=== PATIENT | female | born 1955 | race Hispanic/Latino ===

== ENCOUNTER 2020-03-05 23:35 | Emergency (ER) | payer BC, OTHER ==
[~2020-03-05] VITALS: Ht 162.6 cm; Wt 121.1 kg
[~2020-03-05 23:35] MED LIST: CITALOPRAM HBR40 MG PO; LEVOTHYROXINE50 MCG PO; LISINOPRIL-HCT1 EAC2 PO; LOSARTAN POTASS25 MG PO; METFORMIN HCL500 MG PO
[2020-03-05] MEDS ORDERED: ONDANSETRON HCL INJ 2MG/ML 2ML 2 MG/ML VIAL IV STA (23:41)
[2020-03-05] MEDS ORDERED: SODIUM CHLORIDE 0.9% 1000ML 1,000 ML IV STA (23:41)
[2020-03-05] MEDS ORDERED: MORPHINE SULFATE INJ 4 MG/ML INJ 1ML IV STA (23:41)
[2020-03-05 23:57] LABS: BASOPHILS # (AUTO) 0.1 (0.0-0.1); BASOPHILS % 0.6 % (0.0-1.0); EOSINOPHILS # (AUTO) 0.2 (0.0-0.4); EOSINOPHILS % 2.2 % (0.0-6.0); HEMATOCRIT 31.9 % (34.2-44.1); HEMOGLOBIN 10.5 g/dL (12.0-16.0); LYMPHOCYTES # (AUTO) 1.8 (1.0-3.2); MEAN CORPUSCULAR HEMOGLOBIN 23.6 pg (28-32); MEAN CORPUSCULAR HGB CONC 32.9 g/dL (31-35); MEAN CORPUSCULAR VOLUME 71.7 fL (81-99); MONOCYTES # (AUTO) 0.7 (0.2-0.8); MONOCYTES % 7.9 % (4.4-11.3); NEUTROPHILS # (AUTO) 5.6 (2.1-6.9); NEUTROPHILS % 67.1 % (38.7-80.0); PLATELET COUNT 115 x10e3/uL (140-360); RED BLOOD COUNT 4.45 x10e6/uL (3.6-5.1); RED CELL DISTRIBUTION WIDTH 22.7 % (11.7-14.4)
[2020-03-06] MEDS ORDERED: FAMOTIDINE 20 MG/2 ML VIAL IV STA (00:02)
[2020-03-06] MEDS ORDERED: ONDANSETRON HCL INJ 2MG/ML 2ML 2 MG/ML VIAL ONE (00:16)
[2020-03-06] MEDS ORDERED: SODIUM CHLORIDE 0.9% 1000ML 1,000 ML ONE (00:16)
[2020-03-06 00:20] LABS: ALBUMIN 3.3 g/dL (3.5-5.0); ALBUMIN/GLOBULIN RATIO 0.7 (0.8-2.0); ANION GAP 15.8 mmol/L (8-16); CALCIUM 9.8 mg/dL (8.4-10.2); CREATININE, SERUM 1.2 mg/dL (0.57-1.11); POTASSIUM 4.8 mmol/L (3.5-5.1)
[2020-03-06] MEDS ORDERED: MORPHINE SULFATE INJ 4 MG/ML INJ 1ML ONE ×2 (00:26→00:27)
[2020-03-06 00:28] LABS: BILIRUBIN,URINE NEGATIVE (NEGATIVE); CLARITY,URINE SL CLOUDY (CLEAR); COLOR,URINE YELLOW (YELLOW); KETONES,URINE NEGATIVE (NEGATIVE); LEUKOCYTE ESTERASE ,URINE NEGATIVE (NEGATIVE); NITRITE,URINE NEGATIVE (NEGATIVE); PROTEIN,URINE DIPSTICK NEGATIVE (NEGATIVE); URINE UROBILINOGEN 0.2 mg/dL (0.2 - 1)
[2020-03-06 00:34] LABS: BACTERIA,URINE FEW /HPF; EPITHELIAL CELLS,URINE MANY /LPF; RBC,URINE 0-5 /HPF (0-5); WBC,URINE (MAN) 0-5 /HPF (0-5)
[2020-03-06] MEDS ORDERED: SODIUM CHLORIDE 0.9% 50ML 50 ML ONE (00:50)
[2020-03-06] MEDS ORDERED: IOPAMIDOL 370 MG/ML 200 ML INFUS..BTL INJ ONE (00:50)
[2020-03-06 01:59] VITALS: BP 113/72
== END 2020-03-06 02:26 | disposition home or self-care (01) ==
LOC: ER 23:42
DX: R10.31 Right lower quadrant pain (principal); N28.9 Disorder of kidney and ureter, unspecified; E11.65 Type 2 diabetes mellitus with hyperglycemia; I10 Essential (primary) hypertension
CPT/HCPCS: 36415; 74177; 80053; 81001; 83690; 85025; 93005; 99284; J2270; J2405; J7030; Q9967

== ENCOUNTER 2020-04-17 16:35 | Emergency (ER) | payer BC ==
[~2020-04-17] VITALS: Ht 154.9 cm; Wt 115.7 kg
--- NOTE | 2020-04-17 16:54 | NUR ---
laundry housekeeper called to request 1:1 sitter
--- NOTE | 2020-04-17 17:24 | NUR ---
requested phlebotomy to draw patient
[2020-04-17 17:44] LABS: ALBUMIN 3.4 g/dL (3.5-5.0); ALBUMIN/GLOBULIN RATIO 0.7 (0.8-2.0); ANION GAP 14.7 mmol/L (8-16); CALCIUM 9.3 mg/dL (8.4-10.2); CREATININE, SERUM 1.13 mg/dL (0.57-1.11); POTASSIUM 4.7 mmol/L (3.5-5.1)
[2020-04-17 17:46] LABS: BASOPHILS % 0.5 % (0.0-1.0); EOSINOPHILS # (AUTO) 0.2 (0.0-0.4); EOSINOPHILS % 3.4 % (0.0-6.0); HEMATOCRIT 32.8 % (34.2-44.1); HEMOGLOBIN 10.3 g/dL (12.0-16.0); LYMPHOCYTES # (AUTO) 1.1 (1.0-3.2); LYMPHOCYTES % 16.4 % (18.0-39.1); MEAN CORPUSCULAR HEMOGLOBIN 21.7 pg (28-32); MEAN CORPUSCULAR HGB CONC 31.4 g/dL (31-35); MEAN CORPUSCULAR VOLUME 69.2 fL (81-99); MONOCYTES # (AUTO) 0.5 (0.2-0.8); MONOCYTES % 7.5 % (4.4-11.3); NEUTROPHILS # (AUTO) 4.6 (2.1-6.9); NEUTROPHILS % 71.9 % (38.7-80.0); PLATELET COUNT 159 x10e3/uL (140-360); RED BLOOD COUNT 4.74 x10e6/uL (3.6-5.1); RED CELL DISTRIBUTION WIDTH 21.2 % (11.7-14.4)
--- NOTE | 2020-04-17 17:49 | Emergency Department Note ---
History of Present Illnes History of Present Illness Chief Complaint: Suicide Attempt History of Present Illness This is a 65 year old female [place] [id number], pt states that she has been feeling anxious and has been sleepless for about 3 weeks, pt states that she feels anxious about all her medical problems including a newly diagnosed liver cancer, pt verbalizes suicidal ideations and an active plan to hurt herself, pt states that she wants to overdose on her medications and she does not want to live anymore. Historian: Patient Arrival Mode: Car EMS Treatment TRAINING OFFICER: IV Worm Packer Required: No Location: Chest Quality: Dull Radiation: Reports non-radiation Severity: mild Onset quality: sudden Duration (how long): day(s) Timing of current episode: sporadic Progression: worsening Chronicity: new Context: Denies recent illness, Denies recent surgery Relieving factors: none Exacerbating factors: none Associated symptoms: Reports denies other symptoms Treatments prior to arrival: none (MARGIE RAPHAEL MD) Past Medical/Family History Physician Review I have reviewed the patient's past medical and family history. Any updates have been documented here. (MARGIE RAPHAEL MD) Past Medical History Recent Fever: No Clinical Suspicion of Infectio: No New/Unexplained Change in Ment: No Past Medical History: Hypertension, Diabetes, Hypothyroidism Other Medical History: tumor on liver anemia Past Surgical History: Cholecysctectomy, Tubal Ligation (MARGIE RAPHAEL MD) Review of Systems Review of Systems Constitutional: Reports no symptoms EENTM: Reports no symptoms Cardiovascular: Reports chest pain Respiratory: Reports no symptoms Gastrointestinal: Reports no symptoms Genitourinary: Reports no symptoms Musculoskeletal: Reports no symptoms Integumentary: Reports no symptoms Neurological: Reports no symptoms Psychological: Reports as per HPI, Reports anxiety, Reports depressed, Reports emotional problems Endocrine: Reports no symptoms Hematological/Lymphatic: Reports no symptoms (MARGIE RAPHAEL MD) Physical Exam Related Data Allergies: Coded Allergies: No Known Allergies (Unverified , 03/06/20) Triage Vital Signs Vital Signs Date Time Temp Pulse Resp B/P (MAP) Pulse Ox O2 Delivery O2 Flow Rate FiO2 04/17/20 16:55 98.1 93 22 133/58 99 Room Air Vital signs reviewed: Yes (MARGIE RAPHAEL MD) Physical Exam CONSTITUTIONAL Constitutional: Present well-developed, Present well-nourished, Present distressed HENT HENT: Present normocephalic, Present atraumatic, Present oropharynx clear/moist, Present nose normal HENT L/R: Present left ext ear normal, Present right ext ear normal EYES Eyes: Reports PERRL, Reports conjunctivae normal NECK Neck: Present ROM normal PULMONARY Pulmonary: Present effort normal, Present breath sounds normal CARDIOVASCULAR Cardiovascular: Present regular rhythm, Present heart sounds normal, Present capillary refill normal, Present normal rate GASTROINTESTINAL Abdominal: Present soft, Present nontender, Present bowel sounds normal GENITOURINARY Genitourinary: Present exam deferred SKIN Skin: Present warm, Present dry MUSCULOSKELETAL Musculoskeletal: Present ROM normal NEUROLOGICAL Neurological: Present alert, Present oriented x 3, Present no gross motor or sensory deficits PSYCHOLOGICAL Psychological: Absent mood/affect normal, Absent behavior normal, Absent judgement normal (MARGIE RAPHAEL MD) Results Laboratory Laboratory Laboratory Tests Test 04/17/20 17:37 04/17/20 17:08 Lab results reviewed: Yes (MARGIE RAPHAEL MD) Laboratory Laboratory Tests Test 04/17/20 22:15 04/17/20 19:01 04/17/20 17:54 04/17/20 17:37 Creatine Kinase 26 IU/L (29-168) 29 IU/L (29-168) Creatine Kinase MB 0.60 ng/mL (0-5.0) 0.70 ng/mL (0-5.0) Troponin I < 0.001 ng/mL (0-0.300) < 0.001 ng/mL (0-0.300) Coronavirus (PCR) Not detected (NOTDETECTED) Urine Color Yellow (YELLOW) Urine Clarity Clear (CLEAR) Urine pH 6 (5 - 7) Urine Specific [place] >=1.030 (1.010-1.025) Urine Protein Negative (NEGATIVE) Urine Glucose (UA) Negative (NEGATIVE) Urine Ketones Negative (NEGATIVE) Urine Blood Negative (NEGATIVE) Urine Nitrite Negative (NEGATIVE) Urine Bilirubin Small (NEGATIVE) Urine Urobilinogen 0.2 mg/dL (0.2 - 1) Urine Leukocyte Esterase Negative (NEGATIVE) Urine RBC 0-5 /HPF (0-5) Urine WBC 0-5 /HPF (0-5) Urine Epithelial Cells Few /LPF (NONE) Urine Bacteria Rare /HPF (NONE) Urine Opiates Screen Positive (NEGATIVE) Urine Methadone Screen Negative (NEGATIVE) Urine Barbiturates Screen Negative (NEGATIVE) Urine Phencyclidine Screen Negative (NEGATIVE) Urine Amphetamines Screen Negative (NEGATIVE) Urine Methamphetamines Screen Negative (NEGATIVE) Urine Benzodiazepines Screen Negative (NEGATIVE) Urine Cocaine Screen Negative (NEGATIVE) Urine Cannabinoids Screen Negative (NEGATIVE) White Blood Count 6.41 x10e3/uL (4.8-10.8) Red Blood Count 4.74 x10e6/uL (3.6-5.1) Hemoglobin 10.3 g/dL (12.0-16.0) Hematocrit 32.8 % (34.2-44.1) Mean Corpuscular Volume 69.2 fL (81-99) Mean Corpuscular Hemoglobin 21.7 pg (28-32) Mean Corpuscular Hemoglobin Concent 31.4 g/dL (31-35) Red Cell Distribution Width 21.2 % (11.7-14.4) Platelet Count 159 x10e3/uL (140-360) Neutrophils (%) (Auto) 71.9 % (38.7-80.0) Lymphocytes (%) (Auto) 16.4 % (18.0-39.1) Monocytes (%) (Auto) 7.5 % (4.4-11.3) Eosinophils (%) (Auto) 3.4 % (0.0-6.0) Basophils (%) (Auto) 0.5 % (0.0-1.0) Neutrophils # (Auto) 4.6 (2.1-6.9) Lymphocytes # (Auto) 1.1 (1.0-3.2) Monocytes # (Auto) 0.5 (0.2-0.8) Eosinophils # (Auto) 0.2 (0.0-0.4) Basophils # (Auto) 0.0 (0.0-0.1) Absolute Immature Granulocyte (auto 0.02 x10e3/uL (0-0.1) Thyroid Stimulating Hormone (TSH) 2.567 uIU/mL (0.350-4.940) Salicylates Level < 5.0 mg/dL (0-30) Acetaminophen Level < 3.0 ug/mL (10-30) Ethyl Alcohol Level < 10.0 mg/dL (0.0-10.0) Test 04/17/20 17:08 Sodium Level 137 mmol/L (136-145) Potassium Level 4.7 mmol/L (3.5-5.1) Chloride Level 107 mmol/L (98-107) Carbon Dioxide Level 20 mmol/L (22-29) Anion Gap 14.7 mmol/L (8-16) Blood Urea Nitrogen 14 mg/dL (7-26) Creatinine 1.13 mg/dL (0.57-1.11) Estimat Glomerular Filtration Rate 48 ML/MIN (60-) BUN/Creatinine Ratio 12 (6-25) Glucose Level 175 mg/dL (74-118) Calcium Level 9.3 mg/dL (8.4-10.2) Total Bilirubin 1.0 mg/dL (0.2-1.2) Aspartate Amino Transf (AST/SGOT) 56 IU/L (5-34) Alanine Aminotransferase (ALT/SGPT) 22 IU/L (0-55) Alkaline Phosphatase 116 IU/L (40-150) Troponin I 0.002 ng/mL (0-0.300) Total Protein 8.4 g/dL (6.5-8.1) Albumin 3.4 g/dL (3.5-5.0) Globulin 5.0 g/dL (2.3-3.5) Albumin/Globulin Ratio 0.7 (0.8-2.0) Lipase 39 U/L (8-78) Lab results reviewed: Yes (ERAN ROBERSON MD) Imaging Imaging results reviewed: Yes (MARGIE RAPHAEL MD) Diagnostics Tests Diagnostic test(s) reviewed: Yes (MARGIE RAPHAEL MD) Procedures 12 Lead ECG Interpretation ECG Interpretation : Worm Packer: Interpreted by ED physician Date: Apr 17, 2020 Rhythm: sinus rhythm Rate: normal QRS axis: left Conduction: complete RBBB ST segments normal: Yes T wave inversion: V1 (MARGIE RAPHAEL MD) Assessment & Plan Medical Decision Making MDM 65 -year-old female past medical history depression and liver cancer presents emergency arm for anxiety, depression, chest pain, surgical herself. Her plan would be to take all of her medications. She is visibly distressed and anxious in the exam room. She has workup initiated as well as psychiatric workup and evaluation. We will consult the MAT team to evaluate once she is medically cleared. (MARGIE RAPHAEL MD) MDM PT WITH NEGATIVE CARDIAC ENZYMES TIMES 2, MAT TEAM CALLED FOR PSYCH EVAL AND PLACEMENT [id number] mat team has evaluated pt and pt agrees to be admitted voluntarily to psych facility [id number] blevins at [facility] for psychiatric care and he accepts pt for transfer (ERAN ROBERSON MD) Assessment & Plan Final Impression: (1) Suicidal ideation (2) Chest pain (MARGIE RAPHAEL MD) Depart Disposition: XFER TO PSYCH HOSP/UNIT Last Vital Signs Date Time Temp Pulse Resp B/P (MAP) Pulse Ox O2 Delivery O2 Flow Rate FiO2 04/17/20 16:55 98.1 93 22 133/58 99 Room Air (MARGIE RAPHAEL MD) Home Meds Reported Medications Lisinopril/Hydrochlorothiazide (LISINOPRIL-HCTZ 10-12.5 MG TAB) 1 Each Tablet, PO DAILY 07/22/16 Levothyroxine Sodium (LEVOTHYROXINE SODIUM) 50 Mcg Tablet, 50 MCG PO DAILY, #30 TAB 07/22/16 Metformin Hcl (METFORMIN HCL) 500 Mg Tablet, 500 MG PO BID, #60 TAB 07/22/16 Citalopram Hydrobromide (CITALOPRAM HBR) 40 Mg Tablet, 40 MG PO DAILY 07/22/16 Losartan Potassium (LOSARTAN POTASSIUM) 25 Mg Tablet, 25 MG PO DAILY 07/22/16 MARGIE RAPHAEL MD Apr 17, 2020 17:49 ERAN ROBERSON MD Apr 18, 2020 00:44
--- OUTSIDE RECORDS SUMMARY | 2020-04-17 17:54 | XMS REPORT | Continuity of Care Document ---
Author Author [facility] Organization Infectious Address Unknown Phone Unavailable Care Team Providers Care Independent Marketing Consultant Name Role Phone PandoDaily Information [employer] Unavailable Un available Problems Problem Status Onset Date Classification Date Reported Comments Source BEDDED OP/IMAGE GUIDED DIAGNOSTIC HEPATI Active 04/09/2020 [facility] LABH Active 03/19/2020 [facility] Unspecified abdominal pain 03/15/2020 03/24/2020 [facility] Vomiting, unspecified 03/15/2020 03/24/2020 [facility] ABD PAIN Active 03/14/2020 [facility] VOMITING Active 03/14/2020 [facility] CLINIC F/U VISIT Active 02/01/2020 [facility] PRE-LIVER CONSULT Active 01/19/2020 [facility] Low back pain 04/15/2018 10/27/2018 [facility] M54.5 - LOW BACK PAIN Active 04/07/2018 [facility] M46.92 - UNSPECIFIED INFLAMMATORY SPOND Active 06/12/2016 [facility] Other specific arthropathies, not elsewh ere classified, vertebrae 10/27/2018 [facility] Bilateral lower limb edema Act ellen Problem [facility], E DDC Cirrhosis of liver (disorder) Active Problem [facility] E DDC Hepatic encephalopathy (disorder) Active Problem [facility] E DDC Hypertensive disorder, systemic arterial (disorder) Active Problem 04/13/2020 [facility] EDDC Hypothyroidism (disorder) Acti ve Problem [facility] E DDC Irritable colon (disorder) Act ellen Problem [facility] E DDC Liver cell carcinoma (disorder) Active Problem [facility] E DDC Major depressive disorder (disorder) Resolved Problem [facility] E DDC Obese class I (finding) Active Problem 04/13/2020 [facility] DDC Obstructive sleep apnea syndrome (disorder) Active Problem 04/13/2020 [facility] EDDC Osteoarthritis (disorder) Acti ve Problem [facility] E DD Diabetes mellitus type 2 (disorder) Active Problem [facility], E DD Abnormal vaginal bleeding (finding) Active Problem [facility] VOMITING, UNSPECIFIED Active [facility] Active [facility] Medications Medication Details Route Status Patient Instructions Ordering Provider Order Date Source Dilaudid 0.2 mg, Route: IVP, Q 4H, Dosing Weight 106.818, kg, PRN Pain Score 7-10, Start date: 04/11/20 15:42:00 [facility] [employer] [employer], Duration: 30 day, Stop date: 05/11/20 15:41:00 [facility] [employer] No Longer Active 04/11/2020 [facility] Acetaminophen 325 MG / Hydrocodone Yefri trate 5 MG Oral Tablet [[place] 5/325] 2 tab, Route: PO, Drug Form: TAB, Dosing Weight 106.818, kg, Q4H, PRN Pain Score 4-6, Start date: 04/11/20 15:07:00 [employer], Duration: 30 day, Stop date: 05/11/20 15:06:00 [facility] [employer] [employer] No Longer Active 04/11/2020 [facility] Dilaudid 0.5 mg, Route: IV, ON CE, Dosing Weight 106.818, kg, Start date: 04/11/20 12:49:00 [employer], Stop date: 04/11/20 12:49:00 [facility] [employer] Inactive 04/11/2020 [facility] Dilaudid 0.5 mg, Route: IV, ON CE, Dosing Weight 106.818, kg, Start date: 04/11/20 12:42:00 [employer], Stop date: 04/11/20 12:42:00 [facility] [employer] [employer] Inactive 04/11/2020 [facility] Dilaudid 0.5 mg, Route: IV, ON CE, Dosing Weight 106.818, kg, Start date: 04/11/20 12:18:00 [employer], Stop date: 04/11/20 12:18:00 [facility] [employer] [employer] Inactive 04/11/2020 [facility] Dilaudid 0.5 mg, Route: IV, ON CE, Dosing Weight 106.818, kg, Start date: 04/11/20 11:15:00 [employer], Stop date: 04/11/20 11:15:00 [facility] [employer] Inactive 04/11/2020 [facility] Lidocaine Hydrochloride 10 MG/ML Injectable Solution 5 mL, Route: INTRADERM, Dosing Weight 106.818, kg, ONCE, Start date: 04/11/20 11:05:00 [employer], Stop date: 04/11/20 11:05:00 [employer] Inactive 04/11/2020 [facility] Fentanyl Route: IV, ONCE, Dosi ng Weight 106.818, kg, Start date: 04/11/20 10:43:00 [employer], Stop date: 04/11/20 10:43:00 [employer] Inactive 04/11/2020 [facility] Zofran 4 mg, Route: IVP, Drug form: INJ, ONCE, Dosing Weight 106.818, kg, Start date: 04/11/20 9:25:00 [employer], Stop date: 04/11/20 9:25:00 [employer] Inactive 04/11/2020 [facility] Tylenol 1,000 mg, 2 tab, Route : PO, Drug form: TAB, ONCE, Dosing Weight 106.818, kg, Start date: 04/11/20 9:25:00 [employer], Stop date: 04/11/20 9:25:00 [employer], 0 Inactive 04/11/2020 [facility] Tramadol 50 mg, PO, Q4-6H, PRN Pain, # 20 tab, 0 Refill(s) Active 04/10/2020 [facility] Promethazine 12.5 mg, Route: I VPB, ONCE, Dosing Weight 119.545, kg, PRN Nausea & Vomiting, Start date: 04/03/20 15:25:00 [employer] Inactive 04/03/2020 [facility] Ondansetron 4 mg, Route: IV, O NCE, Dosing Weight 119.545, kg, Start date: 04/03/20 14:23:00 [employer], Stop date: 04/03/20 14:23:00 [employer] Inactive 04/03/2020 [facility] heparin 3,000 unit, Route: IV, ONCE, Dosing Weight 119.545, kg, Start date: 04/03/20 14:10:00 [employer], Stop date: 04/03/20 14:10:00 [employer] Inactive 04/03/2020 [facility] Nitroglycerin 50 microgram, [place]: IV, ONCE, Dosing Weight 119.545, kg, Start date: 04/03/20 14:10:00 [employer], Stop date: 04/03/20 14:10:00 [employer] Inactive 04/03/2020 [facility] Verapamil 2.5 mg, Route: INTRA ARTERIAL, ONCE, Dosing Weight 119.545, kg, Start date: 04/03/20 14:10:00 [employer], Stop date: 04/03/20 14:10:00 [employer] Inactive 04/03/2020 [facility] Hydromorphone 0.5 mg, Route: I V, ONCE, Dosing Weight 119.545, kg, Start date: 04/03/20 13:05:00 [employer], Stop date: 04/03/20 13:05:00 [employer] Inactive 04/03/2020 [facility] Hydromorphone 0.5 mg, Route: I V, ONCE, Dosing Weight 119.545, kg, Start date: 04/03/20 12:35:00 [employer], Stop date: 04/03/20 12:35:00 [employer] Inactive 04/03/2020 [facility] Fentanyl 25 microgram, Route: IV, ONCE, Dosing Weight 119.545, kg, Start date: 04/03/20 12:00:00 [employer], Stop date: 04/03/20 12:00:00 [employer] Inactive 04/03/2020 [facility] Zofran 4 mg, Route: IV, ONCE, Dosing Weight 119.545, kg, Start date: 04/03/20 11:23:00 [employer], Stop date: 04/03/20 11:23:00 [employer] Inactive 04/03/2020 [facility] Fentanyl 50 microgram, Route: IV, ONCE, Dosing Weight 119.545, kg, Start date: 04/03/20 11:10:00 [employer], Stop date: 04/03/20 11:10:00 [employer] Inactive 04/03/2020 [facility] Lidocaine Hydrochloride 10 MG/ML Injectable Solution 15 mL, Route: SUB-Q, Dosing Weight 119.545, ONCE, Start date: 04/03/20 10:44:00 [employer], Stop date: 04/03/20 10:44:00 [employer] Inactive 04/03/2020 [facility] Fentanyl 75 microgram, Route: IV, ONCE, Dosing Weight 119.545, kg, Start date: 04/03/20 10:43:00 [employer], Stop date: 04/03/20 10:43:00 [employer] Inactive 04/03/2020 [facility] Ondansetron 0 Refill(s) Active 04/03/2020 [facility] Baclofen PO, TID, 0 Refill(s) Active 04/03/2020 [facility] Escitalopram PO, Daily, 0 Refi ll(s) Active 04/03/2020 [facility] acetaminophen-codeine #3 PO, Q 6H, 0 Refill(s) Active 04/03/2020 [facility] Lactulose 667 MG/ML Oral Solution 20 gm = 30 mL, PO, TID, X 30 day, # 2700 mL, 0 Refill(s), Pharmacy: [id number], 160.02, cm, 03/15/20 6:00:00 CDT, Height, 118.182, kg, 03/15/20 6:00:00 CDT, Weight Active 03/22/2020 [facility] tramadol hydrochloride 50 MG Oral Tablet 50 mg = 1 tab, PO, Daily, PRN Pain Score 7-10, X 5 day, # 5 tab, 0 Refill(s), Pharmacy: [id number], 160.02, cm, 03/15/20 6:00:00 CDT, Height, 118.182, kg, 03/15/20 6:00:00 CDT, Weight Active 03/22/2020 [facility] pantoprazole Notes: Tablet jorge uld not be chewed or crushed. (Same as: Protonix) N o Longer Active 03/21/2020 [facility] Melatonin 3 MG Extended Release Tablet Notes: (Same as: Melatonin) No Longer Active 03/20/2020 [facility] Lactulose 667 MG/ML Oral Solution Notes: (Same as:Chronulac) No Longer Active 03/20/2020 [facility] Cytotec Notes: (Same as:Cytote c) Hazardous Drug Group 3:Reproductive risk Hazardous Drug -- Refer to safe handling procedure PPE Matrix Take with food Inactive 03/20/2020 [facility] nt pantoprazole 40 mg, Route: PO, Drug form: ECTAB, Before Dinner, Dosing Weight 118.182, kg, Start date: 03/19/20 16:30:00 CDT, Duration: 30 day, Stop date: 04/17/20 16:30:00 [employer] Inactive 03/19/2020 [facility] tramadol hydrochloride 50 MG Oral Tablet Notes: Not to exceed 400mg/day. (Same As: Ultram) No Longer Active 03/19/2020 [facility] Oxycodone Hydrochloride 5 MG Oral Tablet 5 mg, Route: PO, Drug form: TAB, Q6H, Dosing Weight 118.182, kg, PRN Pain Score 7-10, Start date: 03/19/20 16:09:00 CDT, Duration: 30 day, Stop date: 04/18/20 16:08:00 [facility] Inactive 03/19/2020 [facility] Docusate Sodium 50 MG Oral Capsule [Colace] Notes: (Same as: Colace) (Do Not Crush) No Longer Active 03/19/2020 [facility] sennosides, PRISON 8.6 MG Oral Tablet Notes: (Same as: Senokot) No Longer Active 03/18/2020 [facility] Miralax Notes: Dissolve in 8 o z of water or juice. (Same as: Miralax) No Longer Active 03/18/2020 [facility] magnesium citrate 58.2 MG/ML Oral Solution Notes: (Same as: Citrate of Magnesia) Concentration: 1.745 gm / 30 mL Inactive 03/18/2020 [facility] Fleet Mineral Oil Enema Notes: (Same as:Fleet Mineral Oil Enema) Inactive 03/17/2020 [facility] Ativan Notes: (Same as: Ativan) Inactive 03/17/2020 [facility] Protonix 40 mg, Route: IVP, Dr ug form: INJ, Before Breakfast, Dosing Weight 118.182, kg, Start date: 03/16/20 7:30:00 CDT, Duration: 30 day, Stop date: 04/14/20 7:30:00 [employer] [employer], 0 No Longer Active 03/16/2020 [facility] Levothroid 25 microgram, 1 tab , Route: PO, Drug form: TAB, Q6AM, Dosing Weight 118.182, kg, Start date: 03/16/20 6:00:00 CDT, Duration: 30 day, Stop date: 04/14/20 6:00:00 [employer] [employer], 0 No Longer Active 03/16/2020 [facility] Lactulose Notes: (Same as:Flake Miller Helper nulac) No Longer Active 03/15/2020 [facility] albumin human 25% intravenous solution Notes: Lot #: Mfg: (Same as: Plasbumin-25) "blood product derivative" WASTE: F/P - Red; E -Red MEDICATION WASTE Product Size: 25 gm Product Wasted: _0__ gm Active 03/15/2020 [facility] heparin Notes: porcine heparin No Longer Active 03/15/2020 [facility] XIFAXAN Notes: Same as: Xifaxan No Longer Active 03/15/2020 [facility] Acetaminophen 325 MG / Hydrocodone Yefri trate 5 MG Oral Tablet [[place] 5/325] Notes: (Same as: [place] 325/5) Do not ex ceed 4gm/day of acetaminophen. No Longer Activ e 03/15/2020 [facility] Dextrose 5% with 0.45% NaCl IV 1,000 mL 1,000 mL, Rate: 75 ml/hr, Infuse over: 13.3 hr, Route: IV, Dosing Weight 118.182 kg, Total Volume: 1,000, Start date: 03/15/20 8:23:00 CDT, Duration: 30 day, Stop date: 04/14/20 8:22:00 [place] [place] [employer], 2.34, m2, 0 No Longer Active 03/15/2020 [facility] Dextrose 50% Syringe (D50W) 12 .5 gm, 25 mL, Route: IVP, Drug Form: INJ, Dosing Weight 118.182, kg, PRN, PRN Blood Glucose Results, Start date: 03/15/20 8:17:00 CDT, Duration: 30 day, Stop date: 04/14/20 7:16:00 [place] [employer], 0 No Longer Active 03/15/2020 [facility] Glucagon 1 mg, Route: IM, Drug form: PDR/INJ, PRN, Dosing Weight 118.182, kg, PRN Blood Glucose Results, Start date: 03/15/20 8:17:00 CDT, Duration: 30 day, Stop date: 04/14/20 7:16:00 [place] [employer], 0 No Longer Active 03/15/2020 [facility] Insulin Lispro Notes: (Same as : Humalog) Roll in palms of hands gently; Do not shake vigorously. WASTE: F/P - Black; E - Municipal Trash Bin Stable for 28 days at room temperature. Expires in days from Date No Longer Active 03/15/2020 [facility] Dextrose 50% Syringe (D50W) 12 .5 gm, 25 mL, Route: IVP, Drug Form: INJ, Dosing Weight 118.182, kg, PRN, PRN Blood Glucose Results, Start date: 03/15/20 8:15:00 CDT, Duration: 30 day, Stop date: 04/14/20 7:14:00 [place] [employer], 0 No Longer Active 03/15/2020 [facility] Glucagon 1 mg, Route: IM, Drug form: PDR/INJ, PRN, Dosing Weight 118.182, kg, PRN Blood Glucose Results, Start date: 03/15/20 8:15:00 CDT, Duration: 30 day, Stop date: 04/14/20 7:14:00 [employer] [employer], 0 No Longer Active 03/15/2020 [facility] Ondansetron Notes: (Same as: Cordelia boston) MEDICATION WASTE Product Size: 4 mg Product Wasted: _0__ mg No Longer Active 03/15/2020 [facility] Acetaminophen Notes: Do not ex ceed 4 gm/day. (Same as: Tylenol) No Longer Active 03/15/2020 [facility] Al hydroxide/Mg hydroxide/simethicone Notes: (aluminum hydroxide-magnesium hyd-simethicone [phone]/5ml 30 ml ud MAHENDRA) Inactive 03/15/2020 [facility] Xylocaine Viscous 2% mucous membrane solution Notes: (Same as: Xylocaine) Inactive 03/15/2020 [facility] GI cocktail (aluminum hydroxide/magnesiu m hydroxide/lidocaine/simethicone) 45 ml, Route: PO, Drug Form: SUSP, Dosin g Weight 124.091, kg, ONCE, Routine, Start date: 03/15/20 4:25:00 CDT, Stop date: 03/15/20 4:25:00 CDT Inactive 03/15/2020 [facility] Reglan 10 mg, Route: IVP, Drug form: INJ, ONCE, Dosing Weight 124.091, kg, Priority: STAT, Start date: 03/15/20 4:25:00 CDT, Stop date: 03/15/20 4:25:00 CDT Inactive 03/15/2020 [facility] Morphine 4 mg, Route: IVP, ONC E, Dosing Weight 124.091, kg, Priority: STAT, Start date: 03/15/20 2:48:00 CDT, Stop date: 03/15/20 2:48:00 CDT Inactive 03/15/2020 [facility] Zofran 4 mg, Route: IVP, Drug form: INJ, ONCE, Dosing Weight 124.091, kg, Priority: STAT, Start date: 03/15/20 2:48:00 CDT, Stop date: 03/15/20 2:48:00 CDT Inactive 03/15/2020 [facility] Morphine 4 mg, Route: IVP, ONC E, Dosing Weight 124.091, kg, Priority: STAT, Start date: 03/15/20 0:31:00 CDT, Stop date: 03/15/20 0:31:00 CDT Inactive 03/15/2020 [facility] Zofran 4 mg, Route: IVP, Drug form: INJ, ONCE, Dosing Weight 124.091, kg, Priority: STAT, Start date: 03/15/20 0:31:00 CDT, Stop date: 03/15/20 0:31:00 CDT Inactive 03/15/2020 [facility] Calcium Chloride 0.0014 MEQ/ML / Potassi um Chloride 0.004 MEQ/ML / Sodium Chloride 0.103 MEQ/ML / Sodium Lactate 0.028 MEQ/ML Injectable Solution 1,000 mL, 1,000 ml/hr, Infuse Over: 1 hr , Route: IV, 1,000, Drug form: INJ, ONCE, Priority: STAT, Dosing Weight 124.091 kg, Start date: 03/14/20 21:52:00 CDT, Stop date: 03/14/20 21:52:00 CDT, 0 Inactive 03/15/2020 [facility] Morphine Notes: (Same as:MORPh ine Sulfate) Inactive 03/15/2020 [facility] Zofran Notes: (Same as: Zofran ) MEDICATION WASTE Product Size: 4 mg Product Wasted: ___ mg Inactive 03/15/2020 [facility] Furosemide 40 MG Oral Tablet 6 0 mg = 1.5 tab, PO, Daily, # 45 tab, 3 Refill(s), Pharmacy: [id number], please d/c previous RX for furosemide, 157.48, cm, 02/27/20 11:56:00 CDT, Height, 124.091, kg, 02/27/20 11:56:00 CDT, Weight Active 02/28/2020 [facility] spironolactone 100 mg oral tablet 150 mg = 1.5 tab, PO, Daily, # 45 tab, 3 Refill(s), Pharmacy: [facility], please d/c previous RX for spironolactone, 157.48, cm, 02/27/20 11:56:00 CDT, Height, 124.091, kg, 02/27/20 11:56:00 CDT, Weight Active 02/28/2020 [facility] rifaximin 550 MG Oral Tablet [XIFAXAN] 550 mg = 1 tab, PO, BID, # 60 tab, 11 Refill(s), Pharmacy: [facility], 157.48, cm, 02/27/20 11:56:00 CDT, Height, 124.091, kg, 02/27/20 11:56:00 CDT, Weight Active 02/28/2020 [facility] Furosemide 40 MG Oral Tablet 4 0 mg = 1 tab, PO, Daily, # 30 tab, 3 Refill(s), Pharmacy: [facility], 157.48, cm, 01/22/20 14:08:00 CDT, Height, 130.136, kg, 01/22/20 14:08:00 CDT, Weight Active 01/22/2020 [facility] rifaximin 550 MG Oral Tablet [XIFAXAN] 550 mg = 1 tab, PO, BID, # 60 tab, 3 Refill(s), Pharmacy: [id number], 157.48, cm, 01/22/20 14:08:00 CDT, Height, 130.136, kg, 01/22/20 14:08:00 CDT, Weight Active 01/22/2020 [facility] Metformin hydrochloride 500 MG Oral Tablet 500 mg = 1 tab, PO, BID-Meals Active 01/22/2020 [facility] Hydrochlorothiazide 12.5 MG / Lisinopril 10 MG Oral Tablet 1 tab, PO, Daily Inactive 01/22/2020 [facility] tramadol hydrochloride 50 MG Oral Tablet 50 mg = 1 tab, PO, Daily, PRN Pain Active 01/22/2020 [facility] pantoprazole 40 mg oral enteric coated tablet 40 mg = 1 tab, PO, Daily Active 01/22/2020 [facility] temazepam 15 mg oral capsule 1 5 mg = 1 cap, PO, Bedtime, PRN Sleep Active 01/22/2020 [facility] spironolactone 25 mg oral tablet 25 mg = 1 tab, PO, BID Active 01/22/2020 [facility] Levothroid 25 mcg (0.025 mg) oral tablet 25 microgram = 1 tab, PO, Daily Active 01/22/2020 [facility] Allergies, Adverse Reactions, Alerts Substance Category Reaction Severity Reaction type Status Date Reported Comments Source No Known Medication Allergies Assertion Drug aller gy [facility] Immunizations No Data Provided for This Section Results Order Name Results Value Reference Range Date Interpretation Comments Source BLOOD BANK RESULTS ABO/Rh O POS 04/11/2020 [facility] BLOOD BANK RESULTS Antibody Scrn Negative (04/11/20 9:12 AM) 04/11/2020 [facility] CHEM PANEL Glucose Lvl 115 70 - 99 04/11/2020 [facility] CHEM PANEL BUN 18 7 - 22 04/11/2020 [facility] CHEM PANEL Creatinine Lvl 1.19 0.50 - 1.40 04/11/2020 [facility] CHEM PANEL Sodium Lvl 136 135 - 145 04/11/2020 [facility] CHEM PANEL Potassium Lvl 3.9 3.5 - 5.1 04/11/2020 [facility] CHEM PANEL Chloride Lvl 106 95 - 109 04/11/2020 [facility] CHEM PANEL CO2 22 24 - 32 04/11/2020 [facility] CHEM PANEL Calcium Lvl 9.4 8.5 - 10.5 04/11/2020 [facility] CHEM PANEL Total Protein 7.7 6.4 - 8.4 04/11/2020 [facility] CHEM PANEL Albumin Lvl 3.2 3.5 - 5.0 04/11/2020 [facility] CHEM PANEL ALT 23 0 - 65 04/11/2020 [facility] CHEM PANEL AST 43 0 - 37 04/11/2020 [facility] CHEM PANEL Alk Phos 114 39 - 136 04/11/2020 [facility] CHEM PANEL Bili Total 0.9 0.2 - 1.3 04/11/2020 [facility] CHEM PANEL AGAP 11.9 10.0 - 20.0 04/11/2020 [facility] CHEM PANEL B/C Ratio 15 6 - 25 04/11/2020 [facility] CHEM PANEL Globulin 4.5 2.7 - 4.2 04/11/2020 [facility] CHEM PANEL A/G Ratio 0.7 0.7 - 1.6 04/11/2020 [facility] CHEM PANEL eGFR 48 04/11/2020 Result Comment: The eGFR is calculated using the CKD-EPI formula. In most young, healthy individuals the eGFR will be >90 mL/min/1.73m2. The eGFR declines with age. An eGFR of 60-89 may be normal in some populations, particularly the elderly, for whom the CKD-EPI formula has not been extensively validated. Use of the eGFR is not recommended in the following populations:

Individuals with unstable creatinine concentrations, including patients and those with serious co-morbid conditions.

Patients with extremes in muscle mass or diet.

The data above are obtained from the National Kidney Disease Education Program (NKDEP) which additionally recommends that when the eGFR is used in patients with extremes of body mass index for purposes of drug dosing, the eGFR should be multiplied by the estimated BMI. [facility] HEMATOLOGY WBC 6.4 3.7 - 10.4 04/11/2020 [facility] HEMATOLOGY RBC 4.60 4.20 - 5.40 04/11/2020 [facility] HEMATOLOGY Hgb 10.2 12.0 - 16.0 04/11/2020 [facility] HEMATOLOGY Hct 31.7 36.0 - 48.0 04/11/2020 [facility] HEMATOLOGY MCV 68.9 80.0 - 98.0 04/11/[address] [facility] [facility] HEMATOLOGY MCH 22.2 27.0 - 31.0 04/11/2020 [facility] HEMATOLOGY MCHC 32.3 32.0 - 36.0 04/11/2020 [facility] HEMATOLOGY RDW 22.1 11.5 - 14.5 04/11/2020 [facility] HEMATOLOGY Platelet 123 133 - 450 04/11/2020 [facility] HEMATOLOGY MPV 9.3 7.4 - 10.4 04/11/2020 [facility] HEMATOLOGY PT 15.3 12.0 - 14.7 04/11/2020 [facility] HEMATOLOGY INR 1.20 0.85 - 1.17 04/11/2020 [facility] HEMATOLOGY RBC Morph Ivanna l (04/11/20 7:00 AM) Normal 04/11/2020 [facility] HEMATOLOGY Plt Morph Ivanna l (04/11/20 7:00 AM) Normal 04/11/2020 [facility] HEMATOLOGY Segs 65.4 45.0 - 75.0 04/11/2020 [facility] HEMATOLOGY Lymphocytes 23.0 20.0 - 40.0 04/11/2020 [facility] HEMATOLOGY Monocytes 8.4 2.0 - 12.0 04/11/2020 [facility] HEMATOLOGY Eosinophils 2.6 0.0 - 4.0 04/11/2020 [facility] HEMATOLOGY Basophils 0.6 0.0 - 1.0 04/11/2020 [facility] HEMATOLOGY Neutrophils # 4.2 1.5 - 8.1 04/11/2020 [facility] HEMATOLOGY Lymphocytes # 1.5 1.0 - 5.5 04/11/2020 [facility] HEMATOLOGY Monocytes # 0.5 0.0 - 0.8 04/11/2020 [facility] HEMATOLOGY Eosinophils # 0.2 0.0 - 0.5 04/11/2020 [facility] HEMATOLOGY Anisocyte 1+ *ABN* (04/11/20 7:00 AM) None Seen 04/11/2020 [facility] HEMATOLOGY Microcyte 2+ *ABN* (04/11/20 7:00 AM) None Seen 04/11/2020 [facility] CHEM PANEL Glucose Lvl 82 70 - 99 03/22/2020 [facility] CHEM PANEL BUN 11 7 - 22 03/22/2020 [facility] CHEM PANEL Creatinine Lvl 0.81 0.50 - 1.40 03/22/2020 [facility] CHEM PANEL Sodium Lvl 138 135 - 145 03/22/2020 [facility] CHEM PANEL Potassium Lvl 4.3 3.5 - 5.1 03/22/2020 [facility] CHEM PANEL Chloride Lvl 104 95 - 109 03/22/2020 [facility] CHEM PANEL CO2 26 24 - 32 03/22/2020 [facility] CHEM PANEL Calcium Lvl 9.9 8.5 - 10.5 03/22/2020 [facility] CHEM PANEL Total Protein 7.5 6.4 - 8.4 03/22/2020 [facility] CHEM PANEL Albumin Lvl 3.2 3.5 - 5.0 03/22/2020 [facility] CHEM PANEL ALT 25 0 - 65 03/22/2020 [facility] CHEM PANEL AST 51 0 - 37 03/22/2020 [facility] CHEM PANEL Alk Phos 107 39 - 136 03/22/2020 [facility] CHEM PANEL Bili Total 0.9 0.2 - 1.3 03/22/2020 [facility] CHEM PANEL AGAP 12.3 10.0 - 20.0 03/22/2020 [facility] CHEM PANEL B/C Ratio 14 6 - 25 03/22/2020 [facility] CHEM PANEL Globulin 4.3 2.7 - 4.2 03/22/2020 [facility] CHEM PANEL A/G Ratio 0.7 0.7 - 1.6 03/22/2020 [facility] CHEM PANEL eGFR 77 03/22/2020 Result Comment: The eGFR is calculated using the CKD-EPI formula. In most young, healthy individuals the eGFR will be >90 mL/min/1.73m2. The eGFR declines with age. An eGFR of 60-89 may be normal in some populations, particularly the elderly, for whom the CKD-EPI formula has not been extensively validated. Use of the eGFR is not recommended in the following populations:

Individuals with unstable creatinine concentrations, including patients and those with serious co-morbid conditions.

Patients with extremes in muscle mass or diet.

The data above are obtained from the National Kidney Disease Education Program (NKDEP) which additionally recommends that when the eGFR is used in patients with extremes of body mass index for purposes of drug dosing, the eGFR should be multiplied by the estimated BMI. [facility] HEMATOLOGY WBC 4.9 3.7 - 10.4 03/22/2020 [facility] HEMATOLOGY RBC 4.50 4.20 - 5.40 03/22/2020 [facility] HEMATOLOGY Hgb 10.3 12.0 - 16.0 03/22/2020 [facility] HEMATOLOGY Hct 32.0 36.0 - 48.0 03/22/2020 [facility] HEMATOLOGY MCV 71.2 80.0 - 98.0 03/22/2020 [facility] HEMATOLOGY MCH 22.9 27.0 - 31.0 03/22/2020 [facility] HEMATOLOGY MCHC 32.1 32.0 - 36.0 03/22/2020 [facility] HEMATOLOGY RDW 24.5 11.5 - 14.5 03/22/2020 [facility] HEMATOLOGY Platelet 92 133 - 450 03/22/2020 [facility] HEMATOLOGY MPV 9.9 7.4 - 10.4 03/22/2020 [facility] HEMATOLOGY Plt Morph Ivanna l (03/22/20 4:58 AM) Normal 03/22/2020 [facility] HEMATOLOGY Segs 49.7 45.0 - 75.0 03/22/2020 [facility] HEMATOLOGY Lymphocytes 39.1 20.0 - 40.0 03/22/2020 [facility] HEMATOLOGY Monocytes 6.5 2.0 - 12.0 03/22/2020 [facility] HEMATOLOGY Eosinophils 4.2 0.0 - 4.0 03/22/2020 [facility] HEMATOLOGY Basophils 0.5 0.0 - 1.0 03/22/2020 [facility] HEMATOLOGY Neutrophils # 2.4 1.5 - 8.1 03/22/2020 [facility] HEMATOLOGY Lymphocytes # 1.9 1.0 - 5.5 03/22/2020 [facility] HEMATOLOGY Monocytes # 0.3 0.0 - 0.8 03/22/2020 [facility] HEMATOLOGY Eosinophils # 0.2 0.0 - 0.5 03/22/2020 [facility] HEMATOLOGY Anisocyte 1+ *ABN* (03/22/20 4:58 AM) None Seen 03/22/2020 [facility] HEMATOLOGY Microcyte 2+ *ABN* (03/22/20 4:58 AM) None Seen 03/22/2020 [facility] HEMATOLOGY Target Cell Slight 03/22/2020 [facility] HEMATOLOGY PT 14.8 12.0 - 14.7 03/22/2020 [facility] HEMATOLOGY INR 1.15 0.85 - 1.17 03/22/2020 [facility] HEMATOLOGY PTT 40.5 22.9 - 35.8 03/22/2020 [facility] CHEM PANEL Glucose Lvl 73 70 - 99 03/21/2020 [facility] CHEM PANEL BUN 12 7 - 22 03/21/2020 [facility] CHEM PANEL Creatinine Lvl 0.79 0.50 - 1.40 03/21/2020 [facility] CHEM PANEL Sodium Lvl 137 135 - 145 03/21/2020 [facility] CHEM PANEL Potassium Lvl 4.6 3.5 - 5.1 03/21/2020 [facility] CHEM PANEL Chloride Lvl 105 95 - 109 03/21/2020 [facility] CHEM PANEL CO2 25 24 - 32 03/21/2020 [facility] CHEM PANEL Calcium Lvl 9.5 8.5 - 10.5 03/21/2020 [facility] CHEM PANEL AGAP 11.6 10.0 - 20.0 03/21/2020 [facility] CHEM PANEL eGFR 79 03/21/2020 Result Comment: The eGFR is calculated using the CKD-EPI formula. In most young, healthy individuals the eGFR will be >90 mL/min/1.73m2. The eGFR declines with age. An eGFR of 60-89 may be normal in some populations, particularly the elderly, for whom the CKD-EPI formula has not been extensively validated. Use of the eGFR is not recommended in the following populations:

Individuals with unstable creatinine concentrations, including patients and those with serious co-morbid conditions.

Patients with extremes in muscle mass or diet.

The data above are obtained from the National Kidney Disease Education Program (NKDEP) which additionally recommends that when the eGFR is used in patients with extremes of body mass index for purposes of drug dosing, the eGFR should be multiplied by the estimated BMI. [facility] HEMATOLOGY PT 14.7 12.0 - 14.7 03/21/2020 [facility] HEMATOLOGY INR 1.14 0.85 - 1.17 03/21/2020 [facility] HEMATOLOGY PTT 33.2 22.9 - 35.8 03/21/2020 [facility] HEMATOLOGY Plt Morph Ivanna l (03/21/20 5:07 AM) Normal 03/21/2020 [facility] HEMATOLOGY Segs 47.8 45.0 - 75.0 03/21/2020 [facility] HEMATOLOGY Lymphocytes 40.4 20.0 - 40.0 03/21/2020 [facility] HEMATOLOGY Monocytes 7.2 2.0 - 12.0 03/21/2020 [facility] HEMATOLOGY Eosinophils 3.6 0.0 - 4.0 03/21/2020 [facility] HEMATOLOGY Basophils 1.0 0.0 - 1.0 03/21/2020 [facility] HEMATOLOGY Neutrophils # 2.2 1.5 - 8.1 03/21/2020 [facility] HEMATOLOGY Lymphocytes # 1.8 1.0 - 5.5 03/21/2020 [facility] HEMATOLOGY Monocytes # 0.3 0.0 - 0.8 03/21/2020 [facility] HEMATOLOGY Eosinophils # 0.2 0.0 - 0.5 03/21/2020 [facility] HEMATOLOGY Anisocyte 1+ *ABN* (03/21/20 5:07 AM) None Seen 03/21/2020 [facility] HEMATOLOGY Microcyte 2+ *ABN* (03/21/20 5:07 AM) None Seen 03/21/2020 [facility] HEMATOLOGY Hypochrom 1+ (03/21/20 5:07 AM) None Seen 03/21/2020 [facility] HEMATOLOGY WBC 4.6 3.7 - 10.4 03/21/2020 [facility] HEMATOLOGY RBC 4.30 4.20 - 5.40 03/21/2020 [facility] HEMATOLOGY Hgb 9.6 12.0 - 16.0 03/21/2020 [facility] HEMATOLOGY Hct 30.4 36.0 - 48.0 03/21/2020 [facility] HEMATOLOGY MCV 70.6 80.0 - 98.0 03/21/2020 [facility] HEMATOLOGY MCH 22.4 27.0 - 31.0 03/21/2020 [facility] HEMATOLOGY MCHC 31.8 32.0 - 36.0 03/21/2020 [facility] HEMATOLOGY RDW 24.4 11.5 - 14.5 03/21/2020 [facility] HEMATOLOGY Platelet 97 133 - 450 03/21/2020 [facility] HEMATOLOGY MPV 9.7 7.4 - 10.4 03/21/2020 [facility] CHEM PANEL Glucose Lvl 82 70 - 99 03/20/2020 [facility] CHEM PANEL BUN 13 7 - 22 03/20/2020 [facility] CHEM PANEL Creatinine Lvl 0.91 0.50 - 1.40 03/20/2020 [facility] CHEM PANEL Sodium Lvl 138 135 - 145 03/20/2020 [facility] CHEM PANEL Potassium Lvl 4.1 3.5 - 5.1 03/20/2020 [facility] CHEM PANEL Chloride Lvl 105 95 - 109 03/20/2020 [facility] CHEM PANEL CO2 25 24 - 32 03/20/2020 [facility] CHEM PANEL Calcium Lvl 9.7 8.5 - 10.5 03/20/2020 [facility] CHEM PANEL AGAP 12.1 10.0 - 20.0 03/20/2020 [facility] CHEM PANEL eGFR 67 03/20/2020 Result Comment: The eGFR is calculated using the CKD-EPI formula. In most young, healthy individuals the eGFR will be >90 mL/min/1.73m2. The eGFR declines with age. An eGFR of 60-89 may be normal in some populations, particularly the elderly, for whom the CKD-EPI formula has not been extensively validated. Use of the eGFR is not recommended in the following populations:

Individuals with unstable creatinine concentrations, including patients and those with serious co-morbid conditions.

Patients with extremes in muscle mass or diet.

The data above are obtained from the National Kidney Disease Education Program (NKDEP) which additionally recommends that when the eGFR is used in patients with extremes of body mass index for purposes of drug dosing, the eGFR should be multiplied by the estimated BMI. [facility] HEMATOLOGY WBC 4.8 3.7 - 10.4 03/20/2020 [facility] HEMATOLOGY RBC 4.66 4.20 - 5.40 03/20/2020 [facility] HEMATOLOGY Hgb 10.6 12.0 - 16.0 03/20/2020 [facility] HEMATOLOGY Hct 33.0 36.0 - 48.0 03/20/2020 [facility] HEMATOLOGY MCV 70.8 80.0 - 98.0 03/20/2020 [facility] HEMATOLOGY MCH 22.7 27.0 - 31.0 03/20/2020 [facility] HEMATOLOGY MCHC 32.1 32.0 - 36.0 03/20/2020 [facility] HEMATOLOGY RDW 23.4 11.5 - 14.5 03/20/2020 [facility] HEMATOLOGY Platelet 99 133 - 450 03/20/2020 [facility] HEMATOLOGY MPV 9.1 7.4 - 10.4 03/20/2020 [facility] HEMATOLOGY PT 15.1 12.0 - 14.7 03/20/2020 [facility] HEMATOLOGY INR 1.18 0.85 - 1.17 03/20/2020 [facility] HEMATOLOGY Segs 54.5 45.0 - 75.0 03/20/2020 [facility] HEMATOLOGY Lymphocytes 35.1 20.0 - 40.0 03/20/2020 [facility] HEMATOLOGY Monocytes 7.7 2.0 - 12.0 03/20/2020 [facility] HEMATOLOGY Eosinophils 2.1 0.0 - 4.0 03/20/2020 [facility] HEMATOLOGY Basophils 0.6 0.0 - 1.0 03/20/2020 [facility] HEMATOLOGY Neutrophils # 2.6 1.5 - 8.1 03/20/2020 [facility] HEMATOLOGY Lymphocytes # 1.7 1.0 - 5.5 03/20/2020 [facility] HEMATOLOGY Monocytes # 0.4 0.0 - 0.8 03/20/2020 [facility] HEMATOLOGY Eosinophils # 0.1 0.0 - 0.5 03/20/2020 [facility] HEMATOLOGY Anisocyte 1+ *ABN* (03/20/20 2:16 AM) None Seen 03/20/2020 [facility] HEMATOLOGY Microcyte 2+ *ABN* (03/20/20 2:16 AM) None Seen 03/20/2020 [facility] CHEM PANEL Phosphorus 2.8 2.5 - 4.5 03/19/2020 [facility] CHEM PANEL Magnesium Lvl 2.2 1.8 - 2.4 03/19/2020 [facility] CHEM PANEL Total Protein 7.4 6.4 - 8.4 03/19/2020 [facility] CHEM PANEL Albumin Lvl 3.2 3.5 - 5.0 03/19/2020 [facility] CHEM PANEL ALT 26 0 - 65 03/19/2020 [facility] CHEM PANEL AST 52 0 - 37 03/19/2020 [facility] CHEM PANEL Alk Phos 100 39 - 136 03/19/2020 [facility] CHEM PANEL Bili Total 1.2 0.2 - 1.3 03/19/2020 [facility] CHEM PANEL B/C Ratio 16 6 - 25 03/19/2020 [facility] CHEM PANEL Globulin 4.2 2.7 - 4.2 03/19/2020 [facility] CHEM PANEL A/G Ratio 0.8 0.7 - 1.6 03/19/2020 [facility] HEMATOLOGY Plt Morph Ivanna l (03/19/20 12:21 AM) Normal 03/19/2020 [facility] HEMATOLOGY Hypochrom 1+ (03/19/20 12:21 AM) None Seen 03/19/2020 [facility] HEMATOLOGY Target Cell Moder ate *ABN* (03/19/20 12:21 AM) None Seen 03/19/2020 [facility] HEMATOLOGY Schistocyte 1-3 p er HPF (03/19/20 12:21 AM) None Seen 03/19/2020 [facility] CHEM PANEL Magnesium Lvl 2.1 1.8 - 2.4 03/18/2020 [facility] CHEM PANEL Phosphorus 3.2 2.5 - 4.5 03/18/2020 [facility] CHEM PANEL Total Protein 7.6 6.4 - 8.4 03/18/2020 [facility] CHEM PANEL Albumin Lvl 3.3 3.5 - 5.0 03/18/2020 [facility] CHEM PANEL ALT 22 0 - 65 03/18/2020 [facility] CHEM PANEL AST 50 0 - 37 03/18/2020 [facility] CHEM PANEL Alk Phos 100 39 - 136 03/18/2020 [facility] CHEM PANEL Bili Total 2.0 0.2 - 1.3 03/18/2020 [facility] CHEM PANEL B/C Ratio 16 6 - 25 03/18/2020 [facility] CHEM PANEL Globulin 4.3 2.7 - 4.2 03/18/2020 [facility] CHEM PANEL A/G Ratio 0.8 0.7 - 1.6 03/18/2020 [facility] HEMATOLOGY WBC 5.0 3.7 - 10.4 03/17/2020 [facility] HEMATOLOGY RBC 4.45 4.20 - 5.40 03/17/2020 [facility] HEMATOLOGY Hgb 10.0 12.0 - 16.0 03/17/2020 [facility] HEMATOLOGY Hct 31.3 36.0 - 48.0 03/17/2020 [facility] HEMATOLOGY MCV 70.4 80.0 - 98.0 03/17/2020 [facility] HEMATOLOGY MCH 22.4 27.0 - 31.0 03/17/2020 [facility] HEMATOLOGY MCHC 31.8 32.0 - 36.0 03/17/2020 [facility] HEMATOLOGY RDW 22.4 11.5 - 14.5 03/17/2020 [facility] HEMATOLOGY Platelet 100 133 - 450 03/17/2020 [facility] HEMATOLOGY MPV 10.1 7.4 - 10.4 03/17/2020 [facility] HEMATOLOGY Segs 51.3 45.0 - 75.0 03/17/2020 [facility] HEMATOLOGY Lymphocytes 33.4 20.0 - 40.0 03/17/2020 [facility] HEMATOLOGY Monocytes 13.2 2.0 - 12.0 03/17/2020 [facility] HEMATOLOGY Eosinophils 1.4 0.0 - 4.0 03/17/2020 [facility] HEMATOLOGY Basophils 0.7 0.0 - 1.0 03/17/2020 [facility] HEMATOLOGY Neutrophils # 2.6 1.5 - 8.1 03/17/2020 [facility] HEMATOLOGY Lymphocytes # 1.7 1.0 - 5.5 03/17/2020 [facility] HEMATOLOGY Monocytes # 0.7 0.0 - 0.8 03/17/2020 [facility] HEMATOLOGY Eosinophils # 0.1 0.0 - 0.5 03/17/2020 [facility] HEMATOLOGY Anisocyte 1+ *ABN* (03/17/20 9:19 AM) None Seen 03/17/2020 [facility] HEMATOLOGY Microcyte 2+ *ABN* (03/17/20 9:19 AM) None Seen 03/17/2020 [facility] HEMATOLOGY Polychrom Moder ate *ABN* (03/17/20 9:19 AM) None Seen 03/17/2020 [facility] CHEM PANEL Glucose Lvl 73 70 - 99 03/17/2020 [facility] CHEM PANEL BUN 19 7 - 22 03/17/2020 [facility] CHEM PANEL Creatinine Lvl 1.00 0.50 - 1.40 03/17/2020 [facility] CHEM PANEL Sodium Lvl 136 135 - 145 03/17/2020 [facility] CHEM PANEL Potassium Lvl 4.4 3.5 - 5.1 03/17/2020 [facility] CHEM PANEL Chloride Lvl 101 95 - 109 03/17/2020 [facility] CHEM PANEL CO2 26 24 - 32 03/17/2020 [facility] CHEM PANEL Calcium Lvl 9.9 8.5 - 10.5 03/17/2020 [facility] CHEM PANEL Total Protein 7.7 6.4 - 8.4 03/17/2020 [facility] CHEM PANEL Albumin Lvl 3.5 3.5 - 5.0 03/17/2020 [facility] CHEM PANEL ALT 22 0 - 65 03/17/2020 [facility] CHEM PANEL AST 48 0 - 37 03/17/2020 [facility] CHEM PANEL Alk Phos 99 39 - 136 03/17/2020 [facility] CHEM PANEL Bili Total 2.7 0.2 - 1.3 03/17/2020 [facility] CHEM PANEL AGAP 13.4 10.0 - 20.0 03/17/2020 [facility] CHEM PANEL B/C Ratio 19 6 - 25 03/17/2020 [facility] CHEM PANEL Globulin 4.2 2.7 - 4.2 03/17/2020 [facility] CHEM PANEL A/G Ratio 0.8 0.7 - 1.6 03/17/2020 [facility] CHEM PANEL eGFR 60 03/17/2020 Result Comment: The eGFR is calculated using the CKD-EPI formula. In most young, healthy individuals the eGFR will be >90 mL/min/1.73m2. The eGFR declines with age. An eGFR of 60-89 may be normal in some populations, particularly the elderly, for whom the CKD-EPI formula has not been extensively validated. Use of the eGFR is not recommended in the following populations:

Individuals with unstable creatinine concentrations, including patients and those with serious co-morbid conditions.

Patients with extremes in muscle mass or diet.

The data above are obtained from the National Kidney Disease Education Program (NKDEP) which additionally recommends that when the eGFR is used in patients with extremes of body mass index for purposes of drug dosing, the eGFR should be multiplied by the estimated BMI. [facility] CHEM PANEL Magnesium Lvl 2.3 1.8 - 2.4 03/17/2020 [facility] CHEM PANEL Phosphorus 2.2 2.5 - 4.5 03/17/2020 [facility] HEMATOLOGY Segs 52.2 45.0 - 75.0 03/17/2020 [facility] HEMATOLOGY Lymphocytes 33.9 20.0 - 40.0 03/17/2020 [facility] HEMATOLOGY Monocytes 11.8 2.0 - 12.0 03/17/2020 [facility] HEMATOLOGY Eosinophils 1.4 0.0 - 4.0 03/17/2020 [facility] HEMATOLOGY Basophils 0.7 0.0 - 1.0 03/17/2020 [facility] HEMATOLOGY Neutrophils # 2.9 1.5 - 8.1 03/17/2020 [facility] HEMATOLOGY Lymphocytes # 1.9 1.0 - 5.5 03/17/2020 [facility] HEMATOLOGY Monocytes # 0.7 0.0 - 0.8 03/17/2020 [facility] HEMATOLOGY Eosinophils # 0.1 0.0 - 0.5 03/17/2020 [facility] HEMATOLOGY Anisocyte 1+ *ABN* (03/17/20 4:17 AM) None Seen 03/17/2020 [facility] HEMATOLOGY Microcyte 2+ *ABN* (03/17/20 4:17 AM) None Seen 03/17/2020 [facility] HEMATOLOGY Target Cell Slight 03/17/2020 [facility] [facility] HEMATOLOGY WBC 5.6 3.7 - 10.4 03/17/2020 [facility] HEMATOLOGY RBC 4.50 4.20 - 5.40 03/17/2020 [facility] HEMATOLOGY Hgb 10.1 12.0 - 16.0 03/17/2020 [facility] HEMATOLOGY Hct 31.4 36.0 - 48.0 03/17/2020 [facility] HEMATOLOGY MCV 69.9 80.0 - 98.0 03/17/2020 [facility] HEMATOLOGY MCH 22.5 27.0 - 31.0 03/17/2020 [facility] HEMATOLOGY MCHC 32.3 32.0 - 36.0 03/17/2020 [facility] HEMATOLOGY RDW 22.4 11.5 - 14.5 03/17/2020 [facility] HEMATOLOGY Platelet 88 133 - 450 03/17/2020 [facility] HEMATOLOGY MPV 9.4 7.4 - 10.4 03/17/2020 [facility] ANEMIA STUDY Vitamin B12 Lvl 101 7 200 - 1100 03/15/2020 Result Comment: Lab test performed by:<b r/>[facility] [place]
[address] [place] [address]
[place] [address]
[address] [facility] CARDIAC ENZYMES Total CK 72 12 - 191 03/15/2020 [facility] CHEM PANEL Total Protein 8.6 6.4 - 8.4 03/15/2020 [facility] CHEM PANEL Albumin Lvl 3.5 3.5 - 5.0 03/15/2020 [facility] CHEM PANEL ALT 29 0 - 65 03/15/2020 [facility] CHEM PANEL AST 43 0 - 37 03/15/2020 [facility] CHEM PANEL Alk Phos 132 39 - 136 03/15/2020 [facility] CHEM PANEL Bili Total 1.9 0.2 - 1.3 03/15/2020 [facility] CHEM PANEL Bili Direct 0.6 0.0 - 0.3 03/15/2020 [facility] CHEM PANEL Bili Indirect 1.3 0.0 - 1.0 03/15/2020 [facility] CHEM PANEL Globulin 5.1 2.7 - 4.2 03/15/2020 [facility] CHEM PANEL A/G Ratio 0.7 0.7 - 1.6 03/15/2020 [facility] CHEM PANEL Ammonia 86.0 <=45.0 uMol/L 03/15/2020 [facility] CHEM PANEL Procalcitonin Lvl 0.13 0.00 - 0.10 03/15/2020 [facility] CHEM PANEL Lipase Lvl 642 73 - 393 03/15/2020 [facility] IMMUNOLOGY Coronavirus (COVID-19) NA A Not Detected (03/15/20 2:13 AM) Not Detected 03/15/2020 [facility] BLOOD BANK RESULTS ABO/Rh O POS 03/15/2020 [facility] BLOOD BANK RESULTS Antibody Scrn Negative (03/15/20 2:02 AM) 03/15/2020 [facility] HEMATOLOGY ACT (TEG) Rapid 121 86 - 118 03/15/2020 [facility] HEMATOLOGY [place] Rapid 0.7 03/15/2020 [facility] HEMATOLOGY R-time Rapid 0.8 0.4 - 0.7 03/15/2020 [facility] HEMATOLOGY K-time Rapid 0.8 0.6 - 2.3 03/15/2020 [facility] HEMATOLOGY Angle Rapid 80 64 - 80 03/15/2020 [facility] HEMATOLOGY Max Amplitude Rapid 69 52 - 71 03/15/2020 [facility] HEMATOLOGY G-value Rapid 11.2 5.0 - 11.6 03/15/2020 [facility] HEMATOLOGY Estimated % Lysis Rapid 0 .1 0.0 - 7.5 03/15/2020 [facility] URINE AND STOOL UA Blood Large *ABN* (03/15/20 1:50 AM) Negative 03/15/2020 [facility] URINE AND STOOL UA Color Yellow *NA* (03/15/20 1:50 AM) Yellow 03/15/2020 [facility] URINE AND STOOL UA Turbidity Slight *ABN* (03/15/20 1:50 AM) Clear 03/15/2020 [facility] URINE AND STOOL UA Spec Grav 1.015 <=1.030 03/15/2020 [facility] URINE AND STOOL UA pH 7.0 5.0 - 8.0 03/15/2020 [facility] URINE AND STOOL UA Protein Negative mg/dL Negative mg/dL 03/15/2020 [facility] URINE AND STOOL UA Glucose Negative mg/dL Negative mg/dL 03/15/2020 [facility] URINE AND STOOL UA Ketones Negative mg/dL Negative mg/dL 03/15/2020 [facility] URINE AND STOOL UA Bili Negative *NA* (03/15/20 1:50 AM) Negative 03/15/2020 [facility] URINE AND STOOL UA Urobilinogen 4.0 0.1 - 1.0 03/15/2020 [facility] URINE AND STOOL UA Nitrite Negative (03/15/20 1:50 AM) Negative 03/15/2020 [facility] URINE AND STOOL UA Leuk Est Negative (03/15/20 1:50 AM) Negative 03/15/2020 [facility] URINE AND STOOL UA Sq Epi Few /LPF Few /LPF 03/15/2020 [facility] URINE AND STOOL UA WBC <1 0 - 5 03/15/2020 [facility] URINE AND STOOL UA RBC 42 0 - 2 03/15/2020 [facility] URINE AND STOOL UA Mucus Few /LPF None Seen /LPF 03/15/2020 [facility] URINE AND STOOL UA Hyal Cast 28 0 - 2 03/15/2020 [facility] CHEM PANEL Glucose Lvl 113 70 - 99 03/15/2020 [facility] CHEM PANEL BUN 26 7 - 22 03/15/2020 [facility] CHEM PANEL Creatinine Lvl 1.40 0.50 - 1.40 03/15/2020 [facility] CHEM PANEL Sodium Lvl 135 135 - 145 03/15/2020 [facility] CHEM PANEL Potassium Lvl 4.6 3.5 - 5.1 03/15/2020 [facility] CHEM PANEL Chloride Lvl 102 95 - 109 03/15/2020 [facility] CHEM PANEL CO2 25 24 - 32 03/15/2020 [facility] CHEM PANEL Calcium Lvl 9.5 8.5 - 10.5 03/15/2020 [facility] CHEM PANEL AGAP 12.6 10.0 - 20.0 03/15/2020 [facility] CHEM PANEL eGFR 39 03/15/2020 Result Comment: The eGFR is calculated using the CKD-EPI formula. In most young, healthy individuals the eGFR will be >90 mL/min/1.73m2. The eGFR declines with age. An eGFR of 60-89 may be normal in some populations, particularly the elderly, for whom the CKD-EPI formula has not been extensively validated. Use of the eGFR is not recommended in the following populations:

Individuals with unstable creatinine concentrations, including patients and those with serious co-morbid conditions.

Patients with extremes in muscle mass or diet.

The data above are obtained from the National Kidney Disease Education Program (NKDEP) which additionally recommends that when the eGFR is used in patients with extremes of body mass index for purposes of drug dosing, the eGFR should be multiplied by the estimated BMI. [facility] HEMATOLOGY PT 15.2 12.0 - 14.7 03/15/2020 [facility] HEMATOLOGY INR 1.19 0.85 - 1.17 03/15/2020 [facility] HEMATOLOGY PTT 33.7 22.9 - 35.8 03/15/2020 [facility] CHEM PANEL Total Protein 9.1 6.4 - 8.4 03/15/2020 [facility] CHEM PANEL Albumin Lvl 3.6 3.5 - 5.0 03/15/2020 [facility] CHEM PANEL ALANINE AMINOTRANSFERASE 28 0 - 65 03/15/2020 [facility] CHEM PANEL ASPARTATE TRANSAMINASE 45 0 - 37 03/15/2020 [facility] CHEM PANEL Alk Phos 137 39 - 136 03/15/2020 [facility] CHEM PANEL Bili Total 1.9 0.2 - 1.3 03/15/2020 [facility] CHEM PANEL Bili Direct 0.6 0.0 - 0.3 03/15/2020 [facility] CHEM PANEL Bili Indirect 1.3 0.0 - 1.0 03/15/2020 [facility] CHEM PANEL Globulin 5.5 2.7 - 4.2 03/15/2020 [facility] CHEM PANEL A/G Ratio 0.7 0.7 - 1.6 03/15/2020 [facility] CARDIAC ENZYMES Troponin-I <0.02 0.00 - 0.40 03/14/2020 [facility] CHEM PANEL Glucose Lvl 130 70 - 99 03/14/2020 [facility] CHEM PANEL BUN 27 7 - 22 03/14/2020 [facility] CHEM PANEL Creatinine Lvl 1.84 0.50 - 1.40 03/14/2020 [facility] CHEM PANEL Sodium Lvl 133 135 - 145 03/14/2020 [facility] CHEM PANEL Potassium Lvl 5.3 3.5 - 5.1 03/14/2020 [facility] CHEM PANEL Chloride Lvl 99 95 - 109 03/14/2020 [facility] CHEM PANEL CO2 26 24 - 32 03/14/2020 [facility] CHEM PANEL Calcium Lvl 10.4 8.5 - 10.5 03/14/2020 [facility] CHEM PANEL AGAP 13.3 10.0 - 20.0 03/14/2020 [facility] CHEM PANEL B/C Ratio 15 6 - 25 03/14/2020 [facility] CHEM PANEL eGFR 28 03/14/2020 Result Comment: The eGFR is calculated using the CKD-EPI formula. In most young, healthy individuals the eGFR will be >90 mL/min/1.73m2. The eGFR declines with age. An eGFR of 60-89 may be normal in some populations, particularly the elderly, for whom the CKD-EPI formula has not been extensively validated. Use of the eGFR is not recommended in the following populations:

Individuals with unstable creatinine concentrations, including patients and those with serious co-morbid conditions.

Patients with extremes in muscle mass or diet.

The data above are obtained from the National Kidney Disease Education Program (NKDEP) which additionally recommends that when the eGFR is used in patients with extremes of body mass index for purposes of drug dosing, the eGFR should be multiplied by the estimated BMI. [facility] CHEM PANEL Lipase Lvl 200 73 - 393 03/14/2020 [facility] HEMATOLOGY WBC X 10x3 8.0 3.7 - 10.4 03/14/2020 [facility] HEMATOLOGY RBC X 10x6 5.44 4.20 - 5.40 03/14/2020 [facility] HEMATOLOGY Hgb 12.4 12.0 - 16.0 03/14/2020 [facility] HEMATOLOGY Hct 37.7 36.0 - 48.0 03/14/2020 [facility] HEMATOLOGY MCV 69.3 80.0 - 98.0 03/14/2020 [facility] HEMATOLOGY MCH 22.8 27.0 - 31.0 03/14/2020 [facility] HEMATOLOGY MCHC 32.9 32.0 - 36.0 03/14/2020 [facility] HEMATOLOGY RDW 22.1 11.5 - 14.5 03/14/2020 [facility] HEMATOLOGY Platelet 113 133 - 450 03/14/2020 [facility] HEMATOLOGY MPV 8.4 7.4 - 10.4 03/14/2020 [facility] HEMATOLOGY Plt Morph Ivanna l (03/14/20 6:44 PM) Normal 03/14/2020 [facility] HEMATOLOGY Segs 79.3 45.0 - 75.0 03/14/2020 [facility] HEMATOLOGY Lymphocytes 11.3 20.0 - 40.0 03/14/2020 [facility] HEMATOLOGY Monocytes 9.1 2.0 - 12.0 03/14/2020 [facility] HEMATOLOGY Eosinophils 0.1 0.0 - 4.0 03/14/2020 [facility] HEMATOLOGY Basophils 0.2 0.0 - 1.0 03/14/2020 [facility] HEMATOLOGY Neutrophils # 6.3 1.5 - 8.1 03/14/2020 [facility] HEMATOLOGY Lymphocytes # 0.9 1.0 - 5.5 03/14/2020 [facility] HEMATOLOGY Monocytes # 0.7 0.0 - 0.8 03/14/2020 [facility] HEMATOLOGY Anisocyte 1+ *ABN* (03/14/20 6:44 PM) None Seen 03/14/2020 [facility] HEMATOLOGY Microcyte 2+ *ABN* (03/14/20 6:44 PM) None Seen 03/14/2020 [facility] HEMATOLOGY Target Cell Moder ate *ABN* (03/14/20 6:44 PM) None Seen 03/14/2020 [facility] HEMATOLOGY Schistocyte 1-3 p er HPF (03/14/20 6:44 PM) None Seen 03/14/2020 [facility] ANEMIA STUDY Ferritin Lvl 62 5 - 204 02/27/2020 [facility] ANEMIA STUDY Iron 38 45 - 160 02/27/2020 Result Comment: Lab test performed by:<b r/>[facility] [place]
[address] [place] [address]
[place] [address]
J[address]I [address] MD [facility] ANEMIA STUDY TIBC 324 250 - 450 02/27/2020 [facility] ANEMIA STUDY % Satur Fe 12 16 - 45 02/27/2020 [facility] CHEM PANEL Glucose Lvl 82 70 - 99 02/27/2020 [facility] CHEM PANEL BUN 12 7 - 22 02/27/2020 [facility] CHEM PANEL Creatinine Lvl 0.72 0.50 - 1.40 02/27/2020 [facility] CHEM PANEL Sodium Lvl 138 135 - 145 02/27/2020 [facility] CHEM PANEL Potassium Lvl 4.1 3.5 - 5.1 02/27/2020 [facility] CHEM PANEL Chloride Lvl 109 95 - 109 02/27/2020 [facility] CHEM PANEL CO2 26 24 - 32 02/27/2020 [facility] CHEM PANEL Calcium Lvl 9.5 8.5 - 10.5 02/27/2020 [facility] CHEM PANEL AGAP 7.1 10.0 - 20.0 02/27/2020 [facility] CHEM PANEL eGFR 88 02/27/2020 Result Comment: The eGFR is calculated using the CKD-EPI formula. In most young, healthy individuals the eGFR will be >90 mL/min/1.73m2. The eGFR declines with age. An eGFR of 60-89 may be normal in some populations, particularly the elderly, for whom the CKD-EPI formula has not been extensively validated. Use of the eGFR is not recommended in the following populations:

Individuals with unstable creatinine concentrations, including patients and those with serious co-morbid conditions.

Patients with extremes in muscle mass or diet.

The data above are obtained from the National Kidney Disease Education Program (NKDEP) which additionally recommends that when the eGFR is used in patients with extremes of body mass index for purposes of drug dosing, the eGFR should be multiplied by the estimated BMI. [facility] CHEM PANEL Total Protein 8.1 6.4 - 8.4 02/27/2020 [facility] CHEM PANEL Albumin Lvl 3.3 3.5 - 5.0 02/27/2020 [facility] CHEM PANEL ALT 29 0 - 65 02/27/2020 [facility] CHEM PANEL AST 49 0 - 37 02/27/2020 [facility] CHEM PANEL Alk Phos 132 39 - 136 02/27/2020 [facility] CHEM PANEL Bili Total 0.7 0.2 - 1.3 02/27/2020 [facility] CHEM PANEL Bili Direct 0.2 0.0 - 0.3 02/27/2020 [facility] CHEM PANEL Bili Indirect 0.5 0.0 - 1.0 02/27/2020 [facility] CHEM PANEL Globulin 4.8 2.7 - 4.2 02/27/2020 [facility] CHEM PANEL A/G Ratio 0.7 0.7 - 1.6 02/27/2020 [facility] CHEM PANEL Ammonia 62.0 <=45.0 uMol/L 02/27/2020 [facility] HEMATOLOGY WBC 5.9 3.7 - 10.4 02/27/2020 [facility] HEMATOLOGY RBC 4.61 4.20 - 5.40 02/27/2020 [facility] HEMATOLOGY Hgb 10.2 12.0 - 16.0 02/27/2020 [facility] HEMATOLOGY Hct 32.6 36.0 - 48.0 02/27/2020 [facility] HEMATOLOGY MCV 70.8 80.0 - 98.0 02/27/2020 [facility] HEMATOLOGY MCH 22.2 27.0 - 31.0 02/27/2020 [facility] HEMATOLOGY MCHC 31.4 32.0 - 36.0 02/27/2020 [facility] HEMATOLOGY RDW 20.5 11.5 - 14.5 02/27/2020 [facility] HEMATOLOGY Platelet 101 133 - 450 02/27/2020 [facility] HEMATOLOGY MPV 10.0 7.4 - 10.4 02/27/2020 [facility] HEMATOLOGY PT 15.4 12.0 - 14.7 02/27/2020 [facility] HEMATOLOGY INR 1.21 0.85 - 1.17 02/27/2020 [facility] HEMATOLOGY Plt Morph Ivanna l (02/27/20 2:38 PM) Normal 02/27/2020 [facility] HEMATOLOGY Segs 65.8 45.0 - 75.0 02/27/2020 [facility] HEMATOLOGY Lymphocytes 24.0 20.0 - 40.0 02/27/2020 [facility] HEMATOLOGY Monocytes 6.8 2.0 - 12.0 02/27/2020 [facility] HEMATOLOGY Eosinophils 2.7 0.0 - 4.0 02/27/2020 [facility] HEMATOLOGY Basophils 0.7 0.0 - 1.0 02/27/2020 [facility] HEMATOLOGY Neutrophils # 3.9 1.5 - 8.1 02/27/2020 [facility] HEMATOLOGY Lymphocytes # 1.4 1.0 - 5.5 02/27/2020 [facility] HEMATOLOGY Monocytes # 0.4 0.0 - 0.8 02/27/2020 [facility] HEMATOLOGY Eosinophils # 0.2 0.0 - 0.5 02/27/2020 [facility] HEMATOLOGY Anisocyte 1+ *ABN* (02/27/20 2:38 PM) None Seen 02/27/2020 [facility] HEMATOLOGY Microcyte 2+ *ABN* (02/27/20 2:38 PM) None Seen 02/27/2020 [facility] HEMATOLOGY Hypochrom 1+ (02/27/20 2:38 PM) None Seen 02/27/2020 [facility] HEMATOLOGY Target Cell Moder ate *ABN* (02/27/20 2:38 PM) None Seen 02/27/2020 [facility] HEMATOLOGY Schistocyte 1-3 p er HPF (02/27/20 2:38 PM) None Seen 02/27/2020 [facility] HEMATOLOGY Toxic Gran Slight 02/27/2020 [facility] IMMUNOLOGY Hep A Tot REACTIVE NON 02/27/2020 Result Comment:
For additional inf ormation, please refer to
http://education.[employer]/faq/HNV016
(This link is being provided for informational/
educational purposes only.)

Lab test performed by:
[facility] [place]
[address] [place] [address]
[place] [address]
[address] [facility] IMMUNOLOGY Hep B Core Ab NON-R EACTIVE NON 02/27/2020 Result Comment: Lab test performed by:<b r/>[facility] [place]
[address] [place] [address]
[place] [address]
[address]I [address] [facility] IMMUNOLOGY Hep Bs Ab <5 > OR = 10 mIU/mL 02/27/2020 Result Comment:
Patient does not h ave immunity to hepatitis B virus.

For additional information, please refer to
http://education.[employer]/faq/ZSE222
(This link is being provided for informational/
educational purposes only).

Lab test performed by:
[facility]
[address] [place] [address]
[address]I [address] [facility] IMMUNOLOGY Hep Bs Ag NON-R EACTIVE NON 02/27/2020 Result Comment: Lab test performed by:<b r/>[facility] [place]
[address] [place] [address]
[place] [address]
JONI ALCALA MD [facility] IMMUNOLOGY Hep C Ab NON-R EACTIVE NON 02/27/2020 Result Comment: Lab test performed by:<b r/>[facility] [place]
[address] [place] [address]
[place] [address]
[address]I [address] [facility] IMMUNOLOGY Hep Signal to Cut-Off 0.0 5 <1.00 02/27/2020 Result Comment:
HCV antibody was n on-reactive. There is no laboratory
evidence of HCV infection.

In most cases, no further action is required. However,
if recent HCV exposure is suspected, a test for HCV RNA
(test code 75521) is suggested.

For additional information please refer to
http://education.[employer] Fantasy [employer]/faq/DOG08p1
(This link is being provided for informational/
educational purposes only.) [facility] TUMOR MARKERS AFP 30.2 02/27/2020 Result Comment: Reference Range: <6.1
The use of AFP as a tumor marker in
females is not recommended.

This test was performed using the [employer] [place]
chemiluminescent method. Values obtained from
different assay methods cannot be used
interchangeably. AFP levels, regardless of
value, should not be interpreted as absolute
evidence of the presence or absence of disease.

Lab test performed by:
[facility]
[address]
[place] [id number]
[address] [facility] Pathology Reports No Data Provided for This Section Diagnostic Reports Report Value Date Source Lung scan perfusion Quant Diff FX NM EXAM: NM Pulmonary Perfusion Imaging Quantitative EXAM: NM Liver SPECT- CT DATE: 04/11/2020 13:28 [facility]EN[facility] HAND INDICATION: - HACP-MAA COMPARISON: MRI abdomen with and without contrast March 16, 2020. TECHNIQUE: After administration of 5 mCi of Tc 99m MAA through the hepatic arterial catheter, pulmonary quantitative imaging of the lungs and static images as well as SPECT of the liver are obtained. FINDINGS: Irregular tracer uptake is seen in the dome and lateral aspect of the right lobe of the liver suggestive of catheter placement in braches of the right hepatic artery. There is mild tracer concentration in the large mass arising from segment 6. However, a large portion of this mass does not concentrate the tracer. There is no evidence of extrahepatic organ perfusion in the abdomen or significant lung shunting. The calculated lung shunt is 7.2%. IMPRESSION: 1. There is good perfusion to the dome a nd lateral right lobe of the liver involving segments 5, 6, and 7 with no evidence of extrahepatic organ perfusion in the abdomen. 2. Tracer localizes partially in the lar ge mass arising from segment 6 inferoposterior to the liver. 3. The calculated lung shunting is 7.2%. 04/11/2020 [facility] Liver SPECT NM EXAM: NM Pulmon liz Perfusion Imaging Quantitative EXAM: NM Liver SPECT- CT DATE: 04/11/2020 13:28 [facility]UR[facility]EN[facility] HAND INDICATION: - HACP-MAA COMPARISON: MRI abdomen with and without contrast March 16, 2020. TECHNIQUE: After administration of 5 mCi of Tc 99m MAA through the hepatic arterial catheter, pulmonary quantitative imaging of the lungs and static images as well as SPECT of the liver are obtained. FINDINGS: Irregular tracer uptake is seen in the dome and lateral aspect of the right lobe of the liver suggestive of catheter placement in braches of the right hepatic artery. There is mild tracer concentration in the large mass arising from segment 6. However, a large portion of this mass does not concentrate the tracer. There is no evidence of extrahepatic organ perfusion in the abdomen or significant lung shunting. The calculated lung shunt is 7.2%. IMPRESSION: 1. There is good perfusion to the dome a nd lateral right lobe of the liver involving segments 5, 6, and 7 with no evidence of extrahepatic organ perfusion in the abdomen. 2. Tracer localizes partially in the lar ge mass arising from segment 6 inferoposterior to the liver. 3. The calculated lung shunting is 7.2%. 04/11/2020 [facility] Angiogram visceral artery initial VR PROCEDURE: Liver Angiogram and tumour mapping PROCEDURES PERFORMED: 1. Celiac axis angiography 2. T12 intercostal arterial angiography 3. L1 lumbar arterial angiography 4. Right renal artery angiography 5. Common hepatic arterial angiography 6. Right hepatic arterial angiography 7. Limited ultrasound of the right groi n 8. MAA injection 9. Closure device Procedural Personnel Attending physician(s): Fred Garcia MD Fellow physician(s): None Resident physician(s): Dr. Dawn Advanced practice provider(s): None Pre-procedure diagnosis: Hepatocellular carcinoma Post-procedure diagnosis: Same Indication: Hepatocellular carcinoma - Y-90 mapping Additional clinical history: None Complications: No immediate complications. IMPRESSION: Angiography demonstrated the tumor is largely HYPOVASCULAR with only a small cephalad portion enhancing from a tiny branch. MAA was injected within the right hepatic artery near a side branch which could not be catheterized and supplied a very small portion superior aspect of the segment 6 tumor. The TcMAA SPECT showed minimal tracer distribution in the tumor. Plan: 1. Given that the tumor is hypovascular with small partial supply from a tiny branch - transarterial therapies including Y-90 would not effectively treat this tumor. We recommend rediscussion at the [facility] tumor board for consideration of external beam radiation, surgery or immunotherapy. 2. These findings were discussed with t he patient and family member PROCEDURE SUMMARY: - Arterial puncture with ultrasound guid ance - Selective mesenteric angiography: As d escribed below. - Additional procedure(s): None PROCEDURE DETAILS: Pre-procedure Consent: Informed consent for the procedure including risks, benefits and alternatives was obtained and time-out was performed prior to the procedure. Preparation: The site was prepared and draped using maximal sterile barrier technique including cutaneous antisepsis. Anesthesia/sedation Local anesthesia and Dilaudid only. Access Local anesthesia was administered. The vessel was sonographically evaluated and judged to be patent. Real time ultrasound was used to visualize needle entry into the vessel and a permanent image was stored. A 5 [place] sheath was placed. Vessel accessed: Right common femoral artery Access technique: Micropuncture set with 21 gauge needle Procedure: After access was obtained, a C2 catheter was inserted over a Nunez wire. The C2 catheter was used to catheterize the celiac axis. A Glidewire was then inserted through the catheter and advanced into the right hepatic artery. The catheter was then advanced in the right hepatic artery. Angiography was performed and revealed opacification of the right hepatic artery and its segmental branches. No tumor blush appreciated. The catheter was slightly retracted just distal to the gastroduodenal artery. Angiography was again performed and revealed a tiny segmental branch originating somewhere near the trifurcation of the dominant right hepatic arterial branches which backfilled into a larger caliber arterial branch. There was subtle blush within the segment [address] was performed at this catheter position and reviewed on a separate 3-D workstation. The CT revealed only the most superior aspect of the tumor being opacified with contrast, likely from the tiny segmental branch originating from the trifurcation. The catheter was then retracted proximal to the gastroduodenal artery and angiography was performed. There was no evidence of a dominant supply to the segment [address] was then performed and reviewed on a separate 3-D workstation. No dominant arterial supply was appreciated at this catheter position. The catheter was then retracted and used to select the right renal artery. Angiography was performed and revealed opacification of the right renal artery and its branches along with the right adrenal artery. No arterial supply to the tumor was appreciated in segment 6. The Glidewire and C2 catheter were then used to catheterize the celiac axis again and the catheter and wire were advanced into the distal right hepatic artery. Angiography was performed just proximal to the trifurcation into the segmental hepatic arterial branches and near the origin of the tiny segmental branch thought to supply the superior aspect of the tumor. A Progreat microcatheter and fathom wire were then inserted through the catheter and attempts to select the tiny segmental branches were made without success. The catheter and wires were then retracted and the Cobra 2 catheter was used to select the right T12 intercostal arterial branch. Angiography was performed and did not reveal a supply the tumor. The right L1 lumbar artery branch was then selected and again did not reveal supply to the tumor. The celiac axis was then catheterized again and the catheter was advanced into the distal right hepatic artery. Additional attempts were made to select the tiny segmental branch near the trifurcation of the right hepatic artery. There was no success with selective catheterization. MAA was injected at this catheter position in the right hepatic artery. The catheter and wires were removed and an Angio-Seal closure device was used. Closure Access site angiography performed: Yes Findings: Patent vessel with appropriate access level Arterial closure technique: Angioseal Hemostasis achieved from closure technique: Yes Contrast Contrast agent: Omnipaque Radiation Dose Fluoroscopy time (minutes): 19.9 Reference air kerma (mGy): 4273 Additional Details Additional description of procedure: None Equipment details: None Specimens removed: None Estimated blood loss (mL): Less than 10 Standardized report: [id number] Attestation Signer name: Fred Garcia MD I attest that I was present for the entire procedure. I reviewed the stored images and agree with the report as written. 04/11/2020 [facility] Angiogram visceral artery initial VR PROCEDURE: Hepatic radioembolization preparatory angiogram and [id number] administration Procedural Personnel Attending physician(s): Fred Garcia MD Fellow physician(s): Kwabena Stahl MD Resident physician(s): None Advanced practice provider(s): None Authorized user: Same as attending physician above Pre-procedure diagnosis: Hepatocellular Carcinoma Post-procedure diagnosis: Hepatocellular Carcinoma Indication: Mapping angiogram in preparation for radioembolization Additional clinical history: None Complications: No immediate complications. IMPRESSION: Radioembolization preparatory angiography. Initially thought replaced right hepatic artery that arises from the SMA and appears to supply the large right lobe tumor, but upon review of the images after the procedure, there is trifurcation of the common hepatic artery into right hepatic artery, left hepatic artery and arc of Staci with GDA arising from the left hepatic artery. Multiple attempts to access the vessels with multiple catheters were unsuccessful from the groin. Access changed to radial access and multiple attempts to engage what was thought to be replaced right hepatic artery were unsuccessful - possibly severe spasm of the origin added to the challenges of cannulating the vessel. Plan: We will plan to reattempt the mapping next week. PROCEDURE SUMMARY: - Arterial access with ultrasound guidan ce - Aortography: Not performed - Visceral angiography: Celiac and super ior mesenteric angiography - Selective hepatic angiography: Common hepatic angiography - Superselective angiography: None - Embolization and post-embolization ang iography: Not performed - Additional procedure(s): None PROCEDURE DETAILS: Pre-procedure Consent: Informed consent for the procedure including risks, benefits and alternatives was obtained and time-out was performed prior to the procedure. Preparation: The site was prepared and draped using maximal sterile barrier technique including cutaneous antisepsis. Anesthesia/sedation Level of anesthesia/sedation: No sedation Anesthesia/sedation administered by: Not applicable Total intra-service sedation time (minutes): 0 Access Right common femoral artery: Local anesthesia was administered. The vessel was sonographically evaluated and judged to be patent. Real time ultrasound was used to visualize needle entry into the vessel and a permanent image was not stored. A 6 Fr [place] sheath was placed. Vessel accessed: Right common femoral artery Access technique: Micropuncture set with 21 gauge needle Left radial artery: Local anesthesia was administered. The vessel was sonographically evaluated and judged to be patent. Real time ultrasound was used to visualize needle entry into the vessel and a permanent image was not stored. A 5 Fr slender sheath was placed. Vessel accessed: Left radial artery Access technique: Micropuncture set with 21 gauge needle Aortography Vessel catheterized: Not performed Findings: Not applicable Selective angiography Angiography was performed using 5 Fr SOSII guide catheter for common femoral artery approach and 5 Fr Sophia guide catheter for radial artery approach.. Variant anatomy: During the procedure, it was thought that there was replaced right hepatic artery from the SMA. Upon review of the images after the procedure, there is trifurcation of the common hepatic artery into right hepatic artery, left hepatic artery and arc of Gypsy with GDA arising from the left hepatic artery. Vessel catheterized: Celiac artery Findings: During the procedure, it was thought that there was replaced right hepatic artery from the SMA. Upon review of the images after the procedure, there is trifurcation of the common hepatic artery into right hepatic artery, left hepatic artery and arc of Gypsy with GDA arising from the left hepatic artery. Delayed portal venogram demonstrates patent portal vein with hepatopetal flow. Vessel catheterized: Superior mesenteric artery Findings: During the procedure, it was thought that there was replaced right hepatic artery near the origin of SMA, and multiple attempts were made to catheterize this branch using common femoral artery approach and left radial approach. Upon review of the images after the procedure, there is arc of Staci joining with the common hepatic artery. Vessel catheterized: Left hepatic artery Findings: There is GDA arising from the left hepatic artery. Closure Right common femoral artery: Access site angiography performed: No Arterial closure technique: Angioseal Hemostasis achieved from closure technique: Yes Duration of manual compression (minutes): 0 Left radial artery: Access site angiography performed: No Arterial closure technique: TR Band radial compression device Hemostasis achieved from closure technique: Yes Duration of manual compression (minutes): 0 Contrast Contrast agent: Omnipaque 300 Contrast volume (mL): 615 Radiation Dose Fluoroscopy time (minutes): 59.70 Reference air kerma (mGy): 3721 Kerma area product (uGy-m2): 09073 Additional Details Additional description of procedure: None Additional findings: None Equipment details: None Specimens removed: None Estimated blood loss (mL): Less than 10 Standardized report: [id number] Attestation Signer name: Fred Garcia MD I attest that I was present for the entire procedure. I reviewed the stored images and agree with the report as written. 04/03/2020 [facility] Abdomen/Pelvis wo IV contrast CT EXAM: CT ABDOMEN AND PELVIS WITHOUT CONTRAST DATE: 03/18/2020 5:06 PM CDT INDICATION: - severe constipation; assess for SBO; known HCC COMPARISON: MRI March 16, 2020 TECHNIQUE: Volumetric CT acquisition of the abdomen and pelvis without the intravenous administration contrast. Axial, coronal and sagittal reconstructions. IV contrast: None. Oral contrast: None. DLP: 1743 mGy*cm FINDINGS: Lower thorax: Dependent atelectasis in the lung bases. Liver: The liver shows morphological changes of cirrhosis and again seen an exophytic mass arising inferiorly and medially along the right hepatic lobe measuring approximately 6.2 x 5.2 cm . Biliary tree: No intra- or extrahepatic biliary ductal dilation. Gallbladder: Surgically absent. Pancreas: Normal. Spleen: Moderate splenomegaly with the spleen measuring 18.1 cm in craniocaudal axis. Adrenals: Normal. Kidneys and ureters: Normal. Bladder: Normal. Reproductive organs: No CT abnormality. Gastrointestinal tract: The stomach is decompressed. Normal caliber small bowel loops. Scattered colonic diverticula. No acute diverticulitis. Minimal colonic stool. Appendix: Unremarkable. Peritoneum and retroperitoneum: No ascites. Subcentimeter dk hepatis lymph nodes, likely reactive. No enlarged retroperitoneal or mesenteric lymph nodes. Vasculature: Normal. Bones: Degenerative disc disease. Soft tissues: Normal. IMPRESSION: 1. Morphological changes of liver cirrh osis with moderate splenomegaly and exophytic liver lesion, better characterized in the recent MRI from March 16, 2020. 2. No dilated small bowel loops or gordon l obstruction. Minimal colonic stool. RECOMMENDATIONS: None. 03/18/2020 [facility] Torso-Outside Consult CT EXAM: CT ABDOMEN AND PELVIS WITH CONTRAST DATE: 03/18/2020 15:06 CDT INDICATION: - OUTSIDE STUDY/ HEPATIC LESION, HCC. Second interpretation requested. 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 Pain is diffuse in nature and radiates to her back and these episodes would last for about 10 minutes. This pain has been associated with nausea and vomiting. Also reports decreased PO tolerance over the last 3 weeks. Upon arrival to ED vital signs were stable, labs remarkable for hyperkalemia and DANIELLE (Cr 1.84). CTH showing circular hyperattenuation in the left side of the zoran. RUQ U/S showing isoechoic well-circumscribed mass with peripheral vascularity in the right lobe of the liver measures 5.2 x 5.6 x 4.5 cm and mild dilation of the common bile duct at 0.7cm. COMPARISON: MRI Abdomen with and without contrast dated 03/16/2020 TECHNIQUE: Volumetric CT of the abdomen and pelvis is acquired following intravenous administration of contrast. Axial, coronal and sagittal images are provided. DLP: Not provided mGy-cm CONTRAST: Omnipaque 350, 100 cc FINDINGS: Turbo Electric Operator: Noncontributory. Lines and tubes: None. Thoracic Aorta and Mediastinum: Mild tortuosity of the thoracic aorta. Normal CT appearance of the heart and pericardium. Lungs, Pleura, Diaphragm: Evaluation is limited due to motion artifact; however, within the limitations of the study, no large pulmonary nodules or masses identified. Bibasilar subsegmental atelectasis with no pleural effusion or pneumothorax within the [id number]. Liver and biliary tree: Normal. No injury. No biliary abnormality. Limited evaluation secondary to severe motion artifact. Cirrhotic, nodular morphology of the liver. There is a large exophytic mass in hepatic segment 6 with heterogeneous soft tissue appearance and areas of hyperenhancement. The mass measures approximately 6.3 x 5.1 cm, better characterized on the dynamic liver MR of 03/16/2020. Gallbladder: Surgically absent. Pancreas: Normal. Spleen: No focal splenic lesions are identified. Splenomegaly, measuring approximately 17 cm and largest (craniocaudal) dimension. Adrenals: Not well visualized on this exam. No large masses. Kidneys and ureters: Small hypodense lesion in the interpolar region of the right kidney, measuring approximately 1 cm. Small hypodense lesion in the interpolar region of the left kidney, measuring approximately 1 cm. Bladder: Normal. Reproductive organs: Normal appearance of the uterus. No adnexal masses. Gastrointestinal tract: Normal. Appendix not well visualized; however, no inflammation. Peritoneum and retroperitoneum: No fluid collections or free air. Lymph nodes: Normal. Vasculature: No vascular injury. Mild atherosclerotic disease of the abdominal aorta is present. Sequelae of portal hypertension including dilation of the main portal vein and splenic varices. Spine/ Bones: No acute abnormality of the spine. Moderate degenerative disc disease of the imaged thoracolumbar spine with anterior bridging osteophytes from the superior [id number] to T11, and posterior osteophyte disc complex formation at L1-L3. Bilateral facet arthropathy at L3-S1, more prominent on the right. Moderate degenerative disc disease with noted vacuum disc phenomenon. Soft tissues: Normal. IMPRESSION: 1. Study is severely limited due to mot ion artifact. Characterization of hepatic lesion is also limited by nondedicated technique. 2. Cirrhosis with exophytic segment 6 m ass better characterized on prior MR as an LR-5 lesion. 3. Sequelae of portal hypertension incl uding splenomegaly, dilation of the main portal vein, and splenic varices. 4. Bilateral small renal cysts. 5. Degenerative disc disease. 6. Diffuse fatty infiltration of the pe lvic musculature. 03/18/2020 [facility] Abdomen AP DX EXAM: XR ABDOMEN 1 VIEW DATE: 03/18/2020 2:24 AM CDT INDICATION: - Suspected stool retention COMPARISON: 03/16/2020 TECHNIQUE: Single AP view of the abdomen. 2 image(s) obtained. FINDINGS: Lines and tubes: None. Surgical clips overlie the right upper quadrant. Lower thorax: Unremarkable where visualized. Bowel: Nonobstructive bowel gas pattern. Solid organs: No abnormal mass seen. Splenomegaly. Calcifications: No abnormal calcifications found. Bones: No acute abnormality. Other: None IMPRESSION: 1. Nonobstructive bowel gas pattern. Mo derate diffuse colonic stool burden. 2. Splenomegaly. 03/18/2020 [facility] Abdomen w/wo contrast MRI EXAM : MR ABDOMEN WITH AND WITHOUT CONTRAST DATE: 03/16/2020 21:02 CDT INDICATION: - hx of cirrhosis COMPARISON: Right upper quadrant ultrasound 03/14/2020 TECHNIQUE: Multiplanar, multisequence acquisition of the abdomen both prior to and following intravenous contrast, in precontrast, arterial, portal venous and delayed phases of enhancement, per the dynamic liver protocol. IV contrast: 20 mL MultiHance Enteric contrast: None. FINDINGS: Examination is limited due to motion artifact. Lower thorax: Bibasilar subsegmental dependent atelectasis. Liver: Craniocaudal length: 12.4 cm. Parenchyma: Normal. Surface: Nodular Hepatic masses: A 6.2 x 5.1 cm exophytic mass arising from segment 6 demonstrates mild T2 hyperintensity arterial enhancement (series 25,001 image 37) and washout with pseudocapsule formation (series 45,001 image 39). There is suggestion of internal macroscopic fat (series 17,001 image 35). No additional arterial enhancing lesions are identified. Non-enhancing/cystic hepatic lesions: None. Hepatic vessels: Hepatic arterial anatomy: Conventional. Arterial stenoses: None. Portal vein: Patent. Caliber: 1.8 cm Portosystemic collaterals: A few perigastric and splenic collaterals are identified. Hepatic, splenic and superior mesenteric veins, and IVC: Patent. Regional lymph nodes: Normal. Biliary tree: Mild dilation as expected postcholecystectomy. No internal filling defect or obstructing mass lesion is identified in the common bile duct. Gallbladder: Surgically absent. Pancreas: Normal. Spleen: Markedly enlarged measuring 19.1 cm in greatest dimension. No focal splenic lesions are identified. Adrenals: Normal. Kidneys and ureters: No hydronephrosis or hydroureter. The kidneys enhance symmetrically. A subcentimeter T2 hyperintense cyst is noted at the interpolar region of the right kidney (series 4001 image 14). A punctate cyst is also noted at the interpolar region of the left kidney (series 7001 image 14). Gastrointestinal tract: No focally dilated bowel loops are identified to suggest obstruction. Peritoneum, mesentery and retroperitoneum: No free air, ascites or loculated fluid. Lymph nodes: No lymphadenopathy. Extrahepatic vasculature: Aorta and branches: Normal. IVC and veins: Normal. Bones: No acute abnormality. Degenerative findings. Soft tissues: Unremarkable. IMPRESSION: 1. A 6.2 x 5.1 cm exophytic arterial en hancing lesion arising from segment 6 demonstrates washout and pseudocapsule and suggestion of macroscopic fat (LR 5). 2. Cirrhotic liver morphology with sequ ramin of portal hypertension including dilated portal vein, portosystemic collaterals and marked splenomegaly. 3. Bilateral renal cysts. 03/16/2020 [facility] Pelvis Transvaginal US EXAM: [facility] PELVIS TRANSABDOMINAL EXAM: US PELVIS TRANSVAGINAL DATE: 03/15/2020 10:54 CDT INDICATION: - vaginal bleeding ADDITIONAL INFORMATION: 65-year-old postmenopausal female, COMPARISON: None. TECHNIQUE: Multiplanar grayscale and color Doppler ultrasound of the pelvis were obtained transabdominally through a distended urinary bladder and transvaginally postvoid. FINDINGS: Extremely limited evaluation due to body habitus. Uterus/Myometrium: Size: 6.0 x 2.6 x 3.9 cm Orientation: Anteverted. Echogenicity: Normal. Masses: Echogenic focus is seen in the lower uterine segment/upper cervical canal measuring 0.4 x 0.3 x 0.3 cm without associated vascularity or posterior acoustic shadowing Cervix: Normal. Endometrium: Not well identified Right ovary: Not identified Left ovary: Not identified Adnexa: No large adnexal masses are identified. Free fluid: None. Other: None. IMPRESSION: Extremely limited evaluation due to body habitus and positioning. 2. A small echogenic focus measuring 0. 4 cm at the lower uterine segment/upper cervical canal demonstrates no vascularity. This may represent a small focal calcification or polyp. Recommend correlation with hysteroscopy. 3. Bilateral ovaries are not visualized . 03/15/2020 [facility] Abdomen AP DX EXAM: XR ABDOMEN 1 VIEW DATE: 03/15/2020 9:52 CDT INDICATION: Abdominal pain, acute - periumb pain ADDITIONAL INFORMATION: None. COMPARISON: None. TECHNIQUE: AP abdomen. 4 images FINDINGS: Lines, tubes and hardware: Cholecystectomy clips project over the right upper quadrant. Lower thorax: Unremarkable where visible. Abdomen and bowel: Normal bowel gas pattern. No structural. Splenic outline project below the 12th rib inferior margin. Round opacity projecting over the pelvis likely represents distended bladder or uterine fibroid. Bones and soft tissues: No acute abnormality. IMPRESSION: 1. Normal bowel gas pattern. No obstruc tion. 2. Splenomegaly. 3. Round opacity projecting over the pe lvis likely represents distended bladder or uterine fibroid. 03/15/2020 [facility] Spine cervical wo contrast MRI EXAM: MRI CERVICAL SPINE WITHOUT CONTRAST DATE: 03/15/2020 at 1230 hours INDICATION: myelopathy COMPARISON: Radiographs of the cervical spine 06/12/2016 TECHNIQUE: Multiplanar, multisequence noncontrast MR imaging of the cervical spine. IV contrast: None. FINDINGS: There is straightening of the cervical lordosis. There is diffusely decreased fatty marrow signal throughout the cervical spine. Superimposed upon this are multiple patchy T2/STIR hyperintense foci within the marrow which are nonspecific. There is no focal destructive osseous mass. The signal intensity of the spinal cord is within normal limits. No evidence of a syrinx. The craniocervical junction is intact. At C2/C3, no spinal canal stenosis or neural foraminal narrowing. At C3/C4, no spinal canal stenosis or neural foraminal narrowing. At C4/C5, central disc extrusion is present which measures approximately 3 mm AP, extending 8 mm craniocaudal. There is bilateral uncovertebral and facet hypertrophy. Consequently, there is moderate to severe mild flattening of the ventral cervical spinal cord without abnormal intramedullary signal. There is mild neural foraminal narrowing bilaterally. At C5/C6, there is diffuse disc bulge, asymmetric to the left paracentral and subarticular zone with possible small superimposed protrusion, abutting but not impinging upon the cervical spinal cord. There is bilateral uncovertebral facet hypertrophy. There is mild spinal canal stenosis. Left lateral recess and mild to moderate left neural foraminal narrowing is present. At C6/C7, left asymmetric disc bulge in the region of the left foraminal and extra foraminal zones. Bilateral uncovertebral and facet hypertrophy is seen. There is mild left neural foraminal narrowing. No significant spinal canal stenosis. At C7/T1, no spinal canal stenosis or neural foraminal narrowing. Paraspinal soft tissues: Normal IMPRESSION: 1. Cervical spondylosis greatest at C4-C 5 where there is a small central disc extrusion which in combination with bilateral uncovertebral and facet hypertrophy results in moderate to severe spinal canal stenosis with mild flattening of the ventral cervical spinal cord without definite focal cord signal abnormality are not 2. Moderate left lateral recess and neur al foraminal narrowing at C5-C6 due to a diffuse disc bulge, asymmetric to the left with possible small superimposed protrusion. 3. Again identified is diffuse bone logan ow T1 hypointensity may represent anemia versus infiltrative bone marrow process. 03/15/2020 [facility] Brain w/wo contrast MRI EXAM: MRI BRAIN WITH AND WITHOUT CONTRAST EXAM: MRI BRAIN WITH CONTRAST STEALTH PROTOCOL DATE: 03/15/2020 1:54 CDT INDICATION: - L zoran lesion ADDITIONAL INFORMATION: 65 y.o w/ PMH of recently diagnosed hepatocellular carcinoma, decompensated cirrhosis due to HARDEN, possible IBS, hypertension, diabetes, hypothyroidism, MARIA ELENA, morbid obesity that is admitted due to N/V,DAVIS, dizziness and abdominal pain. On admission she was found to have a lesion on her zoran. COMPARISON: CT head 07/16/2019 TECHNIQUE: Multiplanar, multisequence MRI of the brain with and without intravenous contrast. Thin slice postcontrast sequences were obtained with multiplanar reformats, Stealth protocol. IV contrast: 20 mL MultiHance. FINDINGS: Normal appearance of the zoran without evidence of a mass lesion. There is slightly prominent left anterior-inferior cerebellar artery coursing along the contour of the left zoran which likely explains the mild asymmetry identified on CT. The ventricles are normal without evidence of acute hydrocephalus. Slight asymmetry in appearance of the lateral ventricles likely reflects normal variation. There is symmetric intrinsic T1 shortening involving the bilateral posterior limbs of the internal capsules with possible minimal T2/FLAIR hyperintense signal superimposed upon this process. There is no evidence of parenchymal metastatic disease in the brain. There is no abnormal leptomeningeal enhancement. Post-contrast images reveal no abnormal parenchymal or leptomeningeal enhancement. The vascular structures enhance uneventfully. There is a tiny focus of susceptibility artifact in the right thalamus and a few scattered within the right hemisphere, indicative of chronic microhemorrhages. Diffusion-weighted images fail to demonstrate any recent ischemic change. There are scattered patchy periventricular and centrum semiovale white matter T2/FLAIR hyperintense foci which are nonspecific but most consistent with chronic microvascular ischemic change in this age group. The ventricles and extra-axial spaces are normal. The intracranial arterial and venous structures demonstrate normal flow voids. The visible paranasal sinuses and skull base are unremarkable. IMPRESSION: 1. No acute intracranial abnormality. Sy mmetric intrinsic T1 shortening involving the bilateral globus pallidi. This raises the possibility of chronic hepatic encephalopathy. 2. Mild nonspecific white matter changes most commonly secondary to chronic small vessel ischemia. 3. Images are adequate for treatment pur poses. 4. Diffuse bone marrow T1 hypointensity may represent anemia (anemia of chronic disease) versus infiltrative bone marrow process. Correlation with lab values is recommended. 03/15/2020 [facility] Brain w contrast MRI STEALTH E XAM: MRI BRAIN WITH AND WITHOUT CONTRAST EXAM: MRI BRAIN WITH CONTRAST STEALTH PROTOCOL DATE: 03/15/2020 1:54 CDT INDICATION: - L zoran lesion ADDITIONAL INFORMATION: 65 y.o w/ PMH of recently diagnosed hepatocellular carcinoma, decompensated cirrhosis due to HARDEN, possible IBS, hypertension, diabetes, hypothyroidism, MARIA ELENA, morbid obesity that is admitted due to N/V,DAVIS, dizziness and abdominal pain. On admission she was found to have a lesion on her zoran. COMPARISON: CT head 07/16/2019 TECHNIQUE: Multiplanar, multisequence MRI of the brain with and without intravenous contrast. Thin slice postcontrast sequences were obtained with multiplanar reformats, Stealth protocol. IV contrast: 20 mL MultiHance. FINDINGS: Normal appearance of the zoran without evidence of a mass lesion. There is slightly prominent left anterior-inferior cerebellar artery coursing along the contour of the left zoran which likely explains the mild asymmetry identified on CT. The ventricles are normal without evidence of acute hydrocephalus. Slight asymmetry in appearance of the lateral ventricles likely reflects normal variation. There is symmetric intrinsic T1 shortening involving the bilateral posterior limbs of the internal capsules with possible minimal T2/FLAIR hyperintense signal superimposed upon this process. There is no evidence of parenchymal metastatic disease in the brain. There is no abnormal leptomeningeal enhancement. Post-contrast images reveal no abnormal parenchymal or leptomeningeal enhancement. The vascular structures enhance uneventfully. There is a tiny focus of susceptibility artifact in the right thalamus and a few scattered within the right hemisphere, indicative of chronic microhemorrhages. Diffusion-weighted images fail to demonstrate any recent ischemic change. There are scattered patchy periventricular and centrum semiovale white matter T2/FLAIR hyperintense foci which are nonspecific but most consistent with chronic microvascular ischemic change in this age group. The ventricles and extra-axial spaces are normal. The intracranial arterial and venous structures demonstrate normal flow voids. The visible paranasal sinuses and skull base are unremarkable. IMPRESSION: 1. No acute intracranial abnormality. Sy mmetric intrinsic T1 shortening involving the bilateral globus pallidi. This raises the possibility of chronic hepatic encephalopathy. 2. Mild nonspecific white matter changes most commonly secondary to chronic small vessel ischemia. 3. Images are adequate for treatment pur poses. 4. Diffuse bone marrow T1 hypointensity may represent anemia (anemia of chronic disease) versus infiltrative bone marrow process. Correlation with lab values is recommended. 03/15/2020 [facility] Brain wo contrast CT EXAM: CT BRAIN WITHOUT CONTRAST DATE: 03/15/2020 at 0005 hours INDICATION: ? Metastasis COMPARISON: None TECHNIQUE: Routine axial images of the brain were obtained. IV contrast: None Total DLP: 2052 mGy*cm DISCUSSION: There is a vague focus of somewhat circular hyperattenuation in the left side of the zoran (series 2 image 13). This has no associated edema or mass effect and may be artifactual. No distinct mass, hemorrhage, or extra-axial collection is identified. The ventricles and extra-axial spaces are normal. There is a slight asymmetric enlargement of the right lateral ventricle (compared to the left). There is a vague septation to the right of the septum pellucidum (coronal series 4 image 19). No aggressive or destructive bony changes are identified in the calvarium, skull base, or visible facial bones. There is no effusion in the mastoid air cells or visible paranasal sinuses. The orbital globes are unremarkable in appearance. IMPRESSION: 1. No acute intracranial abnormality 2. Vague focus of somewhat circular hyp erattenuation in the left side of the zoran is felt to be artifactual. There is no associated edema or mass effect. 3. Slight asymmetric enlargement of the right lateral ventricle (compared to the left) with a vague septation to the right of the septum pellucidum. This may be further characterized on MRI. RECOMMENDATION: MRI brain with and without contrast is recommended if there is clinical concern for metastatic disease. UT SECTION: Neuro 03/14/2020 [facility] Abdomen RUQ US EXAM: US ABDOME N COMPLETE DATE: 03/14/2020 9:48 PM CDT INDICATION: - ruq pain ADDITIONAL INFORMATION: None. COMPARISON: None. TECHNIQUE: Multiplanar grayscale and color Doppler ultrasound of the abdomen. FINDINGS: Liver: Craniocaudal length: 14.8 cm. Echogenicity: Increased and heterogenous Surface nodularity: Normal. Mass (size and location): Well-circumscribed hypoechoic character area adjacent to the right lower liver measuring 5.2 x 5.6 x 4.9 cm with peripheral vascularity. Portal vein: Normal. Bile ducts: Common bile duct diameter: 0.7 cm. Intrahepatic ducts: Normal. Gallbladder: Removed. Pancreas: Head and uncinate process: Normal. Body and tail: Not seen. Spleen: Craniocaudal length: 6.3 x 5.8 x 5.5 cm. Mass or focal lesion (size and location): None. Right kidney: Hydronephrosis: None. Size: 10.0 x 5.1 x 4.3 cm. Echogenicity: Normal. Mass/Stone/Cyst (size and location): None. Abdominal aorta and IVC: Visible portions are normal. Ascites: None. IMPRESSION: 1. Isoechoic well-circumscribed mass wi th peripheral vascularity in the right lobe of the liver measures 5.2 x 5.6 x 4.5 cm and underlying malignancy cannot be entirely excluded. Dynamic contrast CT or an MRI is recommended for further evaluation. 2. The gallbladder surgically absent. T here is subsequent mild dilation of the common bile duct which is most likely related to the reservoir effect. 3. Coarsened echotexture of the liver m ay indicate cirrhosis. 4. Splenomegaly possibly indicating por [place] hypertension. UT SECTION: Body 03/14/2020 [facility] Chest 1view DX EXAM: XR CHEST 1 VIEW DATE: 03/14/2020 18:44 CDT INDICATION: - epigastric pain UT SECTION: ER COMPARISON: Prior chest x-ray 06/12/2016. TECHNIQUE: AP chest. FINDINGS: Lines, tubes and hardware: None. Lungs and pleura: Atelectasis in the right lung base. The costophrenic sulci are sharp without effusion. No pneumothorax is identified. Heart and mediastinum: The heart size is normal. The mediastinal contours are normal. Bones and soft tissues: No acute abnormality. Cholecystectomy clips overlie the right upper abdominal quadrant. IMPRESSION: 1. No acute abnormality. 03/14/2020 [facility] Spine lumbar series DX EXAM: S pine lumbar series DX HISTORY: - M54.5 Low back pain; acute right-sided low back pain without sciatica COMPARISON: None AP, lateral and oblique views of the lumbar spine. FINDINGS: AP alignment is normal. There is moderate disc space narrowing at L4-5. Mild lower facet arthropathy. Vertebral body heights are maintained. IMPRESSION: Discogenic and facet arthropathy as described above. 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 FINDINGS: AP alignment is normal. There is disc space narrowing at C7-T1. Mild anterior osteophyte at C5-6. No radiographically significant bony neural foraminal narrowing. IMPRESSION: No acute abnormality. Mild degenerative change. 06/12/2016 [facility] [place] Ankle 3 views Bilateral DX Exa m: Bilateral ankle x-rays, 3 views each and bilateral foot x-rays, 3 views each Reason for Exam: M19.90 Unspecified osteoarthritis, unspecified site Comparison Exam: None Discussion: Right: No acute bony abnormalities. Mild scattered osteoarthritis most prominent within the 1st MTP joint. No suspicious osteoblastic or osteolytic lesions seen to suggest pathologic involvement. Small inferior calcaneal enthesophyte. Left: No acute bony abnormalities. Mild scattered osteoarthritis, most prominent within the calcaneonavicular joint. No suspicious osteoblastic or osteolytic lesions seen to suggest pathologic involvement. Small inferior calcaneal enthesophyte. Impression: 1. No acute bony abnormalities identifi ed. Mild scattered osteoarthritis as detailed above. 06/12/2016 [facility] Foot 3 views bilateral DX Exam : Bilateral ankle x-rays, 3 views each and bilateral foot x-rays, 3 views each Reason for Exam: M19.90 Unspecified osteoarthritis, unspecified site Comparison Exam: None Discussion: Right: No acute bony abnormalities. Mild scattered osteoarthritis most prominent within the 1st MTP joint. No suspicious osteoblastic or osteolytic lesions seen to suggest pathologic involvement. Small inferior calcaneal enthesophyte. Left: No acute bony abnormalities. Mild scattered osteoarthritis, most prominent within the calcaneonavicular joint. No suspicious osteoblastic or osteolytic lesions seen to suggest pathologic involvement. Small inferior calcaneal enthesophyte. Impression: 1. No acute bony abnormalities identifi ed. Mild scattered osteoarthritis as detailed above. 06/12/2016 [facility] Sa[facility] Chest 2 views DX Exam: Two-vie w chest x-ray Reason for Exam: I10 Essential (primary) hypertension Comparison Exam: None Discussion: Cardiomediastinal silhouette is within normal limits. Both hemidiaphragms well visualized. Mild pulmonary vascular congestion. No appreciable pleural effusion. No focal lung consolidations. Trachea is midline. No acute bony abnormalities. Moderate multilevel degenerative disc disease seen within the thoracic spine. Impression: 1. Mild pulmonary vascular congestion. 06/12/2016 [facility] Saunders Consultation Notes No Data Provided for This Section Discharge Summaries No Data Provided for This Section History and Physicals No Data Provided for This Section Vital Signs Vital Sign Value Date Comments Source Respitory Rate 22 04/11/2020 [facility] Systolic (mm Hg) 123 04/11/2020 [facility] Diastolic (mm Hg) 69 04/11/2020 [facility] Respitory Rate 25 04/11/2020 [facility] Systolic (mm Hg) 122 04/11/2020 [facility] Diastolic (mm Hg) 71 04/11/2020 [facility] Respitory Rate 27 04/11/2020 [facility] Systolic (mm Hg) 99 04/11/2020 [facility] Diastolic (mm Hg) 56 04/11/2020 [facility] Height 157.48 cm 04/11/2020 [facility] Weight 106.818 04/11/2020 [facility] BMI Calculated 43.07 04/11/2020 [facility] Respitory Rate 22 04/03/2020 [facility] Systolic (mm Hg) 132 04/03/2020 [facility] Diastolic (mm Hg) 80 04/03/2020 [facility] Respitory Rate 20 04/03/2020 [facility] Systolic (mm Hg) 120 04/03/2020 [facility] Diastolic (mm Hg) 70 04/03/2020 [facility] Respitory Rate 22 04/03/2020 [facility] Systolic (mm Hg) 127 04/03/2020 [facility] Diastolic (mm Hg) 82 04/03/2020 [facility] Height 154.94 cm 04/03/2020 [facility] Weight 119.545 04/03/2020 [facility] BMI Calculated 49.8 04/03/2020 [facility] Temperature Oral (F) 98.6 F 03/22/2020 [facility] Heart Rate 90 03/22/2020 [facility] Respitory Rate 16 03/22/2020 [facility] Systolic (mm Hg) 92 03/22/2020 [facility] Diastolic (mm Hg) 60 03/22/2020 [facility] Temperature Oral (F) 97.8 F 03/22/2020 [facility] Heart Rate 90 03/22/2020 [facility] Respitory Rate 16 03/22/2020 [facility] Systolic (mm Hg) 107 03/22/2020 [facility] Diastolic (mm Hg) 77 03/22/2020 [facility] Temperature Oral (F) 98.4 F 03/22/2020 [facility] Heart Rate 72 03/22/2020 [facility] Respitory Rate 16 03/22/2020 [facility] Systolic (mm Hg) 105 03/22/2020 [facility] Diastolic (mm Hg) 67 03/22/2020 [facility] Temperature Oral (F) 97.4 F 03/18/2020 [facility] Heart Rate 81 03/18/2020 [facility] Respitory Rate 18 03/18/2020 [facility] Systolic (mm Hg) 116 03/18/2020 [facility] Diastolic (mm Hg) 67 03/18/2020 [facility] Temperature Oral (F) 98.0 F 03/18/2020 [facility] Heart Rate 73 03/18/2020 [facility] Respitory Rate 18 03/18/2020 [facility] Systolic (mm Hg) 107 03/18/2020 [facility] Diastolic (mm Hg) 70 03/18/2020 [facility] Temperature Oral (F) 98.0 F 03/17/2020 [facility] Heart Rate 74 03/17/2020 [facility] Respitory Rate 20 03/17/2020 [facility] Systolic (mm Hg) 116 03/17/2020 [facility] Diastolic (mm Hg) 76 03/17/2020 [facility] Height 160.02 cm 03/15/2020 [facility] Weight 118.182 03/15/2020 [facility] BMI Calculated 46.15 03/15/2020 [facility] Systolic (mm Hg) 106 02/27/2020 [facility] Diastolic (mm Hg) 72 02/27/2020 [facility] Heart Rate 84 02/27/2020 [facility] Height 157.48 cm 02/27/2020 [facility] Weight 124.091 02/27/2020 [facility] BMI Calculated 50.04 02/27/2020 [facility] Systolic (mm Hg) 139 01/22/2020 [facility] Diastolic (mm Hg) 77 01/22/2020 [facility] Heart Rate 92 01/22/2020 [facility] Height 157.48 cm 01/22/2020 [facility] Weight 130.136 01/22/2020 [facility] BMI Calculated 52.47 01/22/2020 [facility] Encounters Location Location Details Encounter Type Encounter Number Reason For Visit Attending Provider ADM Date DC Date Status Source [facility] [place] [facility] [id number] Narendra Frank 06/12/2016 06/13/[address] [facility] [place] [facility] [id number] 01 Narendra Frank 04/08/2018 04/09/2018 [facility]plant [facility] - Pre [id number] Dereje Kowalski 01/22/2020 02/21/2020 [facility] Phone Message [id number] 01/31/2020 02/02/2020 [facility] Outpatient [id number] Chris Baker 02/27/2020 02/28/2020 [facility] Inpatient [id number] Delia Hensley 03/14/2020 03/22/2020 [facility] Outpatient [id number] Chris Baker 03/19/2020 03/20/2020 [facility] Bed[facility] Outpatient [id number] Fred Garcia 0 04/03/2020 [facility]patient [id number] Fred Garcia 0 04/12/2020 [facility] Procedures Procedure Code Date Perfomer Comments Source Vascular embolization or occlusion, incl usive of all radiological supervision and interpretation, intraprocedural roadmapping, and imaging guidance necessary to complete the intervention; arterial, other than hemorrhage or tumor (eg, congenital or acquire 07256 04/11/2020 [facility] Assessment and Plan Assessment and Plan Date Source Extracted from:Title: Interventional Rad iology Update Author: Crystal Dangelo PLANER FEEDER Date: 04/11/20 Sadi Bender is a 65 year old female with a past medical history of hepatocellular carcinoma who presents today for image guided diagnostic hepatic angiogram with possible embolization, injection of technetium macroaggregate albumin Y90 mapping under moderate sedation. The benefits, risks, and alternatives for the procedure were discussed with patient via business services tech, Jonh ID [id number]. Patient verbalizes understanding and consents to proceed. She has been NPO since midnight in preparation for her procedure. There is no change in the patient's history or physical exam from that documented on 03/15/[address] Ayers. 04/12/2020 [facility] Extracted from:Title: Interventional Rad iology H&P Update Author: Juani Gallegos PLANER FEEDER Date: 04/03/20 Patient presents to IR [facility]patient [facility] for an Elective Image Guided Y90 Mapping with Moderate Sedation for Hepatocellular Carcinoma. The History and Physical from IR Clinic on 03/29/2020 at 1307 has been reviewed and based on examination of the patient there is no change in patient's current condition. Informed Consent has been obtained. The patient has been NPO since before midnight. Patient does not take any [place] [phone] if there are any questions. Thank you. Plan of care was discussed with patient, RN, and IR Attending, Dr. Garcia. FREDERIC [facility] Interventional Radiology 04/03/2020 [facility] Extracted from:Title: Hospitalist Stefane ss Note Author: Kevon Guardado MD Date: 03/22/20 1.HCC (hepatocellular carcinoma)(C22.0) - to have y90 performed as outpatient 2.Vaginal bleeding(N93.9) - improved - TVU/endometrial biopsy show polyp, discussed w/GEOGR[employer]IC [employer] INTELLIGENCE OFFICER who recommended outpatient f/u and possible hysteroscopy - currently HDS 3.Constipation(K59.00) - c/w bowel regimen 4.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) - c/w lactulose, rifaximin, titrate to 3-4 bm/day - can restart lasix 40/spironolactone 50 - f/u with dr. baker in 10 days - daily meld labs 5.Brain mass(G93.89) - no intervention 6.Cervical stenosis of spine(M48.02) - nointervention per neurosurgery 7.DM (diabetes mellitus), type 2(E11.9) - euglycemic - SSI, accuchecks 8.HTN (hypertension)(I10) - normotensive 9.Adult hypothyroidism(E03.9) - c/w synthroid 10.Thrombocytopenia(D69.6) - 2/2 liver disease 11.Morbid obesity(E66.01) - lifestyle modification sqh dc to home Extracted from:Title: Hepatology Consult Note Author: Tricia Mars MD Date: 03/15/20 67 year old female with PMH of HCC, deco mpensated cirrhosis 2/2 to HARDEN, possible IBS, HTN, DM, Hypothyroidism, MARIA ELENA, and morbid obesity presents with complaints of intermittent, diffuse abdominal pain of 3 week duration. Patient mentions that he abdominal pain is diffuse in nature and radiates to her back andthese episodes wouldlast for about 10 minutes. This pain has been associated with nausea and vomiting. She informs me that she has been having decreased PO tolerance over the last 3 weeks and is unable to keep anything down once consumed. In addition she complains of a pulsating headache and recent vaginal bleeding for the same time period.Upon arrival to ED vital signs were stable, labs remarkable forhyperkalemia and DANIELLE (Cr 1.84). CTH showing circular hyperattenuation in the left side of the zorna. RUQ U/S showing isoechoic well- circumscribed mass with peripheral vascularity in the right lobe of the liver measures 5.2 x 5.6 x 4.5 cm and mild dilation of the common bile duct at 0.7cm. Neurosurgery was consulted and recommended brain/cervical MRI. Hepatology was consulted for abdominal pain, N/V and PO intolerance in setting of history of HARDEN cirrhosis. #Decompensated Cirrhosis Etiology: HARDEN. Varices: No prior history of variceal bleed. Planned to have EGD performed later in the year per Dr. Baker's note. Ascites: No current evidence of ascites. On Spironolactone 100 mg/Lasix 40 mg qDaily at home. SBP: No prior h/o SBP. Hyperbilirubinemia: Total Bilirubin: 1.9;RUQ U/S: Mild dilation of the common bile ductat 0.7cm.with liver cirrhosis, sequelae of portal HTN and mild dilation of CBD (0.8 cm). Given decompensated status, no planfor MRCP/ERCP at this time. HCC: RUQ US (03/15): Isoechoic well-circumscribed mass with peripheral vascularity in the right lobe of the liver measures 5.2 x 5.6 x 4.5 cm and underlying malignancy cannot be entirely excluded. Coagulopathy: INR 1.19; Plts: 113 SPE: On Rifaximin 550 mg BID at home. -Please obtain MRI Liver protocol -Continue Rifaximin 550 mg BID/Lactulose 200 gm [place] Q8H (Titrate 3-4 bowel movements/day) -Continue to hold Spironolactone 100 mg/ Lasix 40 mg -Continue Albumin 25 gm Q8H #Brain Mass -CT Head (03/15): Circular hyperattenuat ion in the left side of the zoran -Neurosurgery consulted: -Recommend MRI brain/cervical spine #DANIELLE -Cr 1.84 --> 1.40 -Continue Albumin 25 gm Q8H -Continue to hold home diuretics #Vaginal Bleed -Gynecology consulted, appreciate recs -Recommend outpatient endometrial biopsy in clinic -Recommend TVUS -Monitor #DM -SSI #Hypothyroidism -Continue Levothyroxine 25 mcg qDaily Discussed with Dr. Mars and Team. We will continue to follow. Gennaro Mendez Internal Medicine, PGY-2 Extracted from:Title: History and Physical Author: Antoni Conti MD Date: 03/15/20 1.Intractable vomiting with nausea(R11.2 ) Ordered: [place] 5/325 oral tablet, 1 tab, Route: PO, Drug Form: TAB, Dosing Weight 118.182, kg, Q4H, PRN Pain Score 4-6, Start date: 03/15/20 8:24:00 CDT, Duration: 30 day, Stop date: 04/14/20 8:23:00 BURR BENCH HAND, 0 albumin human 25% intravenous solution, 25 gm, 100 mL, Route: IVPB, Drug form: INJ, Q8H, Dosing Weight 118.182, kg, Start date: 03/15/20 16:00:00 CDT, Duration: 3 doses or times, Stop date: 03/16/20 8:00:00 CDT, Indication: Hepatorenal syndrome, 0 Dextrose 5% with 0.45% NaCl IV 1,000 mL, 1,000 mL, Rate: 75 ml/hr, Infuse over: 13.3 hr, Route: IV, Dosing Weight 118.182 kg, Total Volume: 1,000, Start date: 03/15/20 8:23:00 CDT, Duration: 30 day, Stop date: 04/14/20 8:22:00 BUR[employer] HAND, 2.34, m2, 0 Abdomen AP DX, 03/15/20 9:52:00 CDT, Stat ONCE, Abdominal pain, acute, periumb pain, Transport by Wheelchair, Not , Patient has IV Yes, None, Contact, Droplet Ammonia Level, 03/15/20 9:37:00 CDT, Stat, ONCE CK, 03/15/20 9:37:00 CDT, Stat, ONCE Hepatic Function Panel, 03/15/20 9:37:00 CDT, Stat, ONCE Lipase Level, 03/15/20 9:52:00 CDT, Stat, ONCE Procalcitonin Level, 03/15/20 9:37:00 CDT, Stat, ONCE TSH w/ Reflex Free T4, 03/15/20 10:27:00 CDT, Stat, ONCE B12 Level, 03/15/20 9:37:00 CDT, Routine, ONCE 2.Brain mass(G93.89) Ordered: [place] 5/325 oral tablet, 1 tab, Route: PO, Drug Form: TAB, Dosing Weight 118.182, kg, Q4H, PRN Pain Score 4-6, Start date: 03/15/20 8:24:00 CDT, Duration: 30 day, Stop date: 04/14/20 8:23:00 BURR [employer] HAND, 0 albumin human 25% intravenous solution, 25 gm, 100 mL, Route: IVPB, Drug form: INJ, Q8H, Dosing Weight 118.182, kg, Start date: 03/15/20 16:00:00 CDT, Duration: 3 doses or times, Stop date: 03/16/20 8:00:00 CDT, Indication: Hepatorenal syndrome, 0 Dextrose 5% with 0.45% NaCl IV 1,000 mL, 1,000 mL, Rate: 75 ml/hr, Infuse over: 13.3 hr, Route: IV, Dosing Weight 118.182 kg, Total Volume: 1,000, Start date: 03/15/20 8:23:00 CDT, Duration: 30 day, Stop date: 04/14/20 8:22:00 BUR[employer], 2.34, m2, 0 Abdomen AP DX, 03/15/20 9:52:00 CDT, Stat ONCE, Abdominal pain, acute, periumb pain, Transport by Wheelchair, Not , Patient has IV Yes, None, Contact, Droplet Ammonia Level, 03/15/20 9:37:00 CDT, Stat, ONCE CK, 03/15/20 9:37:00 CDT, Stat, ONCE Hepatic Function Panel, 03/15/20 9:37:00 CDT, Stat, ONCE Lipase Level, 03/15/20 9:52:00 CDT, Stat, ONCE Procalcitonin Level, 03/15/20 9:37:00 CDT, Stat, ONCE TSH w/ Reflex Free T4, 03/15/20 10:27:00 CDT, Stat, ONCE B12 Level, 03/15/20 9:37:00 CDT, Routine, ONCE 3.HCC (hepatocellular carcinoma)(C22.0) Ordered: [place] 5/325 oral tablet, 1 tab, Route: PO, Drug Form: TAB, Dosing Weight 118.182, kg, Q4H, PRN Pain Score 4-6, Start date: 03/15/20 8:24:00 CDT, Duration: 30 day, Stop date: 04/14/20 8:23:00 B[employer], 0 albumin human 25% intravenous solution, 25 gm, 100 mL, Route: IVPB, Drug form: INJ, Q8H, Dosing Weight 118.182, kg, Start date: 03/15/20 16:00:00 CDT, Duration: 3 doses or times, Stop date: 03/16/20 8:00:00 CDT, Indication: Hepatorenal syndrome, 0 Dextrose 5% with 0.45% NaCl IV 1,000 mL, 1,000 mL, Rate: 75 ml/hr, Infuse over: 13.3 hr, Route: IV, Dosing Weight 118.182 kg, Total Volume: 1,000, Start date: 03/15/20 8:23:00 CDT, Duration: 30 day, Stop date: 04/14/20 8:22:00 BUR[place] [employer], 2.34, m2, 0 Abdomen AP DX, 03/15/20 9:52:00 CDT, Stat ONCE, Abdominal pain, acute, periumb pain, Transport by Wheelchair, Not , Patient has IV Yes, None, Contact, Droplet Ammonia Level, 03/15/20 9:37:00 CDT, Stat, ONCE CK, 03/15/20 9:37:00 CDT, Stat, ONCE Hepatic Function Panel, 03/15/20 9:37:00 CDT, Stat, ONCE Lipase Level, 03/15/20 9:52:00 CDT, Stat, ONCE Procalcitonin Level, 03/15/20 9:37:00 CDT, Stat, ONCE TSH w/ Reflex Free T4, 03/15/20 10:27:00 CDT, Stat, ONCE B12 Level, 03/15/20 9:37:00 CDT, Routine, ONCE 4.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) Ordered: [place] 5/325 oral tablet, 1 tab, Route: PO, Drug Form: TAB, Dosing Weight 118.182, kg, Q4H, PRN Pain Score 4-6, Start date: 03/15/20 8:24:00 CDT, Duration: 30 day, Stop date: 04/14/20 8:23:00 B[employer], 0 albumin human 25% intravenous solution, 25 gm, 100 mL, Route: IVPB, Drug form: INJ, Q8H, Dosing Weight 118.182, kg, Start date: 03/15/20 16:00:00 CDT, Duration: 3 doses or times, Stop date: 03/16/20 8:00:00 CDT, Indication: Hepatorenal syndrome, 0 Dextrose 5% with 0.45% NaCl IV 1,000 mL, 1,000 mL, Rate: 75 ml/hr, Infuse over: 13.3 hr, Route: IV, Dosing Weight 118.182 kg, Total Volume: 1,000, Start date: 03/15/20 8:23:00 CDT, Duration: 30 day, Stop date: 04/14/20 8:22:00 B[employer] [employer], 2.34, m2, 0 Abdomen AP DX, 03/15/20 9:52:00 CDT, Stat ONCE, Abdominal pain, acute, periumb pain, Transport by Wheelchair, Not , Patient has IV Yes, None, Contact, Droplet Ammonia Level, 03/15/20 9:37:00 CDT, Stat, ONCE CK, 03/15/20 9:37:00 CDT, Stat, ONCE Hepatic Function Panel, 03/15/20 9:37:00 CDT, Stat, ONCE Lipase Level, 03/15/20 9:52:00 CDT, Stat, ONCE Procalcitonin Level, 03/15/20 9:37:00 CDT, Stat, ONCE TSH w/ Reflex Free T4, 03/15/20 10:27:00 CDT, Stat, ONCE B12 Level, 03/15/20 9:37:00 CDT, Routine, ONCE 5.Bilateral leg edema(R60.0) Ordered: [place] 5/325 oral tablet, 1 tab, Route: PO, Drug Form: TAB, Dosing Weight 118.182, kg, Q4H, PRN Pain Score 4-6, Start date: 03/15/20 8:24:00 CDT, Duration: 30 day, Stop date: 04/14/20 8:23:00 B[employer] [employer], 0 albumin human 25% intravenous solution, 25 gm, 100 mL, Route: IVPB, Drug form: INJ, Q8H, Dosing Weight 118.182, kg, Start date: 03/15/20 16:00:00 CDT, Duration: 3 doses or times, Stop date: 03/16/20 8:00:00 CDT, Indication: Hepatorenal syndrome, 0 Dextrose 5% with 0.45% NaCl IV 1,000 mL, 1,000 mL, Rate: 75 ml/hr, Infuse over: 13.3 hr, Route: IV, Dosing Weight 118.182 kg, Total Volume: 1,000, Start date: 03/15/20 8:23:00 CDT, Duration: 30 day, Stop date: 04/14/20 8:22:00 B[employer] [place] [employer], 2.34, m2, 0 Abdomen AP DX, 03/15/20 9:52:00 CDT, Stat ONCE, Abdominal pain, acute, periumb pain, Transport by Wheelchair, Not , Patient has IV Yes, None, Contact, Droplet Ammonia Level, 03/15/20 9:37:00 CDT, Stat, ONCE CK, 03/15/20 9:37:00 CDT, Stat, ONCE Hepatic Function Panel, 03/15/20 9:37:00 CDT, Stat, ONCE Lipase Level, 03/15/20 9:52:00 CDT, Stat, ONCE Procalcitonin Level, 03/15/20 9:37:00 CDT, Stat, ONCE TSH w/ Reflex Free T4, 03/15/20 10:27:00 CDT, Stat, ONCE B12 Level, 03/15/20 9:37:00 CDT, Routine, ONCE 6.DM (diabetes mellitus), type 2(E11.9) Ordered: [place] 5/325 oral tablet, 1 tab, Route: PO, Drug Form: TAB, Dosing Weight 118.182, kg, Q4H, PRN Pain Score 4-6, Start date: 03/15/20 8:24:00 CDT, Duration: 30 day, Stop date: 04/14/20 8:23:00 B[employer] [employer], 0 albumin human 25% intravenous solution, 25 gm, 100 mL, Route: IVPB, Drug form: INJ, Q8H, Dosing Weight 118.182, kg, Start date: 03/15/20 16:00:00 CDT, Duration: 3 doses or times, Stop date: 03/16/20 8:00:00 CDT, Indication: Hepatorenal syndrome, 0 Dextrose 5% with 0.45% NaCl IV 1,000 mL, 1,000 mL, Rate: 75 ml/hr, Infuse over: 13.3 hr, Route: IV, Dosing Weight 118.182 kg, Total Volume: 1,000, Start date: 03/15/20 8:23:00 CDT, Duration: 30 day, Stop date: 04/14/20 8:22:00 BUR[place] HAND, 2.34, m2, 0 Abdomen AP DX, 03/15/20 9:52:00 CDT, Stat ONCE, Abdominal pain, acute, periumb pain, Transport by Wheelchair, Not , Patient has IV Yes, None, Contact, Droplet Ammonia Level, 03/15/20 9:37:00 CDT, Stat, ONCE CK, 03/15/20 9:37:00 CDT, Stat, ONCE Hepatic Function Panel, 03/15/20 9:37:00 CDT, Stat, ONCE Lipase Level, 03/15/20 9:52:00 CDT, Stat, ONCE Procalcitonin Level, 03/15/20 9:37:00 CDT, Stat, ONCE TSH w/ Reflex Free T4, 03/15/20 10:27:00 CDT, Stat, ONCE B12 Level, 03/15/20 9:37:00 CDT, Routine, ONCE 7.HTN (hypertension)(I10) Ordered: [place] 5/325 oral tablet, 1 tab, Route: PO, Drug Form: TAB, Dosing Weight 118.182, kg, Q4H, PRN Pain Score 4-6, Start date: 03/15/20 8:24:00 CDT, Duration: 30 day, Stop date: 04/14/20 8:23:00 B[employer] [employer], 0 albumin human 25% intravenous solution, 25 gm, 100 mL, Route: IVPB, Drug form: INJ, Q8H, Dosing Weight 118.182, kg, Start date: 03/15/20 16:00:00 CDT, Duration: 3 doses or times, Stop date: 03/16/20 8:00:00 CDT, Indication: Hepatorenal syndrome, 0 Dextrose 5% with 0.45% NaCl IV 1,000 mL, 1,000 mL, Rate: 75 ml/hr, Infuse over: 13.3 hr, Route: IV, Dosing Weight 118.182 kg, Total Volume: 1,000, Start date: 03/15/20 8:23:00 CDT, Duration: 30 day, Stop date: 04/14/20 8:22:00 BUR[place], 2.34, m2, 0 Abdomen AP DX, 03/15/20 9:52:00 CDT, Stat ONCE, Abdominal pain, acute, periumb pain, Transport by Wheelchair, Not , Patient has IV Yes, None, Contact, Droplet Ammonia Level, 03/15/20 9:37:00 CDT, Stat, ONCE CK, 03/15/20 9:37:00 CDT, Stat, ONCE Hepatic Function Panel, 03/15/20 9:37:00 CDT, Stat, ONCE Lipase Level, 03/15/20 9:52:00 CDT, Stat, ONCE Procalcitonin Level, 03/15/20 9:37:00 CDT, Stat, ONCE TSH w/ Reflex Free T4, 03/15/20 10:27:00 CDT, Stat, ONCE B12 Level, 03/15/20 9:37:00 CDT, Routine, ONCE 8.Adult hypothyroidism(E03.9) Ordered: [place] 5/325 oral tablet, 1 tab, Route: PO, Drug Form: TAB, Dosing Weight 118.182, kg, Q4H, PRN Pain Score 4-6, Start date: 03/15/20 8:24:00 CDT, Duration: 30 day, Stop date: 04/14/20 8:23:00 B[place], 0 albumin human 25% intravenous solution, 25 gm, 100 mL, Route: IVPB, Drug form: INJ, Q8H, Dosing Weight 118.182, kg, Start date: 03/15/20 16:00:00 CDT, Duration: 3 doses or times, Stop date: 03/16/20 8:00:00 CDT, Indication: Hepatorenal syndrome, 0 Dextrose 5% with 0.45% NaCl IV 1,000 mL, 1,000 mL, Rate: 75 ml/hr, Infuse over: 13.3 hr, Route: IV, Dosing Weight 118.182 kg, Total Volume: 1,000, Start date: 03/15/20 8:23:00 CDT, Duration: 30 day, Stop date: 04/14/20 8:22:00 BUR[employer] [place] [employer], 2.34, m2, 0 9.Obstructive sleep apnea(G47.33) Ordered: [place] 5/325 oral tablet, 1 tab, Route: PO, Drug Form: TAB, Dosing Weight 118.182, kg, Q4H, PRN Pain Score 4-6, Start date: 03/15/20 8:24:00 CDT, Duration: 30 day, Stop date: 04/14/20 8:23:00 BURR [place] HAND, 0 albumin human 25% intravenous solution, 25 gm, 100 mL, Route: IVPB, Drug form: INJ, Q8H, Dosing Weight 118.182, kg, Start date: 03/15/20 16:00:00 CDT, Duration: 3 doses or times, Stop date: 03/16/20 8:00:00 CDT, Indication: Hepatorenal syndrome, 0 Dextrose 5% with 0.45% NaCl IV 1,000 mL, 1,000 mL, Rate: 75 ml/hr, Infuse over: 13.3 hr, Route: IV, Dosing Weight 118.182 kg, Total Volume: 1,000, Start date: 03/15/20 8:23:00 CDT, Duration: 30 day, Stop date: 04/14/20 8:22:00 BUR[place] HAND, 2.34, m2, 0 10.Thrombocytopenia(D69.6) Ordered: [place] 5/325 oral tablet, 1 tab, Route: PO, Drug Form: TAB, Dosing Weight 118.182, kg, Q4H, PRN Pain Score 4-6, Start date: 03/15/20 8:24:00 CDT, Duration: 30 day, Stop date: 04/14/20 8:23:00 BURR [place] HAND, 0 albumin human 25% intravenous solution, 25 gm, 100 mL, Route: IVPB, Drug form: INJ, Q8H, Dosing Weight 118.182, kg, Start date: 03/15/20 16:00:00 CDT, Duration: 3 doses or times, Stop date: 03/16/20 8:00:00 CDT, Indication: Hepatorenal syndrome, 0 Dextrose 5% with 0.45% NaCl IV 1,000 mL, 1,000 mL, Rate: 75 ml/hr, Infuse over: 13.3 hr, Route: IV, Dosing Weight 118.182 kg, Total Volume: 1,000, Start date: 03/15/20 8:23:00 CDT, Duration: 30 day, Stop date: 04/14/20 8:22:00 BUR[employer] HAND, 2.34, m2, 0 11.Morbid obesity(E66.01) Ordered: albumin human 25% intravenous solution, 25 gm, 100 mL, Route: IVPB, Drug form: INJ, Q8H, Dosing Weight 118.182, kg, Start date: 03/15/20 16:00:00 CDT, Duration: 3 doses or times, Stop date: 03/16/20 8:00:00 CDT, Indication: Hepatorenal syndrome, 0 12.DANIELLE (acute kidney injury)(N17.9) Ordered: albumin human 25% intravenous solution, 25 gm, 100 mL, Route: IVPB, Drug form: INJ, Q8H, Dosing Weight 118.182, kg, Start date: 03/15/20 16:00:00 CDT, Duration: 3 doses or times, Stop date: 03/16/20 8:00:00 CDT, Indication: Hepatorenal syndrome, 0 13.Vaginal bleeding(N93.9) 03/22/2020 [facility] Extracted from:Title: Progress Note Author: Delia Hensley DO Date: 03/17/20 Patient is a 65year-old female with PMH of HCC, decompensated cirrhosis 2/2 to HARDEN, possible IBS, HTN, DM, Hypothyroidism, MARIA ELENA, and morbid obesity presents with complaints of intermittent, diffuse abdominal pain of 3 week duration. Patient mentions that the abdominal pain is diffuse in nature and radiates to her back andthese episodes wouldlast for about 10 minutes. This pain has been associated with nausea and vomiting.In addition she complains of a pulsating headache and recent vaginal bleeding for the same time period.Upon arrival to ED vital signs were stable, labs remarkable forhyperkalemia and DANIELLE (Cr 1.84). CTH showing circular hyperattenuation in the left side of the zoran. RUQ U/S showing isoechoic well-circumscribed mass with peripheral vascularity in the right lobe of the liver measures 5.2 x 5.6 x 4.5 cm and mild dilation of the common bile duct at 0.7cm. Hepatology was consulted for abdominal pain, N/V and PO intolerance in setting of history of HARDEN cirrhosis. Upon arrival to the ED, the initial head CT also showed findings concerning for a brain mass. Neurosurgery was consulted and recommended brain/cervical MRI which did not reveal concerning findings and outpatient follow up was recommended. Of note, an incidental T1 hypodensity was identified on MRI that was commented to be related to anemia versus an infiltrative process. 1.HCC (hepatocellular carcinoma)(C22.0) -abdominal MRI findings were concerning for a 6.2 x 5.1 cm exophytic arterial enhancing lesion arising from segment 6 demonstrates washout and pseudocapsule and suggestion of macroscopic fat (LR 5) -awaiting further recommendations from hepatology -T1 hypodensity was identified on MRI that was commented to be related to anemia versus an infiltrative process; would appreciate heme/onc recommendations 2.Vaginal bleeding(N93.9) -Patient is still havingvaginal bleeding -Although there was a two-point drop in hemoglobin from admission, repeat CBC showed stable findings -Per my conversation with gynecology today,they feel that she is a poor candidate for surgery because of her liver issues but they feel that a better speculum exam would help drive their decisions as well -spoke to hepatology team about concerns and they will discuss how to optimize her for surgery 3.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) -appreciatehepatology recs -holding diuretics per hepatology 4.Brain mass(G93.89) -found to be artifact on MRI -NTD 5.Cervical stenosis of spine(M48.02) -patient has severe cervical stenosis -per neurosurgery she was advised to not perform strenuous activity 6.Constipation(K59.00) -continue lactulose -talkedto the nursing staff about administering a second enema and getting to her have a bowel movement and that she may need disimpaction; will inform [employer] OFFICER if she is able to have a second bowel movement 7.DM (diabetes mellitus), type 2(E11.9) -continue SSI 8.HTN (hypertension)(I10) -patient currently normotensive 9.Adult hypothyroidism(E03.9) -TSH elevated but free t4 within normal limits -continue levothyroxine 10.Obstructive sleep apnea(G47.33) 11.Thrombocytopenia(D69.6) -likely 2/2 to liver disease -no active signs of bleeding 12.Morbid obesity(E66.01) 13.DANIELLE (acute kidney injury)(N17.9) -creatinine improving -continue iVF heparin pending medical clearance Extracted from:Title: Hepatology Consult Note Author: Tricia Mars MD Date: 03/15/20 67 year old female with PMH of HCC, deco mpensated cirrhosis 2/2 to HARDEN, possible IBS, HTN, DM, Hypothyroidism, MARIA ELENA, and morbid obesity presents with complaints of intermittent, diffuse abdominal pain of 3 week duration. Patient mentions that he abdominal pain is diffuse in nature and radiates to her back andthese episodes wouldlast for about 10 minutes. This pain has been associated with nausea and vomiting. She informs me that she has been having decreased PO tolerance over the last 3 weeks and is unable to keep anything down once consumed. In addition she complains of a pulsating headache and recent vaginal bleeding for the same time period.Upon arrival to ED vital signs were stable, labs remarkable forhyperkalemia and DANIELLE (Cr 1.84). CTH showing circular hyperattenuation in the left side of the zoran. RUQ U/S showing isoechoic well- circumscribed mass with peripheral vascularity in the right lobe of the liver measures 5.2 x 5.6 x 4.5 cm and mild dilation of the common bile duct at 0.7cm. Neurosurgery was consulted and recommended brain/cervical MRI. Hepatology was consulted for abdominal pain, N/V and PO intolerance in setting of history of HARDEN cirrhosis. #Decompensated Cirrhosis Etiology: HARDEN. Varices: No prior history of variceal bleed. Planned to have EGD performed later in the year per Dr. Baker's note. Ascites: No current evidence of ascites. On Spironolactone 100 mg/Lasix 40 mg qDaily at home. SBP: No prior h/o SBP. Hyperbilirubinemia: Total Bilirubin: 1.9;RUQ U/S: Mild dilation of the common bile ductat 0.7cm.with liver cirrhosis, sequelae of portal HTN and mild dilation of CBD (0.8 cm). Given decompensated status, no planfor MRCP/ERCP at this time. HCC: RUQ US (03/15): Isoechoic well-circumscribed mass with peripheral vascularity in the right lobe of the liver measures 5.2 x 5.6 x 4.5 cm and underlying malignancy cannot be entirely excluded. Coagulopathy: INR 1.19; Plts: 113 SPE: On Rifaximin 550 mg BID at home. -Please obtain MRI Liver protocol -Continue Rifaximin 550 mg BID/Lactulose 200 gm [place] Q8H (Titrate 3-4 bowel movements/day) -Continue to hold Spironolactone 100 mg/ Lasix 40 mg -Continue Albumin 25 gm Q8H #Brain Mass -CT Head (03/15): Circular hyperattenuat ion in the left side of the zoran -Neurosurgery consulted: -Recommend MRI brain/cervical spine #DANIELLE -Cr 1.84 --> 1.40 -Continue Albumin 25 gm Q8H -Continue to hold home diuretics #Vaginal Bleed -Gynecology consulted, appreciate recs -Recommend outpatient endometrial biopsy in clinic -Recommend TVUS -Monitor #DM -SSI #Hypothyroidism -Continue Levothyroxine 25 mcg qDaily Discussed with Dr. Mars and Team. We will continue to follow. Gennaro Mendez Internal Medicine, PGY-2 Extracted from:Title: History and Physical Author: Antoni Conti MD Date: 03/15/20 1.Intractable vomiting with nausea(R11.2 ) Ordered: [place] 5/325 oral tablet, 1 tab, Route: PO, Drug Form: TAB, Dosing Weight 118.182, kg, Q4H, PRN Pain Score 4-6, Start date: 03/15/20 8:24:00 CDT, Duration: 30 day, Stop date: 04/14/20 8:23:00 B[employer]R [employer], 0 albumin human 25% intravenous solution, 25 gm, 100 mL, Route: IVPB, Drug form: INJ, Q8H, Dosing Weight 118.182, kg, Start date: 03/15/20 16:00:00 CDT, Duration: 3 doses or times, Stop date: 03/16/20 8:00:00 CDT, Indication: Hepatorenal syndrome, 0 Dextrose 5% with 0.45% NaCl IV 1,000 mL, 1,000 mL, Rate: 75 ml/hr, Infuse over: 13.3 hr, Route: IV, Dosing Weight 118.182 kg, Total Volume: 1,000, Start date: 03/15/20 8:23:00 CDT, Duration: 30 day, Stop date: 04/14/20 8:22:00 BUR[employer] HAND, 2.34, m2, 0 Abdomen AP DX, 03/15/20 9:52:00 CDT, Stat ONCE, Abdominal pain, acute, periumb pain, Transport by Wheelchair, Not , Patient has IV Yes, None, Contact, Droplet Ammonia Level, 03/15/20 9:37:00 CDT, Stat, ONCE CK, 03/15/20 9:37:00 CDT, Stat, ONCE Hepatic Function Panel, 03/15/20 9:37:00 CDT, Stat, ONCE Lipase Level, 03/15/20:52:00 CDT, Stat, ONCE Procalcitonin Level, 03/15/20:37:00 CDT, Stat, ONCE TSH w/ Reflex Free T4, 03/15/20 10:27:00 CDT, Stat, ONCE B12 Level, 03/15/20 9:37:00 CDT, Routine, ONCE 2.Brain mass(G93.89) Ordered: [place] 5/325 oral tablet, 1 tab, Route: PO, Drug Form: TAB, Dosing Weight 118.182, kg, Q4H, PRN Pain Score 4-6, Start date: 03/15/20 8:24:00 CDT, Duration: 30 day, Stop date: 04/14/20 8:23:00 BURR [employer]EN[employer] HAND, 0 albumin human 25% intravenous solution, 25 gm, 100 mL, Route: IVPB, Drug form: INJ, Q8H, Dosing Weight 118.182, kg, Start date: 03/15/20 16:00:00 CDT, Duration: 3 doses or times, Stop date: 03/16/20 8:00:00 CDT, Indication: Hepatorenal syndrome, 0 Dextrose 5% with 0.45% NaCl IV 1,000 mL, 1,000 mL, Rate: 75 ml/hr, Infuse over: 13.3 hr, Route: IV, Dosing Weight 118.182 kg, Total Volume: 1,000, Start date: 03/15/20 8:23:00 CDT, Duration: 30 day, Stop date: 04/14/20 8:22:00 BURR BENCH HAND, 2.34, m2, 0 Abdomen AP DX, 03/15/20 9:52:00 CDT, Stat ONCE, Abdominal pain, acute, periumb pain, Transport by Wheelchair, Not , Patient has IV Yes, None, Contact, Droplet Ammonia Level, 03/15/20 9:37:00 CDT, Stat, ONCE CK, 03/15/20 9:37:00 CDT, Stat, ONCE Hepatic Function Panel, 03/15/20 9:37:00 CDT, Stat, ONCE Lipase Level, 03/15/20 9:52:00 CDT, Stat, ONCE Procalcitonin Level, 03/15/20 9:37:00 CDT, Stat, ONCE TSH w/ Reflex Free T4, 03/15/20 10:27:00 CDT, Stat, ONCE B12 Level, 03/15/20:37:00 CDT, Routine, ONCE 3.HCC (hepatocellular carcinoma)(C22.0) Ordered: [place] 5/325 oral tablet, 1 tab, Route: PO, Drug Form: TAB, Dosing Weight 118.182, kg, Q4H, PRN Pain Score 4-6, Start date: 03/15/20 8:24:00 CDT, Duration: 30 day, Stop date: 04/14/20 8:23:00 BURR BEN[employer], 0 albumin human 25% intravenous solution, 25 gm, 100 mL, Route: IVPB, Drug form: INJ, Q8H, Dosing Weight 118.182, kg, Start date: 03/15/20 16:00:00 CDT, Duration: 3 doses or times, Stop date: 03/16/20 8:00:00 CDT, Indication: Hepatorenal syndrome, 0 Dextrose 5% with 0.45% NaCl IV 1,000 mL, 1,000 mL, Rate: 75 ml/hr, Infuse over: 13.3 hr, Route: IV, Dosing Weight 118.182 kg, Total Volume: 1,000, Start date: 03/15/20 8:23:00 CDT, Duration: 30 day, Stop date: 04/14/20 8:22:00 [employer], 2.34, m2, 0 Abdomen AP DX, 03/15/20 9:52:00 CDT, Stat ONCE, Abdominal pain, acute, periumb pain, Transport by Wheelchair, Not , Patient has IV Yes, None, Contact, Droplet Ammonia Level, 03/15/20 9:37:00 CDT, Stat, ONCE CK, 03/15/20 9:37:00 CDT, Stat, ONCE Hepatic Function Panel, 03/15/20 9:37:00 CDT, Stat, ONCE Lipase Level, 03/15/20 9:52:00 CDT, Stat, ONCE Procalcitonin Level, 03/15/20 9:37:00 CDT, Stat, ONCE TSH w/ Reflex Free T4, 03/15/20 10:27:00 CDT, Stat, ONCE B12 Level, 03/15/20 9:37:00 CDT, Routine, ONCE 4.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) Ordered: [place] 5/325 oral tablet, 1 tab, Route: PO, Drug Form: TAB, Dosing Weight 118.182, kg, Q4H, PRN Pain Score 4-6, Start date: 03/15/20 8:24:00 CDT, Duration: 30 day, Stop date: 04/14/20 8:23:00 [employer], 0 albumin human 25% intravenous solution, 25 gm, 100 mL, Route: IVPB, Drug form: INJ, Q8H, Dosing Weight 118.182, kg, Start date: 03/15/20 16:00:00 CDT, Duration: 3 doses or times, Stop date: 03/16/20 8:00:00 CDT, Indication: Hepatorenal syndrome, 0 Dextrose 5% with 0.45% NaCl IV 1,000 mL, 1,000 mL, Rate: 75 ml/hr, Infuse over: 13.3 hr, Route: IV, Dosing Weight 118.182 kg, Total Volume: 1,000, Start date: 03/15/20 8:23:00 CDT, Duration: 30 day, Stop date: 04/14/20 8:22:00 [employer], 2.34, m2, 0 Abdomen AP DX, 03/15/20 9:52:00 CDT, Stat ONCE, Abdominal pain, acute, periumb pain, Transport by Wheelchair, Not , Patient has IV Yes, None, Contact, Droplet Ammonia Level, 03/15/20 9:37:00 CDT, Stat, ONCE CK, 03/15/20 9:37:00 CDT, Stat, ONCE Hepatic Function Panel, 03/15/20 9:37:00 CDT, Stat, ONCE Lipase Level, 03/15/20 9:52:00 CDT, Stat, ONCE Procalcitonin Level, 03/15/20 9:37:00 CDT, Stat, ONCE TSH w/ Reflex Free T4, 03/15/20 10:27:00 CDT, Stat, ONCE B12 Level, 03/15/20 9:37:00 CDT, Routine, ONCE 5.Bilateral leg edema(R60.0) Ordered: [place] 5/325 oral tablet, 1 tab, Route: PO, Drug Form: TAB, Dosing Weight 118.182, kg, Q4H, PRN Pain Score 4-6, Start date: 03/15/20 8:24:00 CDT, Duration: 30 day, Stop date: 04/14/20 8:23:00 [employer], 0 albumin human 25% intravenous solution, 25 gm, 100 mL, Route: IVPB, Drug form: INJ, Q8H, Dosing Weight 118.182, kg, Start date: 03/15/20 16:00:00 CDT, Duration: 3 doses or times, Stop date: 03/16/20 8:00:00 CDT, Indication: Hepatorenal syndrome, 0 Dextrose 5% with 0.45% NaCl IV 1,000 mL, 1,000 mL, Rate: 75 ml/hr, Infuse over: 13.3 hr, Route: IV, Dosing Weight 118.182 kg, Total Volume: 1,000, Start date: 03/15/20 8:23:00 CDT, Duration: 30 day, Stop date: 04/14/20 8:22:00 [employer], 2.34, m2, 0 Abdomen AP DX, 03/15/20 9:52:00 CDT, Stat ONCE, Abdominal pain, acute, periumb pain, Transport by Wheelchair, Not , Patient has IV Yes, None, Contact, Droplet Ammonia Level, 03/15/20 9:37:00 CDT, Stat, ONCE CK, 03/15/20 9:37:00 CDT, Stat, ONCE Hepatic Function Panel, 03/15/20 9:37:00 CDT, Stat, ONCE Lipase Level, 03/15/20 9:52:00 CDT, Stat, ONCE Procalcitonin Level, 03/15/20 9:37:00 CDT, Stat, ONCE TSH w/ Reflex Free T4, 03/15/20 10:27:00 CDT, Stat, ONCE B12 Level, 03/15/20 9:37:00 CDT, Routine, ONCE 6.DM (diabetes mellitus), type 2(E11.9) Ordered: [place] 5/325 oral tablet, 1 tab, Route: PO, Drug Form: TAB, Dosing Weight 118.182, kg, Q4H, PRN Pain Score 4-6, Start date: 03/15/20 8:24:00 CDT, Duration: 30 day, Stop date: 04/14/20 8:23:00 [employer], 0 albumin human 25% intravenous solution, 25 gm, 100 mL, Route: IVPB, Drug form: INJ, Q8H, Dosing Weight 118.182, kg, Start date: 03/15/20 16:00:00 CDT, Duration: 3 doses or times, Stop date: 03/16/20 8:00:00 CDT, Indication: Hepatorenal syndrome, 0 Dextrose 5% with 0.45% NaCl IV 1,000 mL, 1,000 mL, Rate: 75 ml/hr, Infuse over: 13.3 hr, Route: IV, Dosing Weight 118.182 kg, Total Volume: 1,000, Start date: 03/15/20 8:23:00 CDT, Duration: 30 day, Stop date: 04/14/20 8:22:00 [employer], 2.34, m2, 0 Abdomen AP DX, 03/15/20 9:52:00 CDT, Stat ONCE, Abdominal pain, acute, periumb pain, Transport by Wheelchair, Not , Patient has IV Yes, None, Contact, Droplet Ammonia Level, 03/15/20 9:37:00 CDT, Stat, ONCE CK, 03/15/20 9:37:00 CDT, Stat, ONCE Hepatic Function Panel, 03/15/20 9:37:00 CDT, Stat, ONCE Lipase Level, 03/15/20 9:52:00 CDT, Stat, ONCE Procalcitonin Level, 03/15/20 9:37:00 CDT, Stat, ONCE TSH w/ Reflex Free T4, 03/15/20 10:27:00 CDT, Stat, ONCE B12 Level, 03/15/20 9:37:00 CDT, Routine, ONCE 7.HTN (hypertension)(I10) Ordered: [place] 5/325 oral tablet, 1 tab, Route: PO, Drug Form: TAB, Dosing Weight 118.182, kg, Q4H, PRN Pain Score 4-6, Start date: 03/15/20 8:24:00 CDT, Duration: 30 day, Stop date: 04/14/20 8:23:00 [employer], 0 albumin human 25% intravenous solution, 25 gm, 100 mL, Route: IVPB, Drug form: INJ, Q8H, Dosing Weight 118.182, kg, Start date: 03/15/20 16:00:00 CDT, Duration: 3 doses or times, Stop date: 03/16/20 8:00:00 CDT, Indication: Hepatorenal syndrome, 0 Dextrose 5% with 0.45% NaCl IV 1,000 mL, 1,000 mL, Rate: 75 ml/hr, Infuse over: 13.3 hr, Route: IV, Dosing Weight 118.182 kg, Total Volume: 1,000, Start date: 03/15/20 8:23:00 CDT, Duration: 30 day, Stop date: 04/14/20 8:22:00 [employer], 2.34, m2, 0 Abdomen AP DX, 03/15/20 9:52:00 CDT, Stat ONCE, Abdominal pain, acute, periumb pain, Transport by Wheelchair, Not , Patient has IV Yes, None, Contact, Droplet Ammonia Level, 03/15/20 9:37:00 CDT, Stat, ONCE CK, 03/15/20 9:37:00 CDT, Stat, ONCE Hepatic Function Panel, 03/15/20 9:37:00 CDT, Stat, ONCE Lipase Level, 03/15/20 9:52:00 CDT, Stat, ONCE Procalcitonin Level, 03/15/20 9:37:00 CDT, Stat, ONCE TSH w/ Reflex Free T4, 03/15/20 10:27:00 CDT, Stat, ONCE B12 Level, 03/15/20 9:37:00 CDT, Routine, ONCE 8.Adult hypothyroidism(E03.9) Ordered: [place] 5/325 oral tablet, 1 tab, Route: PO, Drug Form: TAB, Dosing Weight 118.182, kg, Q4H, PRN Pain Score 4-6, Start date: 03/15/20 8:24:00 CDT, Duration: 30 day, Stop date: 04/14/20 8:23:00 [employer], 0 albumin human 25% intravenous solution, 25 gm, 100 mL, Route: IVPB, Drug form: INJ, Q8H, Dosing Weight 118.182, kg, Start date: 03/15/20 16:00:00 CDT, Duration: 3 doses or times, Stop date: 03/16/20 8:00:00 CDT, Indication: Hepatorenal syndrome, 0 Dextrose 5% with 0.45% NaCl IV 1,000 mL, 1,000 mL, Rate: 75 ml/hr, Infuse over: 13.3 hr, Route: IV, Dosing Weight 118.182 kg, Total Volume: 1,000, Start date: 03/15/20 8:23:00 CDT, Duration: 30 day, Stop date: 04/14/20 8:22:00 [employer], 2.34, m2, 0 9.Obstructive sleep apnea(G47.33) Ordered: [place] 5/325 oral tablet, 1 tab, Route: PO, Drug Form: TAB, Dosing Weight 118.182, kg, Q4H, PRN Pain Score 4-6, Start date: 03/15/20 8:24:00 CDT, Duration: 30 day, Stop date: 04/14/20 8:23:00 [employer], 0 albumin human 25% intravenous solution, 25 gm, 100 mL, Route: IVPB, Drug form: INJ, Q8H, Dosing Weight 118.182, kg, Start date: 03/15/20 16:00:00 CDT, Duration: 3 doses or times, Stop date: 03/16/20 8:00:00 CDT, Indication: Hepatorenal syndrome, 0 Dextrose 5% with 0.45% NaCl IV 1,000 mL, 1,000 mL, Rate: 75 ml/hr, Infuse over: 13.3 hr, Route: IV, Dosing Weight 118.182 kg, Total Volume: 1,000, Start date: 03/15/20 8:23:00 CDT, Duration: 30 day, Stop date: 04/14/20 8:22:00 [employer], 2.34, m2, 0 10.Thrombocytopenia(D69.6) Ordered: [place] 5/325 oral tablet, 1 tab, Route: PO, Drug Form: TAB, Dosing Weight 118.182, kg, Q4H, PRN Pain Score 4-6, Start date: 03/15/20 8:24:00 CDT, Duration: 30 day, Stop date: 04/14/20 8:23:00 [employer], 0 albumin human 25% intravenous solution, 25 gm, 100 mL, Route: IVPB, Drug form: INJ, Q8H, Dosing Weight 118.182, kg, Start date: 03/15/20 16:00:00 CDT, Duration: 3 doses or times, Stop date: 03/16/20 8:00:00 CDT, Indication: Hepatorenal syndrome, 0 Dextrose 5% with 0.45% NaCl IV 1,000 mL, 1,000 mL, Rate: 75 ml/hr, Infuse over: 13.3 hr, Route: IV, Dosing Weight 118.182 kg, Total Volume: 1,000, Start date: 03/15/20 8:23:00 CDT, Duration: 30 day, Stop date: 04/14/20 8:22:00 [employer], 2.34, m2, 0 11.Morbid obesity(E66.01) Ordered: albumin human 25% intravenous solution, 25 gm, 100 mL, Route: IVPB, Drug form: INJ, Q8H, Dosing Weight 118.182, kg, Start date: 03/15/20 16:00:00 CDT, Duration: 3 doses or times, Stop date: 03/16/20 8:00:00 CDT, Indication: Hepatorenal syndrome, 0 12.DANIELLE (acute kidney injury)(N17.9) Ordered: albumin human 25% intravenous solution, 25 gm, 100 mL, Route: IVPB, Drug form: INJ, Q8H, Dosing Weight 118.182, kg, Start date: 03/15/20 16:00:00 CDT, Duration: 3 doses or times, Stop date: 03/16/20 8:00:00 CDT, Indication: Hepatorenal syndrome, 0 13.Vaginal bleeding(N93.9) 03/18/2020 [facility] Plan of Care No Data Provided for This Section Social History Social History Date Source Social History TypeResponse Alcohol Never Substance Abuse Use: None. Smoking Status Never smoker; Ready to change: No; Concerns about tobacco use in household: No; Exposure to Tobacco Smoke None; Cigarette Smoking Last 365 Days No; Reg Smoking Cessation Counseling No entered on: 01/22/20 01/22/2020 [facility] Social History TypeResponse Alcohol Never Substance Abuse Use: None. Smoking Status Never smoker; Ready to change: No; Concerns about tobacco use in household: No; Exposure to Tobacco Smoke None; Cigarette Smoking Last 365 Days No; Reg Smoking Cessation Counseling No entered on: 04/11/20 01/22/2020 [facility] No data available for this section 04/09/2018 KATHY Saunders Family History No Data Provided for This Section Advance Directives No Data Provided for This Section Functional Status No Data Provided for This Section
--- OUTSIDE RECORDS SUMMARY | 2020-04-17 17:56 | XMS REPORT | Continuity of Care Document ---
Author Author [facility] t Organization [facility] Address [address] [place] [address] Phone Unavailable Care Team Providers Care Optometry Assistant Name Role Phone NO, PCP PCP Unavailable Amira Garcia Attphys RADIOLOGY, MD PROVIDER Attphys Unavailable Usha Guardado Attphys Arianna Fored Attphys Delia Hensley Attphys KALYAN BROTHERS Attphys Unavailable CHRIS FORDE M.D. Attphys Unavailable Abdoulaye Chambers Attphys ORGANTRANSPLANT, OP Attphys Unavailable Gerald Frank Attphys Delia Hensley Admphys Payers Payer Name Policy Type Policy Number Effective Date Expiration Date [employer]ie [employer] [place] Ppo [id number] I [facility] Problems Condition Name Condition Details Condition Category Status Onset Date Resolution Date Last Treatment Date Treating Clinician Comments Source BEDDED OP/IMAGE GUIDED DIAGNOSTIC HEPATI BEDDED OP/IMAGE GUIDED DIAGNOSTIC HEPATI Active 04/09/2020 [facility] Diagnosis Active 2020-04-09 00:00:00 2020-04-12 12:52:00 [facility] LABH LABH Active 03/19/2020 [facility] Diagnosis Active 2020-03-19 00:00:00 2020-03-19 12:56:00 [facility] ABD PAIN ABD PAIN Active 03/14/2020 [facility] Diagnosis Active 2020-03-14 00:00:00 2020-03-14 22:12:00 [facility] VOMITING VOMI TING Active 03/14/2020 [facility] Diagnosis Active 2020-03-14 00:00:00 2020-03-20 09:54:00 [facility] CLINIC F/U VISIT CLIN IC F/U VISIT Active 02/01/2020 [facility] Diagnosis Active 2020-02-01 00:00:00 2020-02-27 1 3:17:00 [facility] PRE-LIVER CONSULT PRE- LIVER CONSULT Active 01/19/2020 [facility] Diagnosis Active 2020-01-19 00:00:00 2019-12 13:59:00 [facility] M54.5 - LOW BACK PAIN M54. 5 - LOW BACK PAIN Active 04/07/2018 [facility] [place] Diagnosis Active 2018-04-07 00:01:00 2018-09-09 16:28:00 [facility] M46.92 - UNSPECIFIED INFLAMMATORY SPOND M46.92 - UNSPECIFIED INFLAMMATORY SPOND Active 06/12/2016 [facility] [place] Diagnosis Active 2016-06-12 00:01:00 2016-06-12 09:51:00 [facility] History of Bilateral leg edema History of Bilateral leg edema Probl em Resolved [facility] History of irritable bowel syndrome History of irritable bowel s yndrome Problem Resolved [facility] History of hypothyroidism History of hypothyroidism Problem Resolved [facility] History of Hepatic encephalopathy History of Hepatic encephalopa thy Problem Resolved [facility] History of hypertension History of hypertension Problem Resolved [facility] History of sleep apnea History of sleep apnea Problem Resolved [facility] Hepatocellular carcinoma Hepatocellular carcinoma Problem Active [facility] Abnormal kidney function Problem Active [facility] Other specific arthropathies, not elsewhere classified , vertebrae Other specific arthropathies, not elsewhere classified, vertebrae 10/27/2018 [facility] [place] Problem 2018-10-27 11:36:12 Becky Mathews Major depressive disorder (disorder) Major depressive disorder (disorder) Resolved Problem 04/13/2020 [facility] Problem Resolved 2020-04-13 23:19:34 Becky Mathews Bilateral lower limb edema Victor M ateral lower limb edema Active Problem 04/13/2020 [facility] Problem Active 2020-04-13 23:19:34 Becky Mathews Cirrhosis of liver (disorder) Cirrhosis of liver (disorder) Active Problem 04/13/2020 [facility] Problem Active 2020-04-13 23:19:34 Faizan Mathews Hepatic encephalopathy (disorder) Hepatic encephalopathy (disorder) Active Problem 04/13/2020 [facility] Problem Active 2020-04-13 23:19:34 Faizan Mathews Hypertensive disorder, systemic arterial (disorder) Hypertensive disorder, systemic arterial (disorder) Active Problem 04/13/2020 [facility] Problem Active 2020-04-13 23 :19:34 Becky Mathews Hypothyroidism (disorder) Hypo thyroidism (disorder) Active Problem 04/13/2020 [facility] Problem Active 2020-04-13 23:19:34 Becky Mathews Irritable colon (disorder) Irr itable colon (disorder) Active Problem 04/13/2020 [facility] Problem Active 2020-04-13 23:19:34 Becky Mathews Liver cell carcinoma (disorder) Liver cell carcinoma (disorder) Active Problem 04/13/2020 [facility] Problem Active 2020-04-13 23:19:34 Faizan Mathews Obese class I (finding) Obes e class I (finding) Active Problem 04/13/2020 [facility] Problem Active 2020-04-13 23:19:34 Becky Mathews Obstructive sleep apnea syndrome (disorder) Obstructive sleep apnea syndrome (disorder) Active Problem 04/13/2020 [facility] Problem Active 2020-04-13 23:19:34 Manas Mathews Osteoarthritis (disorder) Oste oarthritis (disorder) Active Problem 04/13/2020 [facility] Problem Active 2020-04-13 23:19:34 Becky Mathews Diabetes mellitus type 2 (disorder) Diabetes mellitus type 2 (disorder) Active Problem 04/13/2020 [facility] Problem Active 2020-04-13 23:19:34 Becky Mathews Abnormal vaginal bleeding (finding) Abnormal vaginal bleeding (finding) Active Problem 04/13/2020 [facility] Problem Active 2020-04-13 23:19:34 Neelakwaku mary jane Mathews VOMITING, UNSPECIFIED VOMI TING, UNSPECIFIED Active [facility] Diagnosis Active 2020-03-20 09:54:00 Becky Mathews [facility] Active [facility] Diagnosis Active 2020-03-19 12:56:00 Becky Mathews Unspecified abdominal pain Uns pecified abdominal pain 03/15/2020 03/24/2020 [facility] Problem 2019 17:00:00 2020-03-24 21:56:12 2020-03-24 21:56:12 Becky Mathews Vomiting, unspecified Vomi ting, unspecified 03/15/2020 03/24/2020 [facility] Problem 2020-03-15 17 :00:00 2020-03-24 21:56:12 2020-03-24 21:56:12 Becky chou Low back pain Low back pain 04/15/2018 10/27/2018 [facility] [place] Problem 2018-04-15 06:09:39 2018-10-27 11:36:12 2018-10-27 11:36:12 Becky Mathews Allergies, Adverse Reactions, Alerts Allergy Name Allergy Type Status Severity Reaction(s) Onset Date Inacti ve Date Treating Clinician Comments Source No Known Allergies DA Active U 2020-02-15 00:00:00 [facility] No Known Allergies DA Active U 2018-04-26 00:00:00 [facility] No Known Allergies DA Active U 2018-04-05 00:00:00 [facility] No Known Allergies DA Active U 2017-11-23 00:00:00 [facility] No Known Allergies DA Active U 2017-10-22 00:00:00 [facility] No Known Medication Allergies No Known Medication Allergies Active [facility] Family History Family Member Diagnosis Comments Start Date Stop Date Source Child Family history of liver disease [facility] Mother Family history of liver cancer [facility] Social History Social Habit Start Date Stop Date Quantity Comments Source Social History 2018-04-09 05:59:00 2018-04-09 05:59:00 Becky Mathews Sex Assigned At 1955 00:00:00 1955 00:00:00 Female [facility] Medications Ordered Medication Name Filled Medication Name Start Date Stop Da te Current Medication? Ordering Clinician Indication Dosage Frequency Signature (SIG) Comments Components Source Dilaudid 2020-04-11 21:42:00 No 0.2 mg, Route: IVP, Q4H, Dosing Weight 106.818, kg, PRN Pain Score 7-10, Start date: 04/11/20 15:42:00 CYCLE REPAIRER, Duration: 30 day, Stop date: 05/11/20 15:41:00 [facility] Acetaminophen 325 MG / Hydrocodone Bitartrate 5 MG Oral Tabl et [[place] 5/325] 2020-04-11 21:07:00 No 2 tab, Route: PO, Drug Form: TAB, Dosing Weight 106.818, kg, Q4H, PRN Pain Score 4-6, Start date: 04/11/20 15:07:00 CYCLE REPAIRER, Duration: 30 day, Stop date: 05/11/20 15:06:00 [facility] Dilaudid 2020-04-11 18:49:00 No 0.5 mg, Route: IV, ONCE, Dosing Weight 106.818, kg, Start date: 04/11/20 12:49:00 CYCLE REPAIRER, Stop date: 04/11/20 12:49:00 [facility] Dilaudid 2020-04-11 18:42:00 No 0.5 mg, Route: IV, ONCE, Dosing Weight 106.818, kg, Start date: 04/11/20 12:42:00 CYCLE REPAIRER, Stop date: 04/11/20 12:42:00 CYCLE REPAIRER [facility] Dilaudid 2020-04-11 18:18:00 No 0.5 mg, Route: IV, ONCE, Dosing Weight 106.818, kg, Start date: 04/11/20 12:18:00 CYCLE REPAIRER, Stop date: 04/11/20 12:18:00 [facility] Dilaudid 2020-04-11 17:15:00 No 0.5 mg, Route: IV, ONCE, Dosing Weight 106.818, kg, Start date: 04/11/20 11:15:00 CYCLE REPAIRER, Stop date: 04/11/20 11:15:00 [facility] Lidocaine Hydrochloride 10 MG/ML Injectable Solution 04-11 17:05:00 No 5 mL, Route: INT RADERM, Dosing Weight 106.818, kg, ONCE, Start date: 04/11/20 11:05:00 CYCLE REPAIRER, Stop date: 04/11/20 11:05:00 CYCLE REPAIRER [facility] Fentanyl 2020-04-11 16:43:00 No Route: IV, ONCE, Dosing Weight 106.818, kg, Start date: 04/11/20 10:43:00 CYCLE REPAIRER, Stop date: 04/11/20 10:43:00 CYCLE REPAIRER [facility] Zofran 2020-04-11 15:25:00 No 4 mg, Route: IVP, Drug form: INJ, ONCE, Dosing Weight 106.818, kg, Start date: 04/11/20 9:25:00 CYCLE REPAIRER, Stop date: 04/11/20 9:25:00 CYCLE REPAIRER [facility] Tylenol 2020-04-11 15:25:00 No 1,000 mg, 2 tab, Route: PO, Drug form: TAB, ONCE, Dosing Weight 106.818, kg, Start date: 04/11/20 9:25:00 CYCLE REPAIRER, Stop date: 04/11/20 9:25:00 CYCLE REPAIRER, 0 [facility] [address] Tramadol 2020-04-10 17:37:00 Yes 50 mg, PO, Q4-6H, PRN Pain, # 20 tab, 0 Refill(s) [facility] Promethazine 2020-04-03 21:25:00 No 12.5 mg, Route: IVPB, ONCE, Dosing Weight 119.545, kg, PRN Nausea & Vomiting, Start date: 04/03/20 15:25:00 [facility] Ondansetron 2020-04-03 20:23:00 No 4 mg, Route: IV, ONCE, Dosing Weight 119.545, kg, Start date: 04/03/20 14:23:00 CYCLE REPAIRER, Stop date: 04/03/20 14:23:00 [facility] heparin 2020-04-03 20:10:00 No 3,000 unit, Route: IV, ONCE, Dosing Weight 119.545, kg, Start date: 04/03/20 14:10:00 CYCLE REPAIRER, Stop date: 04/03/20 14:10:00 [facility] Nitroglycerin 2020-04-03 20:10:00 No 50 microgram, Route: IV, ONCE, Dosing Weight 119.545, kg, Start date: 04/03/20 14:10:00 CYCLE REPAIRER, Stop date: 04/03/20 14:10:00 [facility] Verapamil 2020-04-03 20:10:00 No 2.5 mg, Route: INTRAARTERIAL, ONCE, Dosing Weight 119.545, kg, Start date: 04/03/20 14:10:00 CYCLE REPAIRER, Stop date: 04/03/20 14:10:00 [facility] Hydromorphone 2020-04-03 19:05:00 No 0.5 mg, Route: IV, ONCE, Dosing Weight 119.545, kg, Start date: 04/03/20 13:05:00 CYCLE REPAIRER, Stop date: 04/03/20 13:05:00 [facility] Hydromorphone 2020-04-03 18:35:00 No 0.5 mg, Route: IV, ONCE, Dosing Weight 119.545, kg, Start date: 04/03/20 12:35:00 CYCLE REPAIRER, Stop date: 04/03/20 12:35:00 [facility] Fentanyl 2020-04-03 18:00:00 No 25 microgram, Route: IV, ONCE, Dosing Weight 119.545, kg, Start date: 04/03/20 12:00:00 CYCLE REPAIRER, Stop date: 04/03/20 12:00:00 [facility] Zofran 2020-04-03 17:23:00 No 4 mg, Route: IV, ONCE, Dosing Weight 119.545, kg, Start date: 04/03/20 11:23:00 CYCLE REPAIRER, Stop date: 04/03/20 11:23:00 CYCLE REPAIRER [facility] Fentanyl 2020-04-03 17:10:00 No 50 microgram, Route: IV, ONCE, Dosing Weight 119.545, kg, Start date: 04/03/20 11:10:00 CYCLE REPAIRER, Stop date: 04/03/20 11:10:00 CYCLE REPAIRER [facility] Lidocaine Hydrochloride 10 MG/ML Injectable Solution 04-03 16:44:00 No 15 mL, Route: ISLAS B-Q, Dosing Weight 119.545, ONCE, Start date: 04/03/20 10:44:00 CYCLE REPAIRER, Stop date: 04/03/20 10:44:00 CYCLE REPAIRER [facility] Fentanyl 2020-04-03 16:43:00 No 75 microgram, Route: IV, ONCE, Dosing Weight 119.545, kg, Start date: 04/03/20 10:43:00 CYCLE REPAIRER, Stop date: 04/03/20 10:43:00 CYCLE REPAIRER [facility] Ondansetron 2020-04-03 14:52:00 Yes 0 Refill (s) [facility] Baclofen 2020-04-03 14:52:00 Yes PO, TID, 0 Refill(s) [facility] Escitalopram 2020-04-03 14:52:00 Yes PO, Yamilka ly, 0 Refill(s) [facility] acetaminophen-codeine #3 2020-04-03 14:52:00 Yes PO, Q6H, 0 Refill(s) [facility] Lactulose 667 MG/ML Oral Solution 2020-03-22 16:37:00 Yes 20 gm = 30 mL, PO, TID, X 30 day, # 2700 mL, 0 Refill(s), Pharmacy: [id number], 160.02, cm, 03/15/20 6:00:00 CDT, Height, 118.182, kg, 03/15/20 6:00:00 CDT, Weight [facility] tramadol hydrochloride 50 MG Oral Tablet 2020-03-22 16:37:00 Yes 50 mg = 1 tab, PO, Daily, PRN Pain Score 7-10, X 5 day, # 5 tab, 0 Refill(s), Pharmacy: [id number], 160.02, cm, 03/15/20 6:00:00 CDT, Height, 118.182, kg, 03/15/20 6:00:00 CDT, Weight Becky Mathews pantoprazole 2020-03-21 12:30:00 No Notes: Tablet should not be chewed or crushed. (Same as: Protonix) Usha Mathews Melatonin 3 MG Extended Release Tablet 2020-03-20 23:32:00 No Notes: (Same as: Melatonin) Becky Mathews Lactulose 667 MG/ML Oral Solution 2020-03-20 22:00:00 No Notes: (Same as:Chronulac) Becky Mathews Cytotec 2020-03-20 14:53:00 No Notes: (Same as:Cytotec) [facility] 3:Reproductive risk Hazardous Drug -- Refer to safe handling procedure PPE Matrix Take with food Me sudha Mathews pantoprazole 2020-03-19 21:30:00 No 40 mg, Route: PO, Drug form: ECTAB, Before Dinner, Dosing Weight 118.182, kg, Start date: 03/19/20 16:30:00 CDT, Duration: 30 day, Stop date: 04/17/20 16:30:00 CYCLE REPAIRER Becky Mathews tramadol hydrochloride 50 MG Oral Tablet 2020-03-19 21:09:00 No Notes: Not to exceed 400mg/day. (Same As: Ultram) Becky Mathews Oxycodone Hydrochloride 5 MG Oral Tablet 2020-03-19 21:09:00 No 5 mg, Route: PO, Drug form: TAB, Q6H, Dosing Weight 118.182, kg, PRN Pain Score 7- 10, Start date: 03/19/20 16:09:00 CDT, Duration: 30 day, Stop date: 04/18/20 16:08:00 CYCLE REPAIRER Becky Mathews Docusate Sodium 50 MG Oral Capsule [Colace] 2020-03-19 02:00:00 No Notes: (Same as: Colace) (Do Not Crush) Becky Mathews sennosides, GROUP HOME 8.6 MG Oral Tablet 2020-03-18 21:00:00 No Notes: (Same as: Senokot) Becky Mathews Miralax 2020-03-18 21:00:00 No Notes: Dissolve in 8 oz of water or juice. (Same as: Miralax) Becky Jolley nn magnesium citrate 58.2 MG/ML Oral Solution 2020-03-18 13:23:00 No Notes: (Same as: Citrate of Magnesia) Concentration: 1.745 gm / 30 mL [facility] Fleet Mineral Oil Enema 2020-03-17 16:31:00 No Notes: (Same as:Fleet Mineral Oil Enema) [facility] Ativan 2020-03-17 01:16:00 No Notes: (Same as: Ativan) [facility] Protonix 2020-03-16 12:30:00 No 40 mg, Route: IVP, Drug form: INJ, Before Breakfast, Dosing Weight 118.182, kg, Start date: 03/16/20 7:30:00 CDT, Duration: 30 day, Stop date: 04/14/20 7:30:00 CYCLE REPAIRER, 0 [facility] Levothroid 2020-03-16 11:00:00 No 25 microgram, 1 tab, Route: PO, Drug form: TAB, Q6AM, Dosing Weight 118.182, kg, Start date: 03/16/20 6:00:00 CDT, Duration: 30 day, Stop date: 04/14/20 6:00:00 CYCLE REPAIRER, 0 [facility] Lactulose 2020-03-15 21:00:00 No Notes: (Sa me as:Chronulac) [facility] albumin human 25% intravenous solution 2020-03-15 21:00:00 Yes Notes: Lot #: Mfg: (Same as: Plasbumin-25) "blood product derivative" WASTE: F/P - Red; E -Red MEDICATION WASTE Product Size: 25 gm Product Wasted: _0__ gm [facility] heparin 2020-03-15 21:00:00 No Notes: porci ne heparin [facility] XIFAXAN 2020-03-15 14:00:00 No Notes: Same as: Xifaxan [facility] Acetaminophen 325 MG / Hydrocodone Bitartrate 5 MG Oral Tabl et [[place] 5/325] 2020-03-15 13:24:00 No Notes: (Same as: [place] 325/5) Do not exceed 4gm/day of acetaminophen. [facility] Dextrose 5% with 0.45% NaCl IV 1,000 mL 2020-03-15 13:23:00 No 1,000 mL, Rate: 75 ml/hr, Infuse over: 13.3 hr, Route: IV, Dosing Weight 118.182 kg, Total Volume: 1,000, Start date: 03/15/20 8:23:00 CDT, Duration: 30 day, Stop date: 04/14/20 8:22:00 CYCLE REPAIRER, 2.34, m2, 0 [facility] Dextrose 50% Syringe (D50W) 2020-03-15 13:17:00 No 12.5 gm, 25 mL, Route: IVP, Drug Form: INJ, Dosing Weight 118.182, kg, PRN, PRN Blood Glucose Results, Start date: 03/15/20 8:17:00 CDT, Duration: 30 day, Stop date: 04/14/20 7:16:00 CYCLE REPAIRER, 0 [facility] Glucagon 2020-03-15 13:17:00 No 1 mg, Route: IM, Drug form: PDR/INJ, PRN, Dosing Weight 118.182, kg, PRN Blood Glucose Results, Start date: 03/15/20 8:17:00 CDT, Duration: 30 day, Stop date: 04/14/20 7:16:00 CYCLE REPAIRER, 0 [facility] Insulin Lispro 2020-03-15 13:17:00 No Notes: (Same as: Humalog) Roll in palms of hands gently; Do not shake vigorously. WASTE: F/P - Black; E - Municipal Trash Bin Stable for 28 days at room temperature. Expires in days from Date [facility] gaby Dextrose 50% Syringe (D50W) 2020-03-15 13:15:00 No 12.5 gm, 25 mL, Route: IVP, Drug Form: INJ, Dosing Weight 118.182, kg, PRN, PRN Blood Glucose Results, Start date: 03/15/20 8:15:00 CDT, Duration: 30 day, Stop date: 04/14/20 7:14:00 CYCLE REPAIRER, 0 [facility] Glucagon 2020-03-15 13:15:00 No 1 mg, Route: IM, Drug form: PDR/INJ, PRN, Dosing Weight 118.182, kg, PRN Blood Glucose Results, Start date: 03/15/20 8:15:00 CDT, Duration: 30 day, Stop date: 04/14/20 7:14:00 CYCLE REPAIRER, 0 [facility] Ondansetron 2020-03-15 13:15:00 No Notes: (Same as: Zofran) MEDICATION WASTE Product Size: 4 mg Product Wasted: _0__ mg [facility] Acetaminophen 2020-03-15 13:15:00 No Notes: Do not exceed 4 gm/day. (Same as: Tylenol) [facility] Al hydroxide/Mg hydroxide/simethicone 2020-03-15 11:30:00 Y es Notes: (aluminum hydroxide-magnesium hyd-simethicone [phone]/5ml 30 ml ud MAHENDRA) [facility] Xylocaine Viscous 2% mucous membrane solution 2020-03-15 11:30:0 0 Yes Notes: (Same as: Xylocaine) Manaslayla salgado [facility] GI cocktail (aluminum hydroxide/magnesium hydroxide/lidocain e/simethicone) 2020-03-15 09:25:00 No 45 ml, Route: PO, Drug Form: SUSP, Dosing Weight 124.091, kg, ONCE, Routine, Start date: 03/15/20 4:25:00 CDT, Stop date: 03/15/20 4:25:00 CDT [facility] Reglan 2020-03-15 09:25:00 No 10 mg, Route: IVP, Drug form: INJ, ONCE, Dosing Weight 124.091, kg, Priority: STAT, Start date: 03/15/20 4:25:00 CDT, Stop date: 03/15/20 4:25:00 CDT [facility] Morphine 2020-03-15 07:48:00 No 4 mg, Route: IVP, ONCE, Dosing Weight 124.091, kg, Priority: STAT, Start date: 03/15/20 2:48:00 CDT, Stop date: 03/15/20 2:48:00 CDT [facility] Zofran 2020-03-15 07:48:00 No 4 mg, Route: IVP, Drug form: INJ, ONCE, Dosing Weight 124.091, kg, Priority: STAT, Start date: 03/15/20 2:48:00 CDT, Stop date: 03/15/20 2:48:00 CDT Mem orimatt Mathews Morphine 2020-03-15 05:31:00 No 4 mg, Route: IVP, ONCE, Dosing Weight 124.091, kg, Priority: STAT, Start date: 03/15/20 0:31:00 CDT, Stop date: 03/15/20 0:31:00 CDT Becky Mathews Zofran 2020-03-15 05:31:00 No 4 mg, Route: IVP, Drug form: INJ, ONCE, Dosing Weight 124.091, kg, Priority: STAT, Start date: 03/15/20 0:31:00 CDT, Stop date: 03/15/20 0:31:00 CDT Neela Mathews Calcium Chloride 0.0014 MEQ/ML / Potassi um Chloride 0.004 MEQ/ML / Sodium Chloride 0.103 MEQ/ML / Sodium Lactate 0.028 MEQ/ML Injectable Solution 2020-03-15 02:52:00 No 1,000 mL, 1,000 ml/hr, Infuse Over: 1 hr, Route: IV, 1,000, Drug form: INJ, ONCE, Priority: STAT, Dosing Weight 124.091 kg, Start date: 03/14/20 21:52:00 CDT, Stop date: 03/14/20 21:52:00 CDT, 0 Becky Mathews Morphine 2020-03-15 02:49:00 No Not es: (Same as:MORPhine Sulfate) Becky Mathews Zofran 2020-03-15 02:49:00 No Notes: (Same as: Zofran) MEDICATION WASTE Product Size: 4 mg Product Wasted: ___ mg Becky Mathews Furosemide 40 MG Oral Tablet 2020-02-28 21:07:00 Yes 60 mg = 1.5 tab, PO, Daily, # 45 tab, 3 Refill(s), Pharmacy: [id number], please d/c previous RX for furosemide, 157.48, cm, 02/27/20 11:56:00 CDT, Height, 124.091, kg, 02/27/20 11:56:00 CDT, Weight Becky Melchorann spironolactone 100 mg oral tablet 2020-02-28 21:06:00 Yes 150 mg = 1.5 tab, PO, Daily, # 45 tab, 3 Refill(s), Pharmacy: [id number], please d/c previous RX for spironolactone, 157.48, cm, 02/27/20 11:56:00 CDT, Height, 124.091, kg, 02/27/20 11:56:00 CDT, Weight [facility] rifaximin 550 MG Oral Tablet [XIFAXAN] 2020-02-28 16:50:00 Yes 550 mg = 1 tab, PO, BID, # 60 tab, 11 Refill(s), Pharmacy: [facility], 157.48, cm, 02/27/20 11:56:00 CDT, Height, 124.091, kg, 02/27/20 11:56:00 CDT, Weight [facility] Furosemide 40 MG Oral Tablet 2020-01-22 20:27:00 Yes 40 mg = 1 tab, PO, Daily, # 30 tab, 3 Refill(s), Pharmacy: [id number], 157.48, cm, 01/22/20 14:08:00 CDT, Height, 130.136, kg, 01/22/20 14:08:00 CDT, Weight [facility] rifaximin 550 MG Oral Tablet [XIFAXAN] 2020-01-22 20:08:00 Yes 550 mg = 1 tab, PO, BID, # 60 tab, 3 Refill(s), Pharmacy: [facility], 157.48, cm, 01/22/20 14:08:00 CDT, Height, 130.136, kg, 01/22/20 14:08:00 CDT, [facility] Metformin hydrochloride 500 MG Oral Tablet 2020-01-22 19:14:00 Yes 500 mg = 1 tab, PO, [facility] Hydrochlorothiazide 12.5 MG / Lisinopril 10 MG Oral Tablet 2020-01-22 19:14:00 No 1 tab, PO, Daily [facility] tramadol hydrochloride 50 MG Oral Tablet 2020-01-22 19:14:00 Yes 50 mg = 1 tab, PO, Daily, PRN Pain [facility] pantoprazole 40 mg oral enteric coated tablet 2020-01-22 19:14:0 0 Yes 40 mg = 1 tab, PO, Daily [facility] temazepam 15 mg oral capsule 2020-01-22 19:14:00 Yes 15 mg = 1 cap, PO, Bedtime, PRN Sleep [facility] spironolactone 25 mg oral tablet 2020-01-22 19:14:00 Yes 25 mg = 1 tab, PO, BID [facility] Levothroid 25 mcg (0.025 mg) oral tablet 2020-01-22 19:14:00 Yes 25 microgram = 1 tab, PO, Daily [facility] Hydrochloroth[facility]ide SOLN Hydrochlorothiazide SOLN Yes [facility] L-Thyroxine Sodium TABS L-Thyroxine Sodium TABS Yes [facility] metFORMIN HCl - 500 MG Oral Tablet metFORMIN HCl - 500 MG Oral Tablet Yes [facility] Pantoprazole Sodium 40 MG Oral Tablet Delayed Release Pantoprazole Sodium 40 MG Oral Tablet Delayed Release Yes [facility] Spironolactone 25 MG Oral Tablet Spironolactone 25 MG Oral Tablet Yes [facility] Temazepam 15 MG Oral Capsule Temazepam 15 MG Oral Capsule Yes [facility] traMADol HCl - 50 MG Oral Tablet traMADol HCl - 50 MG Oral Tablet Yes [facility] Citalopram Hydrobromide (Citalopram Hbr) 40 Mg TABLET Citalopram Hydrobromide (Citalopram Hbr) 40 Mg TABLET Yes 40 Daily [facility] Levothyroxine Sodium Levothyroxine Sodium Yes 50 Daily [facility] Lisinopril/Hydrochlorothiazide (Lisinopril-Hctz 10-12. 5 Mg Tab) 1 Each TABLET Lisinopril/Hydrochlorothiazide (Lisinopril-Hctz 10-12.5 Mg Tab) 1 Each TABLET Yes Daily [facility] Losartan Potassium Losartan Potassium Yes 25 Da hesham [facility] Metformin Hcl Metformin Hcl Yes 500 Twice A Day [facility] Vital Signs Vital Name Observation Time Observation Value Comments Source Respitory Rate 2020-04-11 23:15:00 Reyes Joseph Systolic (mm Hg) 2020-04-11 23:15:00 Mansa [facility] Diastolic (mm Hg) 2020-04-11 23:15:00 [facility] Respitory Rate 2020-04-11 23:00:00 [facility] Systolic (mm Hg) 2020-04-11 23:00:00 Manas [facility] Diastolic (mm Hg) 2020-04-11 23:00:00 [facility] Respitory Rate 2020-04-11 22:45:00 [facility] Systolic (mm Hg) 2020-04-11 22:45:00 [facility]as [facility] Diastolic (mm Hg) 2020-04-11 22:45:00 [facility] Height 2020-04-11 13:46:00 157.48 cm [facility] Weight 2020-04-11 13:46:00 [facility] BMI Calculated 2020-04-11 13:46:00 [facility] Respitory Rate 2020-04-03 22:30:00 [facility] Systolic (mm Hg) 2020-04-03 22:30:00 Manas [facility] Diastolic (mm Hg) 2020-04-03 22:30:00 [facility] Respitory Rate 2020-04-03 22:00:00 [facility] Systolic (mm Hg) 2020-04-03 22:00:00 [facility]as [facility] Diastolic (mm Hg) 2020-04-03 22:00:00 [facility] Respitory Rate 2020-04-03 21:30:00 [facility] Systolic (mm Hg) 2020-04-03 21:30:00 [facility]as [facility] Diastolic (mm Hg) 2020-04-03 21:30:00 [facility] Height 2020-04-03 14:22:00 154.94 cm [facility] Weight 2020-04-03 14:22:00 [facility] BMI Calculated 2020-04-03 14:22:00 [facility] Systolic blood pressure 2020-03-28 08:56:00 115 mm[Hg] Loca tion: LUE; Position: Sitting [facility] Diastolic blood pressure 2020-03-28 08:56:00 75 mm[Hg] Loc ation: LUE; Position: Sitting [facility] Body height 2020-03-28 08:56:00 61 [in_us] [facility] Weight 2020-03-28 08:56:00 264.125 [lb_av] [facility] Body mass index (BMI) [Ratio] 2020-03-28 08:56:00 49.91 kg/m2 [facility] Heart Rate 2020-03-28 08:56:00 98 /min [facility] Temperature Oral (F) 2020-03-22 16:33:00 98.6 F [facility] Heart Rate 2020-03-22 16:33:00 [facility] Respitory Rate 2020-03-22 16:33:00 [facility] Systolic (mm Hg) 2020-03-22 16:33:00 [facility]as [facility] Diastolic (mm Hg) 2020-03-22 16:33:00 [facility] Temperature Oral (F) 2020-03-22 12:51:00 97.8 F [facility] Heart Rate 2020-03-22 12:51:00 [facility] Respitory Rate 2020-03-22 12:51:00 [facility] Systolic (mm Hg) 2020-03-22 12:51:00 Manas [facility] Diastolic (mm Hg) 2020-03-22 12:51:00 [facility] Temperature Oral (F) 2020-03-22 11:37:00 98.4 F [facility] Heart Rate 2020-03-22 11:37:00 [facility] Respitory Rate 2020-03-22 11:37:00 [facility] Systolic (mm Hg) 2020-03-22 11:37:00 [facility]as [facility] Diastolic (mm Hg) 2020-03-22 11:37:00 [facility] Temperature Oral (F) 2020-03-18 04:05:00 97.4 F [facility] Heart Rate 2020-03-18 04:05:00 [facility] Respitory Rate 2020-03-18 04:05:00 [facility] Systolic (mm Hg) 2020-03-18 04:05:00 [facility]as [facility] Diastolic (mm Hg) 2020-03-18 04:05:00 [facility] Temperature Oral (F) 2020-03-18 00:30:00 98.0 F [facility] Heart Rate 2020-03-18 00:30:00 [facility] Respitory Rate 2020-03-18 00:30:00 [facility] Systolic (mm Hg) 2020-03-18 00:30:00 [facility]as [facility] Diastolic (mm Hg) 2020-03-18 00:30:00 [facility] Temperature Oral (F) 2020-03-17 20:16:00 98.0 F [facility] Heart Rate 2020-03-17 20:16:00 [facility] Respitory Rate 2020-03-17 20:16:00 [facility] Systolic (mm Hg) 2020-03-17 20:16:00 Manas [facility] Diastolic (mm Hg) 2020-03-17 20:16:00 [facility] Height 2020-03-15 11:00:00 160.02 cm [facility] Weight 2020-03-15 11:00:00 [facility] BMI Calculated 2020-03-15 11:00:00 [facility] Weight 2020-03-05 23:43:00 267 [lb_av] [facility] BMI (Body Mass Index) 2020-03-05 23:43:00 45.8 kg/m2 [facility] Systolic (mm Hg) 2020-02-27 16:56:00 Manas [facility] Diastolic (mm Hg) 2020-02-27 16:56:00 [facility] Heart Rate 2020-02-27 16:56:00 [facility] Height 2020-02-27 16:56:00 157.48 cm [facility] Weight 2020-02-27 16:56:00 [facility] BMI Calculated 2020-02-27 16:56:00 [facility] Systolic (mm Hg) 2020-01-22 19:08:00 Manas [facility] Diastolic (mm Hg) 2020-01-22 19:08:00 [facility] Heart Rate 2020-01-22 19:08:00 [facility] Height 2020-01-22 19:08:00 157.48 cm [facility] Weight 2020-01-22 19:08:00 [facility] BMI Calculated 2020-01-22 19:08:00 [facility] Procedures Procedure Date / Time Performed Performing Clinician [facility] e Vascular embolization or occlusion, incl usive of all radiological supervision and interpretation, intraprocedural roadmapping, and imaging guidance necessary to complete the intervention; arterial, other than hemorrhage or tumor (eg, congenital or acquire 2020-04-11 18:51:00 Becky Mathews VR Vascular/Interventional Radiology Consult 2020-04-08 00:00:00 [facility] VR Vascular/Interventional Radiology Consult 2020-03-28 00:00:00 [facility] Computed tomography of abdomen and pelvis with contrast 00:00:00 [facility] History of Hysterectomy [facility] History of Cholecystectomy [facility] History of Liver biopsy [facility] Plan of Care Planned Activity Planned Date Details Comments Source Future Scheduled Test VR Vascular/Interv entional Radiology Consult [code = VR Vascular/Interventional Radiology Consult] After 28Mar2020 [facility] Future Scheduled Test VR Vascular/Interv entional Radiology Consult [code = VR Vascular/Interventional Radiology Consult] After 28Mar2020 [facility] Instructions Abdominal Pain - Adult [facility] Encounters Start Date/Time End Date/Time Encounter Type Admission Type [facility] Care Department Encounter ID Source 2020-03-15 03:04:00 Inpatient E [facility] [id number] [facility] 2020-04-11 07:27:00 2020-04-11 18:13:00 Outpatient Fred Aguillon [facility] [id number] 2020-04-11 07:27:00 2020-04-11 07:27:00 Outpatient [facility] [id number] 2020-04-03 08:00:00 2020-04-03 17:15:00 Outpatient Fred Aguillon [facility] [id number] 2020-04-03 08:00:00 2020-04-03 08:00:00 Outpatient [facility] [id number] 2020-03-28 08:00:00 2020-03-28 08:00:00 Appointment; RADIOLOGY, PROVIDER RADIOLOGYMD PROVIDER UTP Interventional Radiology - [facility] [id number] [facility] 2020-03-14 17:57:42 2020-03-22 15:24:00 Outpatient Marina Guardado [facility] [id number] 2020-03-19 12:49:00 2020-03-19 23:59:00 Outpatient Chris Glover [facility] [id number] 2020-03-19 12:49:00 2020-03-19 12:49:00 Outpatient [id number] 2020-03-14 17:57:42 2020-03-14 17:57:42 Outpatient Marisabel Hensley [facility] [id number] 2020-02-27 11:34:00 2020-02-27 23:59:00 Outpatient Chris Glover [facility] [id number] 2020-02-27 11:34:00 2020-02-27 11:34:00 Outpatient [facility] [id number] [facility] 2020-02-27 11:00:00 2020-02-27 11:00:00 Appointment; GA FORDE M.D. MACHICAO, VICTOR, M.D. [facility] UTP [id number] [facility] 2020-01-22 13:53:00 2020-02-20 23:59:00 Outpatient Enmanuel Womack lenaDereje lott [facility] [id number] 2020-01-31 15:40:33 2020-02-01 23:59:59 Outpatient [id number] 2020-01-22 14:00:00 2020-01-22 14:00:00 Appointment; ORGANTRANSPLAN T, OP ORGANTRANSPLANT, OP UTP UTP [id number] [facility] 2018-04-08 07:25:00 2018-04-08 23:59:00 Outpatient Narendra Frank [facility] [id number] 2016-06-12 09:41:00 2016-06-12 23:59:00 Outpatient Narendra Frank [facility] [id number] Results Test Description Test Time Test Comments Results Result Comments Source BLOOD BANK RESULTS 2020-04-11 15:12:00 Negative (04/11/20 9:12 AM) [facility] CHEM PANEL 2020-04-11 13:00:00 115 [facility] CHEM PANEL 2020-04-11 13:00:00 18 [facility] CHEM PANEL 2020-04-11 13:00:00 1.19 [facility] CHEM PANEL 2020-04-11 13:00:00 136 [facility] CHEM PANEL 2020-04-11 13:00:00 3.9 [facility] CHEM PANEL 2020-04-11 13:00:00 106 [facility] CHEM PANEL 2020-04-11 13:00:00 22 [facility] CHEM PANEL 2020-04-11 13:00:00 9.4 [facility] CHEM PANEL 2020-04-11 13:00:00 7.7 [facility] CHEM PANEL 2020-04-11 13:00:00 3.2 [facility] CHEM PANEL 2020-04-11 13:00:00 23 [facility] CHEM PANEL 2020-04-11 13:00:00 43 [facility] CHEM PANEL 2020-04-11 13:00:00 114 [facility] CHEM PANEL 2020-04-11 13:00:00 0.9 [facility] CHEM PANEL 2020-04-11 13:00:00 11.9 [facility] CHEM PANEL 2020-04-11 13:00:00 Test Item B/C Ratio (test code = B/C Ratio) 15 1 6-[id number] 13:00:004.5[facility] 2020-04-11 13:00:00* Test Item Value Reference Range Interpretation Comments A/G Ratio (test code = A/G Ratio) 0.7 1 0.7-1.6 [facility] ZWADF2646-76-19 13:00:0048[facility]ann[facility]MATOLOGY 2020-04-11 13:00:006.4[facility] SwjaanoSYZPSGBADY4901-48-38 13:00:004.60[facility] EttsgeaGMSJOBHWDR3567-29-43 13:00:0010.2[facility] HojpskcWQXFRRKYFN3460-78-50 13:00:0031.7[facility] NludlzjZYTUBTBZSA7245-04-47 13:00:0068.9[facility] PTDQLIUQYK1713-88-41 13:00:00* Test Item Value Reference Range Interpretation Comments MCH (test code = MCH) 22.2 pg 27.0-31.0 [facility] PnualwmALEDHUJZMG2962-32-53 13:00:0032.3[facility]ann[facility]MAT[facility]Y 2020-04-11 13:00:0022.1[facility] MaueisaBQBAPHSNRX3382-61-07 13:00:43928Zugnfsyo GyzkzgrMLPSJLPIUV8098-93-64 13:00:009.3[facility] XtwxzxwGVEKNXCYHI2990-09-96 13:00:00* Test Item Value Reference Range Interpretation Comments PT (test code = PT) 15.3 s 12.0-14.7 [facility] VofmmpgCSJMHLUNIZ6754-95-23 13:00:00* Test Item Value Reference Range Interpretation Comments INR (test code = INR) 1.20 1 0.85-1.17 [facility] YkdscauAKIZHLOHWR4403-67-57 13:00:00Normal (04/11/20 7:00 AM)[facility] IbazabvNCTKOAMADU4554-92-16 13:00:00Normal (04/11/20 7:00 AM)[facility] HJVHTCCCMD1082-49-61 13:00:0065.4[facility] IuluypeJMQSFLAULG6924-96-01 13:00:00 23.0[facility] CzhaxfcXTLUJWANOU7812-96-75 13:00:008.4[facility]ann[facility]MATOLOGY 2020-04-11 13:00:002.6[facility] HhlncmrBNODPYKJDF4473-29-31 13:00:000.6[facility] UkbnlqiMZHVXBKCVE6831-10-86 13:00:004.2[facility] BjwalpkHZFIONIGLH5590-82-58 13:00:001.5[facility] WnglaevUGRLWJSIRE4014-65-91 13:00:000.5[facility] OLRNJRPWJE5407-03-94 13:00:000.2[facility] XdmgzlmOSYNEYBTCX4885-43-84 13:00:001+ *ABN*(04/11/20 7:00 AM)[facility] BawakknABZVOQJJTB9892-56-53 13:00:002+ *ABN*(04/11/20 7:00 AM)[facility]ann[facility] QPRPW3617-86-85 09:58:0082[facility]annCHEM XYQMH8405-16-79 09:58:0011[facility]annCHE[facility] ANQZB0411-04-88 09:58:000.81[facility]annCHEM PMPEO8178-14-34 09:58:46074Tnwitpjg HermannCHEM EVTEU6254-02-10 09:58:004.3[facility]annCHEM KKPCN6984-56-90 09:58:91108 [facility]ann[facility] CYJDV8988-59-59 09:58:0026[facility]annCHEM PANEL 2020-03-22 09:58:009.9[facility]annCHE[facility] CTCDW0075-50-67 09:58:007.5[facility]annCHE[facility] TTDYI0309-99-97 09:58:003.2[facility]annCHE[facility] DJPHQ1652-86-17 09:58:0025[facility]annCHE[facility] GJQDL7204-72-44 09:58:0051[facility]annCHE[facility] ROTUA1731-96-03 09:58:85209Yqbgcvip HermannCHEM PHFQV4338-01-03 09:58:000.9 [facility]annCHE[facility] YGHFK2171-77-85 09:58:0012.3[facility]annCHEM PANEL 2020-03-22 09:58:00* Test Item Value Reference Range Interpretation Comments B/C Ratio (test code = B/C Ratio) 14 1 6-25 [facility]annCHE[facility] TABTR4571-97-42 09:58:004.3[facility]annCHEM PANEL 2020-03-22 09:58:00* Test Item Value Reference Range Interpretation Comments A/G Ratio (test code = A/G Ratio) 0.7 1 0.7-1.6 [facility]annCHE[facility] LRJEM4091-43-85 09:58:0077[facility]annHEMATOLOGY 2020-03-22 09:58:004.9[facility] GzxmaxdFQDEDKXQVS1075-32-08 09:58:004.50[facility] NzhutrvEAERDRUMKA7943-03-69 09:58:0010.3[facility] JphjrtqLROLQTFDOP3315-68-27 09:58:0032.0[facility] HxqlplvQGNYIQKULJ7731-60-43 09:58:0071.2[facility] TZSATABAJH0701-68-98 09:58:00* Test Item Value Reference Range Interpretation Comments MCH (test code = MCH) 22.9 pg 27.0-31.0 [facility] JajsymkOUCPXIUJCF6350-49-35 09:58:0032.1[facility]annHEMATOLOGY 2020-03-22 09:58:0024.5[facility] AkjfggkOQLPQHVJWQ4143-48-75 09:58:0092[facility] IxiooshCOVXCHOCNG7711-23-11 09:58:009.9[facility] UhhtjhgNIAQDHHLRF3312-07-66 09:58:00Normal (03/22/20 4:58 AM)[facility] TprqnkkHSWWKEUHNF2616-43-01 09:58:00 49.7[facility] EsrasivFRMADCGCMB9085-16-25 09:58:0039.1[facility]annHEMATOLOGY 2020-03-22 09:58:006.5[facility] PpylujzLGRTKRPDNV7703-41-87 09:58:004.2[facility] CjypqtaYCNZZNNGXR8552-30-10 09:58:000.5[facility] JyuygazIKHOCONUKT9992-64-11 09:58:002.4[facility] NdxmrmkKHSSQLMQWZ6076-24-84 09:58:001.9[facility] JEEZWDZGDB5992-37-59 09:58:000.3[facility] UjhequmPIZVMIWFIP6492-18-41 09:58:000.2 [facility] LvfjxywYOKBSBGLTA4120-94-74 09:58:001+ *ABN*(03/22/20 4:58 AM)[facility] UqpqoadMOJVFDCQCF9303-93-51 09:58:002+ *ABN*(03/22/20 4:58 AM)[facility] WAXTGCPKPJ3030-57-02 09:58:00* Test Item Value Reference Range Interpretation Comments PT (test code = PT) 14.8 s 12.0-14.7 [facility] AjawrmcYAWUAXTTEM8139-57-12 09:58:00* Test Item Value Reference Range Interpretation Comments INR (test code = INR) 1.15 1 0.85-1.17 [facility] PvbjqqzELKRPSOBRY0447-65-10 09:58:00* Test Item Value Reference Range Interpretation Comments PTT (test code = PTT) 40.5 s 22.9-35.8 [facility]annCHE[facility] ROFMI2630-56-91 10:07:0073[facility] HermannCHEM PANEL 2020-03-21 10:07:0012[facility] HermannCHEM CUQDE6566-32-35 10:07:000.79[facility]annCHEM XRPSU9831-00-41 10:07:51467Fcqgebui HermannCHEM EXRBI9172-05-96 10:07:004.6[facility]annCHEM HFTWF5829-15-36 10:07:70721Oyxgmknt HermannCHEM LMHWQ8868-65-58 10:07:0025[facility]annCHEM UZMRM9215-75-47 10:07:009.5 [facility]annCHE[facility] MHVAR7710-74-60 10:07:0011.6[facility] HermannCHEM PANEL 2020-03-21 10:07:0079[facility] HfoobwqYNWHNCHBME8616-88-98 10:07:00* Test Item Value Reference Range Interpretation Comments PT (test code = PT) 14.7 s 12.0-14.7 [facility] KhtlvcqXZORDCFKLT0769-67-47 10:07:00* Test Item Value Reference Range Interpretation Comments INR (test code = INR) 1.14 1 0.85-1.17 [facility] SkmeyfbEDZMENVDKU4007-36-49 10:07:00* Test Item Value Reference Range Interpretation Comments PTT (test code = PTT) 33.2 s 22.9-35.8 [facility] SgrztayOPEOUFSKLB6856-34-78 10:07:00Normal (03/21/20 5:07 AM)[facility] NledzwgRLEIIJTZPV0660-16-31 10:07:0047.8[facility] PcrbyaeEWMRKJGVNI3339-34-01 10:07:0040.4[facility] BctjobbURHJXTWBLV9178-80-59 10:07:007.2[facility] LMZZDBRNYB0103-36-66 10:07:003.6[facility] WbdgdnvLYZVLVVCLI2069-28-15 10:07:001.0 [facility] DzxrejhKECSSVJKEI1562-75-80 10:07:002.2[facility] HermannHEMATOLOGY 2020-03-21 10:07:001.8[facility] IswsuiaIZBFZDWGRQ9279-59-55 10:07:000.3[facility] TcxplzmDHYYEOOYIB9925-19-64 10:07:000.2[facility] MbkznikVBTASZROIL3243-77-47 10:07:001+ *ABN*(03/21/20 5:07 AM)[facility] LlfoxrtAABWMLKUQV8217-42-98 10:07:00 2+ *ABN*(03/21/20 5:07 AM)[facility] KpwmnwdVUVHBJWFZV5460-68-39 10:07:001+ (03/21/20 5:07 AM)[facility] FcnkhxaLZILKVWFOM8775-04-66 10:07:004.6[facility] QiuulvsDHYAVZYWLM5131-71-50 10:07:004.30[facility] PoyiqneXRKYEFRCOJ7385-93-96 10:07:009.6[facility] OonhmduGQRQXCZVND2982-09-29 10:07:0030.4[facility] UEVHBHLFUF2071-23-15 10:07:0070.6[facility] EeqnqlnXOIVCVJSLD4668-78-28 10:07:00* Test Item Value Reference Range Interpretation Comments MCH (test code = MCH) 22.4 pg 27.0-31.0 [facility] YtniyvlNVZXWNBLLE6286-25-62 10:07:0031.8[facility]annHEMATOLOGY 2020-03-21 10:07:0024.4[facility] ZiqojktYZTFRLDVVE8368-97-66 10:07:0097[facility] GfqglapDYRMNBYLLA9627-12-71 10:07:009.7[facility] HermannCHEM ZJSCC1229-67-26 07:16:0082[facility]annCHEM FOQZL9995-30-16 07:16:0013[facility]annCHEM YPTLB4489-41-45 07:16:000.91[facility]annCHEM TZJXO7809-31-13 07:16:05452 [facility]annCHE[facility] WUBXB2287-07-26 07:16:004.1[facility] HermannCHEM PANEL 2020-03-20 07:16:96364Qmkzrlfi HermannCHEM IIREK8570-67-57 07:16:0025[facility]annCHEM YIQPB8367-00-41 07:16:009.7[facility]annCHEM HNSZJ3081-12-83 07:16:0012.1[facility]annCHEM GYPBC2294-35-82 07:16:0067[facility] VBQRXXWFMD4559-76-06 07:16:004.8[facility] XlaxhwmUFAAQTUTPV5971-27-42 07:16:00 4.66[facility] BhpqttwLBVOPHLHPR0098-06-60 07:16:0010.6[facility]annHEMATOLOGY 2020-03-20 07:16:0033.0[facility] RwaqjdlNMSAIYRXTV5015-77-03 07:16:0070.8[facility] RupqhoySLMUIXVPMZ5633-42-63 07:16:00* Test Item Value Reference Range Interpretation Comments MCH (test code = MCH) 22.7 pg 27.0-31.0 [facility] WyvfpqxKVHFPQQXVG1055-00-18 07:16:0032.1[facility]annHEMATOLOGY 2020-03-20 07:16:0023.4[facility] LapkluxESATQAVWHV9417-06-66 07:16:0099[facility] IjmldffAYHUCITKGP3544-48-03 07:16:009.1[facility] RaypythDHIHSDLMFR8144-74-66 07:16:00* Test Item Value Reference Range Interpretation Comments PT (test code = PT) 15.1 s 12.0-14.7 [facility] UkjhuukJTSAVZVABC6602-66-28 07:16:00* Test Item Value Reference Range Interpretation Comments INR (test code = INR) 1.18 1 0.85-1.17 [facility] SblimniLCFNVJIEZP9629-16-02 07:16:0054.5[facility]annHEMATOLOGY 2020-03-20 07:16:0035.1[facility] TlazpdqPDMTTHAABR5259-20-36 07:16:007.7[facility] IlfaiimDJNOARINAK8342-24-34 07:16:002.1[facility] IhjdsgpDBGLBPJJJP0633-55-78 07:16:000.6[facility] LuquyjhGKRJGLLMVS1406-38-71 07:16:002.6[facility] HDOQUXSYGJ9410-96-80 07:16:001.7[facility] QdhbmiuHVAGOYTSNA9298-69-37 07:16:000.4 [facility] JtmkhimRHHHDAGYNA4532-11-48 07:16:000.1[facility]annHEMATOLOGY 2020-03-20 07:16:001+ *ABN*(03/20/20 2:16 AM)[facility] 2020-03-20 07:16:002+ *ABN*(03/20/20 2:16 AM)[facility]annCHEM PANEL 2020-03-19 05:21:002.8[facility]annCHEM YOXNV3941-96-98 05:21:002.2[facility]annCHE[facility] OTKOB5409-04-26 05:21:007.4[facility]annCHE[facility] QOTPK8966-62-95 05:21:003.2[facility]annCHE[facility] NECBP1684-20-67 05:21:0026[facility]annCHEM MHRKI7986-90-71 05:21:0052[facility]annCHEM GTTOT1648-68-39 05:21:52673 [facility]annCHE[facility] QZPRO7479-73-03 05:21:001.2[facility]annCHEM PANEL 2020-03-19 05:21:00* Test Item Value Reference Range Interpretation Comments B/C Ratio (test code = B/C Ratio) 16 1 6-25 [facility] TACIU5498-17-53 05:21:004.2[facility]annCHEM PANEL 2020-03-19 05:21:00* Test Item Value Reference Range Interpretation Comments A/G Ratio (test code = A/G Ratio) 0.8 1 0.7-1.6 [facility] VgpzvsyFHWDSUMBHJ4782-64-30 05:21:00Normal (03/19/20 12:21 AM)[facility] LwausdiQCYXLFQLSD1393-18-15 05:21:001+ (03/19/20 12:21 AM)[facility] DCBCEJOJFG9892-66-59 05:21:00Moderate *ABN*(03/19/20 12:21 AM)[facility] SAMQZQTGSN9414-13-23 05:21:001-3 per HPF (03/19/20 12:21 AM)[facility]annCHE[facility] NPKMR4832-36-44 10:50:002.1[facility]annCHEM VGJXM7166-59-05 10:50:003.2 [facility]annCHE[facility] WFXFQ5782-83-18 10:50:007.6[facility]annCHEM PANEL 2020-03-18 10:50:003.3[facility]annCHEM EUHAV4287-32-97 10:50:0022[facility]annCHEM BCFKB7411-65-65 10:50:0050[facility]annCHEM XGPBM0561-63-38 10:50:36482Kohymvdq HermannCHEM XHHUN8876-63-48 10:50:002.0[facility]annCHEM IZOOC6632-24-50 10:50:00* Test Item Value Reference Range Interpretation Comments B/C Ratio (test code = B/C Ratio) 16 1 6-25 [facility] GFRMV2073-79-42 10:50:004.3[facility]annCHEM PANEL 2020-03-18 10:50:00* Test Item Value Reference Range Interpretation Comments A/G Ratio (test code = A/G Ratio) 0.8 1 0.7-1.6 [facility] AsjvfinGJWXWYZGSU5652-85-77 14:19:005.0[facility]annHEMATOLOGY 2020-03-17 14:19:004.45[facility] QdqeugfSGETJPAANQ3213-08-27 14:19:0010.0[facility] MgpggzxGHVKSWLXNE9146-22-66 14:19:0031.3[facility] YsuajqcPCPNZDZCRG0978-50-76 14:19:0070.4[facility] MavauuuOHERYYQGGE0444-12-80 14:19:00* Test Item Value Reference Range Interpretation Comments MCH (test code = MCH) 22.4 pg 27.0-31.0 [facility] NaobbsvURZZWUCVVZ9719-74-87 14:19:0031.8[facility]annHEMATOLOGY 2020-03-17 14:19:0022.4[facility] OaifiqzNYKZICKXNA0238-05-18 14:19:83948Bwgikabf NtlaskjBMMYECNBUK8466-34-23 14:19:0010.1[facility] HhapsnpZTOQVIRVQG6282-20-93 14:19:0051.3[facility] GijnnmtHSTMZRZCAC3833-56-49 14:19:0033.4[facility] Prentiss UJBOBFWTKX3537-43-63 14:19:0013.2[facility] JkdihffZLZZCDMHVW6873-77-90 14:19:00 1.4[facility] TisipjgQUPFCZTFOG1878-83-56 14:19:000.7[facility]annHEMATOLOGY 2020-03-17 14:19:002.6[facility] CallpgaWTPEFQLZAU7619-57-73 14:19:001.7[facility] TaaxoitAUOIASMHDQ1004-59-66 14:19:000.7[facility] GmqnaznQPEONSUZLG7640-83-97 14:19:000.1[facility] NqvtxnkFCGANSFHNG4146-72-42 14:19:001+ *ABN*(03/17/20 9:19 AM)[facility] HkgqpklJQGCRDRWQI2885-64-50 14:19:002+ *ABN*(03/17/20 9:19 AM) [facility] RpipzruWEHCJONEBN0243-16-58 14:19:00Moderate *ABN*(03/17/20 9:19 AM) [facility]CHE[facility] IMUHU3717-80-43 09:17:0073[facility]annCHEM PANEL 2020-03-17 09:17:0019[facility]annCHEM BEBYD3463-91-74 09:17:001.00[facility]annCHEM CGOSU4380-29-94 09:17:30713Rqqbojsv HermannCHEM AOOLM3028-44-75 09:17:004.4[facility]annCHEM TGCCC2723-07-31 09:17:23753Xecskpau HermannCHEM FYAOQ6172-26-24 09:17:0026[facility]annCHEM LFYOT2571-24-68 09:17:009.9 [facility]CHE[facility] YWYMT9469-51-55 09:17:007.7[facility]annCHEM PANEL 2020-03-17 09:17:003.5[facility]annCHEM YJPUH9243-57-87 09:17:0022[facility]annCHEM OOXIA5101-67-67 09:17:0048[facility]annCHE[facility] LJHII2665-69-50 09:17:0099[facility]annCHEM NFXUZ2666-40-31 09:17:002.7[facility]annCHEM HSFHW0406-52-40 09:17:0013.4[facility]annCHEM YTAWI4353-50-46 09:17:00* Test Item Value Reference Range Interpretation Comments B/C Ratio (test code = B/C Ratio) 19 1 6-25 [facility]CHE[facility] SOPQN1129-57-18 09:17:004.2[facility]annCHEM PANEL 2020-03-17 09:17:00* Test Item Value Reference Range Interpretation Comments A/G Ratio (test code = A/G Ratio) 0.8 1 0.7-1.6 [facility]annCHE[facility] OZNWT0031-33-53 09:17:0060[facility]annCHEM PANEL 2020-03-17 09:17:002.3[facility]annCHEM KXWQB2953-39-32 09:17:002.2[facility] HkdgxlvLPROVUXFIM4756-58-55 09:17:0052.2[facility] DnevbsyGJRDFTNRLJ8747-55-88 09:17:0033.9[facility] RxavpmlRCGOKYUJYY5756-05-91 09:17:0011.8[facility] HWZOSMMTHK6582-23-89 09:17:001.4[facility] NliqzzhMZCSOKRNXI5709-86-99 09:17:000.7 [facility] HkmnnydGESQLDSPBD9316-65-89 09:17:002.9[facility]annHEMATOLOGY 2020-03-17 09:17:001.9[facility] CpmggseBPBEIWSVVS7828-90-33 09:17:000.7[facility] IdsqsqbGIWPBLNPFU8166-06-03 09:17:000.1[facility] BeqpegwMLFFIVVFDS1131-11-90 09:17:001+ *ABN*(03/17/20 4:17 AM)[facility] JvzxezhHPMYXVVCBV3790-29-53 09:17:00 2+ *ABN*(03/17/20 4:17 AM)[facility] OuvpthfTLRMYZEGFP3106-66-70 09:17:005.6 [facility] LikozokEAHZOIDNJN2191-13-13 09:17:004.50[facility] HermannHEMATOLOGY 2020-03-17 09:17:0010.1[facility] BqlkjllGQYTXHLXEO8717-98-69 09:17:0031.4[facility] SlmttlfVZFFGYOXRW6019-60-01 09:17:0069.9[facility] SavefapIOSRTSTISO0728-31-24 09:17:00* Test Item Value Reference Range Interpretation Comments MCH (test code = MCH) 22.5 pg 27.0-31.0 [facility] FmlookjTLNRATVGAK6621-60-45 09:17:0032.3[facility] HermannHEMATOLOGY 2020-03-17 09:17:0022.4[facility] TmquqfwUNIIIFWWMH7277-34-02 09:17:0088[facility] AynbsyrYCUWIEWNUN4290-52-12 09:17:009.4[facility] HermannANEMIA GMMVF0234-43-78 15:46:047320Uporbshk HermannCARDIAC RSJFIFJ4833-42-94 15:46:0072[facility] CHEM VCZPA7092-44-60 15:46:008.6[facility] HermannCHEM HENYR2435-03-98 15:46:003.5 [facility] HermannCHEM AQREU9649-53-50 15:46:0029[facility] HermannCHEM PANEL 2020-03-15 15:46:0043[facility] HermannCHEM PLYTS6371-52-59 15:46:06087Cqwhmkpq HermannCHEM RPDAW7103-20-83 15:46:001.9[facility] HermannCHEM BSUCB2011-39-78 15:46:000.6[facility] HermannCHEM PZMLC3184-40-02 15:46:001.3[facility] HermannCHEM SCUQB8200-58-63 15:46:005.1[facility] HermannCHEM QXAWI1759-64-27 15:46:00* Test Item Value Reference Range Interpretation Comments A/G Ratio (test code = A/G Ratio) 0.7 1 0.7-1.6 [facility]annCHEM WIHDK2376-14-93 15:46:0086.0[facility] HermannCHEM PANEL 2020-03-15 15:46:000.13[facility] HermannCHEM IQPZZ8921-07-53 15:46:34479Oxqfrsdo ZcjcneeLYQIYHWJBR9128-17-68 07:13:00Not Detected (03/15/20 2:13 AM)[facility]annBL[facility] BANK FEATOFY5503-80-07 07:02:00Negative (03/15/20 2:02 AM)[facility] GorzrhpNYGYJHCHSL4360-45-90 07:01:00* Test Item Value Reference Range Interpretation Comments ACT (TEG) Rapid (test code = ACT (TEG) Rapid) 121 s 86-118 [facility] CenterOtwtaxeZETSDKUFLD7444-29-88 07:01:00* Test Item Value Reference Range Interpretation Comments Split [place] Rapid (test code = Split [place] Rapid) 0.7 min [facility] SmlaaylLNEQMLXXCP7043-32-77 07:01:00* Test Item Value Reference Range Interpretation Comments R-time Rapid (test code = R-time Rapid) 0.8 min 0.4-0.7 [facility] CenterGwrsoteCTGQHQRDYO8423-29-57 07:01:00* Test Item Value Reference Range Interpretation Comments K-time Rapid (test code = K-time Rapid) 0.8 min 0.6-2.3 [facility] CenterOcndbwhJGXWRHNSNN1615-47-50 07:01:00* Test Item Value Reference Range Interpretation Comments Angle Rapid (test code = Angle Rapid) 80 degrees 64-80 [facility] WsxqxlpAPVJYOFHGC3848-51-20 07:01:00* Test Item Value Reference Range Interpretation Comments Max Amplitude Rapid (test code = Max Amplitude Rapid) 69 mm 52-71 [facility] UwzdodqUSYZQZCMUB6160-33-42 07:01:0011.2[facility] HermannHEMATOLOGY 2020-03-15 07:01:000.1[facility]annURINE AND MCGBT8789-79-10 06:50:00Large *ABN*(03/15/20 1:50 AM)[facility]annUR[facility] AND MWHME4499-22-20 06:50:00Yellow *NA*(03/15/20 1:50 AM)[facility]UR[facility] AND CPTGS3211-25-00 06:50:00Slight *ABN*(03/15/20 1:50 AM)[facility] AND TFGPV3120-45-14 06:50:00* Test Item Value Reference Range Interpretation Comments UA Spec Grav (test code = UA Spec Grav) 1.015 1 [facility]annURINE AND GXHAC7837-30-41 06:50:00* Test Item Value Reference Range Interpretation Comments UA pH (test code = UA pH) 7.0 1 5.0-8.0 [facility]annUR[facility] AND COZGV4632-34-13 06:50:00Negative *NA*(03/15/20 1:50 AM)[facility] AND GAEPU0170-46-37 06:50:004.0[facility]annUR[facility] AND KLXWP0810-97-76 06:50:00Negative (03/15/20 1:50 AM)[facility] AND QTVRN0517-62-21 06:50:00Negative (03/15/20 1:50 AM)[facility] AND XWECR4571-67-69 06:50:00<1[facility]annURINE AND QXKKL4976-57-21 06:50:0042 [facility] AND KHHZD3775-27-85 06:50:0028[facility] HermannCHEM PANEL 2020-03-15 05:42:52272Eikymzen HermannCHEM HSDOS1876-73-01 05:42:0026[facility] HermannCHEM BFKFV7376-81-97 05:42:001.40[facility] HermannCHEM KASBQ6875-84-96 05:42:49617Qexxnzif HermannCHEM PROAG3178-31-98 05:42:004.6[facility] HermannCHEM FOMMQ5136-27-93 05:42:91672Ybrfuklq HermannCHEM FIQWT4621-38-85 05:42:0025 [facility]annCHEM REHAD5258-58-85 05:42:009.5[facility] HermannCHEM PANEL 2020-03-15 05:42:0012.6[facility] HermannCHEM GRTIR1246-22-74 05:42:0039[facility] NlmciubJYEUURKOUD9871-86-32 05:42:00* Test Item Value Reference Range Interpretation Comments PT (test code = PT) 15.2 s 12.0-14.7 [facility] NafvxcgPBAFSGJLWD8874-49-76 05:42:00* Test Item Value Reference Range Interpretation Comments INR (test code = INR) 1.19 1 0.85-1.17 [facility] MextgtxXLPZHGHCIV0797-38-38 05:42:00* Test Item Value Reference Range Interpretation Comments PTT (test code = PTT) 33.7 s 22.9-35.8 [facility]annCHEM YARKZ8853-87-22 03:04:009.1[facility] HermannCHEM PANEL 2020-03-15 03:04:003.6[facility] HermannCHEM SVEPE9856-69-90 03:04:0028[facility] HermannCHEM IODOX2544-14-84 03:04:0045[facility] HermannCHEM OQGDJ7577-29-45 03:04:07441Alcukmko HermannCHEM DFQNF3313-56-21 03:04:001.9[facility] HermannCHEM MCZBJ3217-32-44 03:04:000.6[facility] HermannCHEM KOFSH7063-01-70 03:04:001.3 [facility]annCHEM TOHWI7830-08-71 03:04:005.5[facility] HermannCHEM PANEL 2020-03-15 03:04:00* Test Item Value Reference Range Interpretation Comments A/G Ratio (test code = A/G Ratio) 0.7 1 0.7-1.6 [facility] HermannCARDIAC ZJICHKY6501-52-04 23:44:00<0.02[facility] HermannCHEM XHDKE4973-74-48 23:44:12392Kjwpxlmy HermannCHEM RLAUI7075-10-23 23:44:0027 [facility]annCHEM TUFVU3508-23-86 23:44:001.84[facility] HermannCHEM PANEL 2020-03-14 23:44:74094Dacbcvef HermannCHEM UGOHE1131-99-80 23:44:005.3[facility] HermannCHEM LETGG6239-25-49 23:44:0099[facility] HermannCHEM YARGR4371-49-30 23:44:0026[facility] HermannCHEM JFZQY4827-79-52 23:44:0010.4[facility] HermannCHEM SXXRR4973-73-48 23:44:0013.3[facility] HermannCHEM PUKNC1343-66-79 23:44:00* Test Item Value Reference Range Interpretation Comments B/C Ratio (test code = B/C Ratio) 15 1 -25 [facility]annCHEM ACTSB3580-02-77 23:44:0028[facility] HermannCHEM PANEL 2020-03-14 23:44:98005Erremane NyvrxyuDQLGPKCVPO9720-59-13 23:44:008.0[facility] UjhajrgPANVGMUQMU0573-37-02 23:44:005.44[facility] GroxecqBLXUDGORCY2487-52-14 23:44:0012.4[facility] KqnrqypMGHPEWHBLX4540-47-42 23:44:0037.7[facility] AUSEYUSKGX5197-76-76 23:44:0069.3[facility] BmglyvzFPGZHYGNUT8611-34-90 23:44:00* Test Item Value Reference Range Interpretation Comments MCH (test code = MCH) 22.8 pg 27.0-31.0 [facility] YzebgjoTPADKXINCJ6683-59-89 23:44:0032.9[facility] HermannHEMATOLOGY 2020-03-14 23:44:0022.1[facility] QppagmyNJXQAWQSMJ5305-41-43 23:44:18525Obltsdmj IkpojqkVDBYICJNFA7448-18-40 23:44:008.4[facility] IwflhenJVIEFLVMMH4406-25-21 23:44:00Normal (03/14/20 6:44 PM)[facility] ZqtnbvoZFOFRIXPWH1516-07-38 23:44:00 79.3[facility] BikwmyeWIXXXMLCTY1939-40-17 23:44:0011.3[facility] HermannHEMATOLOGY 2020-03-14 23:44:009.1[facility] NgocdftVNJSRBYDFI0464-15-03 23:44:000.1[facility] QlwhlfuXWJTKKLKNZ3843-93-48 23:44:000.2[facility] KtytzojVJSEPJZDUE9954-61-83 23:44:006.3[facility] FxzmknfLRAYIWYXOQ5531-09-35 23:44:000.9[facility] Prentiss RSLEYNWDMV4338-27-18 23:44:000.7[facility] SxlmheuQTKKEISUOA0539-56-75 23:44:001+ *ABN*(03/14/20 6:44 PM)[facility] FjsluecOJTIVZMLYZ8324-96-95 23:44:002+ *ABN*(03/14/20 6:44 PM)[facility] DqhkhbcZWWCEHGYYN6390-60-56 23:44:00Moderate *ABN*(03/14/20 6:44 PM)[facility] AdjoczlBSPKPWJGJA2618-88-76 23:44:001-3 per HPF (03/14/20 6:44 PM)[facility] HermannCT ABDOMEN/PELVIS R2652-69-40 01:22:00 [place] [address] Patient Name: SADI BENDER MR #: [id number] : 1955 Age/Sex: 65/F Req #: [id number] Adm Physician: Ordered by: KALYAN BROTHERS DO Report #: [id number] Location: ER Room/Bed: Procedure: [id number] CT/CT ABDOMEN/PELVI S W Exam Date: 03/06/20 Exam Time: 0050 REPORT STATUS: Signed EXAM: CT Abdomen and P roxy WITH contrast INDICATION: h/o of liver tumor with diffuse abd pain COMPARISON: None. TECHNIQUE: Abdomen and pelvis were scanned utilizing a multi detector helical scanner from the lung base to the pubic symphysis after admin istration of IV contrast. Coronal and sagittal reformations were obtained. Rou bashir protocol was performed. Scan was performed when during portal venous phas e. IV CONTRAST: 100 mL of Isovue 370 ORAL CONTRAST: None COMPLICATIONS: None FINDINGS: LOWER THORAX: Mild lingular atelectasis or scarring. HEPATOBILIARY: 5.6 x 5.7 cm exophytic heterogenous mass at the medial aspect of hepatic segment 6. Suggestion of mild nodularity of the liver contours. No steatosis. GALLBLADDER: There are cholecystec leigh clips. SPLEEN: No splenomegaly. PANCREAS: No focal masses or du ctal dilatation. ADRENALS: No adrenal nodules KIDNEYS/URETERS: K idneys enhance symmetrically. No hydronephrosis. No cystic or solid mass lesi ons. No stones. GI TRACT: No abnormal distention, wall thickening, or evid ence of bowel obstruction. Appendix is normal. PELVIC ORGANS/BLADDE R: Unremarkable. LYMPH NODES: No lymphadenopathy. VESSELS: Unremarkabl e. PERITONEUM / RETROPERITONEUM: Mild stranding of the mesenteric fat in th e right lower quadrant interposed between the nondilated appendix and terminal ileum. BONES: There are degenerative changes in the spine. SOFT TISSU ES: Unremarkable. IMPRESSION: 1. Nonspecific mildly fat stra nding in the right lower quadrant interposed between a normal-appearing nondil ated appendix and normal-appearing terminal ileum. Findings are nonspecific an d may relate to ileitis. Consider repeat imaging in 24 to 48 hours if symptoms do not improve. 2. Hepatic cirrhosis with indeterminant 5.7 cm exophytic hete rogenous mass at hepatic segment 6, likely corresponds to history of reported liver tumor. If not already characterized, nonemergent outpatient liver mass p rotocol CT or MRI is recommended. If hepatic lesion is malignant, consider fol low-up CT abdomen and pelvis with contrast in 3 months to reassess nonspecific right lower quadrant changes. Signed by: Anita Yu MD on 03/06/2020 1:44 AM Dictated By: ANITA YU MD 3 Transcribed By: NILE on 03/06/20143 COPY TO: KALYAN BROTHERS DO Urine color xoevepwolhxru1560-10-29 00:00:00* Test Item Value Reference Range Interpretation Comments Urine Color (test code = 5778-6) YELLOW YELLOW [facility] gkxsaqq2075-89-59 00:00:00* Test Item Value Reference Range Interpretation Comments Urine Clarity (test code = 25258-0) SL CLOUDY CLEAR [facility] Urine by Test strip 2020-03-06 00:00:00* Test Item Value Reference Range Interpretation Comments Urine Specific Vaughn (test code = 5811-5) 1.020 1.010-1.02 5 [facility] CenterU[facility] pH measurement by automated test cueor2538-86-02 00:00:00* Test Item Value Reference Range Interpretation Comments Urine pH (test code = 55186-9) 5.5 5-7 [facility] CenterUrine leukocyte esterase detection by nkkmmqoa1160-16-25 00:00:00* Test Item Value Reference Range Interpretation Comments Urine Leukocyte Esterase (test code = 5799-2) NEGATIVE NEGATIVE [facility] CenterUrine nitrite mjxrabexl2810-63-75 00:00:00* Test Item Value Reference Range Interpretation Comments Urine Nitrite (test code = 35148-6) NEGATIVE NEGATIVE [facility] CenterUrine protein measurement by test strip (mass/volume)2020-03-06 00:00:00* Test Item Value Reference Range Interpretation Comments Urine Protein (test code = 5804-0) NEGATIVE NEGATIVE [facility] CenterUrine glucose nlzedrnyj0037-22-58 00:00:00* Test Item Value Reference Range Interpretation Comments Urine Glucose (UA) (test code = 2349-9) NEGATIVE NEGATIVE [facility] CenterUrine ketones detection by automated test dambh6785-73-76 00:00:00* Test Item Value Reference Range Interpretation Comments Urine Ketones (test code = 89094-6) NEGATIVE NEGATIVE [facility] CenterUrine urobilinogen measurement by test strip (mass/volume)2020-03-06 00:00:00* Test Item Value Reference Range Interpretation Comments Urine Urobilinogen (test code = 45724-6) 0.2 0.2-1 [facility] CenterUrine total bilirubin measurement (mass/volume)2020-03-06 00:00:00* Test Item Value Reference Range Interpretation Comments Urine Bilirubin (test code = 1978-6) NEGATIVE NEGATIVE [facility] CenterUrine erythrocytes qpmkhsolv6922-56-56 00:00:00* Test Item Value Reference Range Interpretation Comments Urine Blood (test code = 75363-5) TRACE NEGATIVE [facility] CenterAutomated urine sediment leukocyte count by microscopy (number/high power field)2020-03-06 00:00:00* Test Item Value Reference Range Interpretation Comments Urine WBC (test code = 5821-4) 0-5 0-5 [facility] CenterErythrocytes detection in urine sediment by light voctuajdgb8127-92-32 00:00:00* Test Item Value Reference Range Interpretation Comments Urine RBC (test code = 93182-4) 0-5 0-5 [facility] CenterBacteria detection in urine sediment by light yivwlzdtxs1627-20-67 00:00:00* Test Item Value Reference Range Interpretation Comments Urine Bacteria (test code = 55964-9) FEW NONE [facility] CenterEpithelial cells detection in urine sediment by light qvucorduqg8447-65-86 00:00:00* Test Item Value Reference Range Interpretation Comments Urine Epithelial Cells (test code = 29117-6) MANY NONE [facility] CenterBlood leukocytes automated count (number/volume)2020-03-05 23:52:00* Test Item Value Reference Range Interpretation Comments White Blood Count (test code = 6690-2) 8.36 4.8-10.8 [facility] CenterBlood erythrocytes automated count (number/volume)2020-03-05 23:52:00* Test Item Value Reference Range Interpretation Comments Red Blood Count (test code = 789-8) 4.45 3.6-5.1 [facility] CenterBlood hemoglobin measurement (moles/volume)2020-03-05 23:52:00* Test Item Value Reference Range Interpretation Comments Hemoglobin (test code = 00559-3) 10.5 12.0-16.0 [facility] CenterAutomated blood hematocrit (volume fraction)2020-03-05 23:52:00* Test Item Value Reference Range Interpretation Comments Hematocrit (test code = 4544-3) 31.9 34.2-44.1 [facility] CenterAutomated erythrocyte mean corpuscular zfzfhg7871-49-02 23:52:00* Test Item Value Reference Range Interpretation Comments Mean Corpuscular Volume (test code = 787-2) 71.7 81-99 [facility] CenterAutomated erythrocyte mean corpuscular hemoglobin (mass per erythrocyte)2020-03-05 23:52:00* Test Item Value Reference Range Interpretation Comments Mean Corpuscular Hemoglobin (test code = 785-6) 23.6 28-32 [facility] CenterAutomated erythrocyte mean corpuscular hemoglobin concentration measurement (mass/volume)2020-03-05 23:52:00* Test Item Value Reference Range Interpretation Comments Mean Corpuscular Hemoglobin Concent (test code = 786-4) 32.9 31-35 [facility] CenterRDW IleOf-Tyx2150-34-06 23:52:00* Test Item Value Reference Range Interpretation Comments Red Cell Distribution Width (test code = 33105-3) 22.7 11.7 -14.4 [facility] CenterAutomated blood platelet count (count/volume)2020-03-05 23:52:00* Test Item Value Reference Range Interpretation Comments Platelet Count (test code = 777-3) 115 140-360 [facility] CenterAutomated blood segmented neutrophil count as percentage of total kdymdfkzgr8273-49-23 23:52:00* Test Item Value Reference Range Interpretation Comments Neutrophils (%) (Auto) (test code = 83582-2) 67.1 38.7-80.0 [facility] CenterAutomated blood lymphocyte count as percentage ot total apbowosyak2764-81-74 23:52:00* Test Item Value Reference Range Interpretation Comments Lymphocytes (%) (Auto) (test code = 736-9) 22.0 18.0-39.1 [facility] CenterAutomated blood monocyte count as percentage of total xvpublzmkc7618-95-23 23:52:00* Test Item Value Reference Range Interpretation Comments Monocytes (%) (Auto) (test code = 5905-5) 7.9 4.4-11.3 [facility] CenterAutomated blood eosinophil count as percentage of total kbeokwhbln1182-83-43 23:52:00* Test Item Value Reference Range Interpretation Comments Eosinophils (%) (Auto) (test code = 713-8) 2.2 0.0-6.0 [facility] CenterAutomated blood basophil count as percentage of total rthixvvqmw9027-28-62 23:52:00* Test Item Value Reference Range Interpretation Comments Basophils (%) (Auto) (test code = 706-2) 0.6 0.0-1.0 [facility] CenterFluoroscopic procedure less than one hour ocsjhtqw2352-85-24 23:52:00* Test Item Value Reference Range Interpretation Comments IM GRANULOCYTES % (test code = IM GRANULOCYTES %) 0.2 0.0- 1.0 [facility] CenterAutomated blood neutrophil count 2020-03-05 23:52:00* Test Item Value Reference Range Interpretation Comments Neutrophils # (Auto) (test code = 751-8) 5.6 2.1-6.9 [facility] CenterBlood lymphocytes count (number/volume) 2020-03-05 23:52:00* Test Item Value Reference Range Interpretation Comments Lymphocytes # (Auto) (test code = 53263-2) 1.8 1.0-3.2 [facility] CenterBltracy medical center monocytes automated count (number/volume)2020-03-05 23:52:00* Test Item Value Reference Range Interpretation Comments Monocytes # (Auto) (test code = 742-7) 0.7 0.2-0.8 [facility] CenterAutomated blood eosinophil count 2020-03-05 23:52:00* Test Item Value Reference Range Interpretation Comments Eosinophils # (Auto) (test code = 711-2) 0.2 0.0-0.4 [facility] CenterAutomated blood basophil count (count/volume)2020-03-05 23:52:00* Test Item Value Reference Range Interpretation Comments Basophils # (Auto) (test code = 704-7) 0.1 0.0-0.1 [facility] CenterFluoroscopic procedure less than one hour wjpmiibp9770-35-40 23:52:00* Test Item Value Reference Range Interpretation Comments Absolute Immature Granulocyte (auto (marcos t code = Absolute Immature Granulocyte (auto) 0.02 0-0.1 [facility]um or plasma sodium measurement (moles/volume)2020-03-05 23:52:00* Test Item Value Reference Range Interpretation Comments Sodium Level (test code = 2951-2) 134 136-145 [facility] Allenerum or plasma potassium measurement (moles/volume)2020-03-05 23:52:00* Test Item Value Reference Range Interpretation Comments Potassium Level (test code = 2823-3) 4.8 3.5-5.1 [facility] Allenerum or plasma chloride measurement (moles/volume)2020-03-05 23:52:00* Test Item Value Reference Range Interpretation Comments Chloride Level (test code = 2075-0) 103 98-107 [facility] Allenerum or plasma carbon dioxide, total measurement (moles/volume)2020-03-05 23:52:00* Test Item Value Reference Range Interpretation Comments Carbon Dioxide Level (test code = 2028-9) 20 22-29 [facility] Allenerum or plasma anion hwa8161-90-90 23:52:00* Test Item Value Reference Range Interpretation Comments Anion Gap (test code = 70237-6) 15.8 8-16 [facility]enerum or plasma urea nitrogen measurement (mass/volume)2020-03-05 23:52:00* Test Item Value Reference Range Interpretation Comments Blood Urea Nitrogen (test code = 3094-0) 16 7-26 [facility]enerum or plasma creatinine measurement (mass/volume)2020-03-05 23:52:00* Test Item Value Reference Range Interpretation Comments Creatinine (test code = 2160-0) 1.20 0.57-1.11 [facility] Allenerum or plasma urea nitrogen/creatinine mass umrha1584-71-02 23:52:00* Test Item Value Reference Range Interpretation Comments BUN/Creatinine Ratio (test code = 3097-3) 13 6-25 [facility] CenterEstimated glomerular filtration rate (GFR) upzhitcmjssgf7361-86-74 23:52:00* Test Item Value Reference Range Interpretation Comments Estimat Glomerular Filtration Rate (test code = 045936901) 45 >60 Ranges were taken from the National Kidney Disease Education Program and the [facility] Foundation literature.Reference ranges:60 or greater: Qjaose21-55 ( for 3 consecutive months): Chronic kidney disease 15 or less: Kidney failureMemorial Hermann Memorial City Medical CenterGlucose uzmebbykjxz9293-88-85 23:52:00* Test Item Value Reference Range Interpretation Comments Glucose Level (test code = NRN9975) 181 74-118 [facility]enerum or plasma calcium measurement (mass/volume)2020-03-05 23:52:00* Test Item Value Reference Range Interpretation Comments Calcium Level (test code = 35589-8) 9.8 8.4-10.2 [facility]enerum or plasma total bilirubin measurement (mass/volume)2020-03-05 23:52:00* Test Item Value Reference Range Interpretation Comments Total Bilirubin (test code = 1975-2) 0.9 0.2-1.2 [facility] CenterFluoroscopic procedure less than one hour xxnhskgl3230-14-00 23:52:00* Test Item Value Reference Range Interpretation Comments Aspartate Amino Transf (AST/SGOT) (test code = Aspartate Amino Transf (AST/SGOT)) 44 5-34 [facility]enerum or plasma alanine aminotransferase measurement (enzymatic activity/volume)2020-03-05 23:52:00* Test Item Value Reference Range Interpretation Comments Alanine Aminotransferase (ALT/SGPT) (test code = 1742-6) 18 0-55 [facility]enerum or plasma protein measurement (mass/volume)2020-03-05 23:52:00* Test Item Value Reference Range Interpretation Comments Total Protein (test code = 2885-2) 8.2 6.5-8.1 [facility]enerum or plasma albumin measurement (mass/volume)2020-03-05 23:52:00* Test Item Value Reference Range Interpretation Comments Albumin (test code = 1751-7) 3.3 3.5-5.0 [facility] CenterPlasma globulin measurement (mass/volume) 2020-03-05 23:52:00* Test Item Value Reference Range Interpretation Comments Globulin (test code = 21744-7) 4.9 2.3-3.5 [facility]enerum or plasma albumin/globulin mass wyqft4192-03-48 23:52:00* Test Item Value Reference Range Interpretation Comments Albumin/Globulin Ratio (test code = 1759-0) 0.7 0.8-2.0 [facility]enerum or plasma alkaline phosphatase measurement (enzymatic activity/volume)2020-03-05 23:52:00* Test Item Value Reference Range Interpretation Comments Alkaline Phosphatase (test code = 6768-6) 118 40-150 [facility]enerum or plasma lipase measurement (enzymatic activity/volume)2020-03-05 23:52:00* Test Item Value Reference Range Interpretation Comments Lipase (test code = 3040-3) 39 8-78 [facility] CenterANEMIA VQFGG5931-74-60 19:38:0062Memorial HermannANEMIA MJWLF2461-15-62 19:38:0038Memorial HermannANEMIA RIUUO3870-35-09 19:38:04787Ahibmcxh HermannANEMIA GYHIC5939-48-34 19:38:0012[facility] HermannCHEM AUACO7550-12-67 19:38:0082[facility] HermannCHEM FBGES6620-76-27 19:38:0012 [facility] HermannCHEM BAYFN7777-47-08 19:38:000.72[facility] HermannCHEM PANEL 2020-02-27 19:38:02818Idfgslnx HermannCHEM QMSSG4484-39-69 19:38:004.1[facility] HermannCHEM OKWVA7744-47-53 19:38:20830Wcsbkdxb HermannCHEM BFZHO6605-54-17 19:38:0026[facility] HermannCHEM BLBHL2505-37-22 19:38:009.5[facility] HermannCHEM DOACH8001-60-67 19:38:007.1[facility] HermannCHEM PAITZ5520-23-81 19:38:0088 [facility]annCHEM JUQUX3692-74-60 19:38:008.1[facility] HermannCHEM PANEL 2020-02-27 19:38:003.3[facility] HermannCHEM LJZXP5352-72-40 19:38:0029[facility] HermannCHEM OXWZX2410-20-36 19:38:0049[facility] HermannCHEM BWDSC7460-03-91 19:38:92645Wzfshcuq HermannCHEM OTMML7382-92-67 19:38:000.7[facility] HermannCHEM VUGJQ0655-94-51 19:38:000.2[facility] HermannCHEM GMEHD1272-32-14 19:38:000.5 [facility] HermannCHEM CRCOK0298-36-71 19:38:004.8[facility] HermannCHEM PANEL 2020-02-27 19:38:00* Test Item Value Reference Range Interpretation Comments A/G Ratio (test code = A/G Ratio) 0.7 1 0.7-1.6 [facility] HermannCHEM FNXGD3165-48-76 19:38:0062.0[facility] HermannHEMATOLOGY 2020-02-27 19:38:005.9[facility] YqtgzdjBGDCGIPMNT5771-20-22 19:38:004.61[facility] NsfqyfjQLCRWGXXZL9665-84-76 19:38:0010.2[facility] RavxtnlTPCPUIEHEX3814-35-94 19:38:0032.6[facility] TcukgivJZGCQOMGSN2135-31-58 19:38:0070.8[facility] [id number] 19:38:00* Test Item Value Reference Range Interpretation Comments MCH (test code = MCH) 22.2 pg 27.0-31.0 [facility] XeneiyrUVDEMZQJRE2028-37-52 19:38:0031.4[facility] 2020-02-27 19:38:0020.5[facility] JvzsxvvXQNMIEXFLV0139-95-46 19:38:32981Qtzusayv SlhtpkyCBAXMWLZOZ7725-68-14 19:38:0010.0[facility] WnndzroAHJAFJKUZV6587-98-69 19:38:00* Test Item Value Reference Range Interpretation Comments PT (test code = PT) 15.4 s 12.0-14.7 [facility] KfurhnzDQWZBYBWOH2421-58-86 19:38:00* Test Item Value Reference Range Interpretation Comments INR (test code = INR) 1.21 1 0.85-1.17 [facility] QbnmijmSAAKXKZHJA8100-98-97 19:38:00Normal (02/27/20 2:38 PM)[facility] LussayoKQIPUPASGO7116-59-65 19:38:0065.8[facility] OlipnddJZEGJIJZZY4543-44-38 19:38:0024.0[facility] QfxsgdiPASTMVRHOQ7594-55-13 19:38:006.8[facility] MFKAMSKFZN6275-68-04 19:38:002.7[facility] OqxxibqMQCRADOJCO0900-34-64 19:38:000.7 [facility] IasxfhnLODYHPHWQU0223-97-21 19:38:003.9[facility]annHEMATOLOGY 2020-02-27 19:38:001.4[facility] UgpdcrhCQVIBLLBSA3111-66-59 19:38:000.4[facility] AdwuzvkUAYBXKHCFQ1422-13-86 19:38:000.2[facility] MkyjjufJPAFKHVUJN6326-98-50 19:38:001+ *ABN*(02/27/20 2:38 PM)[facility] UiwafygYFTEDDAMYR2656-13-99 19:38:002+ *ABN*(02/27/20 2:38 PM)[facility] WnanhccRYIOISPFKF7309-35-59 19:38:001+ (02/27/20 2:38 PM)[facility] MkcpajlPYAERERNOP1348-14-66 19:38:00Moderate *ABN*(02/27/20 2:38 PM)[facility] PfkewjjAYMEPHLLHX6689-64-13 19:38:001-3 per HPF (02/27/20 2:38 PM) [facility] XdynfhfFLKMKNHDXJ5866-47-99 19:38:00<5[facility]annIMMUNOLOGY 2020-02-27 19:38:00* Test Item Value Reference Range Interpretation Comments Hep Signal to Cut-Off (test code = Hep Signal to Cut-Off) 0.05 1 [facility] SNRGVYJ5756-66-02 19:38:0030.2[facility]annGLUBED 2020-02-20 16:26:00* Test Item Value Reference Range Interpretation Comments GLUBED (test code = GLUBED) 147 mg/dL 74-106 H Performed by certified floating derrick operator at [facility] AB [id number] 15:12:00* Test Item Value Reference Range Interpretation Comments AB MITOCHONDRIAL (test code = MITOCHAB) EIA <1.0 AB ANTI-SMOOTH [id number] 15:12:00* Test Item Value Reference Range Interpretation Comments AB ANTI-SMOOTH MUSCLE (test code = SMOOTHAB) 21 Units 0-19 A Negative 0 - 19 Weak positive 20 - 30 Moderate to strong positive >30 Actin Antibodies are found in 52-85% of patients with autoimmune hepatitis or chronic active hepatitis and in 22% of patients with primary biliary cirrhosis. AB IATVYVFNCBGIR9845-40-62 15:12:00* Test Item Value Reference Range Interpretation Comments AB MITOCHONDRIAL (test code = MITOCHAB) <20.0 Units 0.0-20.0 Negative 0.0 - 20.0 Equivocal 20.1 - 24.9 Positive >24.9Mitochondrial (M2) Antibodies are found in 90-96% ofpatients with primary biliary cirrhosis.Performed At: [address] [id number] Sanjai MD Ph:[phone] AB ANTI-SMOOTH [id number] 15:12:00* Test Item Value Reference Range Interpretation Comments AB ANTI-SMOOTH MUSCLE (test code = SMOOTHAB) 21 Units 0-19 A Negative 0 - 19 Weak positive 20 - 30 Moderate to strong positive >30 Actin Antibodies are found in 52-85% of patients with autoimmune hepatitis or chronic active hepatitis and in 22% of patients with primary biliary cirrhosis. [id number] 11:14:00* Test Item Value Reference Range Interpretation Comments GLUBED (test code = GLUBED) 90 mg/dL 74-106 N Performed by certified floating derrick operator at [facility] [id number] 07:26:00* Test Item Value Reference Range Interpretation Comments GLUBED (test code = GLUBED) 102 mg/dL 74-106 N Performed by certified floating derrick operator at [facility] COMPREHENSIVE METABOLIC [id number] 05:07:00* Test Item Value Reference Range Interpretation Comments SODIUM (test code = NA) 136 mmol/L 136-145 N POTASSIUM (test code = K) 4.1 mmol/L 3.5-5.1 N CHLORIDE (test code = CL) 103.0 mmol/L 98-107 N CARBON DIOXIDE (test code = CO2) 30.0 mmol/L 21-32 N ANION GAP (test code = GAP) 7.1 10-20 L GLUCOSE (test code = GLU) 110 mg/dL 74-106 H BLOOD UREA NITROGEN (test code = BUN) 22 mg/dL 7-18 H GLOMERULAR FILTRATION RATE (test code = GFR) 56 mL/min >=60 Estimated GFR by using Modified MDRD formula.Chronic kidney disease is defined as either kidney damageor GFR <60 mL/min/1.73 m2 for >3 months. CREATININE (test code = CREAT) 1.00 mg/dL 0.55-1.02 N Note change in reference range due to change in reagent. BUN/CREATININE RATIO (test code = BUN/CREA) 22.8 10-20 H TOTAL PROTEIN (test code = PROT) 8.2 gram/dL 6.4-8.2 N ALBUMIN (test code = ALB) 3.3 g/dL 3.4-5.0 L GLOBULIN (test code = GLOB) 4.9 gram/dL 2.7-4.2 H ALBUMIN/GLOBULIN RATIO (test code = A/G) 0.7 0.75-1.50 L CALCIUM (test code = CA) 9.4 mg/dL 8.5-10.1 N BILIRUBIN TOTAL (test code = BILT) 0.70 mg/dL 0.0-1.0 N SGOT/AST (test code = AST) 51 IUnit/L 15-37 H SGPT/ALT (test code = ALT) 27 IUnit/L 12-78 N ALKALINE PHOSPHATASE TOTAL (test code = ALKP) 125 IUnit/L 45-117 H Note change in reference range due to change in reagent. CBC W/AUTO [id number] 04:56:00* Test Item Value Reference Range Interpretation Comments WHITE BLOOD CELL (test code = WBC) 7.3 K/mm3 4.5-12.5 N RED BLOOD CELL (test code = RBC) 4.71 mill/mm3 3.7-5.2 N HEMOGLOBIN (test code = HGB) 10.0 gram/dL 11.5-15.5 L HEMATOCRIT (test code = HCT) 33.0 % 36.0-46.0 L MEAN CELL VOLUME (test code = MCV) 70.1 fL 80-98 L MEAN CELL HGB (test code = MCH) 21.2 picogram 27.0-33.0 L MEAN CELL HGB CONCETRATION (test code = MCHC) 30.3 gram/dL 33.0-36. 0 L RED CELL DISTRIBUTION WIDTH (test code = RDW) 17.3 % 11.6-16. 2 H RED CELL DISTRIBUTION WIDTH SD (test code = RDW-SD) 43.0 fL 37 .0-51.0 N PLATELET COUNT (test code = PLT) 158 K/mm3 150-450 MEAN PLATELET VOLUME (test code = MPV) TEST NOT PERFORMED fL 6.7-11 .0 NEUTROPHIL % (test code = NT%) 58.9 % 39.0-69.0 N IMMATURE GRANULOCYTE % (test code = IG%) 0.4 % 0.0-5.0 N LYMPHOCYTE % (test code = LY%) 28.5 % 25.0-55.0 N MONOCYTE % (test code = MO%) 8.8 % 0.0-10.0 N EOSINOPHIL % (test code = EO%) 3.0 % 0.0-5.0 N BASOPHIL % (test code = BA%) 0.4 % 0.0-1.0 N NUCLEATED RBC % (test code = NRBC%) 0.0 % 0-0 N NEUTROPHIL # (test code = NT#) 4.30 K/mm3 1.8-7.7 N IMMATURE GRANULOCYTE # (test code = IG#) 0.03 x10 3/uL 0-0.03 N LYMPHOCYTE # (test code = LY#) 2.08 K/mm3 1.0-5.0 N MONOCYTE # (test code = MO#) 0.64 K/mm3 0-0.8 N EOSINOPHIL # (test code = EO#) 0.22 K/mm3 0.0-0.5 N BASOPHIL # (test code = BA#) 0.03 K/mm3 0.0-0.2 N NUCLEATED RBC # (test code = NRBC#) 0.00 K/mm3 0.0-0.1 N MANUAL DIFF REQUIRED (test code = MDIFF) NO COMPREHENSIVE METABOLIC [id number] 04:55:00* Test Item Value Reference Range Interpretation Comments SODIUM (test code = NA) 136 mmol/L 136-145 N POTASSIUM (test code = K) 4.1 mmol/L 3.5-5.1 N CHLORIDE (test code = CL) 103.0 mmol/L 98-107 N CARBON DIOXIDE (test code = CO2) mmol/L 21-32 ANION GAP (test code = GAP) 10-20 GLUCOSE (test code = GLU) mg/dL 74-106 BLOOD UREA NITROGEN (test code = BUN) mg/dL 7-18 GLOMERULAR FILTRATION RATE (test code = GFR) mL/min >=60 CREATININE (test code = CREAT) mg/dL 0.55-1.02 BUN/CREATININE RATIO (test code = BUN/CREA) 10-20 TOTAL PROTEIN (test code = PROT) gram/dL 6.4-8.2 ALBUMIN (test code = ALB) g/dL 3.4-5.0 GLOBULIN (test code = GLOB) gram/dL 2.7-4.2 ALBUMIN/GLOBULIN RATIO (test code = A/G) 0.75-1.50 CALCIUM (test code = CA) mg/dL 8.5-10.1 BILIRUBIN TOTAL (test code = BILT) mg/dL 0.0-1.0 SGOT/AST (test code = AST) IUnit/L 15-37 SGPT/ALT (test code = ALT) IUnit/L 12-78 ALKALINE PHOSPHATASE TOTAL (test code = ALKP) IUnit/L 45-117 [id number] 19:58:00* Test Item Value Reference Range Interpretation Comments GLUBED (test code = GLUBED) 100 mg/dL 74-106 N Performed by certified floating derrick operator at [facility] [id number] 16:14:00* Test Item Value Reference Range Interpretation Comments GLUBED (test code = GLUBED) 112 mg/dL 74-106 H Performed by certified floating derrick operator at [facility] [id number] 11:34:00* Test Item Value Reference Range Interpretation Comments GLUBED (test code = GLUBED) 103 mg/dL 74-106 N Performed by certified floating derrick operator at [facility] [id number] 07:33:00* Test Item Value Reference Range Interpretation Comments GLUBED (test code = GLUBED) 111 mg/dL 74-106 H Performed by certified floating derrick operator at [facility] COMPREHENSIVE METABOLIC [id number] 06:55:00* Test Item Value Reference Range Interpretation Comments SODIUM (test code = NA) 137 mmol/L 136-145 N POTASSIUM (test code = K) 4.0 mmol/L 3.5-5.1 N CHLORIDE (test code = CL) 105.0 mmol/L 98-107 N CARBON DIOXIDE (test code = CO2) 27.0 mmol/L 21-32 N ANION GAP (test code = GAP) 9.0 10-20 L GLUCOSE (test code = GLU) 116 mg/dL 74-106 H BLOOD UREA NITROGEN (test code = BUN) 19 mg/dL 7-18 H GLOMERULAR FILTRATION RATE (test code = GFR) > 60 mL/min >=60 Estimated GFR by using Modified MDRD formula.Chronic kidney disease is defined as either kidney damageor GFR <60 mL/min/1.73 m2 for >3 months. CREATININE (test code = CREAT) 0.80 mg/dL 0.55-1.02 N Note change in reference range due to change in reagent. BUN/CREATININE RATIO (test code = BUN/CREA) 24.0 10-20 H TOTAL PROTEIN (test code = PROT) 7.8 gram/dL 6.4-8.2 N ALBUMIN (test code = ALB) 3.2 g/dL 3.4-5.0 L GLOBULIN (test code = GLOB) 4.6 gram/dL 2.7-4.2 H ALBUMIN/GLOBULIN RATIO (test code = A/G) 0.7 0.75-1.50 L CALCIUM (test code = CA) 9.4 mg/dL 8.5-10.1 N BILIRUBIN TOTAL (test code = BILT) 0.80 mg/dL 0.0-1.0 N SGOT/AST (test code = AST) 50 IUnit/L 15-37 H SGPT/ALT (test code = ALT) 28 IUnit/L 12-78 N ALKALINE PHOSPHATASE TOTAL (test code = ALKP) 117 IUnit/L 45-117 N Note change in reference range due to change in reagent. COMPREHENSIVE METABOLIC [id number] 06:45:00* Test Item Value Reference Range Interpretation Comments SODIUM (test code = NA) 137 mmol/L 136-145 N POTASSIUM (test code = K) 4.0 mmol/L 3.5-5.1 N CHLORIDE (test code = CL) 105.0 mmol/L 98-107 N CARBON DIOXIDE (test code = CO2) mmol/L 21-32 ANION GAP (test code = GAP) 10-20 GLUCOSE (test code = GLU) mg/dL 74-106 BLOOD UREA NITROGEN (test code = BUN) mg/dL 7-18 GLOMERULAR FILTRATION RATE (test code = GFR) mL/min >=60 CREATININE (test code = CREAT) mg/dL 0.55-1.02 BUN/CREATININE RATIO (test code = BUN/CREA) 10-20 TOTAL PROTEIN (test code = PROT) gram/dL 6.4-8.2 ALBUMIN (test code = ALB) g/dL 3.4-5.0 GLOBULIN (test code = GLOB) gram/dL 2.7-4.2 ALBUMIN/GLOBULIN RATIO (test code = A/G) 0.75-1.50 CALCIUM (test code = CA) mg/dL 8.5-10.1 BILIRUBIN TOTAL (test code = BILT) mg/dL 0.0-1.0 SGOT/AST (test code = AST) IUnit/L 15-37 SGPT/ALT (test code = ALT) IUnit/L 12-78 ALKALINE PHOSPHATASE TOTAL (test code = ALKP) IUnit/L 45-117 CBC W/AUTO [id number] 06:03:00* Test Item Value Reference Range Interpretation Comments WHITE BLOOD CELL (test code = WBC) 5.1 K/mm3 4.5-12.5 N RED BLOOD CELL (test code = RBC) 4.57 mill/mm3 3.7-5.2 N HEMOGLOBIN (test code = HGB) 9.9 gram/dL 11.5-15.5 L HEMATOCRIT (test code = HCT) 31.7 % 36.0-46.0 L MEAN CELL VOLUME (test code = MCV) 69.4 fL 80-98 L MEAN CELL HGB (test code = MCH) 21.7 picogram 27.0-33.0 L MEAN CELL HGB CONCETRATION (test code = MCHC) 31.2 gram/dL 33.0-36. 0 L RED CELL DISTRIBUTION WIDTH (test code = RDW) 17.1 % 11.6-16. 2 H RED CELL DISTRIBUTION WIDTH SD (test code = RDW-SD) 42.2 fL 37 .0-51.0 N PLATELET COUNT (test code = PLT) 108 K/mm3 150-450 L MEAN PLATELET VOLUME (test code = MPV) TEST NOT PERFORMED fL 6.7-11 .0 NEUTROPHIL % (test code = NT%) 61.9 % 39.0-69.0 N IMMATURE GRANULOCYTE % (test code = IG%) 0.4 % 0.0-5.0 N LYMPHOCYTE % (test code = LY%) 26.5 % 25.0-55.0 N MONOCYTE % (test code = MO%) 7.7 % 0.0-10.0 N EOSINOPHIL % (test code = EO%) 3.1 % 0.0-5.0 N BASOPHIL % (test code = BA%) 0.4 % 0.0-1.0 N NUCLEATED RBC % (test code = NRBC%) 0.0 % 0-0 N NEUTROPHIL # (test code = NT#) 3.15 K/mm3 1.8-7.7 N IMMATURE GRANULOCYTE # (test code = IG#) 0.02 x10 3/uL 0-0.03 N LYMPHOCYTE # (test code = LY#) 1.35 K/mm3 1.0-5.0 N MONOCYTE # (test code = MO#) 0.39 K/mm3 0-0.8 N EOSINOPHIL # (test code = EO#) 0.16 K/mm3 0.0-0.5 N BASOPHIL # (test code = BA#) 0.02 K/mm3 0.0-0.2 N NUCLEATED RBC # (test code = NRBC#) 0.00 K/mm3 0.0-0.1 N [id number] 19:52:00* Test Item Value Reference Range Interpretation Comments GLUBED (test code = GLUBED) 130 mg/dL 74-106 H Performed by certified floating derrick operator at [facility] [id number] 16:40:00* Test Item Value Reference Range Interpretation Comments GLUBED (test code = GLUBED) 116 mg/dL 74-106 H Performed by certified floating derrick operator at [facility] [id number] 11:41:00* Test Item Value Reference Range Interpretation Comments GLUBED (test code = GLUBED) 155 mg/dL 74-106 H Performed by certified floating derrick operator at [facility] COMPREHENSIVE METABOLIC [id number] 07:54:00* Test Item Value Reference Range Interpretation Comments SODIUM (test code = NA) 138 mmol/L 136-145 N POTASSIUM (test code = K) 3.9 mmol/L 3.5-5.1 N CHLORIDE (test code = CL) 105.0 mmol/L 98-107 N CARBON DIOXIDE (test code = CO2) 26.0 mmol/L 21-32 N ANION GAP (test code = GAP) 10.9 10-20 N GLUCOSE (test code = GLU) 105 mg/dL 74-106 N BLOOD UREA NITROGEN (test code = BUN) 15 mg/dL 7-18 N GLOMERULAR FILTRATION RATE (test code = GFR) > 60 mL/min >=60 Estimated GFR by using Modified MDRD formula.Chronic kidney disease is defined as either kidney damageor GFR <60 mL/min/1.73 m2 for >3 months. CREATININE (test code = CREAT) 0.60 mg/dL 0.55-1.02 N Note change in reference range due to change in reagent. BUN/CREATININE RATIO (test code = BUN/CREA) 23.3 10-20 H TOTAL PROTEIN (test code = PROT) 7.7 gram/dL 6.4-8.2 N ALBUMIN (test code = ALB) 3.1 g/dL 3.4-5.0 L GLOBULIN (test code = GLOB) 4.6 gram/dL 2.7-4.2 H ALBUMIN/GLOBULIN RATIO (test code = A/G) 0.7 0.75-1.50 L CALCIUM (test code = CA) 8.7 mg/dL 8.5-10.1 N BILIRUBIN TOTAL (test code = BILT) 0.80 mg/dL 0.0-1.0 N SGOT/AST (test code = AST) 53 IUnit/L 15-37 H SGPT/ALT (test code = ALT) 31 IUnit/L 12-78 N ALKALINE PHOSPHATASE TOTAL (test code = ALKP) 115 IUnit/L 45-117 N Note change in reference range due to change in reagent. COMPREHENSIVE METABOLIC [id number] 07:47:00* Test Item Value Reference Range Interpretation Comments SODIUM (test code = NA) 138 mmol/L 136-145 N POTASSIUM (test code = K) 3.9 mmol/L 3.5-5.1 N CHLORIDE (test code = CL) 105.0 mmol/L 98-107 N CARBON DIOXIDE (test code = CO2) mmol/L 21-32 ANION GAP (test code = GAP) 10-20 GLUCOSE (test code = GLU) mg/dL 74-106 BLOOD UREA NITROGEN (test code = BUN) mg/dL 7-18 GLOMERULAR FILTRATION RATE (test code = GFR) mL/min >=60 CREATININE (test code = CREAT) mg/dL 0.55-1.02 BUN/CREATININE RATIO (test code = BUN/CREA) 10-20 TOTAL PROTEIN (test code = PROT) gram/dL 6.4-8.2 ALBUMIN (test code = ALB) g/dL 3.4-5.0 GLOBULIN (test code = GLOB) gram/dL 2.7-4.2 ALBUMIN/GLOBULIN RATIO (test code = A/G) 0.75-1.50 CALCIUM (test code = CA) mg/dL 8.5-10.1 BILIRUBIN TOTAL (test code = BILT) mg/dL 0.0-1.0 SGOT/AST (test code = AST) IUnit/L 15-37 SGPT/ALT (test code = ALT) IUnit/L 12-78 ALKALINE PHOSPHATASE TOTAL (test code = ALKP) IUnit/L 45-117 [id number] 07:37:00* Test Item Value Reference Range Interpretation Comments GLUBED (test code = GLUBED) 100 mg/dL 74-106 N Performed by certified floating derrick operator at [facility] CBC W/AUTO [id number] 07:10:00* Test Item Value Reference Range Interpretation Comments WHITE BLOOD CELL (test code = WBC) 4.4 K/mm3 4.5-12.5 L RED BLOOD CELL (test code = RBC) 4.32 mill/mm3 3.7-5.2 N HEMOGLOBIN (test code = HGB) 9.3 gram/dL 11.5-15.5 L HEMATOCRIT (test code = HCT) 30.5 % 36.0-46.0 L MEAN CELL VOLUME (test code = MCV) 70.6 fL 80-98 L MEAN CELL HGB (test code = MCH) 21.5 picogram 27.0-33.0 L MEAN CELL HGB CONCETRATION (test code = MCHC) 30.5 gram/dL 33.0-36. 0 L RED CELL DISTRIBUTION WIDTH (test code = RDW) 17.2 % 11.6-16. 2 H RED CELL DISTRIBUTION WIDTH SD (test code = RDW-SD) 43.3 fL 37 .0-51.0 N PLATELET COUNT (test code = PLT) 102 K/mm3 150-450 L MEAN PLATELET VOLUME (test code = MPV) TEST NOT PERFORMED fL 6.7-11 .0 Unable to determine due to platelet abnormality , please seethe platelet morphology. NEUTROPHIL % (test code = NT%) 59.6 % 39.0-69.0 N IMMATURE GRANULOCYTE % (test code = IG%) 0.2 % 0.0-5.0 N LYMPHOCYTE % (test code = LY%) 28.2 % 25.0-55.0 N MONOCYTE % (test code = MO%) 9.5 % 0.0-10.0 N EOSINOPHIL % (test code = EO%) 2.0 % 0.0-5.0 N BASOPHIL % (test code = BA%) 0.5 % 0.0-1.0 N NUCLEATED RBC % (test code = NRBC%) 0.0 % 0-0 N NEUTROPHIL # (test code = NT#) 2.64 K/mm3 1.8-7.7 N IMMATURE GRANULOCYTE # (test code = IG#) 0.01 x10 3/uL 0-0.03 N LYMPHOCYTE # (test code = LY#) 1.25 K/mm3 1.0-5.0 N MONOCYTE # (test code = MO#) 0.42 K/mm3 0-0.8 N EOSINOPHIL # (test code = EO#) 0.09 K/mm3 0.0-0.5 N BASOPHIL # (test code = BA#) 0.02 K/mm3 0.0-0.2 N NUCLEATED RBC # (test code = NRBC#) 0.00 K/mm3 0.0-0.1 N MANUAL DIFF REQUIRED (test code = MDIFF) NO [id number] 20:57:00* Test Item Value Reference Range Interpretation Comments GLUBED (test code = GLUBED) 120 mg/dL 74-106 H Performed by certified floating derrick operator at [facility] HGB [id number] 17:46:00* Test Item Value Reference Range Interpretation Comments HEMOGLOBIN (test code = HGB) 8.7 gram/dL 11.5-15.5 L HEMATOCRIT (test code = HCT) 27.6 % 36.0-46.0 L [id number] 16:48:00* Test Item Value Reference Range Interpretation Comments GLUBED (test code = GLUBED) 120 mg/dL 74-106 H Performed by certified floating derrick operator at [facility] FE W/TOTAL IRON BINDING CAP.2020-02-17 12:21:00* Test Item Value Reference Range Interpretation Comments SERUM IRON (test code = IRON) 23 ug/dL 50-175 L TOTAL IRON BINDING CAPACITY (test code = TIBC) 405 mcg/dL 250-450 N IRON SATURATION (test code = FESAT) 5.68 % 13-45 L VITAMIN [id number] 12:21:00* Test Item Value Reference Range Interpretation Comments VITAMIN B12 (test code = VITB12) 1078 pg/mL 193-986 H FOLIC [id number] 12:21:00* Test Item Value Reference Range Interpretation Comments FOLIC ACID (test code = FOL) 27.0 ng/mL 3.10-17.50 H [id number] 12:21:00* Test Item Value Reference Range Interpretation Comments FERRITIN (test code = MICAELA) 13 ng/mL 8-388 N [id number] 11:58:00* Test Item Value Reference Range Interpretation Comments GLUBED (test code = GLUBED) 147 mg/dL 74-106 H Performed by certified floating derrick operator at [facility] FE W/TOTAL IRON BINDING CAP.2020-02-17 11:30:00* Test Item Value Reference Range Interpretation Comments SERUM IRON (test code = IRON) 23 ug/dL 50-175 L TOTAL IRON BINDING CAPACITY (test code = TIBC) 405 mcg/dL 250-450 N IRON SATURATION (test code = FESAT) 5.68 % 13-45 L VITAMIN [id number] 11:30:00* Test Item Value Reference Range Interpretation Comments VITAMIN B12 (test code = VITB12) 1078 pg/mL 193-986 H FOLIC [id number] 11:30:00* Test Item Value Reference Range Interpretation Comments FOLIC ACID (test code = FOL) ng/mL 3.10-17.50 [id number] 11:30:00* Test Item Value Reference Range Interpretation Comments FERRITIN (test code = MICAELA) 13 ng/mL 8-388 N [id number] 07:46:00* Test Item Value Reference Range Interpretation Comments GLUBED (test code = GLUBED) 102 mg/dL 74-106 N Performed by certified floating derrick operator at [facility] COMPREHENSIVE METABOLIC [id number] 06:04:00* Test Item Value Reference Range Interpretation Comments SODIUM (test code = NA) 140 mmol/L 136-145 N POTASSIUM (test code = K) 3.8 mmol/L 3.5-5.1 N CHLORIDE (test code = CL) 106.0 mmol/L 98-107 N CARBON DIOXIDE (test code = CO2) 29.0 mmol/L 21-32 N ANION GAP (test code = GAP) 8.8 10-20 L GLUCOSE (test code = GLU) 136 mg/dL 74-106 H BLOOD UREA NITROGEN (test code = BUN) 15 mg/dL 7-18 N GLOMERULAR FILTRATION RATE (test code = GFR) > 60 mL/min >=60 Estimated GFR by using Modified MDRD formula.Chronic kidney disease is defined as either kidney damageor GFR <60 mL/min/1.73 m2 for >3 months. CREATININE (test code = CREAT) 0.60 mg/dL 0.55-1.02 N Note change in reference range due to change in reagent. BUN/CREATININE RATIO (test code = BUN/CREA) 23.5 10-20 H TOTAL PROTEIN (test code = PROT) 7.0 gram/dL 6.4-8.2 N ALBUMIN (test code = ALB) 3.0 g/dL 3.4-5.0 L GLOBULIN (test code = GLOB) 4.0 gram/dL 2.7-4.2 N ALBUMIN/GLOBULIN RATIO (test code = A/G) 0.8 0.75-1.50 N CALCIUM (test code = CA) 8.5 mg/dL 8.5-10.1 N BILIRUBIN TOTAL (test code = BILT) 0.80 mg/dL 0.0-1.0 N SGOT/AST (test code = AST) 46 IUnit/L 15-37 H SGPT/ALT (test code = ALT) 27 IUnit/L 12-78 N ALKALINE PHOSPHATASE TOTAL (test code = ALKP) 117 IUnit/L 45-117 N Note change in reference range due to change in reagent. COMPREHENSIVE METABOLIC [id number] 05:52:00* Test Item Value Reference Range Interpretation Comments SODIUM (test code = NA) 140 mmol/L 136-145 N POTASSIUM (test code = K) 3.8 mmol/L 3.5-5.1 N CHLORIDE (test code = CL) 106.0 mmol/L 98-107 N CARBON DIOXIDE (test code = CO2) mmol/L 21-32 ANION GAP (test code = GAP) 10-20 GLUCOSE (test code = GLU) mg/dL 74-106 BLOOD UREA NITROGEN (test code = BUN) mg/dL 7-18 GLOMERULAR FILTRATION RATE (test code = GFR) mL/min >=60 CREATININE (test code = CREAT) mg/dL 0.55-1.02 BUN/CREATININE RATIO (test code = BUN/CREA) 10-20 TOTAL PROTEIN (test code = PROT) gram/dL 6.4-8.2 ALBUMIN (test code = ALB) g/dL 3.4-5.0 GLOBULIN (test code = GLOB) gram/dL 2.7-4.2 ALBUMIN/GLOBULIN RATIO (test code = A/G) 0.75-1.50 CALCIUM (test code = CA) mg/dL 8.5-10.1 BILIRUBIN TOTAL (test code = BILT) mg/dL 0.0-1.0 SGOT/AST (test code = AST) IUnit/L 15-37 SGPT/ALT (test code = ALT) IUnit/L 12-78 ALKALINE PHOSPHATASE TOTAL (test code = ALKP) IUnit/L 45-117 CBC W/AUTO [id number] 05:48:00* Test Item Value Reference Range Interpretation Comments WHITE BLOOD CELL (test code = WBC) 4.5 K/mm3 4.5-12.5 N RED BLOOD CELL (test code = RBC) 3.86 mill/mm3 3.7-5.2 N HEMOGLOBIN (test code = HGB) 8.2 gram/dL 11.5-15.5 L HEMATOCRIT (test code = HCT) 27.0 % 36.0-46.0 L MEAN CELL VOLUME (test code = MCV) 69.9 fL 80-98 L MEAN CELL HGB (test code = MCH) 21.2 picogram 27.0-33.0 L MEAN CELL HGB CONCETRATION (test code = MCHC) 30.4 gram/dL 33.0-36. 0 L RED CELL DISTRIBUTION WIDTH (test code = RDW) 17.2 % 11.6-16. 2 H RED CELL DISTRIBUTION WIDTH SD (test code = RDW-SD) 42.7 fL 37 .0-51.0 N PLATELET COUNT (test code = PLT) 100 K/mm3 150-450 L MEAN PLATELET VOLUME (test code = MPV) TEST NOT PERFORMED fL 6.7-11 .0 NEUTROPHIL % (test code = NT%) 60.8 % 39.0-69.0 N IMMATURE GRANULOCYTE % (test code = IG%) 0.2 % 0.0-5.0 N LYMPHOCYTE % (test code = LY%) 26.4 % 25.0-55.0 N MONOCYTE % (test code = MO%) 9.3 % 0.0-10.0 N EOSINOPHIL % (test code = EO%) 2.9 % 0.0-5.0 N BASOPHIL % (test code = BA%) 0.4 % 0.0-1.0 N NUCLEATED RBC % (test code = NRBC%) 0.0 % 0-0 N NEUTROPHIL # (test code = NT#) 2.76 K/mm3 1.8-7.7 N IMMATURE GRANULOCYTE # (test code = IG#) 0.01 x10 3/uL 0-0.03 N LYMPHOCYTE # (test code = LY#) 1.20 K/mm3 1.0-5.0 N MONOCYTE # (test code = MO#) 0.42 K/mm3 0-0.8 N EOSINOPHIL # (test code = EO#) 0.13 K/mm3 0.0-0.5 N BASOPHIL # (test code = BA#) 0.02 K/mm3 0.0-0.2 N NUCLEATED RBC # (test code = NRBC#) 0.00 K/mm3 0.0-0.1 N [id number] 20:20:00* Test Item Value Reference Range Interpretation Comments GLUBED (test code = GLUBED) 154 mg/dL 74-106 H Performed by certified floating derrick operator at [facility] - US TRANSVAGINAL NON [id number] 16:50:00 Name: SADI BENDER [facility] : 1955 Age/S: 65 / F [address] [facility] [address] #: [id number] Loc: [facility] [id number] Phys: Mehul Vazquez MD Acct: [id number] Dis Date: Status: ADM IN PHONE #: [phone] Exam Date: 02/16/2020 1621 FAX #: [phone] Reason: Post menopausal bleeding. Endometrial thickness EXAMS: CPT CODE: [id number] [place] [id number] REASON FOR EXAM: Post menopausal bleeding. Endometrial thickness. EXAM ORDER DATE: 02/16/2020 2:10 PM Attending MBridgette: Mehul Vazquez MD PROCEDURE: - US TRANSVAGINAL NON OB Technique: Grayscale images, color doppler, and spectral doppler images of the uterus and ovaries were obtained utilizing A transabdominal and transvaginal approach. C omparison study: None FINDINGS: Uterus: size: 5.6 x 4.1 x 5.2 cm using transabdominal measurements echogenicity/masses: None endometrium: 13 mm Duplex scans of the ovarian arteries were performed. Franklin scale images were supplemented with color-flow Do ppler. Doppler flow velocity analysis (duplex Doppler) was performed. Right ovary: size: 1.9 x 1.5 x 1.5 cm cysts/masses: None Doppler findings: Normal arterial and venous waveforms. adnexal mas ses: None Left ovary: Not visualized. Free flu id: No fluid seen in the cul-de-sac. IMPRESSION: Endometrium measures up to 13 mm, thickened in postmenopausal woman. Recommend gynecology consultation and possible tissue sampling. Left ova ry is not visualized. Location: PAGE 1 Signed Report (CONTINUED) Name: SADI BENDER [facility] : 1955 Age[facility]S: 65 / F [address] [facility]: [id number] Loc: [place] [address] Phys: Mehul Vazquez MD Acct: [id number] Dis Date: Status: ADM IN PHONE #: [phone] Exam Date: 1621 FAX #: [phone] Reason: Post menopau jose bleeding. Endometrial thickness EXAMS: CPT CODE: [id number] [place] [address] <Continued> at 1650 Reported and signed by: Carlin Quintanilla M.D. CC: Narendra Frank; Refugio Cruz MD; Mehul Vazquez MD Technologist: Kimmy Crystal [facility] Trnscb Date/Time: 02/16/2020 (1649) [email or web address] Orig Print D/T: S: 02/16/2020 (1652) Probe: [id number] PAGE 2 Signed Report AB [id number] 16:36:00* Test Item Value Reference Range Interpretation Comments AB TREPONEMA (test code = TREPAB) Nonreactive Index NonReactive [id number] 16:35:00* Test Item Value Reference Range Interpretation Comments GLUBED (test code = GLUBED) 117 mg/dL 74-106 H Performed by certified floating derrick operator at [facility] [id number] 12:13:00* Test Item Value Reference Range Interpretation Comments GLUBED (test code = GLUBED) 141 mg/dL 74-106 H Performed by certified floating derrick operator at [facility] COMPREHENSIVE METABOLIC [id number] 08:55:00* Test Item Value Reference Range Interpretation Comments SODIUM (test code = NA) 140 mmol/L 136-145 N POTASSIUM (test code = K) 4.1 mmol/L 3.5-5.1 N CHLORIDE (test code = CL) 109.0 mmol/L 98-107 H CARBON DIOXIDE (test code = CO2) 25.0 mmol/L 21-32 N ANION GAP (test code = GAP) 10.1 10-20 N GLUCOSE (test code = GLU) 114 mg/dL 74-106 H BLOOD UREA NITROGEN (test code = BUN) 20 mg/dL 7-18 H GLOMERULAR FILTRATION RATE (test code = GFR) > 60 mL/min >=60 Estimated GFR by using Modified MDRD formula.Chronic kidney disease is defined as either kidney damageor GFR <60 mL/min/1.73 m2 for >3 months. CREATININE (test code = CREAT) 0.80 mg/dL 0.55-1.02 N Note change in reference range due to change in reagent. BUN/CREATININE RATIO (test code = BUN/CREA) 25.4 10-20 H TOTAL PROTEIN (test code = PROT) 7.6 gram/dL 6.4-8.2 N ALBUMIN (test code = ALB) 3.2 g/dL 3.4-5.0 L GLOBULIN (test code = GLOB) 4.4 gram/dL 2.7-4.2 H ALBUMIN/GLOBULIN RATIO (test code = A/G) 0.7 0.75-1.50 L CALCIUM (test code = CA) 8.9 mg/dL 8.5-10.1 N BILIRUBIN TOTAL (test code = BILT) 0.90 mg/dL 0.0-1.0 N SGOT/AST (test code = AST) 50 IUnit/L 15-37 H SGPT/ALT (test code = ALT) 27 IUnit/L 12-78 N ALKALINE PHOSPHATASE TOTAL (test code = ALKP) 117 IUnit/L 45-117 N Note change in reference range due to change in reagent. - XR CHEST 1 [id number] 08:54:00 FAX: Narendra Durham MD [phone] Guild: B St: ADM FAX: Refugio Holbrook I [phone] Name: SADI BENDER [facility] : 1955 Age/S: 65/F [address] [facility] Unit #: [id number] Loc: V.3072 [place] [address] Phys: Refugio Cruz MD Acct: [id number] Dis Date: Status: ADM IN PHONE #: [phone] Exam Date: 02/15/2020 0807 FAX #: [phone] Reason: EVAL FOR FLD OVERLOAD EXAMS: CPT CODE: [id number] XR CHEST 1 V 41369 HISTORY: Evaluate for fluid overload. COMPARISON: March 09, 2016. Location: [facility]. No acute infiltrates, effusion or congestion is noted. Calcified granulomas. Dependent changes. Cardiomegaly. IMPRESSION: No acute infiltrates, effusion or congestion. at 0854 Reported and signed by: Jurgen Iverson M.D. CC: Narendra Frank; Refugio Cruz MD Technologist: ASHLI RICHARD JR RT(R) Trnscrd Date/Time/By: 02/16/2020 (0854) : By: [email or web address] Orig Print D/T: S: 02/16/2020 (0857) PAGE 1 Signed Report COMPREHENSIVE METABOLIC [id number] 08:53:00* Test Item Value Reference Range Interpretation Comments SODIUM (test code = NA) 140 mmol/L 136-145 N POTASSIUM (test code = K) 4.1 mmol/L 3.5-5.1 N CHLORIDE (test code = CL) 109.0 mmol/L 98-107 H CARBON DIOXIDE (test code = CO2) mmol/L 21-32 ANION GAP (test code = GAP) 10-20 GLUCOSE (test code = GLU) mg/dL 74-106 BLOOD UREA NITROGEN (test code = BUN) mg/dL 7-18 GLOMERULAR FILTRATION RATE (test code = GFR) mL/min >=60 CREATININE (test code = CREAT) mg/dL 0.55-1.02 BUN/CREATININE RATIO (test code = BUN/CREA) 10-20 TOTAL PROTEIN (test code = PROT) gram/dL 6.4-8.2 ALBUMIN (test code = ALB) g/dL 3.4-5.0 GLOBULIN (test code = GLOB) gram/dL 2.7-4.2 ALBUMIN/GLOBULIN RATIO (test code = A/G) 0.75-1.50 CALCIUM (test code = CA) mg/dL 8.5-10.1 BILIRUBIN TOTAL (test code = BILT) mg/dL 0.0-1.0 SGOT/AST (test code = AST) IUnit/L 15-37 SGPT/ALT (test code = ALT) IUnit/L 12-78 ALKALINE PHOSPHATASE TOTAL (test code = ALKP) IUnit/L 45-117 CBC W/AUTO [id number] 08:13:00* Test Item Value Reference Range Interpretation Comments WHITE BLOOD CELL (test code = WBC) 5.5 K/mm3 4.5-12.5 N RED BLOOD CELL (test code = RBC) 4.23 mill/mm3 3.7-5.2 N HEMOGLOBIN (test code = HGB) 9.1 gram/dL 11.5-15.5 L HEMATOCRIT (test code = HCT) 30.4 % 36.0-46.0 L MEAN CELL VOLUME (test code = MCV) 71.9 fL 80-98 L MEAN CELL HGB (test code = MCH) 21.5 picogram 27.0-33.0 L MEAN CELL HGB CONCETRATION (test code = MCHC) 29.9 gram/dL 33.0-36. 0 L RED CELL DISTRIBUTION WIDTH (test code = RDW) 17.3 % 11.6-16. 2 H RED CELL DISTRIBUTION WIDTH SD (test code = RDW-SD) 45.1 fL 37 .0-51.0 N PLATELET COUNT (test code = PLT) 139 K/mm3 150-450 L MEAN PLATELET VOLUME (test code = MPV) TEST NOT PERFORMED fL 6.7-11 .0 NEUTROPHIL % (test code = NT%) 60.5 % 39.0-69.0 N IMMATURE GRANULOCYTE % (test code = IG%) 0.4 % 0.0-5.0 N LYMPHOCYTE % (test code = LY%) 28.6 % 25.0-55.0 N MONOCYTE % (test code = MO%) 8.4 % 0.0-10.0 N EOSINOPHIL % (test code = EO%) 1.6 % 0.0-5.0 N BASOPHIL % (test code = BA%) 0.5 % 0.0-1.0 N NUCLEATED RBC % (test code = NRBC%) 0.0 % 0-0 N NEUTROPHIL # (test code = NT#) 3.31 K/mm3 1.8-7.7 N IMMATURE GRANULOCYTE # (test code = IG#) 0.02 x10 3/uL 0-0.03 N LYMPHOCYTE # (test code = LY#) 1.57 K/mm3 1.0-5.0 N MONOCYTE # (test code = MO#) 0.46 K/mm3 0-0.8 N EOSINOPHIL # (test code = EO#) 0.09 K/mm3 0.0-0.5 N BASOPHIL # (test code = BA#) 0.03 K/mm3 0.0-0.2 N NUCLEATED RBC # (test code = NRBC#) 0.00 K/mm3 0.0-0.1 N MANUAL DIFF REQUIRED (test code = MDIFF) NO - CT ABD PELVIS [id number] 16:30:00 Name: SADI BENDER [facility] : 1955 Age/S: 65 / F [address] [facility] Unit #: [id number] Loc: [place] [address] Phys: Sebastián Lynch MD Acct: [id number] Dis Date: Status: REG ER PHONE #: [phone] Exam Date: 02/15/2020 4175 FAX #: [phone] Reason: BILATERAL FLANK PAIN EXAMS: CPT CODE: [id number] CT ABD PELVIS W/CONT 35629 EXAM: CT ABDOMEN/PELVIS WITH CONTRAST HISTORY: Bilateral flank pain TECHNIQUE: Helical imaging was performed diaphragm through the symphysis with multiplanar reformations obtained. IV CONTRAST: 100cc Omnipaque 300 GI CONTRAST: No DOSE: CT imaging performed at this location utilizes radiation dose optimization technique which includes one or more of the followin) Automated exposure control; 2) Adjustment of the mA and/or kV according to patient's size; 3) Use of iterative reconstruction techniques COMPARISON: CT 08/04/2019 FINDINGS: LOWER CHEST: The visualized lung bases are clear. Visualized heart is unremarkable. SOLID ORGANS: Cirrhotic Contour. Heterogeneous hypodense lesion within the caudate lobe on series 5 image 36 measures 4.8 x 5.4 cm (AP by TR), previously measured 4.8 x 5.3 cm.. No intra or extrahepatic biliary ductal dilation. Cholecystectomy clips are noted. The pancreas, and adrenal glands are normal in appearance. Enlarged spleen measures up to 16.6 cm. Both kidneys demonstrate normal corticomedullary phase of enhancement. No renal/ureteral calculus, hydronephrosis, mass, or cyst is apparent. BOWEL: The small bowel and colon are normal in caliber without wall thickening. Normal appendix. No signs of obstr uction.] PERITONEUM: No free intraperitoneal fluid or air. RETROPERITONEUM: Normal caliber of the abdominal aorta is noted. No lymphadenopathy. Splenic varices are noted. PELVIS: The visual ized urinary bladder wall is normal thickness. Organs of reproduction are unremarkable. MUSCULOSKELETAL: No acute osseous abnormality is see n. No destructive lytic or blastic osseous lesion is noted. PAGE 1 Signed Report (CONTINUED) Name: SADI BENDER [facility] : 1955 e/S: 65 / [address] [facility] Unit #: [id number] Loc: [place] [address] Phys: Sebastián Lynch MD Acct: [id number] Dis Date: Status: REG ER PHONE #: [phone] Exam Date: 02/15/2020 1555 FAX #: [phone] Reason: BILATERAL FLANK PAIN EXAMS: CPT CODE: [id number] CT ABD PELVIS W/CONT 29887 <Continued> SOFT TISSUES: No ventral abdominal hernia. No anasarca. IMPRESSION: No acute abnormality of the abdomen or pelvis. Cirrhotic liver with redemonstration of heterogeneous hypodense lesion within the caudate lobe measuring 5.4 cm, not significantly changed when compared to prior CT 08/04/2019. Splenomegaly with splenic varices. SL: [id number] at 1630 Reported and signed by: Carlin Quintanilla M.D. CC: Narendra Frank Nicholos MD Technologist:Shahana HUTCHINSON(R); JONI Jacinto CTDI: DLP: Trnscb Date/Time: 02/15/2020 (163) [email or web address] Orig Print D/T: S: 02/15/2020 (1633) PAGE 2 Signed Report URINALYSIS [id number] 14:44:00* Test Item Value Reference Range Interpretation Comments UA COLOR (test code = COLU) YELLOW YELLOW UA APPEARANCE (test code = APPU) CLEAR CLEAR UA GLUCOSE DIPSTICK (test code = DGLUU) NEGATIVE mg/dL NEGATIVE SPECIMEN VOLUM LESS THAN 2ML, SPIN NOT PERFORMED UA BILIRUBIN DIPSTICK (test code = BILU) NEGATIVE NEGATIVE UA KETONE DIPSTICK (test code = KETU) NEGATIVE mg/dL NEGATIVE UA SPECIFIC GRAVITY (test code = SGU) 1.025 1.001-1.035 UA BLOOD DIPSTICK (test code = MARTIN) 3+ (Large) NEGATIVE A UA PH DIPSTICK (test code = TAMEKA) 6.0 5.0-8.0 UA PROTEIN DIPSTICK (test code = PROU) TRACE (15) mg/dL Neg-15 UA UROBILINIOGEN DIPSTICK (test code = URO) 1 mg/dL (1+) mg/dL 0.0 -0.2 UA NITRITE DIPSTICK (test code = WILMER) NEGATIVE NEGATIVE UA LEUKOCYTE ESTERASE W REFLEX (test code = LEUUR) NEGATIVE NEG ATIVE UA WBC (test code = WBCU) 0-5 per HPF 0-5 UA RBC (test code = RBCU) 0-2 per HPF 0-5 UA EPITHELIAL CELLS (test code = EPIU) FEW per HPF Few UA BACTERIA (test code = BACU) NONE SEEN per HPF NONE Urine Source? Clean CatchURINALYSIS [id number] 14:43:00* Test Item Value Reference Range Interpretation Comments UA COLOR (test code = COLU) YELLOW UA APPEARANCE (test code = APPU) CLEAR UA BILIRUBIN DIPSTICK (test code = BILU) NEGATIVE UA SPECIFIC GRAVITY (test code = SGU) 1.001-1.035 UA PH DIPSTICK (test code = TAMEKA) 5.0-8.0 UA UROBILINIOGEN DIPSTICK (test code = URO) mg/dL 0.0-0.2 UA NITRITE DIPSTICK (test code = WILMER) NEGATIVE UA LEUKOCYTE ESTERASE W REFLEX (test code = LEUUR) NEG ATIVE UA WBC (test code = WBCU) 0-5 per HPF 0-5 UA RBC (test code = RBCU) 0-2 per HPF 0-5 UA EPITHELIAL CELLS (test code = EPIU) FEW per HPF Few UA BACTERIA (test code = BACU) NONE SEEN per HPF NONE Urine Source? Clean CatchBASIC METABOLIC [id number] 12:17:00* Test Item Value Reference Range Interpretation Comments SODIUM (test code = NA) 138 mmol/L 136-145 N POTASSIUM (test code = K) 4.1 mmol/L 3.5-5.1 N CHLORIDE (test code = CL) 108.0 mmol/L 98-107 H CARBON DIOXIDE (test code = CO2) 24.0 mmol/L 21-32 N ANION GAP (test code = GAP) 10.1 10-20 N GLUCOSE (test code = GLU) 171 mg/dL 74-106 H BLOOD UREA NITROGEN (test code = BUN) 22 mg/dL 7-18 H GLOMERULAR FILTRATION RATE (test code = GFR) 56 mL/min >=60 Estimated GFR by using Modified MDRD formula.Chronic kidney disease is defined as either kidney damageor GFR <60 mL/min/1.73 m2 for >3 months. CREATININE (test code = CREAT) 1.00 mg/dL 0.55-1.02 N Note change in reference range due to change in reagent. BUN/CREATININE RATIO (test code = BUN/CREA) 22.9 10-20 H CALCIUM (test code = CA) 9.3 mg/dL 8.5-10.1 N HEPATIC FUNCTION [id number] 12:17:00* Test Item Value Reference Range Interpretation Comments TOTAL PROTEIN (test code = PROT) 8.1 gram/dL 6.4-8.2 N ALBUMIN (test code = ALB) 3.1 g/dL 3.4-5.0 L GLOBULIN (test code = GLOB) 5.0 gram/dL 2.7-4.2 H ALBUMIN/GLOBULIN RATIO (test code = A/G) 0.6 0.75-1.50 L BILIRUBIN TOTAL (test code = BILT) 0.70 mg/dL 0.0-1.0 N BILIRUBIN DIRECT (test code = BILD) 0.27 mg/dL 0.0-0.20 H SGOT/AST (test code = AST) 46 IUnit/L 15-37 H SGPT/ALT (test code = ALT) 26 IUnit/L 12-78 N ALKALINE PHOSPHATASE TOTAL (test code = ALKP) 126 IUnit/L 45-117 H Note change in reference range due to change in reagent. [id number] 12:17:00* Test Item Value Reference Range Interpretation Comments LIPASE (test code = LIP) 226 U/L 73.0-393.0 N HCG SERUM [id number] 12:17:00* Test Item Value Reference Range Interpretation Comments HCG SERUM QUAL (test code = HCGQL) NEGATIVE NEGATIVE This HCGQL test is NOT applicable for MALE patients.Check with nurse about probable order error.If Tumor Marker Test needed, nurse should order test "HCGTU"(Test #550.95248) [id number] 12:17:00* Test Item Value Reference Range Interpretation Comments TROPONIN-I (test code = TROPI) <0.015 ng/mL 0-0.045 N LACTIC [id number] 12:10:00* Test Item Value Reference Range Interpretation Comments LACTIC ACID (test code = LACT) 1.5 mmol/L 0.4-1.9 N BASIC METABOLIC [id number] 12:04:00* Test Item Value Reference Range Interpretation Comments SODIUM (test code = NA) 138 mmol/L 136-145 N POTASSIUM (test code = K) 4.1 mmol/L 3.5-5.1 N CHLORIDE (test code = CL) 108.0 mmol/L 98-107 H CARBON DIOXIDE (test code = CO2) mmol/L 21-32 ANION GAP (test code = GAP) 10-20 GLUCOSE (test code = GLU) mg/dL 74-106 BLOOD UREA NITROGEN (test code = BUN) mg/dL 7-18 GLOMERULAR FILTRATION RATE (test code = GFR) mL/min >=60 CREATININE (test code = CREAT) mg/dL 0.55-1.02 BUN/CREATININE RATIO (test code = BUN/CREA) 10-20 CALCIUM (test code = CA) mg/dL 8.5-10.1 HEPATIC FUNCTION [id number] 12:04:00* Test Item Value Reference Range Interpretation Comments TOTAL PROTEIN (test code = PROT) gram/dL 6.4-8.2 ALBUMIN (test code = ALB) g/dL 3.4-5.0 GLOBULIN (test code = GLOB) gram/dL 2.7-4.2 ALBUMIN/GLOBULIN RATIO (test code = A/G) 0.75-1.50 BILIRUBIN TOTAL (test code = BILT) mg/dL 0.0-1.0 BILIRUBIN DIRECT (test code = BILD) mg/dL 0.0-0.20 SGOT/AST (test code = AST) IUnit/L 15-37 SGPT/ALT (test code = ALT) IUnit/L 12-78 ALKALINE PHOSPHATASE TOTAL (test code = ALKP) IUnit/L 45-117 [id number] 12:04:00* Test Item Value Reference Range Interpretation Comments LIPASE (test code = LIP) U/L 73.0-393.0 HCG SERUM [id number] 12:04:00* Test Item Value Reference Range Interpretation Comments HCG SERUM QUAL (test code = HCGQL) NEGATIVE NEGATIVE This HCGQL test is NOT applicable for MALE patients.Check with nurse about probable order error.If Tumor Marker Test needed, nurse should order test "HCGTU"(Test #550.26620) [id number] 12:04:00* Test Item Value Reference Range Interpretation Comments TROPONIN-I (test code = TROPI) ng/mL 0-0.045 PROTHROMBIN [id number] 12:03:00* Test Item Value Reference Range Interpretation Comments PROTHROMBIN TIME PATIENT (test code = PTP) 13.9 seconds 9.0-14.0 N INTERNATIONAL NORMAL RATIO (test code = INR) 1.2 0.8-1.2 N The therapeutic range for oral anticoagulant therapy formost indications is an international normalized ratio (INR)of between 2.0 and 3.0. The recommended therapeutic INRrange for various clinical situations is listed below: Clinical Situation INR range Pulmonary e mbolism treatment (2.0-3.0)Venous thrombosis treatmentVenous thrombosis prophylaxis (high risk surgery)Prevention of systemic embolism from: Acute myocardial infarction Valvular heart disease Atrial fibrillation Mechanical prosthetic heart valves (2.5-3.5) IS PATIENT ON ANTICOAGULANTS? NTHROMBOPLASTIN TIME [id number] 12:03:00* Test Item Value Reference Range Interpretation Comments THROMBOPLASTIN TIME PARTIAL (test code = PTT) 34.9 seconds 23.0-37. 0 N IS PATIENT ON ANTICOAGULANTS? NBASIC METABOLIC [id number] 12:03:00* Test Item Value Reference Range Interpretation Comments SODIUM (test code = NA) mmol/L 136-145 POTASSIUM (test code = K) mmol/L 3.5-5.1 CHLORIDE (test code = CL) mmol/L 98-107 CARBON DIOXIDE (test code = CO2) mmol/L 21-32 ANION GAP (test code = GAP) 10-20 GLUCOSE (test code = GLU) mg/dL 74-106 BLOOD UREA NITROGEN (test code = BUN) mg/dL 7-18 GLOMERULAR FILTRATION RATE (test code = GFR) mL/min >=60 CREATININE (test code = CREAT) mg/dL 0.55-1.02 BUN/CREATININE RATIO (test code = BUN/CREA) 10-20 CALCIUM (test code = CA) mg/dL 8.5-10.1 HEPATIC FUNCTION [id number] 12:03:00* Test Item Value Reference Range Interpretation Comments TOTAL PROTEIN (test code = PROT) gram/dL 6.4-8.2 ALBUMIN (test code = ALB) g/dL 3.4-5.0 GLOBULIN (test code = GLOB) gram/dL 2.7-4.2 ALBUMIN/GLOBULIN RATIO (test code = A/G) 0.75-1.50 BILIRUBIN TOTAL (test code = BILT) mg/dL 0.0-1.0 BILIRUBIN DIRECT (test code = BILD) mg/dL 0.0-0.20 SGOT/AST (test code = AST) IUnit/L 15-37 SGPT/ALT (test code = ALT) IUnit/L 12-78 ALKALINE PHOSPHATASE TOTAL (test code = ALKP) IUnit/L 45-117 [id number] 12:03:00* Test Item Value Reference Range Interpretation Comments LIPASE (test code = LIP) U/L 73.0-393.0 HCG SERUM [id number] 12:03:00* Test Item Value Reference Range Interpretation Comments HCG SERUM QUAL (test code = HCGQL) NEGATIVE NEGATIVE This HCGQL test is NOT applicable for MALE patients.Check with nurse about probable order error.If Tumor Marker Test needed, nurse should order test "HCGTU"(Test #550.94928) [id number] 12:03:00* Test Item Value Reference Range Interpretation Comments TROPONIN-I (test code = TROPI) ng/mL 0-0.045 CBC W/O [id number] 11:55:00* Test Item Value Reference Range Interpretation Comments WHITE BLOOD CELL (test code = WBC) 6.3 K/mm3 4.5-12.5 N RED BLOOD CELL (test code = RBC) 4.14 mill/mm3 3.7-5.2 N HEMOGLOBIN (test code = HGB) 8.9 gram/dL 11.5-15.5 L HEMATOCRIT (test code = HCT) 28.4 % 36.0-46.0 L MEAN CELL VOLUME (test code = MCV) 68.6 fL 80-98 L MEAN CELL HGB (test code = MCH) 21.5 picogram 27.0-33.0 L MEAN CELL HGB CONCETRATION (test code = MCHC) 31.3 gram/dL 33.0-36. 0 L RED CELL DISTRIBUTION WIDTH (test code = RDW) 16.8 % 11.6-16. 2 H PLATELET COUNT (test code = PLT) 136 K/mm3 150-450 L MEAN PLATELET VOLUME (test code = MPV) TEST NOT PERFORMED fL 6.7-11 .0 [id number] 16:14:00* Test Item Value Reference Range Interpretation Comments GLUBED (test code = GLUBED) 117 mg/dL 74-106 H Performed by certified floating derrick operator at [facility] [id number] 11:05:00* Test Item Value Reference Range Interpretation Comments GLUBED (test code = GLUBED) 104 mg/dL 74-106 N Performed by certified floating derrick operator at [facility] [id number] 09:59:00* Test Item Value Reference Range Interpretation Comments GLUBED (test code = GLUBED) 102 mg/dL 74-106 N Performed by certified floating derrick operator at [facility] [id number] 20:06:00* Test Item Value Reference Range Interpretation Comments GLUBED (test code = GLUBED) 133 mg/dL 74-106 H Performed by certified floating derrick operator at [facility] [id number] 19:16:00* Test Item Value Reference Range Interpretation Comments GLUBED (test code = GLUBED) 140 mg/dL 74-106 H Performed by certified floating derrick operator at [facility] [id number] 16:06:00* Test Item Value Reference Range Interpretation Comments GLUBED (test code = GLUBED) 106 mg/dL 74-106 N Performed by certified floating derrick operator at [facility] [id number] 11:24:00* Test Item Value Reference Range Interpretation Comments GLUBED (test code = GLUBED) 115 mg/dL 74-106 H Performed by certified floating derrick operator at [facility] [id number] 20:41:00* Test Item Value Reference Range Interpretation Comments GLUBED (test code = GLUBED) 177 mg/dL 74-106 H Performed by certified floating derrick operator at [facility] LIVER,[id number] 17:35:00 RUN DATE: 08/14/19 [facility] PAGE 1 RUN TIME: 1735 Specimen Inqui ry RUN USER: INTERFACE PATIENT: SADI BENDER ACCT #: [id number] LOC: [facility] U #: [id number] AGE/SX: 64/F ROOM: [facility] RE08/05/19REG DR: Refugio Cruz MD : 55 BED: A DIS: STATUS: ADM IN TLOC: SPEC #: [id number] RECD: 08/09/19 STATUS: DAVID SAVAGEThuan #: [id number] ABELINO: 08/09/19- SUBM DR: Refugio Cruz MD ENTERED: 08/09/19 SP TYPE: BX LIVER OTHR DR: Carolyn Darcie mindy or Family Physician Narendra Frank MD, Daniel Haryanto MD Quraishi,Dino Hall MD, MDORDERED: GROSS COPIES TO: Carolyn Primary or Family Physician Narendra Frank MD [address] [place] [address] Rod Munoz MD [address], [address] [place] [address] Refugio Cruz MD [address] [place] [address]. [address] [place] [address] Pooja Wilson MD [address] [place] [address] Dino Crawford MD [address] [place], [place] [address] PROCEDURES: GROSS (08/14/19-162 3) TISSUES: LIVER, NOS - BX, 3 TP CONTINUED ON NEXT PAGE RUN DATE: 08/14/19 [facility] PAGE 2 RUN TIME: 1735 Specimen Inquiry RUN USER: INTERFACE SPEC #: [id number] PATIENT: SADI BENDER MELI #[id number] (Continued)--------- --- CLINICAL HISTORY COLLECTION DATE: 08/09/19 HISTORY LIVER MA SS COMMENT Intradepartmental consultation: DMW. FINAL VIK GNOSIS Liver mass, needle biopsy with touch prep: HEPATIC PARENCHYMA W ITH INCREASED FIBROSIS AND ARCHITECTURAL DISTORTION COMPATIBLE WITH CIR RHOSIS, see microscopic description PATCHY MILD CHRONIC INFLAMMATION PRES ENT RRB/cris D 88905, [id number], [id number], 22022 MACROSCOPIC The specimen consists of three touch prep slides for processing and evaluati on. Received in formalin, labeled with the patient's name, and identified as "liver", are thin three needle biopsies of guadarrama-pink tissue measuring 1.1 cm in aggregate length with diameters of less than 0.1 cm. Tissue is strained thr ough a biopsy bag and submitted for histologic evaluation. GROSS PERFORM ED AT [facility] [address] [place] [address] (p)[phone] MICROSCOPIC T he cytology slides show scattered bland hepatocytes, individual cells and smal l aggregates, in a background of blood with a few scattered acute and chronic inflmmatory cells. Significant cytologic atypia is not noted. Sections of the tissue show a few small needle biopsy fragments of hepatic parenchyma with inc reased fibrosis surrounding small nodules of hepatic tissue compatible with ci rrhosis. In one area the hepatic cords are slightly expanded but significant cytologic atypia is not present and increased mitotic activity is not seen. T he changes raise the possibility of a well differentiated hepatocellular carci noma. Paraffin embedded tissue was submitted to [facility] for immunoperoxid ase stains as well as a reticulin stain. The slides are reviewed at [facility]. The reticulin stain shows very mild expansion of the hepatic cords. The arginase 1 stain CONTINUED ON NEXT PAGE RUN DATE: 08/14/19 [employer] PAGE 3 RUN TIME: 1734 Specimen Inquiry RUN USER: INTERFACE SPEC #: [id number] MACY ENT: SADI BENDER #[id number] (Continued) MICROSCOPIC (Continued) highlights aggregates of hepatic karen ls. The glypican 3 stain is very focally positive at the edge of the tissue b ut is negative in the majority of the hepatoid tissue. The reticulin stain sh ows very mild expansion of the hepatic cords. An arginase immunoperoxidase st ain is typically positive in benign and malignant hepatic cells. Glypican3 (G P3) is typically positive in hepatocellular carcinoma and negative in benign h epatocytes. The finding of minimal staining with GP3 only at the edge of a gr oup of hepatocytes is considered to be inconclusive for malignancy. Consider re-biopsy of the radiographically identified lesion to obtain additional tissu e if clinically indicated. PERFORMING SITE Diagnosis performed at: [facility] [address] [place] [address] ----- ------- Signed SIGNATURE ON FILE Antonio Gordon MD 07/29 11/17 5058 END OF REPORT [id number] 16:05:00* Test Item Value Reference Range Interpretation Comments GLUBED (test code = GLUBED) 110 mg/dL 74-106 H Performed by certified floating derrick operator at [facility] [id number] 11:10:00* Test Item Value Reference Range Interpretation Comments GLUBED (test code = GLUBED) 108 mg/dL 74-106 H Performed by certified floating derrick operator at [facility] [id number] 07:59:00* Test Item Value Reference Range Interpretation Comments GLUBED (test code = GLUBED) 101 mg/dL 74-106 N Performed by certified floating derrick operator at [facility] [id number] 20:53:00* Test Item Value Reference Range Interpretation Comments GLUBED (test code = GLUBED) 128 mg/dL 74-106 H Performed by certified floating derrick operator at [facility] [id number] 16:08:00* Test Item Value Reference Range Interpretation Comments GLUBED (test code = GLUBED) 170 mg/dL 74-106 H Performed by certified floating derrick operator at [facility] [id number] 12:18:00* Test Item Value Reference Range Interpretation Comments GLUBED (test code = GLUBED) 120 mg/dL 74-106 H Performed by certified floating derrick operator at [facility] [id number] 08:30:00* Test Item Value Reference Range Interpretation Comments GLUBED (test code = GLUBED) 103 mg/dL 74-106 N Performed by certified floating derrick operator at [facility] [id number] 05:45:00* Test Item Value Reference Range Interpretation Comments GLUBED (test code = GLUBED) 107 mg/dL 74-106 H Performed by certified floating derrick operator at [facility] [id number] 16:54:00* Test Item Value Reference Range Interpretation Comments GLUBED (test code = GLUBED) 103 mg/dL 74-106 N Performed by certified floating derrick operator at [facility] [id number] 12:17:00* Test Item Value Reference Range Interpretation Comments GLUBED (test code = GLUBED) 94 mg/dL 74-106 N Performed by certified floating derrick operator at [facility] [id number] 08:36:00* Test Item Value Reference Range Interpretation Comments GLUBED (test code = GLUBED) 91 mg/dL 74-106 N Performed by certified floating derrick operator at [facility] [id number] 20:59:00* Test Item Value Reference Range Interpretation Comments GLUBED (test code = GLUBED) 126 mg/dL 74-106 H Performed by certified floating derrick operator at [facility] [id number] 15:48:00* Test Item Value Reference Range Interpretation Comments GLUBED (test code = GLUBED) 156 mg/dL 74-106 H Performed by certified floating derrick operator at [facility] [id number] 11:43:00* Test Item Value Reference Range Interpretation Comments GLUBED (test code = GLUBED) 113 mg/dL 74-106 H Performed by certified floating derrick operator at [facility] CBC W/AUTO [id number] 10:52:00* Test Item Value Reference Range Interpretation Comments WHITE BLOOD CELL (test code = WBC) 5.4 K/mm3 4.5-12.5 N RED BLOOD CELL (test code = RBC) 4.77 mill/mm3 3.7-5.2 N HEMOGLOBIN (test code = HGB) 11.6 gram/dL 11.5-15.5 N HEMATOCRIT (test code = HCT) 35.7 % 36.0-46.0 L MEAN CELL VOLUME (test code = MCV) 74.8 fL 80-98 L MEAN CELL HGB (test code = MCH) 24.3 picogram 27.0-33.0 L MEAN CELL HGB CONCETRATION (test code = MCHC) 32.5 gram/dL 33.0-36. 0 L RED CELL DISTRIBUTION WIDTH (test code = RDW) 16.0 % 11.6-16. 2 N RED CELL DISTRIBUTION WIDTH SD (test code = RDW-SD) 43.5 fL 37 .0-51.0 N PLATELET COUNT (test code = PLT) 97 K/mm3 150-450 L MEAN PLATELET VOLUME (test code = MPV) TEST NOT PERFORMED fL 6.7-11 .0 NEUTROPHIL % (test code = NT%) 57.0 % 39.0-69.0 N IMMATURE GRANULOCYTE % (test code = IG%) 0.2 % 0.0-5.0 N LYMPHOCYTE % (test code = LY%) 31.0 % 25.0-55.0 N MONOCYTE % (test code = MO%) 9.2 % 0.0-10.0 N EOSINOPHIL % (test code = EO%) 2.2 % 0.0-5.0 N BASOPHIL % (test code = BA%) 0.4 % 0.0-1.0 N NUCLEATED RBC % (test code = NRBC%) 0.0 % 0-0 N NEUTROPHIL # (test code = NT#) 3.09 K/mm3 1.8-7.7 N IMMATURE GRANULOCYTE # (test code = IG#) 0.01 x10 3/uL 0-0.03 N LYMPHOCYTE # (test code = LY#) 1.68 K/mm3 1.0-5.0 N MONOCYTE # (test code = MO#) 0.50 K/mm3 0-0.8 N EOSINOPHIL # (test code = EO#) 0.12 K/mm3 0.0-0.5 N BASOPHIL # (test code = BA#) 0.02 K/mm3 0.0-0.2 N NUCLEATED RBC # (test code = NRBC#) 0.00 K/mm3 0.0-0.1 N MANUAL DIFF REQUIRED (test code = MDIFF) NO, ONLY SCAN NEEDED DIFFERENTIAL [id number] 10:52:00* Test Item Value Reference Range Interpretation Comments STAIN ACCEPTABILITY (test code = STN ACCEPTABLE) STAIN ACCEPTABLE ANISOCYTOSIS (test code = ANISO) 1+ MACROCYTOSIS (test code = MACR) 1+ PLATELET ESTIMATE (test code = PLTEST) DECREASED PLATELET MORPHOLOGY (test code = PLTMORPH) NORMAL CBC W/AUTO [id number] 10:41:00* Test Item Value Reference Range Interpretation Comments WHITE BLOOD CELL (test code = WBC) 5.4 K/mm3 4.5-12.5 N RED BLOOD CELL (test code = RBC) 4.77 mill/mm3 3.7-5.2 N HEMOGLOBIN (test code = HGB) 11.6 gram/dL 11.5-15.5 N HEMATOCRIT (test code = HCT) 35.7 % 36.0-46.0 L MEAN CELL VOLUME (test code = MCV) 74.8 fL 80-98 L MEAN CELL HGB (test code = MCH) 24.3 picogram 27.0-33.0 L MEAN CELL HGB CONCETRATION (test code = MCHC) 32.5 gram/dL 33.0-36. 0 L RED CELL DISTRIBUTION WIDTH (test code = RDW) 16.0 % 11.6-16. 2 N RED CELL DISTRIBUTION WIDTH SD (test code = RDW-SD) 43.5 fL 37 .0-51.0 N PLATELET COUNT (test code = PLT) 97 K/mm3 150-450 L MEAN PLATELET VOLUME (test code = MPV) TEST NOT PERFORMED fL 6.7-11 .0 NEUTROPHIL % (test code = NT%) 57.0 % 39.0-69.0 N IMMATURE GRANULOCYTE % (test code = IG%) 0.2 % 0.0-5.0 N LYMPHOCYTE % (test code = LY%) 31.0 % 25.0-55.0 N MONOCYTE % (test code = MO%) 9.2 % 0.0-10.0 N EOSINOPHIL % (test code = EO%) 2.2 % 0.0-5.0 N BASOPHIL % (test code = BA%) 0.4 % 0.0-1.0 N NUCLEATED RBC % (test code = NRBC%) 0.0 % 0-0 N NEUTROPHIL # (test code = NT#) 3.09 K/mm3 1.8-7.7 N IMMATURE GRANULOCYTE # (test code = IG#) 0.01 x10 3/uL 0-0.03 N LYMPHOCYTE # (test code = LY#) 1.68 K/mm3 1.0-5.0 N MONOCYTE # (test code = MO#) 0.50 K/mm3 0-0.8 N EOSINOPHIL # (test code = EO#) 0.12 K/mm3 0.0-0.5 N BASOPHIL # (test code = BA#) 0.02 K/mm3 0.0-0.2 N NUCLEATED RBC # (test code = NRBC#) 0.00 K/mm3 0.0-0.1 N MANUAL DIFF REQUIRED (test code = MDIFF) NO, ONLY SCAN NEEDED DIFFERENTIAL [id number] 10:41:00* Test Item Value Reference Range Interpretation Comments STAIN ACCEPTABILITY (test code = STN ACCEPTABLE) CABOT RINGS (test code = CAB) MORPHOLOGY COMMENT (test code = MOC) PLATELET ESTIMATE (test code = PLTEST) PLATELET MORPHOLOGY (test code = PLTMORPH) CBC W/AUTO [id number] 10:41:00* Test Item Value Reference Range Interpretation Comments WHITE BLOOD CELL (test code = WBC) 5.4 K/mm3 4.5-12.5 N RED BLOOD CELL (test code = RBC) 4.77 mill/mm3 3.7-5.2 N HEMOGLOBIN (test code = HGB) 11.6 gram/dL 11.5-15.5 N HEMATOCRIT (test code = HCT) 35.7 % 36.0-46.0 L MEAN CELL VOLUME (test code = MCV) 74.8 fL 80-98 L MEAN CELL HGB (test code = MCH) 24.3 picogram 27.0-33.0 L MEAN CELL HGB CONCETRATION (test code = MCHC) 32.5 gram/dL 33.0-36. 0 L RED CELL DISTRIBUTION WIDTH (test code = RDW) 16.0 % 11.6-16. 2 N RED CELL DISTRIBUTION WIDTH SD (test code = RDW-SD) 43.5 fL 37 .0-51.0 N PLATELET COUNT (test code = PLT) 97 K/mm3 150-450 L MEAN PLATELET VOLUME (test code = MPV) TEST NOT PERFORMED fL 6.7-11 .0 NEUTROPHIL % (test code = NT%) 57.0 % 39.0-69.0 N IMMATURE GRANULOCYTE % (test code = IG%) 0.2 % 0.0-5.0 N LYMPHOCYTE % (test code = LY%) 31.0 % 25.0-55.0 N MONOCYTE % (test code = MO%) 9.2 % 0.0-10.0 N EOSINOPHIL % (test code = EO%) 2.2 % 0.0-5.0 N BASOPHIL % (test code = BA%) 0.4 % 0.0-1.0 N NUCLEATED RBC % (test code = NRBC%) 0.0 % 0-0 N NEUTROPHIL # (test code = NT#) 3.09 K/mm3 1.8-7.7 N IMMATURE GRANULOCYTE # (test code = IG#) 0.01 x10 3/uL 0-0.03 N LYMPHOCYTE # (test code = LY#) 1.68 K/mm3 1.0-5.0 N MONOCYTE # (test code = MO#) 0.50 K/mm3 0-0.8 N EOSINOPHIL # (test code = EO#) 0.12 K/mm3 0.0-0.5 N BASOPHIL # (test code = BA#) 0.02 K/mm3 0.0-0.2 N NUCLEATED RBC # (test code = NRBC#) 0.00 K/mm3 0.0-0.1 N MANUAL DIFF REQUIRED (test code = MDIFF) NO, ONLY SCAN NEEDED DIFFERENTIAL [id number] 10:41:00* Test Item Value Reference Range Interpretation Comments STAIN ACCEPTABILITY (test code = STN ACCEPTABLE) MORPHOLOGY COMMENT (test code = MOC) PLATELET ESTIMATE (test code = PLTEST) PLATELET MORPHOLOGY (test code = PLTMORPH) CBC W/AUTO [id number] 10:41:00* Test Item Value Reference Range Interpretation Comments WHITE BLOOD CELL (test code = WBC) 5.4 K/mm3 4.5-12.5 N RED BLOOD CELL (test code = RBC) 4.77 mill/mm3 3.7-5.2 N HEMOGLOBIN (test code = HGB) 11.6 gram/dL 11.5-15.5 N HEMATOCRIT (test code = HCT) 35.7 % 36.0-46.0 L MEAN CELL VOLUME (test code = MCV) 74.8 fL 80-98 L MEAN CELL HGB (test code = MCH) 24.3 picogram 27.0-33.0 L MEAN CELL HGB CONCETRATION (test code = MCHC) 32.5 gram/dL 33.0-36. 0 L RED CELL DISTRIBUTION WIDTH (test code = RDW) 16.0 % 11.6-16. 2 N RED CELL DISTRIBUTION WIDTH SD (test code = RDW-SD) 43.5 fL 37 .0-51.0 N PLATELET COUNT (test code = PLT) 97 K/mm3 150-450 L MEAN PLATELET VOLUME (test code = MPV) TEST NOT PERFORMED fL 6.7-11 .0 NEUTROPHIL % (test code = NT%) 57.0 % 39.0-69.0 N IMMATURE GRANULOCYTE % (test code = IG%) 0.2 % 0.0-5.0 N LYMPHOCYTE % (test code = LY%) 31.0 % 25.0-55.0 N MONOCYTE % (test code = MO%) 9.2 % 0.0-10.0 N EOSINOPHIL % (test code = EO%) 2.2 % 0.0-5.0 N BASOPHIL % (test code = BA%) 0.4 % 0.0-1.0 N NUCLEATED RBC % (test code = NRBC%) 0.0 % 0-0 N NEUTROPHIL # (test code = NT#) 3.09 K/mm3 1.8-7.7 N IMMATURE GRANULOCYTE # (test code = IG#) 0.01 x10 3/uL 0-0.03 N LYMPHOCYTE # (test code = LY#) 1.68 K/mm3 1.0-5.0 N MONOCYTE # (test code = MO#) 0.50 K/mm3 0-0.8 N EOSINOPHIL # (test code = EO#) 0.12 K/mm3 0.0-0.5 N BASOPHIL # (test code = BA#) 0.02 K/mm3 0.0-0.2 N NUCLEATED RBC # (test code = NRBC#) 0.00 K/mm3 0.0-0.1 N MANUAL DIFF REQUIRED (test code = MDIFF) NO, ONLY SCAN NEEDED DIFFERENTIAL [id number] 10:41:00* Test Item Value Reference Range Interpretation Comments STAIN ACCEPTABILITY (test code = STN ACCEPTABLE) MORPHOLOGY COMMENT (test code = MOC) PLATELET ESTIMATE (test code = PLTEST) PLATELET MORPHOLOGY (test code = PLTMORPH) CBC W/AUTO [id number] 10:40:00* Test Item Value Reference Range Interpretation Comments WHITE BLOOD CELL (test code = WBC) 5.4 K/mm3 4.5-12.5 N RED BLOOD CELL (test code = RBC) 4.77 mill/mm3 3.7-5.2 N HEMOGLOBIN (test code = HGB) 11.6 gram/dL 11.5-15.5 N HEMATOCRIT (test code = HCT) 35.7 % 36.0-46.0 L MEAN CELL VOLUME (test code = MCV) 74.8 fL 80-98 L MEAN CELL HGB (test code = MCH) 24.3 picogram 27.0-33.0 L MEAN CELL HGB CONCETRATION (test code = MCHC) 32.5 gram/dL 33.0-36. 0 L RED CELL DISTRIBUTION WIDTH (test code = RDW) 16.0 % 11.6-16. 2 N RED CELL DISTRIBUTION WIDTH SD (test code = RDW-SD) 43.5 fL 37 .0-51.0 N PLATELET COUNT (test code = PLT) 97 K/mm3 150-450 L MEAN PLATELET VOLUME (test code = MPV) TEST NOT PERFORMED fL 6.7-11 .0 NEUTROPHIL % (test code = NT%) 57.0 % 39.0-69.0 N IMMATURE GRANULOCYTE % (test code = IG%) 0.2 % 0.0-5.0 N LYMPHOCYTE % (test code = LY%) 31.0 % 25.0-55.0 N MONOCYTE % (test code = MO%) 9.2 % 0.0-10.0 N EOSINOPHIL % (test code = EO%) 2.2 % 0.0-5.0 N BASOPHIL % (test code = BA%) 0.4 % 0.0-1.0 N NUCLEATED RBC % (test code = NRBC%) 0.0 % 0-0 N NEUTROPHIL # (test code = NT#) 3.09 K/mm3 1.8-7.7 N IMMATURE GRANULOCYTE # (test code = IG#) 0.01 x10 3/uL 0-0.03 N LYMPHOCYTE # (test code = LY#) 1.68 K/mm3 1.0-5.0 N MONOCYTE # (test code = MO#) 0.50 K/mm3 0-0.8 N EOSINOPHIL # (test code = EO#) 0.12 K/mm3 0.0-0.5 N BASOPHIL # (test code = BA#) 0.02 K/mm3 0.0-0.2 N NUCLEATED RBC # (test code = NRBC#) 0.00 K/mm3 0.0-0.1 N MANUAL DIFF REQUIRED (test code = MDIFF) NO, ONLY SCAN NEEDED DIFFERENTIAL [id number] 10:40:00* Test Item Value Reference Range Interpretation Comments STAIN ACCEPTABILITY (test code = STN ACCEPTABLE) CABOT RINGS (test code = CAB) MORPHOLOGY COMMENT (test code = MOC) PLATELET ESTIMATE (test code = PLTEST) PLATELET MORPHOLOGY (test code = PLTMORPH) CBC W/AUTO [id number] 10:37:00* Test Item Value Reference Range Interpretation Comments WHITE BLOOD CELL (test code = WBC) 5.4 K/mm3 4.5-12.5 N RED BLOOD CELL (test code = RBC) 4.77 mill/mm3 3.7-5.2 N HEMOGLOBIN (test code = HGB) 11.6 gram/dL 11.5-15.5 N HEMATOCRIT (test code = HCT) 35.7 % 36.0-46.0 L MEAN CELL VOLUME (test code = MCV) 74.8 fL 80-98 L MEAN CELL HGB (test code = MCH) 24.3 picogram 27.0-33.0 L MEAN CELL HGB CONCETRATION (test code = MCHC) 32.5 gram/dL 33.0-36. 0 L RED CELL DISTRIBUTION WIDTH (test code = RDW) 16.0 % 11.6-16. 2 N RED CELL DISTRIBUTION WIDTH SD (test code = RDW-SD) 43.5 fL 37 .0-51.0 N PLATELET COUNT (test code = PLT) 97 K/mm3 150-450 L MEAN PLATELET VOLUME (test code = MPV) TEST NOT PERFORMED fL 6.7-11 .0 NEUTROPHIL % (test code = NT%) 57.0 % 39.0-69.0 N IMMATURE GRANULOCYTE % (test code = IG%) 0.2 % 0.0-5.0 N LYMPHOCYTE % (test code = LY%) 31.0 % 25.0-55.0 N MONOCYTE % (test code = MO%) 9.2 % 0.0-10.0 N EOSINOPHIL % (test code = EO%) 2.2 % 0.0-5.0 N BASOPHIL % (test code = BA%) 0.4 % 0.0-1.0 N NUCLEATED RBC % (test code = NRBC%) 0.0 % 0-0 N NEUTROPHIL # (test code = NT#) 3.09 K/mm3 1.8-7.7 N IMMATURE GRANULOCYTE # (test code = IG#) 0.01 x10 3/uL 0-0.03 N LYMPHOCYTE # (test code = LY#) 1.68 K/mm3 1.0-5.0 N MONOCYTE # (test code = MO#) 0.50 K/mm3 0-0.8 N EOSINOPHIL # (test code = EO#) 0.12 K/mm3 0.0-0.5 N BASOPHIL # (test code = BA#) 0.02 K/mm3 0.0-0.2 N NUCLEATED RBC # (test code = NRBC#) 0.00 K/mm3 0.0-0.1 N [id number] 08:10:00* Test Item Value Reference Range Interpretation Comments GLUBED (test code = GLUBED) 114 mg/dL 74-106 H Performed by certified floating derrick operator at [facility] [id number] 23:45:00* Test Item Value Reference Range Interpretation Comments GLUBED (test code = GLUBED) 145 mg/dL 74-106 H Performed by certified floating derrick operator at [facility] [id number] 16:09:00* Test Item Value Reference Range Interpretation Comments GLUBED (test code = GLUBED) 112 mg/dL 74-106 H Performed by certified floating derrick operator at [facility] [id number] 10:45:00* Test Item Value Reference Range Interpretation Comments GLUBED (test code = GLUBED) 142 mg/dL 74-106 H Performed by certified floating derrick operator at [facility] [id number] 08:37:00* Test Item Value Reference Range Interpretation Comments GLUBED (test code = GLUBED) 102 mg/dL 74-106 N Performed by certified floating derrick operator at [facility] CBC W/AUTO [id number] 08:10:00* Test Item Value Reference Range Interpretation Comments WHITE BLOOD CELL (test code = WBC) 4.7 K/mm3 4.5-12.5 N RED BLOOD CELL (test code = RBC) 4.44 mill/mm3 3.7-5.2 N HEMOGLOBIN (test code = HGB) 10.9 gram/dL 11.5-15.5 L HEMATOCRIT (test code = HCT) 33.3 % 36.0-46.0 L MEAN CELL VOLUME (test code = MCV) 75.0 fL 80-98 L MEAN CELL HGB (test code = MCH) 24.5 picogram 27.0-33.0 L MEAN CELL HGB CONCETRATION (test code = MCHC) 32.7 gram/dL 33.0-36. 0 L RED CELL DISTRIBUTION WIDTH (test code = RDW) 16.1 % 11.6-16. 2 N RED CELL DISTRIBUTION WIDTH SD (test code = RDW-SD) 43.8 fL 37 .0-51.0 N PLATELET COUNT (test code = PLT) 89 K/mm3 150-450 L MEAN PLATELET VOLUME (test code = MPV) TEST NOT PERFORMED fL 6.7-11 .0 NEUTROPHIL % (test code = NT%) 54.6 % 39.0-69.0 N IMMATURE GRANULOCYTE % (test code = IG%) 0.2 % 0.0-5.0 N LYMPHOCYTE % (test code = LY%) 31.4 % 25.0-55.0 N MONOCYTE % (test code = MO%) 11.5 % 0.0-10.0 H EOSINOPHIL % (test code = EO%) 1.9 % 0.0-5.0 N BASOPHIL % (test code = BA%) 0.4 % 0.0-1.0 N NUCLEATED RBC % (test code = NRBC%) 0.0 % 0-0 N NEUTROPHIL # (test code = NT#) 2.57 K/mm3 1.8-7.7 N IMMATURE GRANULOCYTE # (test code = IG#) 0.01 x10 3/uL 0-0.03 N LYMPHOCYTE # (test code = LY#) 1.48 K/mm3 1.0-5.0 N MONOCYTE # (test code = MO#) 0.54 K/mm3 0-0.8 N EOSINOPHIL # (test code = EO#) 0.09 K/mm3 0.0-0.5 N BASOPHIL # (test code = BA#) 0.02 K/mm3 0.0-0.2 N NUCLEATED RBC # (test code = NRBC#) 0.00 K/mm3 0.0-0.1 N MANUAL DIFF REQUIRED (test code = MDIFF) NO, ONLY SCAN NEEDED DIFFERENTIAL [id number] 08:10:00* Test Item Value Reference Range Interpretation Comments STAIN ACCEPTABILITY (test code = STN ACCEPTABLE) STAIN ACCEPTABLE ANISOCYTOSIS (test code = ANISO) 1+ MACROCYTOSIS (test code = MACR) 1+ PLATELET ESTIMATE (test code = PLTEST) DECREASED PLATELET MORPHOLOGY (test code = PLTMORPH) NORMAL CBC W/AUTO [id number] 07:07:00* Test Item Value Reference Range Interpretation Comments WHITE BLOOD CELL (test code = WBC) 4.7 K/mm3 4.5-12.5 N RED BLOOD CELL (test code = RBC) 4.44 mill/mm3 3.7-5.2 N HEMOGLOBIN (test code = HGB) 10.9 gram/dL 11.5-15.5 L HEMATOCRIT (test code = HCT) 33.3 % 36.0-46.0 L MEAN CELL VOLUME (test code = MCV) 75.0 fL 80-98 L MEAN CELL HGB (test code = MCH) 24.5 picogram 27.0-33.0 L MEAN CELL HGB CONCETRATION (test code = MCHC) 32.7 gram/dL 33.0-36. 0 L RED CELL DISTRIBUTION WIDTH (test code = RDW) 16.1 % 11.6-16. 2 N RED CELL DISTRIBUTION WIDTH SD (test code = RDW-SD) 43.8 fL 37 .0-51.0 N PLATELET COUNT (test code = PLT) 89 K/mm3 150-450 L MEAN PLATELET VOLUME (test code = MPV) TEST NOT PERFORMED fL 6.7-11 .0 NEUTROPHIL % (test code = NT%) 54.6 % 39.0-69.0 N IMMATURE GRANULOCYTE % (test code = IG%) 0.2 % 0.0-5.0 N LYMPHOCYTE % (test code = LY%) 31.4 % 25.0-55.0 N MONOCYTE % (test code = MO%) 11.5 % 0.0-10.0 H EOSINOPHIL % (test code = EO%) 1.9 % 0.0-5.0 N BASOPHIL % (test code = BA%) 0.4 % 0.0-1.0 N NUCLEATED RBC % (test code = NRBC%) 0.0 % 0-0 N NEUTROPHIL # (test code = NT#) 2.57 K/mm3 1.8-7.7 N IMMATURE GRANULOCYTE # (test code = IG#) 0.01 x10 3/uL 0-0.03 N LYMPHOCYTE # (test code = LY#) 1.48 K/mm3 1.0-5.0 N MONOCYTE # (test code = MO#) 0.54 K/mm3 0-0.8 N EOSINOPHIL # (test code = EO#) 0.09 K/mm3 0.0-0.5 N BASOPHIL # (test code = BA#) 0.02 K/mm3 0.0-0.2 N NUCLEATED RBC # (test code = NRBC#) 0.00 K/mm3 0.0-0.1 N MANUAL DIFF REQUIRED (test code = MDIFF) NO, ONLY SCAN NEEDED DIFFERENTIAL [id number] 07:07:00* Test Item Value Reference Range Interpretation Comments STAIN ACCEPTABILITY (test code = STN ACCEPTABLE) CABOT RINGS (test code = CAB) MORPHOLOGY COMMENT (test code = MOC) PLATELET ESTIMATE (test code = PLTEST) PLATELET MORPHOLOGY (test code = PLTMORPH) CBC W/AUTO [id number] 07:07:00* Test Item Value Reference Range Interpretation Comments WHITE BLOOD CELL (test code = WBC) 4.7 K/mm3 4.5-12.5 N RED BLOOD CELL (test code = RBC) 4.44 mill/mm3 3.7-5.2 N HEMOGLOBIN (test code = HGB) 10.9 gram/dL 11.5-15.5 L HEMATOCRIT (test code = HCT) 33.3 % 36.0-46.0 L MEAN CELL VOLUME (test code = MCV) 75.0 fL 80-98 L MEAN CELL HGB (test code = MCH) 24.5 picogram 27.0-33.0 L MEAN CELL HGB CONCETRATION (test code = MCHC) 32.7 gram/dL 33.0-36. 0 L RED CELL DISTRIBUTION WIDTH (test code = RDW) 16.1 % 11.6-16. 2 N RED CELL DISTRIBUTION WIDTH SD (test code = RDW-SD) 43.8 fL 37 .0-51.0 N PLATELET COUNT (test code = PLT) 89 K/mm3 150-450 L MEAN PLATELET VOLUME (test code = MPV) TEST NOT PERFORMED fL 6.7-11 .0 NEUTROPHIL % (test code = NT%) 54.6 % 39.0-69.0 N IMMATURE GRANULOCYTE % (test code = IG%) 0.2 % 0.0-5.0 N LYMPHOCYTE % (test code = LY%) 31.4 % 25.0-55.0 N MONOCYTE % (test code = MO%) 11.5 % 0.0-10.0 H EOSINOPHIL % (test code = EO%) 1.9 % 0.0-5.0 N BASOPHIL % (test code = BA%) 0.4 % 0.0-1.0 N NUCLEATED RBC % (test code = NRBC%) 0.0 % 0-0 N NEUTROPHIL # (test code = NT#) 2.57 K/mm3 1.8-7.7 N IMMATURE GRANULOCYTE # (test code = IG#) 0.01 x10 3/uL 0-0.03 N LYMPHOCYTE # (test code = LY#) 1.48 K/mm3 1.0-5.0 N MONOCYTE # (test code = MO#) 0.54 K/mm3 0-0.8 N EOSINOPHIL # (test code = EO#) 0.09 K/mm3 0.0-0.5 N BASOPHIL # (test code = BA#) 0.02 K/mm3 0.0-0.2 N NUCLEATED RBC # (test code = NRBC#) 0.00 K/mm3 0.0-0.1 N MANUAL DIFF REQUIRED (test code = MDIFF) NO, ONLY SCAN NEEDED DIFFERENTIAL [id number] 07:07:00* Test Item Value Reference Range Interpretation Comments STAIN ACCEPTABILITY (test code = STN ACCEPTABLE) CABOT RINGS (test code = CAB) MORPHOLOGY COMMENT (test code = MOC) PLATELET ESTIMATE (test code = PLTEST) PLATELET MORPHOLOGY (test code = PLTMORPH) CBC W/AUTO [id number] 07:07:00* Test Item Value Reference Range Interpretation Comments WHITE BLOOD CELL (test code = WBC) 4.7 K/mm3 4.5-12.5 N RED BLOOD CELL (test code = RBC) 4.44 mill/mm3 3.7-5.2 N HEMOGLOBIN (test code = HGB) 10.9 gram/dL 11.5-15.5 L HEMATOCRIT (test code = HCT) 33.3 % 36.0-46.0 L MEAN CELL VOLUME (test code = MCV) 75.0 fL 80-98 L MEAN CELL HGB (test code = MCH) 24.5 picogram 27.0-33.0 L MEAN CELL HGB CONCETRATION (test code = MCHC) 32.7 gram/dL 33.0-36. 0 L RED CELL DISTRIBUTION WIDTH (test code = RDW) 16.1 % 11.6-16. 2 N RED CELL DISTRIBUTION WIDTH SD (test code = RDW-SD) 43.8 fL 37 .0-51.0 N PLATELET COUNT (test code = PLT) 89 K/mm3 150-450 L MEAN PLATELET VOLUME (test code = MPV) TEST NOT PERFORMED fL 6.7-11 .0 NEUTROPHIL % (test code = NT%) 54.6 % 39.0-69.0 N IMMATURE GRANULOCYTE % (test code = IG%) 0.2 % 0.0-5.0 N LYMPHOCYTE % (test code = LY%) 31.4 % 25.0-55.0 N MONOCYTE % (test code = MO%) 11.5 % 0.0-10.0 H EOSINOPHIL % (test code = EO%) 1.9 % 0.0-5.0 N BASOPHIL % (test code = BA%) 0.4 % 0.0-1.0 N NUCLEATED RBC % (test code = NRBC%) 0.0 % 0-0 N NEUTROPHIL # (test code = NT#) 2.57 K/mm3 1.8-7.7 N IMMATURE GRANULOCYTE # (test code = IG#) 0.01 x10 3/uL 0-0.03 N LYMPHOCYTE # (test code = LY#) 1.48 K/mm3 1.0-5.0 N MONOCYTE # (test code = MO#) 0.54 K/mm3 0-0.8 N EOSINOPHIL # (test code = EO#) 0.09 K/mm3 0.0-0.5 N BASOPHIL # (test code = BA#) 0.02 K/mm3 0.0-0.2 N NUCLEATED RBC # (test code = NRBC#) 0.00 K/mm3 0.0-0.1 N MANUAL DIFF REQUIRED (test code = MDIFF) NO, ONLY SCAN NEEDED DIFFERENTIAL [id number] 07:07:00* Test Item Value Reference Range Interpretation Comments STAIN ACCEPTABILITY (test code = STN ACCEPTABLE) MORPHOLOGY COMMENT (test code = MOC) PLATELET ESTIMATE (test code = PLTEST) PLATELET MORPHOLOGY (test code = PLTMORPH) CBC W/AUTO [id number] 07:07:00* Test Item Value Reference Range Interpretation Comments WHITE BLOOD CELL (test code = WBC) 4.7 K/mm3 4.5-12.5 N RED BLOOD CELL (test code = RBC) 4.44 mill/mm3 3.7-5.2 N HEMOGLOBIN (test code = HGB) 10.9 gram/dL 11.5-15.5 L HEMATOCRIT (test code = HCT) 33.3 % 36.0-46.0 L MEAN CELL VOLUME (test code = MCV) 75.0 fL 80-98 L MEAN CELL HGB (test code = MCH) 24.5 picogram 27.0-33.0 L MEAN CELL HGB CONCETRATION (test code = MCHC) 32.7 gram/dL 33.0-36. 0 L RED CELL DISTRIBUTION WIDTH (test code = RDW) 16.1 % 11.6-16. 2 N RED CELL DISTRIBUTION WIDTH SD (test code = RDW-SD) 43.8 fL 37 .0-51.0 N PLATELET COUNT (test code = PLT) 89 K/mm3 150-450 L MEAN PLATELET VOLUME (test code = MPV) TEST NOT PERFORMED fL 6.7-11 .0 NEUTROPHIL % (test code = NT%) 54.6 % 39.0-69.0 N IMMATURE GRANULOCYTE % (test code = IG%) 0.2 % 0.0-5.0 N LYMPHOCYTE % (test code = LY%) 31.4 % 25.0-55.0 N MONOCYTE % (test code = MO%) 11.5 % 0.0-10.0 H EOSINOPHIL % (test code = EO%) 1.9 % 0.0-5.0 N BASOPHIL % (test code = BA%) 0.4 % 0.0-1.0 N NUCLEATED RBC % (test code = NRBC%) 0.0 % 0-0 N NEUTROPHIL # (test code = NT#) 2.57 K/mm3 1.8-7.7 N IMMATURE GRANULOCYTE # (test code = IG#) 0.01 x10 3/uL 0-0.03 N LYMPHOCYTE # (test code = LY#) 1.48 K/mm3 1.0-5.0 N MONOCYTE # (test code = MO#) 0.54 K/mm3 0-0.8 N EOSINOPHIL # (test code = EO#) 0.09 K/mm3 0.0-0.5 N BASOPHIL # (test code = BA#) 0.02 K/mm3 0.0-0.2 N NUCLEATED RBC # (test code = NRBC#) 0.00 K/mm3 0.0-0.1 N MANUAL DIFF REQUIRED (test code = MDIFF) NO, ONLY SCAN NEEDED DIFFERENTIAL [id number] 07:07:00* Test Item Value Reference Range Interpretation Comments STAIN ACCEPTABILITY (test code = STN ACCEPTABLE) CABOT RINGS (test code = CAB) MORPHOLOGY COMMENT (test code = MOC) PLATELET ESTIMATE (test code = PLTEST) PLATELET MORPHOLOGY (test code = PLTMORPH) [id number] 04:42:00* Test Item Value Reference Range Interpretation Comments GLUBED (test code = GLUBED) 92 mg/dL 74-106 N Performed by certified floating derrick operator at [facility] [id number] 20:23:00* Test Item Value Reference Range Interpretation Comments GLUBED (test code = GLUBED) 99 mg/dL 74-106 N Performed by certified floating derrick operator at [facility] HEPATITIS C BY [id number] 19:07:00* Test Item Value Reference Range Interpretation Comments HEPATITIS C RNA BY PCR (QUAL) (test code = HCVRNAPCR) Negative Negative Negative: HCV RNA Not DetectedPerformed At: [facility] [address] [id number] Sanjai MD Ph:[phone] [id number] 18:02:00* Test Item Value Reference Range Interpretation Comments GLUBED (test code = GLUBED) 162 mg/dL 74-106 H Performed by certified floating derrick operator at [facility] [id number] 11:52:00* Test Item Value Reference Range Interpretation Comments GLUBED (test code = GLUBED) 117 mg/dL 74-106 H Performed by certified floating derrick operator at [facility] - CT GUID NDL [id number] 10:48:00 Name: SADI BENDER [facility] : 1955 Age/S: 64 / F [address] Unit #: [id number] Loc: [facility]ES[facility] ALBERTO [place] [address] Phys: Refugio Cruz MD Acct: [id number] Dis Date: Status: ADM IN PHONE #: [phone] Exam Date: 08/09/201945 FAX #: [phone] Reason: LIVER BIOPSY EXAMS: CPT CODE: [id number] CT GUID NDL [facility] [address] EXAM: CT-guided liver biopsy and conscious sedation; INFORMATION: Cirrhosis; suspicion of a mass lesion within the caudate lobe, based on a recent contrast-enhanced CT scan. TECHNIQUE AND FINDINGS: CT dose reduction protocol; 2.5 mm axial scans; Conscious sedation start time: 928 hours; Completion time: 939 hours; Under physician supervision 2 mg, Versed and 50 mcg of fentanyl were administered intravenously for moderate sedation. The patient's heart rate, blood pressure and pulse oximetry were continuously monitored by a trained registered nurse. Physician [id number] sedation time was 11 minutes. After obtaining informed consent, the patient was placed supine on the CT table. Localization scans were obtained, again demonstrating a mass lesion within the caudate lobe. Conscious sedation was initiated as described above. The patient's skin in the right lateral upper abdominal region was prepped and draped in the usual sterile fashion. Xylocaine was administered and a 19-gauge guiding cannula was then inserted transhepatically and positioned with its tip along the lateral aspect of the target lesion in the caudate lobe. Correct needle position was confirmed with additional scans. Two passes were then made in coaxial fashion, using a 20-gauge core biopsy needle. The guiding needle was repositioned slightly more anteriorly and 2 more passes were made with the coaxial biopsy needle. Because of bleeding through the biopsy needle small Gelfoam pledgets were injected and minimal hemorrhage was thereby immediately controlled. Post biopsy scans small howard cencies in the target lesion consistent with placement of Gelfoam. There w as no evidence of intra or perihepatic hemorrhage. Blood loss: about 5 ml. IMPRESSION: Successful CT-guided biopsy of a mass lesion within the caudate lobe, using a 20-gauge core biopsy needle. Minimal hemorrhage through the needle was encountered and was medi serafin controlled by injection of a few Gelfoam pledgets. PAGE 1 Signed Report (CONTINUED) Name: NAPOLEONMERLENEJin GARRISON [facility] : 1955 A ge/S: 64 / F [address] [employer] Unit #: [id number] Loc : [facility] [place] [address] Phys: Refugio Cruz MD Acct: [id number] Dis Date: Status: ADM IN PHONE #: [phone] Exam Date: 08/09/2019 0984 FAX #: [phone] Reason: LIVER BIOPSY EXAMS: CPT CODE: [id number] CT GUID NDL [facility]CMT [address] <Continued> Location code: [facility] at 1048 Reported and signed by: Dino Crawford M.D. CC: Narendra Frank; Refugio Cruz MD Technologist:Suni Guardado,RT(R),CT CTDI: DLP: Trnscb Date/Time: 08/09/2019 (1048) [email or web address] Orig Print D/T: S: 08/09/2019 (4677) PAGE 2 Signed Report COMPREHENSIVE METABOLIC [id number] 06:11:00* Test Item Value Reference Range Interpretation Comments SODIUM (test code = NA) 138 mmol/L 136-145 N POTASSIUM (test code = K) 4.1 mmol/L 3.5-5.1 N CHLORIDE (test code = CL) 107.0 mmol/L 98-107 N CARBON DIOXIDE (test code = CO2) 26.0 mmol/L 21-32 N ANION GAP (test code = GAP) 9.1 10-20 L GLUCOSE (test code = GLU) 101 mg/dL 74-106 N BLOOD UREA NITROGEN (test code = BUN) 18 mg/dL 7-18 N GLOMERULAR FILTRATION RATE (test code = GFR) > 60 mL/min >=60 Estimated GFR by using Modified MDRD formula.Chronic kidney disease is defined as either kidney damageor GFR <60 mL/min/1.73 m2 for >3 months. CREATININE (test code = CREAT) 0.70 mg/dL 0.55-1.02 N Note change in reference range due to change in reagent. BUN/CREATININE RATIO (test code = BUN/CREA) 25.7 10-20 H TOTAL PROTEIN (test code = PROT) 7.1 gram/dL 6.4-8.2 N ALBUMIN (test code = ALB) 2.6 g/dL 3.4-5.0 L GLOBULIN (test code = GLOB) 4.5 gram/dL 2.7-4.2 H ALBUMIN/GLOBULIN RATIO (test code = A/G) 0.6 0.75-1.50 L CALCIUM (test code = CA) 8.8 mg/dL 8.5-10.1 N BILIRUBIN TOTAL (test code = BILT) 0.60 mg/dL 0.0-1.0 N SGOT/AST (test code = AST) 111 IUnit/L 15-37 H SGPT/ALT (test code = ALT) 68 IUnit/L 12-78 N ALKALINE PHOSPHATASE TOTAL (test code = ALKP) 136 IUnit/L 45-117 H Note change in reference range due to change in reagent. COMPREHENSIVE METABOLIC [id number] 06:07:00* Test Item Value Reference Range Interpretation Comments SODIUM (test code = NA) 138 mmol/L 136-145 N POTASSIUM (test code = K) 4.1 mmol/L 3.5-5.1 N CHLORIDE (test code = CL) 107.0 mmol/L 98-107 N CARBON DIOXIDE (test code = CO2) mmol/L 21-32 ANION GAP (test code = GAP) 10-20 GLUCOSE (test code = GLU) mg/dL 74-106 BLOOD UREA NITROGEN (test code = BUN) mg/dL 7-18 GLOMERULAR FILTRATION RATE (test code = GFR) mL/min >=60 CREATININE (test code = CREAT) mg/dL 0.55-1.02 BUN/CREATININE RATIO (test code = BUN/CREA) 10-20 TOTAL PROTEIN (test code = PROT) gram/dL 6.4-8.2 ALBUMIN (test code = ALB) g/dL 3.4-5.0 GLOBULIN (test code = GLOB) gram/dL 2.7-4.2 ALBUMIN/GLOBULIN RATIO (test code = A/G) 0.75-1.50 CALCIUM (test code = CA) mg/dL 8.5-10.1 BILIRUBIN TOTAL (test code = BILT) mg/dL 0.0-1.0 SGOT/AST (test code = AST) IUnit/L 15-37 SGPT/ALT (test code = ALT) IUnit/L 12-78 ALKALINE PHOSPHATASE TOTAL (test code = ALKP) IUnit/L 45-117 CBC W/AUTO [id number] 05:49:00* Test Item Value Reference Range Interpretation Comments WHITE BLOOD CELL (test code = WBC) 3.8 K/mm3 4.5-12.5 L RED BLOOD CELL (test code = RBC) 4.45 mill/mm3 3.7-5.2 N HEMOGLOBIN (test code = HGB) 10.9 gram/dL 11.5-15.5 L HEMATOCRIT (test code = HCT) 33.2 % 36.0-46.0 L MEAN CELL VOLUME (test code = MCV) 74.6 fL 80-98 L MEAN CELL HGB (test code = MCH) 24.5 picogram 27.0-33.0 L MEAN CELL HGB CONCETRATION (test code = MCHC) 32.8 gram/dL 33.0-36. 0 L RED CELL DISTRIBUTION WIDTH (test code = RDW) 16.4 % 11.6-16. 2 H RED CELL DISTRIBUTION WIDTH SD (test code = RDW-SD) 43.9 fL 37 .0-51.0 N PLATELET COUNT (test code = PLT) 85 K/mm3 150-450 L MEAN PLATELET VOLUME (test code = MPV) TEST NOT PERFORMED fL 6.7-11 .0 Unable to determine due to platelet abnormality , please seethe platelet morphology. NEUTROPHIL % (test code = NT%) 54.1 % 39.0-69.0 N IMMATURE GRANULOCYTE % (test code = IG%) 0.3 % 0.0-5.0 N LYMPHOCYTE % (test code = LY%) 27.9 % 25.0-55.0 N MONOCYTE % (test code = MO%) 11.7 % 0.0-10.0 H EOSINOPHIL % (test code = EO%) 5.2 % 0.0-5.0 H BASOPHIL % (test code = BA%) 0.8 % 0.0-1.0 N NUCLEATED RBC % (test code = NRBC%) 0.0 % 0-0 N NEUTROPHIL # (test code = NT#) 2.08 K/mm3 1.8-7.7 N IMMATURE GRANULOCYTE # (test code = IG#) 0.01 x10 3/uL 0-0.03 N LYMPHOCYTE # (test code = LY#) 1.07 K/mm3 1.0-5.0 N MONOCYTE # (test code = MO#) 0.45 K/mm3 0-0.8 N EOSINOPHIL # (test code = EO#) 0.20 K/mm3 0.0-0.5 N BASOPHIL # (test code = BA#) 0.03 K/mm3 0.0-0.2 N NUCLEATED RBC # (test code = NRBC#) 0.00 K/mm3 0.0-0.1 N MANUAL DIFF REQUIRED (test code = MDIFF) NO, ONLY SCAN NEEDED DIFFERENTIAL [id number] 05:49:00* Test Item Value Reference Range Interpretation Comments STAIN ACCEPTABILITY (test code = STN ACCEPTABLE) STAIN ACCEPTABLE MORPHOLOGY COMMENT (test code = MOC) NORMAL PLATELET ESTIMATE (test code = PLTEST) DECREASED PLATELET MORPHOLOGY (test code = PLTMORPH) NORMAL CBC W/AUTO [id number] 05:22:00* Test Item Value Reference Range Interpretation Comments WHITE BLOOD CELL (test code = WBC) 3.8 K/mm3 4.5-12.5 L RED BLOOD CELL (test code = RBC) 4.45 mill/mm3 3.7-5.2 N HEMOGLOBIN (test code = HGB) 10.9 gram/dL 11.5-15.5 L HEMATOCRIT (test code = HCT) 33.2 % 36.0-46.0 L MEAN CELL VOLUME (test code = MCV) 74.6 fL 80-98 L MEAN CELL HGB (test code = MCH) 24.5 picogram 27.0-33.0 L MEAN CELL HGB CONCETRATION (test code = MCHC) 32.8 gram/dL 33.0-36. 0 L RED CELL DISTRIBUTION WIDTH (test code = RDW) 16.4 % 11.6-16. 2 H RED CELL DISTRIBUTION WIDTH SD (test code = RDW-SD) 43.9 fL 37 .0-51.0 N PLATELET COUNT (test code = PLT) 85 K/mm3 150-450 L MEAN PLATELET VOLUME (test code = MPV) TEST NOT PERFORMED fL 6.7-11 .0 Unable to determine due to platelet abnormality , please seethe platelet morphology. NEUTROPHIL % (test code = NT%) 54.1 % 39.0-69.0 N IMMATURE GRANULOCYTE % (test code = IG%) 0.3 % 0.0-5.0 N LYMPHOCYTE % (test code = LY%) 27.9 % 25.0-55.0 N MONOCYTE % (test code = MO%) 11.7 % 0.0-10.0 H EOSINOPHIL % (test code = EO%) 5.2 % 0.0-5.0 H BASOPHIL % (test code = BA%) 0.8 % 0.0-1.0 N NUCLEATED RBC % (test code = NRBC%) 0.0 % 0-0 N NEUTROPHIL # (test code = NT#) 2.08 K/mm3 1.8-7.7 N IMMATURE GRANULOCYTE # (test code = IG#) 0.01 x10 3/uL 0-0.03 N LYMPHOCYTE # (test code = LY#) 1.07 K/mm3 1.0-5.0 N MONOCYTE # (test code = MO#) 0.45 K/mm3 0-0.8 N EOSINOPHIL # (test code = EO#) 0.20 K/mm3 0.0-0.5 N BASOPHIL # (test code = BA#) 0.03 K/mm3 0.0-0.2 N NUCLEATED RBC # (test code = NRBC#) 0.00 K/mm3 0.0-0.1 N MANUAL DIFF REQUIRED (test code = MDIFF) NO, ONLY SCAN NEEDED DIFFERENTIAL [id number] 05:22:00* Test Item Value Reference Range Interpretation Comments STAIN ACCEPTABILITY (test code = STN ACCEPTABLE) CABOT RINGS (test code = CAB) MORPHOLOGY COMMENT (test code = MOC) PLATELET ESTIMATE (test code = PLTEST) PLATELET MORPHOLOGY (test code = PLTMORPH) CBC W/AUTO [id number] 05:22:00* Test Item Value Reference Range Interpretation Comments WHITE BLOOD CELL (test code = WBC) 3.8 K/mm3 4.5-12.5 L RED BLOOD CELL (test code = RBC) 4.45 mill/mm3 3.7-5.2 N HEMOGLOBIN (test code = HGB) 10.9 gram/dL 11.5-15.5 L HEMATOCRIT (test code = HCT) 33.2 % 36.0-46.0 L MEAN CELL VOLUME (test code = MCV) 74.6 fL 80-98 L MEAN CELL HGB (test code = MCH) 24.5 picogram 27.0-33.0 L MEAN CELL HGB CONCETRATION (test code = MCHC) 32.8 gram/dL 33.0-36. 0 L RED CELL DISTRIBUTION WIDTH (test code = RDW) 16.4 % 11.6-16. 2 H RED CELL DISTRIBUTION WIDTH SD (test code = RDW-SD) 43.9 fL 37 .0-51.0 N PLATELET COUNT (test code = PLT) 85 K/mm3 150-450 L MEAN PLATELET VOLUME (test code = MPV) TEST NOT PERFORMED fL 6.7-11 .0 Unable to determine due to platelet abnormality , please seethe platelet morphology. NEUTROPHIL % (test code = NT%) 54.1 % 39.0-69.0 N IMMATURE GRANULOCYTE % (test code = IG%) 0.3 % 0.0-5.0 N LYMPHOCYTE % (test code = LY%) 27.9 % 25.0-55.0 N MONOCYTE % (test code = MO%) 11.7 % 0.0-10.0 H EOSINOPHIL % (test code = EO%) 5.2 % 0.0-5.0 H BASOPHIL % (test code = BA%) 0.8 % 0.0-1.0 N NUCLEATED RBC % (test code = NRBC%) 0.0 % 0-0 N NEUTROPHIL # (test code = NT#) 2.08 K/mm3 1.8-7.7 N IMMATURE GRANULOCYTE # (test code = IG#) 0.01 x10 3/uL 0-0.03 N LYMPHOCYTE # (test code = LY#) 1.07 K/mm3 1.0-5.0 N MONOCYTE # (test code = MO#) 0.45 K/mm3 0-0.8 N EOSINOPHIL # (test code = EO#) 0.20 K/mm3 0.0-0.5 N BASOPHIL # (test code = BA#) 0.03 K/mm3 0.0-0.2 N NUCLEATED RBC # (test code = NRBC#) 0.00 K/mm3 0.0-0.1 N MANUAL DIFF REQUIRED (test code = MDIFF) NO, ONLY SCAN NEEDED DIFFERENTIAL [id number] 05:22:00* Test Item Value Reference Range Interpretation Comments STAIN ACCEPTABILITY (test code = STN ACCEPTABLE) CABOT RINGS (test code = CAB) MORPHOLOGY COMMENT (test code = MOC) PLATELET ESTIMATE (test code = PLTEST) PLATELET MORPHOLOGY (test code = PLTMORPH) CBC W/AUTO [id number] 05:22:00* Test Item Value Reference Range Interpretation Comments WHITE BLOOD CELL (test code = WBC) 3.8 K/mm3 4.5-12.5 L RED BLOOD CELL (test code = RBC) 4.45 mill/mm3 3.7-5.2 N HEMOGLOBIN (test code = HGB) 10.9 gram/dL 11.5-15.5 L HEMATOCRIT (test code = HCT) 33.2 % 36.0-46.0 L MEAN CELL VOLUME (test code = MCV) 74.6 fL 80-98 L MEAN CELL HGB (test code = MCH) 24.5 picogram 27.0-33.0 L MEAN CELL HGB CONCETRATION (test code = MCHC) 32.8 gram/dL 33.0-36. 0 L RED CELL DISTRIBUTION WIDTH (test code = RDW) 16.4 % 11.6-16. 2 H RED CELL DISTRIBUTION WIDTH SD (test code = RDW-SD) 43.9 fL 37 .0-51.0 N PLATELET COUNT (test code = PLT) 85 K/mm3 150-450 L MEAN PLATELET VOLUME (test code = MPV) TEST NOT PERFORMED fL 6.7-11 .0 Unable to determine due to platelet abnormality , please seethe platelet morphology. NEUTROPHIL % (test code = NT%) 54.1 % 39.0-69.0 N IMMATURE GRANULOCYTE % (test code = IG%) 0.3 % 0.0-5.0 N LYMPHOCYTE % (test code = LY%) 27.9 % 25.0-55.0 N MONOCYTE % (test code = MO%) 11.7 % 0.0-10.0 H EOSINOPHIL % (test code = EO%) 5.2 % 0.0-5.0 H BASOPHIL % (test code = BA%) 0.8 % 0.0-1.0 N NUCLEATED RBC % (test code = NRBC%) 0.0 % 0-0 N NEUTROPHIL # (test code = NT#) 2.08 K/mm3 1.8-7.7 N IMMATURE GRANULOCYTE # (test code = IG#) 0.01 x10 3/uL 0-0.03 N LYMPHOCYTE # (test code = LY#) 1.07 K/mm3 1.0-5.0 N MONOCYTE # (test code = MO#) 0.45 K/mm3 0-0.8 N EOSINOPHIL # (test code = EO#) 0.20 K/mm3 0.0-0.5 N BASOPHIL # (test code = BA#) 0.03 K/mm3 0.0-0.2 N NUCLEATED RBC # (test code = NRBC#) 0.00 K/mm3 0.0-0.1 N MANUAL DIFF REQUIRED (test code = MDIFF) NO, ONLY SCAN NEEDED DIFFERENTIAL [id number] 05:22:00* Test Item Value Reference Range Interpretation Comments STAIN ACCEPTABILITY (test code = STN ACCEPTABLE) MORPHOLOGY COMMENT (test code = MOC) PLATELET ESTIMATE (test code = PLTEST) PLATELET MORPHOLOGY (test code = PLTMORPH) CBC W/AUTO [id number] 05:22:00* Test Item Value Reference Range Interpretation Comments WHITE BLOOD CELL (test code = WBC) 3.8 K/mm3 4.5-12.5 L RED BLOOD CELL (test code = RBC) 4.45 mill/mm3 3.7-5.2 N HEMOGLOBIN (test code = HGB) 10.9 gram/dL 11.5-15.5 L HEMATOCRIT (test code = HCT) 33.2 % 36.0-46.0 L MEAN CELL VOLUME (test code = MCV) 74.6 fL 80-98 L MEAN CELL HGB (test code = MCH) 24.5 picogram 27.0-33.0 L MEAN CELL HGB CONCETRATION (test code = MCHC) 32.8 gram/dL 33.0-36. 0 L RED CELL DISTRIBUTION WIDTH (test code = RDW) 16.4 % 11.6-16. 2 H RED CELL DISTRIBUTION WIDTH SD (test code = RDW-SD) 43.9 fL 37 .0-51.0 N PLATELET COUNT (test code = PLT) 85 K/mm3 150-450 L MEAN PLATELET VOLUME (test code = MPV) TEST NOT PERFORMED fL 6.7-11 .0 Unable to determine due to platelet abnormality , please seethe platelet morphology. NEUTROPHIL % (test code = NT%) 54.1 % 39.0-69.0 N IMMATURE GRANULOCYTE % (test code = IG%) 0.3 % 0.0-5.0 N LYMPHOCYTE % (test code = LY%) 27.9 % 25.0-55.0 N MONOCYTE % (test code = MO%) 11.7 % 0.0-10.0 H EOSINOPHIL % (test code = EO%) 5.2 % 0.0-5.0 H BASOPHIL % (test code = BA%) 0.8 % 0.0-1.0 N NUCLEATED RBC % (test code = NRBC%) 0.0 % 0-0 N NEUTROPHIL # (test code = NT#) 2.08 K/mm3 1.8-7.7 N IMMATURE GRANULOCYTE # (test code = IG#) 0.01 x10 3/uL 0-0.03 N LYMPHOCYTE # (test code = LY#) 1.07 K/mm3 1.0-5.0 N MONOCYTE # (test code = MO#) 0.45 K/mm3 0-0.8 N EOSINOPHIL # (test code = EO#) 0.20 K/mm3 0.0-0.5 N BASOPHIL # (test code = BA#) 0.03 K/mm3 0.0-0.2 N NUCLEATED RBC # (test code = NRBC#) 0.00 K/mm3 0.0-0.1 N MANUAL DIFF REQUIRED (test code = MDIFF) NO, ONLY SCAN NEEDED DIFFERENTIAL [id number] 05:22:00* Test Item Value Reference Range Interpretation Comments STAIN ACCEPTABILITY (test code = STN ACCEPTABLE) CABOT RINGS (test code = CAB) MORPHOLOGY COMMENT (test code = MOC) PLATELET ESTIMATE (test code = PLTEST) PLATELET MORPHOLOGY (test code = PLTMORPH) [id number] 20:40:00* Test Item Value Reference Range Interpretation Comments GLUBED (test code = GLUBED) 105 mg/dL 74-106 N Performed by certified floating derrick operator at [facility] [id number] 17:27:00* Test Item Value Reference Range Interpretation Comments GLUBED (test code = GLUBED) 125 mg/dL 74-106 H Performed by certified floating derrick operator at [facility] HEPATITIS B [id number] 14:09:00* Test Item Value Reference Range Interpretation Comments AB HEPATITIS B SURFACE (test code = HBSAB) Non Reactive () Non Reactive: Inconsistent with immunity, less than 10 mIU/mL Reactive: Consistent with immunity, greater than 9.9 mIU/mLPerformed At: [facility] [address] [id number] Tirado MD Ph:[phone] At: [facility] [address] [id number] Sanjai MD P h:[phone] AG HEPAT B SURF (test code = HBSAG) Negative Negative HEPATITIS B CORE ANTIBODY,TOT (test code = HBCAB) Negative Nega tive HEPATITIS B CORE ANTIBODY,IGM (test code = HBCMAB) Negative Neg ative AG HEPATITIS BE (test code = HBEAG) Negative Negative AB HEPATITIS BE (test code = HBEAB) Negative Negative [id number] 10:47:00* Test Item Value Reference Range Interpretation Comments GLUBED (test code = GLUBED) 87 mg/dL 74-106 N Performed by certified floating derrick operator at [facility] PROTHROMBIN [id number] 09:45:00* Test Item Value Reference Range Interpretation Comments PROTHROMBIN TIME PATIENT (test code = PTP) 13.9 seconds 9.0-14.0 N INTERNATIONAL NORMAL RATIO (test code = INR) 1.2 0.8-1.2 N The therapeutic range for oral anticoagulant therapy formost indications is an international normalized ratio (INR)of between 2.0 and 3.0. The recommended therapeutic INRrange for various clinical situations is listed below: Clinical Situation INR range Pulmonary e mbolism treatment (2.0-3.0)Venous thrombosis treatmentVenous thrombosis prophylaxis (high risk surgery)Prevention of systemic embolism from: Acute myocardial infarction Valvular heart disease Atrial fibrillation Mechanical prosthetic heart valves (2.5-3.5) IS PATIENT ON ANTICOAGULANTS? NTHROMBOPLASTIN TIME [id number] 09:45:00* Test Item Value Reference Range Interpretation Comments THROMBOPLASTIN TIME PARTIAL (test code = PTT) 36.4 seconds 25.0-36. 5 N IS PATIENT ON ANTICOAGULANTS? [id number] 08:02:00* Test Item Value Reference Range Interpretation Comments GLUBED (test code = GLUBED) 94 mg/dL 74-106 N Performed by certified floating derrick operator at [facility] CBC W/MANUAL [id number] 05:24:00* Test Item Value Reference Range Interpretation Comments WHITE BLOOD CELL (test code = WBC) 3.9 K/mm3 4.5-12.5 L RED BLOOD CELL (test code = RBC) 4.46 mill/mm3 3.7-5.2 N HEMOGLOBIN (test code = HGB) 11.1 gram/dL 11.5-15.5 L HEMATOCRIT (test code = HCT) 33.1 % 36.0-46.0 L MEAN CELL VOLUME (test code = MCV) 74.2 fL 80-98 L MEAN CELL HGB (test code = MCH) 24.9 picogram 27.0-33.0 L MEAN CELL HGB CONCETRATION (test code = MCHC) 33.5 gram/dL 33.0-36. 0 N RED CELL DISTRIBUTION WIDTH (test code = RDW) 16.0 % 11.6-16. 2 N RED CELL DISTRIBUTION WIDTH SD (test code = RDW-SD) 43.0 fL 37 .0-51.0 N PLATELET COUNT (test code = PLT) 86 K/mm3 150-450 L MEAN PLATELET VOLUME (test code = MPV) TEST NOT PERFORMED fL 6.7-11 .0 Unable to determine due to platelet abnormality , please seethe platelet morphology. IMMATURE GRANULOCYTE % (test code = IG%) 0.3 % 0.0-5.0 N NUCLEATED RBC % (test code = NRBC%) 0.0 % 0-0 N NEUTROPHIL # (test code = NT#) 2.16 K/mm3 1.8-7.7 N IMMATURE GRANULOCYTE # (test code = IG#) 0.01 x10 3/uL 0-0.03 N LYMPHOCYTE # (test code = LY#) 1.19 K/mm3 1.0-5.0 N MONOCYTE # (test code = MO#) 0.35 K/mm3 0-0.8 N EOSINOPHIL # (test code = EO#) 0.20 K/mm3 0.0-0.5 N BASOPHIL # (test code = BA#) 0.01 K/mm3 0.0-0.2 N NUCLEATED RBC # (test code = NRBC#) 0.00 K/mm3 0.0-0.1 N MANUAL DIFF REQUIRED (test code = MDIFF) YES STAIN ACCEPTABILITY (test code = STN ACCEPTABLE) STAIN ACCEPTABLE TOTAL CELLS COUNTED (test code = TCC) 113 #CELLS SEGMENTED NEUTROPHILS (test code = SEG) 64.6 % 39-69 N BAND NEUTROPHIL (test code = BAND) 0 % 0-10 N LYMPHOCYTE (test code = LYMPH) 26.6 % 25-55 N REACTIVE LYMPH (test code = RELYMPH) 0 % MONOCYTE (test code = MON) 5.3 % 0-10 N EOSINOPHIL (test code = EOS) 3.5 % 0.0-5.0 N BASOPHIL (test code = BASO) 0 % 0-1.0 N METAMYELOCYTE (test code = META) 0 % 0-0 N MYELOCYTE (test code = MYELO) 0 % 0.0-0.0 N PROMYELOCYTE (test code = PROM) 0 % 0-0 N ROULEAUX (test code = ROU) SLIGHT PLATELET ESTIMATE (test code = PLTEST) DECREASED PLATELET MORPHOLOGY (test code = PLTMORPH) NORMAL IMMATURE FORMS (test code = IMMAT) 0 % 0-0 N COMPREHENSIVE METABOLIC [id number] 05:19:00* Test Item Value Reference Range Interpretation Comments SODIUM (test code = NA) 139 mmol/L 136-145 N POTASSIUM (test code = K) 4.4 mmol/L 3.5-5.1 N CHLORIDE (test code = CL) 107.0 mmol/L 98-107 N CARBON DIOXIDE (test code = CO2) 26.0 mmol/L 21-32 N ANION GAP (test code = GAP) 10.4 10-20 N GLUCOSE (test code = GLU) 92 mg/dL 74-106 N BLOOD UREA NITROGEN (test code = BUN) 24 mg/dL 7-18 H RESULT VERIFIED BY REPEAT ANALYSIS GLOMERULAR FILTRATION RATE (test code = GFR) > 60 mL/min >=60 Estimated GFR by using Modified MDRD formula.Chronic kidney disease is defined as either kidney damageor GFR <60 mL/min/1.73 m2 for >3 months. CREATININE (test code = CREAT) 0.80 mg/dL 0.55-1.02 N Note change in reference range due to change in reagent. BUN/CREATININE RATIO (test code = BUN/CREA) 30.0 10-20 H TOTAL PROTEIN (test code = PROT) 6.9 gram/dL 6.4-8.2 N ALBUMIN (test code = ALB) 2.9 g/dL 3.4-5.0 L GLOBULIN (test code = GLOB) 4.0 gram/dL 2.7-4.2 N ALBUMIN/GLOBULIN RATIO (test code = A/G) 0.7 0.75-1.50 L CALCIUM (test code = CA) 8.7 mg/dL 8.5-10.1 N BILIRUBIN TOTAL (test code = BILT) 1.10 mg/dL 0.0-1.0 H SGOT/AST (test code = AST) 122 IUnit/L 15-37 H SGPT/ALT (test code = ALT) 66 IUnit/L 12-78 N ALKALINE PHOSPHATASE TOTAL (test code = ALKP) 139 IUnit/L 45-117 H Note change in reference range due to change in reagent. AG [id number] 05:09:00* Test Item Value Reference Range Interpretation Comments AG CARCINOEMBRYONIC (test code = CEA) 6.0 ng/mL 0.0-3.0 H CBC W/MANUAL [id number] 04:55:00* Test Item Value Reference Range Interpretation Comments WHITE BLOOD CELL (test code = WBC) 3.9 K/mm3 4.5-12.5 L RED BLOOD CELL (test code = RBC) 4.46 mill/mm3 3.7-5.2 N HEMOGLOBIN (test code = HGB) 11.1 gram/dL 11.5-15.5 L HEMATOCRIT (test code = HCT) 33.1 % 36.0-46.0 L MEAN CELL VOLUME (test code = MCV) 74.2 fL 80-98 L MEAN CELL HGB (test code = MCH) 24.9 picogram 27.0-33.0 L MEAN CELL HGB CONCETRATION (test code = MCHC) 33.5 gram/dL 33.0-36. 0 N RED CELL DISTRIBUTION WIDTH (test code = RDW) 16.0 % 11.6-16. 2 N RED CELL DISTRIBUTION WIDTH SD (test code = RDW-SD) 43.0 fL 37 .0-51.0 N PLATELET COUNT (test code = PLT) 86 K/mm3 150-450 L MEAN PLATELET VOLUME (test code = MPV) TEST NOT PERFORMED fL 6.7-11 .0 Unable to determine due to platelet abnormality , please seethe platelet morphology. IMMATURE GRANULOCYTE % (test code = IG%) 0.3 % 0.0-5.0 N NUCLEATED RBC % (test code = NRBC%) 0.0 % 0-0 N NEUTROPHIL # (test code = NT#) 2.16 K/mm3 1.8-7.7 N IMMATURE GRANULOCYTE # (test code = IG#) 0.01 x10 3/uL 0-0.03 N LYMPHOCYTE # (test code = LY#) 1.19 K/mm3 1.0-5.0 N MONOCYTE # (test code = MO#) 0.35 K/mm3 0-0.8 N EOSINOPHIL # (test code = EO#) 0.20 K/mm3 0.0-0.5 N BASOPHIL # (test code = BA#) 0.01 K/mm3 0.0-0.2 N NUCLEATED RBC # (test code = NRBC#) 0.00 K/mm3 0.0-0.1 N MANUAL DIFF REQUIRED (test code = MDIFF) YES STAIN ACCEPTABILITY (test code = STN ACCEPTABLE) TOTAL CELLS COUNTED (test code = TCC) #CELLS SEGMENTED NEUTROPHILS (test code = SEG) % 39-69 LYMPHOCYTE (test code = LYMPH) % 25-55 MONOCYTE (test code = MON) % 0-10 EOSINOPHIL (test code = EOS) % 0.0-5.0 CABOT RINGS (test code = CAB) MORPHOLOGY COMMENT (test code = MOC) PLATELET ESTIMATE (test code = PLTEST) PLATELET MORPHOLOGY (test code = PLTMORPH) CBC W/MANUAL [id number] 04:55:00* Test Item Value Reference Range Interpretation Comments WHITE BLOOD CELL (test code = WBC) 3.9 K/mm3 4.5-12.5 L RED BLOOD CELL (test code = RBC) 4.46 mill/mm3 3.7-5.2 N HEMOGLOBIN (test code = HGB) 11.1 gram/dL 11.5-15.5 L HEMATOCRIT (test code = HCT) 33.1 % 36.0-46.0 L MEAN CELL VOLUME (test code = MCV) 74.2 fL 80-98 L MEAN CELL HGB (test code = MCH) 24.9 picogram 27.0-33.0 L MEAN CELL HGB CONCETRATION (test code = MCHC) 33.5 gram/dL 33.0-36. 0 N RED CELL DISTRIBUTION WIDTH (test code = RDW) 16.0 % 11.6-16. 2 N RED CELL DISTRIBUTION WIDTH SD (test code = RDW-SD) 43.0 fL 37 .0-51.0 N PLATELET COUNT (test code = PLT) 86 K/mm3 150-450 L MEAN PLATELET VOLUME (test code = MPV) TEST NOT PERFORMED fL 6.7-11 .0 Unable to determine due to platelet abnormality , please seethe platelet morphology. IMMATURE GRANULOCYTE % (test code = IG%) 0.3 % 0.0-5.0 N NUCLEATED RBC % (test code = NRBC%) 0.0 % 0-0 N NEUTROPHIL # (test code = NT#) 2.16 K/mm3 1.8-7.7 N IMMATURE GRANULOCYTE # (test code = IG#) 0.01 x10 3/uL 0-0.03 N LYMPHOCYTE # (test code = LY#) 1.19 K/mm3 1.0-5.0 N MONOCYTE # (test code = MO#) 0.35 K/mm3 0-0.8 N EOSINOPHIL # (test code = EO#) 0.20 K/mm3 0.0-0.5 N BASOPHIL # (test code = BA#) 0.01 K/mm3 0.0-0.2 N NUCLEATED RBC # (test code = NRBC#) 0.00 K/mm3 0.0-0.1 N MANUAL DIFF REQUIRED (test code = MDIFF) YES STAIN ACCEPTABILITY (test code = STN ACCEPTABLE) TOTAL CELLS COUNTED (test code = TCC) #CELLS SEGMENTED NEUTROPHILS (test code = SEG) % 39-69 LYMPHOCYTE (test code = LYMPH) % 25-55 MONOCYTE (test code = MON) % 0-10 EOSINOPHIL (test code = EOS) % 0.0-5.0 MORPHOLOGY COMMENT (test code = MOC) PLATELET ESTIMATE (test code = PLTEST) PLATELET MORPHOLOGY (test code = PLTMORPH) CBC W/MANUAL [id number] 04:55:00* Test Item Value Reference Range Interpretation Comments WHITE BLOOD CELL (test code = WBC) 3.9 K/mm3 4.5-12.5 L RED BLOOD CELL (test code = RBC) 4.46 mill/mm3 3.7-5.2 N HEMOGLOBIN (test code = HGB) 11.1 gram/dL 11.5-15.5 L HEMATOCRIT (test code = HCT) 33.1 % 36.0-46.0 L MEAN CELL VOLUME (test code = MCV) 74.2 fL 80-98 L MEAN CELL HGB (test code = MCH) 24.9 picogram 27.0-33.0 L MEAN CELL HGB CONCETRATION (test code = MCHC) 33.5 gram/dL 33.0-36. 0 N RED CELL DISTRIBUTION WIDTH (test code = RDW) 16.0 % 11.6-16. 2 N RED CELL DISTRIBUTION WIDTH SD (test code = RDW-SD) 43.0 fL 37 .0-51.0 N PLATELET COUNT (test code = PLT) 86 K/mm3 150-450 L MEAN PLATELET VOLUME (test code = MPV) TEST NOT PERFORMED fL 6.7-11 .0 Unable to determine due to platelet abnormality , please seethe platelet morphology. IMMATURE GRANULOCYTE % (test code = IG%) 0.3 % 0.0-5.0 N NUCLEATED RBC % (test code = NRBC%) 0.0 % 0-0 N NEUTROPHIL # (test code = NT#) 2.16 K/mm3 1.8-7.7 N IMMATURE GRANULOCYTE # (test code = IG#) 0.01 x10 3/uL 0-0.03 N LYMPHOCYTE # (test code = LY#) 1.19 K/mm3 1.0-5.0 N MONOCYTE # (test code = MO#) 0.35 K/mm3 0-0.8 N EOSINOPHIL # (test code = EO#) 0.20 K/mm3 0.0-0.5 N BASOPHIL # (test code = BA#) 0.01 K/mm3 0.0-0.2 N NUCLEATED RBC # (test code = NRBC#) 0.00 K/mm3 0.0-0.1 N MANUAL DIFF REQUIRED (test code = MDIFF) YES STAIN ACCEPTABILITY (test code = STN ACCEPTABLE) TOTAL CELLS COUNTED (test code = TCC) #CELLS SEGMENTED NEUTROPHILS (test code = SEG) % 39-69 LYMPHOCYTE (test code = LYMPH) % 25-55 MONOCYTE (test code = MON) % 0-10 MORPHOLOGY COMMENT (test code = MOC) PLATELET ESTIMATE (test code = PLTEST) PLATELET MORPHOLOGY (test code = PLTMORPH) CBC W/MANUAL [id number] 04:54:00* Test Item Value Reference Range Interpretation Comments WHITE BLOOD CELL (test code = WBC) 3.9 K/mm3 4.5-12.5 L RED BLOOD CELL (test code = RBC) 4.46 mill/mm3 3.7-5.2 N HEMOGLOBIN (test code = HGB) 11.1 gram/dL 11.5-15.5 L HEMATOCRIT (test code = HCT) 33.1 % 36.0-46.0 L MEAN CELL VOLUME (test code = MCV) 74.2 fL 80-98 L MEAN CELL HGB (test code = MCH) 24.9 picogram 27.0-33.0 L MEAN CELL HGB CONCETRATION (test code = MCHC) 33.5 gram/dL 33.0-36. 0 N RED CELL DISTRIBUTION WIDTH (test code = RDW) 16.0 % 11.6-16. 2 N RED CELL DISTRIBUTION WIDTH SD (test code = RDW-SD) 43.0 fL 37 .0-51.0 N PLATELET COUNT (test code = PLT) 86 K/mm3 150-450 L MEAN PLATELET VOLUME (test code = MPV) TEST NOT PERFORMED fL 6.7-11 .0 Unable to determine due to platelet abnormality , please seethe platelet morphology. IMMATURE GRANULOCYTE % (test code = IG%) 0.3 % 0.0-5.0 N NUCLEATED RBC % (test code = NRBC%) 0.0 % 0-0 N NEUTROPHIL # (test code = NT#) 2.16 K/mm3 1.8-7.7 N IMMATURE GRANULOCYTE # (test code = IG#) 0.01 x10 3/uL 0-0.03 N LYMPHOCYTE # (test code = LY#) 1.19 K/mm3 1.0-5.0 N MONOCYTE # (test code = MO#) 0.35 K/mm3 0-0.8 N EOSINOPHIL # (test code = EO#) 0.20 K/mm3 0.0-0.5 N BASOPHIL # (test code = BA#) 0.01 K/mm3 0.0-0.2 N NUCLEATED RBC # (test code = NRBC#) 0.00 K/mm3 0.0-0.1 N MANUAL DIFF REQUIRED (test code = MDIFF) YES STAIN ACCEPTABILITY (test code = STN ACCEPTABLE) TOTAL CELLS COUNTED (test code = TCC) #CELLS SEGMENTED NEUTROPHILS (test code = SEG) % 39-69 LYMPHOCYTE (test code = LYMPH) % 25-55 MONOCYTE (test code = MON) % 0-10 EOSINOPHIL (test code = EOS) % 0.0-5.0 CABOT RINGS (test code = CAB) MORPHOLOGY COMMENT (test code = MOC) PLATELET ESTIMATE (test code = PLTEST) PLATELET MORPHOLOGY (test code = PLTMORPH) CBC W/MANUAL [id number] 04:54:00* Test Item Value Reference Range Interpretation Comments WHITE BLOOD CELL (test code = WBC) 3.9 K/mm3 4.5-12.5 L RED BLOOD CELL (test code = RBC) 4.46 mill/mm3 3.7-5.2 N HEMOGLOBIN (test code = HGB) 11.1 gram/dL 11.5-15.5 L HEMATOCRIT (test code = HCT) 33.1 % 36.0-46.0 L MEAN CELL VOLUME (test code = MCV) 74.2 fL 80-98 L MEAN CELL HGB (test code = MCH) 24.9 picogram 27.0-33.0 L MEAN CELL HGB CONCETRATION (test code = MCHC) 33.5 gram/dL 33.0-36. 0 N RED CELL DISTRIBUTION WIDTH (test code = RDW) 16.0 % 11.6-16. 2 N RED CELL DISTRIBUTION WIDTH SD (test code = RDW-SD) 43.0 fL 37 .0-51.0 N PLATELET COUNT (test code = PLT) 86 K/mm3 150-450 L MEAN PLATELET VOLUME (test code = MPV) TEST NOT PERFORMED fL 6.7-11 .0 Unable to determine due to platelet abnormality , please seethe platelet morphology. IMMATURE GRANULOCYTE % (test code = IG%) 0.3 % 0.0-5.0 N NUCLEATED RBC % (test code = NRBC%) 0.0 % 0-0 N NEUTROPHIL # (test code = NT#) 2.16 K/mm3 1.8-7.7 N IMMATURE GRANULOCYTE # (test code = IG#) 0.01 x10 3/uL 0-0.03 N LYMPHOCYTE # (test code = LY#) 1.19 K/mm3 1.0-5.0 N MONOCYTE # (test code = MO#) 0.35 K/mm3 0-0.8 N EOSINOPHIL # (test code = EO#) 0.20 K/mm3 0.0-0.5 N BASOPHIL # (test code = BA#) 0.01 K/mm3 0.0-0.2 N NUCLEATED RBC # (test code = NRBC#) 0.00 K/mm3 0.0-0.1 N MANUAL DIFF REQUIRED (test code = MDIFF) YES STAIN ACCEPTABILITY (test code = STN ACCEPTABLE) TOTAL CELLS COUNTED (test code = TCC) #CELLS SEGMENTED NEUTROPHILS (test code = SEG) % 39-69 LYMPHOCYTE (test code = LYMPH) % 25-55 MONOCYTE (test code = MON) % 0-10 EOSINOPHIL (test code = EOS) % 0.0-5.0 CABOT RINGS (test code = CAB) MORPHOLOGY COMMENT (test code = MOC) PLATELET ESTIMATE (test code = PLTEST) PLATELET MORPHOLOGY (test code = PLTMORPH) COMPREHENSIVE METABOLIC [id number] 04:52:00* Test Item Value Reference Range Interpretation Comments SODIUM (test code = NA) 139 mmol/L 136-145 N POTASSIUM (test code = K) 4.4 mmol/L 3.5-5.1 N CHLORIDE (test code = CL) 107.0 mmol/L 98-107 N CARBON DIOXIDE (test code = CO2) mmol/L 21-32 ANION GAP (test code = GAP) 10-20 GLUCOSE (test code = GLU) mg/dL 74-106 BLOOD UREA NITROGEN (test code = BUN) mg/dL 7-18 GLOMERULAR FILTRATION RATE (test code = GFR) mL/min >=60 CREATININE (test code = CREAT) mg/dL 0.55-1.02 BUN/CREATININE RATIO (test code = BUN/CREA) 10-20 TOTAL PROTEIN (test code = PROT) gram/dL 6.4-8.2 ALBUMIN (test code = ALB) g/dL 3.4-5.0 GLOBULIN (test code = GLOB) gram/dL 2.7-4.2 ALBUMIN/GLOBULIN RATIO (test code = A/G) 0.75-1.50 CALCIUM (test code = CA) mg/dL 8.5-10.1 BILIRUBIN TOTAL (test code = BILT) mg/dL 0.0-1.0 SGOT/AST (test code = AST) IUnit/L 15-37 SGPT/ALT (test code = ALT) IUnit/L 12-78 ALKALINE PHOSPHATASE TOTAL (test code = ALKP) IUnit/L 45-117 ALPHA FETOPROTEIN TUMOR [id number] 03:07:00* Test Item Value Reference Range Interpretation Comments ALPHA FETOPROTEIN TUMOR MARKER (test code = AFPTM) 12.8 ng/mL 0.0 -8.3 A [facility] Electrochemiluminescence Immunoassay(ECLIA)Values obtained with different assay methods or kits cannotbe used interchangeably. Results cannot be interpreted asabsolute evidence of the presence or absence of malignantdisease.This test is not interpretable in females.Performed At: [facility] [address] [id number] Tirado MD Ph:[phone] IMMUNOGLOBULINS A,G [id number] 03:07:00* Test Item Value Reference Range Interpretation Comments IMMUNOGLOBULIN G (test code = IGG) 1847 mg/dL 700-1600 A Effective August 28, 2019, Immunoglobulin G, Qn, Serum reference interval will be changing to: Age Male Female 0 - 10 days 496 - 1231 496 - 1231 11d - 6 months 175 - 639 184 - 697 7 - 11 months 261 - 791 295 - 787 1 - 3 years 428 - 1028 451 - 1071 4 - 6 years 538 - 1216 583 - 1262 7 - 9 years 580 - 1302 630 - 1350 10 - 11 years 601 - 1351 646 - 1407 12 - 13 years 610 - 1367 692 - 1433 14 - 15 years 630 - 1392 717 - 1463 16 - 19 years 671 - 1456 719 - 1475 >19 years 603 - 1613 586 - 1602 IMMUNOGLOBULIN M (test code = IGM) 380 mg/dL 26-217 A Performed At: [facility] [address] [id number] Tirado MD Ph:[phone] IMMUNOGLOBULIN A (test code = IGA) 779 mg/dL 87-352 H [id number] 20:58:00* Test Item Value Reference Range Interpretation Comments GLUBED (test code = GLUBED) 122 mg/dL 74-106 H Performed by certified floating derrick operator at [facility] [id number] 16:48:00* Test Item Value Reference Range Interpretation Comments GLUBED (test code = GLUBED) 148 mg/dL 74-106 H Performed by certified floating derrick operator at [facility] [id number] 12:33:00* Test Item Value Reference Range Interpretation Comments GLUBED (test code = GLUBED) 111 mg/dL 74-106 H Performed by certified floating derrick operator at [facility] [id number] 08:43:00* Test Item Value Reference Range Interpretation Comments GLUBED (test code = GLUBED) 119 mg/dL 74-106 H Performed by certified floating derrick operator at [facility] COMPREHENSIVE METABOLIC [id number] 05:40:00* Test Item Value Reference Range Interpretation Comments SODIUM (test code = NA) 139 mmol/L 136-145 N POTASSIUM (test code = K) 4.7 mmol/L 3.5-5.1 N CHLORIDE (test code = CL) 108.0 mmol/L 98-107 H CARBON DIOXIDE (test code = CO2) 23.0 mmol/L 21-32 N ANION GAP (test code = GAP) 12.7 10-20 N GLUCOSE (test code = GLU) 128 mg/dL 74-106 H BLOOD UREA NITROGEN (test code = BUN) 33 mg/dL 7-18 H GLOMERULAR FILTRATION RATE (test code = GFR) 56 mL/min >=60 Estimated GFR by using Modified MDRD formula.Chronic kidney disease is defined as either kidney damageor GFR <60 mL/min/1.73 m2 for >3 months. CREATININE (test code = CREAT) 1.00 mg/dL 0.55-1.02 N Note change in reference range due to change in reagent. BUN/CREATININE RATIO (test code = BUN/CREA) 33.0 10-20 H TOTAL PROTEIN (test code = PROT) 7.4 gram/dL 6.4-8.2 N ALBUMIN (test code = ALB) 3.0 g/dL 3.4-5.0 L GLOBULIN (test code = GLOB) 4.4 gram/dL 2.7-4.2 H ALBUMIN/GLOBULIN RATIO (test code = A/G) 0.7 0.75-1.50 L CALCIUM (test code = CA) 8.8 mg/dL 8.5-10.1 N BILIRUBIN TOTAL (test code = BILT) 1.30 mg/dL 0.0-1.0 H SGOT/AST (test code = AST) 82 IUnit/L 15-37 H SGPT/ALT (test code = ALT) 51 IUnit/L 12-78 N ALKALINE PHOSPHATASE TOTAL (test code = ALKP) 134 IUnit/L 45-117 H Note change in reference range due to change in reagent. COMPREHENSIVE METABOLIC [id number] 05:32:00* Test Item Value Reference Range Interpretation Comments SODIUM (test code = NA) 139 mmol/L 136-145 N POTASSIUM (test code = K) 4.7 mmol/L 3.5-5.1 N CHLORIDE (test code = CL) 108.0 mmol/L 98-107 H CARBON DIOXIDE (test code = CO2) mmol/L 21-32 ANION GAP (test code = GAP) 10-20 GLUCOSE (test code = GLU) mg/dL 74-106 BLOOD UREA NITROGEN (test code = BUN) mg/dL 7-18 GLOMERULAR FILTRATION RATE (test code = GFR) mL/min >=60 CREATININE (test code = CREAT) mg/dL 0.55-1.02 BUN/CREATININE RATIO (test code = BUN/CREA) 10-20 TOTAL PROTEIN (test code = PROT) gram/dL 6.4-8.2 ALBUMIN (test code = ALB) g/dL 3.4-5.0 GLOBULIN (test code = GLOB) gram/dL 2.7-4.2 ALBUMIN/GLOBULIN RATIO (test code = A/G) 0.75-1.50 CALCIUM (test code = CA) mg/dL 8.5-10.1 BILIRUBIN TOTAL (test code = BILT) mg/dL 0.0-1.0 SGOT/AST (test code = AST) IUnit/L 15-37 SGPT/ALT (test code = ALT) IUnit/L 12-78 ALKALINE PHOSPHATASE TOTAL (test code = ALKP) IUnit/L 45-117 CBC W/AUTO [id number] 05:11:00* Test Item Value Reference Range Interpretation Comments WHITE BLOOD CELL (test code = WBC) 9.2 K/mm3 4.5-12.5 N RED BLOOD CELL (test code = RBC) 4.85 mill/mm3 3.7-5.2 N HEMOGLOBIN (test code = HGB) 11.9 gram/dL 11.5-15.5 N HEMATOCRIT (test code = HCT) 35.8 % 36.0-46.0 L MEAN CELL VOLUME (test code = MCV) 73.8 fL 80-98 L MEAN CELL HGB (test code = MCH) 24.5 picogram 27.0-33.0 L MEAN CELL HGB CONCETRATION (test code = MCHC) 33.2 gram/dL 33.0-36. 0 N RED CELL DISTRIBUTION WIDTH (test code = RDW) 16.0 % 11.6-16. 2 N RED CELL DISTRIBUTION WIDTH SD (test code = RDW-SD) 42.3 fL 37 .0-51.0 N PLATELET COUNT (test code = PLT) 116 K/mm3 150-450 L MEAN PLATELET VOLUME (test code = MPV) TEST NOT PERFORMED fL 6.7-11 .0 NEUTROPHIL % (test code = NT%) 89.0 % 39.0-69.0 H IMMATURE GRANULOCYTE % (test code = IG%) 0.2 % 0.0-5.0 N LYMPHOCYTE % (test code = LY%) 6.6 % 25.0-55.0 L MONOCYTE % (test code = MO%) 3.5 % 0.0-10.0 N EOSINOPHIL % (test code = EO%) 0.5 % 0.0-5.0 N BASOPHIL % (test code = BA%) 0.2 % 0.0-1.0 N NUCLEATED RBC % (test code = NRBC%) 0.0 % 0-0 N NEUTROPHIL # (test code = NT#) 8.19 K/mm3 1.8-7.7 H IMMATURE GRANULOCYTE # (test code = IG#) 0.02 x10 3/uL 0-0.03 N LYMPHOCYTE # (test code = LY#) 0.61 K/mm3 1.0-5.0 L MONOCYTE # (test code = MO#) 0.32 K/mm3 0-0.8 N EOSINOPHIL # (test code = EO#) 0.05 K/mm3 0.0-0.5 N BASOPHIL # (test code = BA#) 0.02 K/mm3 0.0-0.2 N NUCLEATED RBC # (test code = NRBC#) 0.00 K/mm3 0.0-0.1 N MANUAL DIFF REQUIRED (test code = MDIFF) NO [id number] 21:44:00* Test Item Value Reference Range Interpretation Comments GLUBED (test code = GLUBED) 133 mg/dL 74-106 H Performed by certified floating derrick operator at [facility] [id number] 17:22:00* Test Item Value Reference Range Interpretation Comments GLUBED (test code = GLUBED) 117 mg/dL 74-106 H Performed by certified floating derrick operator at [facility] ALPHA FETOPROTEIN TUMOR [id number] 13:08:00* Test Item Value Reference Range Interpretation Comments ALPHA FETOPROTEIN TUMOR MARKER (test code = AFPTM) ng/mL IMMUNOGLOBULINS A,G [id number] 13:08:00* Test Item Value Reference Range Interpretation Comments IMMUNOGLOBULIN G (test code = IGG) 1847 mg/dL 700-1600 A Effective August 28, 2019, Immunoglobulin G, Qn, Serum reference interval will be changing to: Age Male Female 0 - 10 days 496 - 1231 496 - 1231 11d - 6 months 175 - 639 184 - 697 7 - 11 months 261 - 791 295 - 787 1 - 3 years 428 - 1028 451 - 1071 4 - 6 years 538 - 1216 583 - 1262 7 - 9 years 580 - 1302 630 - 1350 10 - 11 years 601 - 1351 646 - 1407 12 - 13 years 610 - 1367 692 - 1433 14 - 15 years 630 - 1392 717 - 1463 16 - 19 years 671 - 1456 719 - 1475 >19 years 603 - 1613 586 - 1602 IMMUNOGLOBULIN M (test code = IGM) 380 mg/dL 26-217 A Performed At: [facility] [address] [id number] David Tirado MD Ph:[phone] IMMUNOGLOBULIN A (test code = IGA) 779 mg/dL 87-352 H [id number] 12:26:00* Test Item Value Reference Range Interpretation Comments GLUBED (test code = GLUBED) 73 mg/dL 74-106 L Performed by certified floating derrick operator at [facility] [id number] 08:18:00* Test Item Value Reference Range Interpretation Comments GLUBED (test code = GLUBED) 96 mg/dL 74-106 N Performed by certified floating derrick operator at [facility] COMPREHENSIVE METABOLIC [id number] 05:27:00* Test Item Value Reference Range Interpretation Comments SODIUM (test code = NA) 138 mmol/L 136-145 N POTASSIUM (test code = K) 4.4 mmol/L 3.5-5.1 N CHLORIDE (test code = CL) 107.0 mmol/L 98-107 N CARBON DIOXIDE (test code = CO2) 22.0 mmol/L 21-32 N ANION GAP (test code = GAP) 13.4 10-20 N GLUCOSE (test code = GLU) 105 mg/dL 74-106 N BLOOD UREA NITROGEN (test code = BUN) 34 mg/dL 7-18 H GLOMERULAR FILTRATION RATE (test code = GFR) 50 mL/min >=60 Estimated GFR by using Modified MDRD formula.Chronic kidney disease is defined as either kidney damageor GFR <60 mL/min/1.73 m2 for >3 months. CREATININE (test code = CREAT) 1.10 mg/dL 0.55-1.02 H Note change in reference range due to change in reagent. BUN/CREATININE RATIO (test code = BUN/CREA) 30.9 10-20 H TOTAL PROTEIN (test code = PROT) 8.0 gram/dL 6.4-8.2 N ALBUMIN (test code = ALB) 3.1 g/dL 3.4-5.0 L GLOBULIN (test code = GLOB) 4.9 gram/dL 2.7-4.2 H ALBUMIN/GLOBULIN RATIO (test code = A/G) 0.6 0.75-1.50 L CALCIUM (test code = CA) 8.8 mg/dL 8.5-10.1 N BILIRUBIN TOTAL (test code = BILT) 0.90 mg/dL 0.0-1.0 N SGOT/AST (test code = AST) 82 IUnit/L 15-37 H SGPT/ALT (test code = ALT) 53 IUnit/L 12-78 N ALKALINE PHOSPHATASE TOTAL (test code = ALKP) 152 IUnit/L 45-117 H Note change in reference range due to change in reagent. COMPREHENSIVE METABOLIC [id number] 05:08:00* Test Item Value Reference Range Interpretation Comments SODIUM (test code = NA) 138 mmol/L 136-145 N POTASSIUM (test code = K) 4.4 mmol/L 3.5-5.1 N CHLORIDE (test code = CL) 107.0 mmol/L 98-107 N CARBON DIOXIDE (test code = CO2) mmol/L 21-32 ANION GAP (test code = GAP) 10-20 GLUCOSE (test code = GLU) mg/dL 74-106 BLOOD UREA NITROGEN (test code = BUN) mg/dL 7-18 GLOMERULAR FILTRATION RATE (test code = GFR) mL/min >=60 CREATININE (test code = CREAT) mg/dL 0.55-1.02 BUN/CREATININE RATIO (test code = BUN/CREA) 10-20 TOTAL PROTEIN (test code = PROT) gram/dL 6.4-8.2 ALBUMIN (test code = ALB) g/dL 3.4-5.0 GLOBULIN (test code = GLOB) gram/dL 2.7-4.2 ALBUMIN/GLOBULIN RATIO (test code = A/G) 0.75-1.50 CALCIUM (test code = CA) mg/dL 8.5-10.1 BILIRUBIN TOTAL (test code = BILT) mg/dL 0.0-1.0 SGOT/AST (test code = AST) IUnit/L 15-37 SGPT/ALT (test code = ALT) IUnit/L 12-78 ALKALINE PHOSPHATASE TOTAL (test code = ALKP) IUnit/L 45-117 CBC W/AUTO [id number] 05:08:00* Test Item Value Reference Range Interpretation Comments WHITE BLOOD CELL (test code = WBC) 7.2 K/mm3 4.5-12.5 N RED BLOOD CELL (test code = RBC) 4.71 mill/mm3 3.7-5.2 N HEMOGLOBIN (test code = HGB) 11.4 gram/dL 11.5-15.5 L HEMATOCRIT (test code = HCT) 35.2 % 36.0-46.0 L MEAN CELL VOLUME (test code = MCV) 74.7 fL 80-98 L MEAN CELL HGB (test code = MCH) 24.2 picogram 27.0-33.0 L MEAN CELL HGB CONCETRATION (test code = MCHC) 32.4 gram/dL 33.0-36. 0 L RED CELL DISTRIBUTION WIDTH (test code = RDW) 16.0 % 11.6-16. 2 N RED CELL DISTRIBUTION WIDTH SD (test code = RDW-SD) 43.1 fL 37 .0-51.0 N PLATELET COUNT (test code = PLT) 119 K/mm3 150-450 L MEAN PLATELET VOLUME (test code = MPV) TEST NOT PERFORMED fL 6.7-11 .0 Unable to determine due to platelet abnormality , please seethe platelet morphology. NEUTROPHIL % (test code = NT%) 54.4 % 39.0-69.0 N IMMATURE GRANULOCYTE % (test code = IG%) 0.3 % 0.0-5.0 N LYMPHOCYTE % (test code = LY%) 33.0 % 25.0-55.0 N MONOCYTE % (test code = MO%) 8.6 % 0.0-10.0 N EOSINOPHIL % (test code = EO%) 3.3 % 0.0-5.0 N BASOPHIL % (test code = BA%) 0.4 % 0.0-1.0 N NUCLEATED RBC % (test code = NRBC%) 0.0 % 0-0 N NEUTROPHIL # (test code = NT#) 3.94 K/mm3 1.8-7.7 N IMMATURE GRANULOCYTE # (test code = IG#) 0.02 x10 3/uL 0-0.03 N LYMPHOCYTE # (test code = LY#) 2.39 K/mm3 1.0-5.0 N MONOCYTE # (test code = MO#) 0.62 K/mm3 0-0.8 N EOSINOPHIL # (test code = EO#) 0.24 K/mm3 0.0-0.5 N BASOPHIL # (test code = BA#) 0.03 K/mm3 0.0-0.2 N NUCLEATED RBC # (test code = NRBC#) 0.00 K/mm3 0.0-0.1 N MANUAL DIFF REQUIRED (test code = MDIFF) NO, ONLY SCAN NEEDED DIFFERENTIAL [id number] 05:08:00* Test Item Value Reference Range Interpretation Comments STAIN ACCEPTABILITY (test code = STN ACCEPTABLE) STAIN ACCEPTABLE HYPOCHROMIA (test code = HYPO) 1+ PLATELET ESTIMATE (test code = PLTEST) DECREASED PLATELET MORPHOLOGY (test code = PLTMORPH) NORMAL CBC W/AUTO [id number] 04:45:00* Test Item Value Reference Range Interpretation Comments WHITE BLOOD CELL (test code = WBC) 7.2 K/mm3 4.5-12.5 N RED BLOOD CELL (test code = RBC) 4.71 mill/mm3 3.7-5.2 N HEMOGLOBIN (test code = HGB) 11.4 gram/dL 11.5-15.5 L HEMATOCRIT (test code = HCT) 35.2 % 36.0-46.0 L MEAN CELL VOLUME (test code = MCV) 74.7 fL 80-98 L MEAN CELL HGB (test code = MCH) 24.2 picogram 27.0-33.0 L MEAN CELL HGB CONCETRATION (test code = MCHC) 32.4 gram/dL 33.0-36. 0 L RED CELL DISTRIBUTION WIDTH (test code = RDW) 16.0 % 11.6-16. 2 N RED CELL DISTRIBUTION WIDTH SD (test code = RDW-SD) 43.1 fL 37 .0-51.0 N PLATELET COUNT (test code = PLT) 119 K/mm3 150-450 L MEAN PLATELET VOLUME (test code = MPV) TEST NOT PERFORMED fL 6.7-11 .0 Unable to determine due to platelet abnormality , please seethe platelet morphology. NEUTROPHIL % (test code = NT%) 54.4 % 39.0-69.0 N IMMATURE GRANULOCYTE % (test code = IG%) 0.3 % 0.0-5.0 N LYMPHOCYTE % (test code = LY%) 33.0 % 25.0-55.0 N MONOCYTE % (test code = MO%) 8.6 % 0.0-10.0 N EOSINOPHIL % (test code = EO%) 3.3 % 0.0-5.0 N BASOPHIL % (test code = BA%) 0.4 % 0.0-1.0 N NUCLEATED RBC % (test code = NRBC%) 0.0 % 0-0 N NEUTROPHIL # (test code = NT#) 3.94 K/mm3 1.8-7.7 N IMMATURE GRANULOCYTE # (test code = IG#) 0.02 x10 3/uL 0-0.03 N LYMPHOCYTE # (test code = LY#) 2.39 K/mm3 1.0-5.0 N MONOCYTE # (test code = MO#) 0.62 K/mm3 0-0.8 N EOSINOPHIL # (test code = EO#) 0.24 K/mm3 0.0-0.5 N BASOPHIL # (test code = BA#) 0.03 K/mm3 0.0-0.2 N NUCLEATED RBC # (test code = NRBC#) 0.00 K/mm3 0.0-0.1 N MANUAL DIFF REQUIRED (test code = MDIFF) NO, ONLY SCAN NEEDED DIFFERENTIAL [id number] 04:45:00* Test Item Value Reference Range Interpretation Comments STAIN ACCEPTABILITY (test code = STN ACCEPTABLE) CABOT RINGS (test code = CAB) MORPHOLOGY COMMENT (test code = MOC) PLATELET ESTIMATE (test code = PLTEST) PLATELET MORPHOLOGY (test code = PLTMORPH) CBC W/AUTO [id number] 04:45:00* Test Item Value Reference Range Interpretation Comments WHITE BLOOD CELL (test code = WBC) 7.2 K/mm3 4.5-12.5 N RED BLOOD CELL (test code = RBC) 4.71 mill/mm3 3.7-5.2 N HEMOGLOBIN (test code = HGB) 11.4 gram/dL 11.5-15.5 L HEMATOCRIT (test code = HCT) 35.2 % 36.0-46.0 L MEAN CELL VOLUME (test code = MCV) 74.7 fL 80-98 L MEAN CELL HGB (test code = MCH) 24.2 picogram 27.0-33.0 L MEAN CELL HGB CONCETRATION (test code = MCHC) 32.4 gram/dL 33.0-36. 0 L RED CELL DISTRIBUTION WIDTH (test code = RDW) 16.0 % 11.6-16. 2 N RED CELL DISTRIBUTION WIDTH SD (test code = RDW-SD) 43.1 fL 37 .0-51.0 N PLATELET COUNT (test code = PLT) 119 K/mm3 150-450 L MEAN PLATELET VOLUME (test code = MPV) TEST NOT PERFORMED fL 6.7-11 .0 Unable to determine due to platelet abnormality , please seethe platelet morphology. NEUTROPHIL % (test code = NT%) 54.4 % 39.0-69.0 N IMMATURE GRANULOCYTE % (test code = IG%) 0.3 % 0.0-5.0 N LYMPHOCYTE % (test code = LY%) 33.0 % 25.0-55.0 N MONOCYTE % (test code = MO%) 8.6 % 0.0-10.0 N EOSINOPHIL % (test code = EO%) 3.3 % 0.0-5.0 N BASOPHIL % (test code = BA%) 0.4 % 0.0-1.0 N NUCLEATED RBC % (test code = NRBC%) 0.0 % 0-0 N NEUTROPHIL # (test code = NT#) 3.94 K/mm3 1.8-7.7 N IMMATURE GRANULOCYTE # (test code = IG#) 0.02 x10 3/uL 0-0.03 N LYMPHOCYTE # (test code = LY#) 2.39 K/mm3 1.0-5.0 N MONOCYTE # (test code = MO#) 0.62 K/mm3 0-0.8 N EOSINOPHIL # (test code = EO#) 0.24 K/mm3 0.0-0.5 N BASOPHIL # (test code = BA#) 0.03 K/mm3 0.0-0.2 N NUCLEATED RBC # (test code = NRBC#) 0.00 K/mm3 0.0-0.1 N MANUAL DIFF REQUIRED (test code = MDIFF) NO, ONLY SCAN NEEDED DIFFERENTIAL [id number] 04:45:00* Test Item Value Reference Range Interpretation Comments STAIN ACCEPTABILITY (test code = STN ACCEPTABLE) CABOT RINGS (test code = CAB) MORPHOLOGY COMMENT (test code = MOC) PLATELET ESTIMATE (test code = PLTEST) PLATELET MORPHOLOGY (test code = PLTMORPH) CBC W/AUTO [id number] 04:45:00* Test Item Value Reference Range Interpretation Comments WHITE BLOOD CELL (test code = WBC) 7.2 K/mm3 4.5-12.5 N RED BLOOD CELL (test code = RBC) 4.71 mill/mm3 3.7-5.2 N HEMOGLOBIN (test code = HGB) 11.4 gram/dL 11.5-15.5 L HEMATOCRIT (test code = HCT) 35.2 % 36.0-46.0 L MEAN CELL VOLUME (test code = MCV) 74.7 fL 80-98 L MEAN CELL HGB (test code = MCH) 24.2 picogram 27.0-33.0 L MEAN CELL HGB CONCETRATION (test code = MCHC) 32.4 gram/dL 33.0-36. 0 L RED CELL DISTRIBUTION WIDTH (test code = RDW) 16.0 % 11.6-16. 2 N RED CELL DISTRIBUTION WIDTH SD (test code = RDW-SD) 43.1 fL 37 .0-51.0 N PLATELET COUNT (test code = PLT) 119 K/mm3 150-450 L MEAN PLATELET VOLUME (test code = MPV) TEST NOT PERFORMED fL 6.7-11 .0 Unable to determine due to platelet abnormality , please seethe platelet morphology. NEUTROPHIL % (test code = NT%) 54.4 % 39.0-69.0 N IMMATURE GRANULOCYTE % (test code = IG%) 0.3 % 0.0-5.0 N LYMPHOCYTE % (test code = LY%) 33.0 % 25.0-55.0 N MONOCYTE % (test code = MO%) 8.6 % 0.0-10.0 N EOSINOPHIL % (test code = EO%) 3.3 % 0.0-5.0 N BASOPHIL % (test code = BA%) 0.4 % 0.0-1.0 N NUCLEATED RBC % (test code = NRBC%) 0.0 % 0-0 N NEUTROPHIL # (test code = NT#) 3.94 K/mm3 1.8-7.7 N IMMATURE GRANULOCYTE # (test code = IG#) 0.02 x10 3/uL 0-0.03 N LYMPHOCYTE # (test code = LY#) 2.39 K/mm3 1.0-5.0 N MONOCYTE # (test code = MO#) 0.62 K/mm3 0-0.8 N EOSINOPHIL # (test code = EO#) 0.24 K/mm3 0.0-0.5 N BASOPHIL # (test code = BA#) 0.03 K/mm3 0.0-0.2 N NUCLEATED RBC # (test code = NRBC#) 0.00 K/mm3 0.0-0.1 N MANUAL DIFF REQUIRED (test code = MDIFF) NO, ONLY SCAN NEEDED DIFFERENTIAL [id number] 04:45:00* Test Item Value Reference Range Interpretation Comments STAIN ACCEPTABILITY (test code = STN ACCEPTABLE) MORPHOLOGY COMMENT (test code = MOC) PLATELET ESTIMATE (test code = PLTEST) PLATELET MORPHOLOGY (test code = PLTMORPH) CBC W/AUTO [id number] 04:45:00* Test Item Value Reference Range Interpretation Comments WHITE BLOOD CELL (test code = WBC) 7.2 K/mm3 4.5-12.5 N RED BLOOD CELL (test code = RBC) 4.71 mill/mm3 3.7-5.2 N HEMOGLOBIN (test code = HGB) 11.4 gram/dL 11.5-15.5 L HEMATOCRIT (test code = HCT) 35.2 % 36.0-46.0 L MEAN CELL VOLUME (test code = MCV) 74.7 fL 80-98 L MEAN CELL HGB (test code = MCH) 24.2 picogram 27.0-33.0 L MEAN CELL HGB CONCETRATION (test code = MCHC) 32.4 gram/dL 33.0-36. 0 L RED CELL DISTRIBUTION WIDTH (test code = RDW) 16.0 % 11.6-16. 2 N RED CELL DISTRIBUTION WIDTH SD (test code = RDW-SD) 43.1 fL 37 .0-51.0 N PLATELET COUNT (test code = PLT) 119 K/mm3 150-450 L MEAN PLATELET VOLUME (test code = MPV) TEST NOT PERFORMED fL 6.7-11 .0 Unable to determine due to platelet abnormality , please seethe platelet morphology. NEUTROPHIL % (test code = NT%) 54.4 % 39.0-69.0 N IMMATURE GRANULOCYTE % (test code = IG%) 0.3 % 0.0-5.0 N LYMPHOCYTE % (test code = LY%) 33.0 % 25.0-55.0 N MONOCYTE % (test code = MO%) 8.6 % 0.0-10.0 N EOSINOPHIL % (test code = EO%) 3.3 % 0.0-5.0 N BASOPHIL % (test code = BA%) 0.4 % 0.0-1.0 N NUCLEATED RBC % (test code = NRBC%) 0.0 % 0-0 N NEUTROPHIL # (test code = NT#) 3.94 K/mm3 1.8-7.7 N IMMATURE GRANULOCYTE # (test code = IG#) 0.02 x10 3/uL 0-0.03 N LYMPHOCYTE # (test code = LY#) 2.39 K/mm3 1.0-5.0 N MONOCYTE # (test code = MO#) 0.62 K/mm3 0-0.8 N EOSINOPHIL # (test code = EO#) 0.24 K/mm3 0.0-0.5 N BASOPHIL # (test code = BA#) 0.03 K/mm3 0.0-0.2 N NUCLEATED RBC # (test code = NRBC#) 0.00 K/mm3 0.0-0.1 N MANUAL DIFF REQUIRED (test code = MDIFF) NO, ONLY SCAN NEEDED DIFFERENTIAL [id number] 04:45:00* Test Item Value Reference Range Interpretation Comments STAIN ACCEPTABILITY (test code = STN ACCEPTABLE) CABOT RINGS (test code = CAB) MORPHOLOGY COMMENT (test code = MOC) PLATELET ESTIMATE (test code = PLTEST) PLATELET MORPHOLOGY (test code = PLTMORPH) [id number] 20:34:00* Test Item Value Reference Range Interpretation Comments GLUBED (test code = GLUBED) 114 mg/dL 74-106 H Performed by certified floating derrick operator at [facility] [id number] 16:39:00* Test Item Value Reference Range Interpretation Comments GLUBED (test code = GLUBED) 127 mg/dL 74-106 H Performed by certified floating derrick operator at [facility] PROTHROMBIN [id number] 14:15:00* Test Item Value Reference Range Interpretation Comments PROTHROMBIN TIME PATIENT (test code = PTP) 12.6 seconds 9.0-14.0 N INTERNATIONAL NORMAL RATIO (test code = INR) 1.1 0.8-1.2 N The therapeutic range for oral anticoagulant therapy formost indications is an international normalized ratio (INR)of between 2.0 and 3.0. The recommended therapeutic INRrange for various clinical situations is listed below: Clinical Situation INR range Pulmonary e mbolism treatment (2.0-3.0)Venous thrombosis treatmentVenous thrombosis prophylaxis (high risk surgery)Prevention of systemic embolism from: Acute myocardial infarction Valvular heart disease Atrial fibrillation Mechanical prosthetic heart valves (2.5-3.5) IS PATIENT ON ANTICOAGULANTS? [id number] 14:13:00* Test Item Value Reference Range Interpretation Comments AMMONIA (test code = AMM) 69 umol/L 11-32 H [id number] 10:46:00* Test Item Value Reference Range Interpretation Comments GLUBED (test code = GLUBED) 141 mg/dL 74-106 H Performed by certified floating derrick operator at [facility] [id number] 08:12:00* Test Item Value Reference Range Interpretation Comments GLUBED (test code = GLUBED) 97 mg/dL 74-106 N Performed by certified floating derrick operator at [facility] COMPREHENSIVE METABOLIC [id number] 06:17:00* Test Item Value Reference Range Interpretation Comments SODIUM (test code = NA) 140 mmol/L 136-145 N POTASSIUM (test code = K) 4.4 mmol/L 3.5-5.1 N CHLORIDE (test code = CL) 110.0 mmol/L 98-107 H CARBON DIOXIDE (test code = CO2) 25.0 mmol/L 21-32 N ANION GAP (test code = GAP) 9.4 10-20 L GLUCOSE (test code = GLU) 147 mg/dL 74-106 H BLOOD UREA NITROGEN (test code = BUN) 32 mg/dL 7-18 H GLOMERULAR FILTRATION RATE (test code = GFR) 50 mL/min >=60 Estimated GFR by using Modified MDRD formula.Chronic kidney disease is defined as either kidney damageor GFR <60 mL/min/1.73 m2 for >3 months. CREATININE (test code = CREAT) 1.10 mg/dL 0.55-1.02 H Note change in reference range due to change in reagent. BUN/CREATININE RATIO (test code = BUN/CREA) 29.1 10-20 H TOTAL PROTEIN (test code = PROT) 8.1 gram/dL 6.4-8.2 N ALBUMIN (test code = ALB) 3.1 g/dL 3.4-5.0 L GLOBULIN (test code = GLOB) 5.0 gram/dL 2.7-4.2 H ALBUMIN/GLOBULIN RATIO (test code = A/G) 0.6 0.75-1.50 L CALCIUM (test code = CA) 9.3 mg/dL 8.5-10.1 N BILIRUBIN TOTAL (test code = BILT) 1.20 mg/dL 0.0-1.0 H SGOT/AST (test code = AST) 96 IUnit/L 15-37 H SGPT/ALT (test code = ALT) 61 IUnit/L 12-78 N ALKALINE PHOSPHATASE TOTAL (test code = ALKP) 143 IUnit/L 45-117 H Note change in reference range due to change in reagent. CBC W/AUTO [id number] 06:04:00* Test Item Value Reference Range Interpretation Comments WHITE BLOOD CELL (test code = WBC) 6.8 K/mm3 4.5-12.5 N RED BLOOD CELL (test code = RBC) 4.89 mill/mm3 3.7-5.2 N HEMOGLOBIN (test code = HGB) 12.0 gram/dL 11.5-15.5 N HEMATOCRIT (test code = HCT) 36.6 % 36.0-46.0 N MEAN CELL VOLUME (test code = MCV) 74.8 fL 80-98 L MEAN CELL HGB (test code = MCH) 24.5 picogram 27.0-33.0 L MEAN CELL HGB CONCETRATION (test code = MCHC) 32.8 gram/dL 33.0-36. 0 L RED CELL DISTRIBUTION WIDTH (test code = RDW) 16.1 % 11.6-16. 2 N RED CELL DISTRIBUTION WIDTH SD (test code = RDW-SD) 43.6 fL 37 .0-51.0 N PLATELET COUNT (test code = PLT) 131 K/mm3 150-450 L MEAN PLATELET VOLUME (test code = MPV) TEST NOT PERFORMED fL 6.7-11 .0 Unable to determine due to platelet abnormality , please seethe platelet morphology. NEUTROPHIL % (test code = NT%) 59.8 % 39.0-69.0 N IMMATURE GRANULOCYTE % (test code = IG%) 0.1 % 0.0-5.0 N LYMPHOCYTE % (test code = LY%) 26.8 % 25.0-55.0 N MONOCYTE % (test code = MO%) 9.0 % 0.0-10.0 N EOSINOPHIL % (test code = EO%) 4.0 % 0.0-5.0 N BASOPHIL % (test code = BA%) 0.3 % 0.0-1.0 N NUCLEATED RBC % (test code = NRBC%) 0.0 % 0-0 N NEUTROPHIL # (test code = NT#) 4.03 K/mm3 1.8-7.7 N IMMATURE GRANULOCYTE # (test code = IG#) 0.01 x10 3/uL 0-0.03 N LYMPHOCYTE # (test code = LY#) 1.81 K/mm3 1.0-5.0 N MONOCYTE # (test code = MO#) 0.61 K/mm3 0-0.8 N EOSINOPHIL # (test code = EO#) 0.27 K/mm3 0.0-0.5 N BASOPHIL # (test code = BA#) 0.02 K/mm3 0.0-0.2 N NUCLEATED RBC # (test code = NRBC#) 0.00 K/mm3 0.0-0.1 N MANUAL DIFF REQUIRED (test code = MDIFF) NO, ONLY SCAN NEEDED DIFFERENTIAL [id number] 06:04:00* Test Item Value Reference Range Interpretation Comments STAIN ACCEPTABILITY (test code = STN ACCEPTABLE) STAIN ACCEPTABLE HYPOCHROMIA (test code = HYPO) 1+ PLATELET ESTIMATE (test code = PLTEST) DECREASED PLATELET MORPHOLOGY (test code = PLTMORPH) NORMAL COMPREHENSIVE METABOLIC [id number] 05:58:00* Test Item Value Reference Range Interpretation Comments SODIUM (test code = NA) 140 mmol/L 136-145 N POTASSIUM (test code = K) 4.4 mmol/L 3.5-5.1 N CHLORIDE (test code = CL) 110.0 mmol/L 98-107 H CARBON DIOXIDE (test code = CO2) mmol/L 21-32 ANION GAP (test code = GAP) 10-20 GLUCOSE (test code = GLU) mg/dL 74-106 BLOOD UREA NITROGEN (test code = BUN) mg/dL 7-18 GLOMERULAR FILTRATION RATE (test code = GFR) mL/min >=60 CREATININE (test code = CREAT) mg/dL 0.55-1.02 BUN/CREATININE RATIO (test code = BUN/CREA) 10-20 TOTAL PROTEIN (test code = PROT) gram/dL 6.4-8.2 ALBUMIN (test code = ALB) g/dL 3.4-5.0 GLOBULIN (test code = GLOB) gram/dL 2.7-4.2 ALBUMIN/GLOBULIN RATIO (test code = A/G) 0.75-1.50 CALCIUM (test code = CA) mg/dL 8.5-10.1 BILIRUBIN TOTAL (test code = BILT) mg/dL 0.0-1.0 SGOT/AST (test code = AST) IUnit/L 15-37 SGPT/ALT (test code = ALT) IUnit/L 12-78 ALKALINE PHOSPHATASE TOTAL (test code = ALKP) IUnit/L 45-117 CBC W/AUTO [id number] 05:37:00* Test Item Value Reference Range Interpretation Comments WHITE BLOOD CELL (test code = WBC) 6.8 K/mm3 4.5-12.5 N RED BLOOD CELL (test code = RBC) 4.89 mill/mm3 3.7-5.2 N HEMOGLOBIN (test code = HGB) 12.0 gram/dL 11.5-15.5 N HEMATOCRIT (test code = HCT) 36.6 % 36.0-46.0 N MEAN CELL VOLUME (test code = MCV) 74.8 fL 80-98 L MEAN CELL HGB (test code = MCH) 24.5 picogram 27.0-33.0 L MEAN CELL HGB CONCETRATION (test code = MCHC) 32.8 gram/dL 33.0-36. 0 L RED CELL DISTRIBUTION WIDTH (test code = RDW) 16.1 % 11.6-16. 2 N RED CELL DISTRIBUTION WIDTH SD (test code = RDW-SD) 43.6 fL 37 .0-51.0 N PLATELET COUNT (test code = PLT) 131 K/mm3 150-450 L MEAN PLATELET VOLUME (test code = MPV) TEST NOT PERFORMED fL 6.7-11 .0 Unable to determine due to platelet abnormality , please seethe platelet morphology. NEUTROPHIL % (test code = NT%) 59.8 % 39.0-69.0 N IMMATURE GRANULOCYTE % (test code = IG%) 0.1 % 0.0-5.0 N LYMPHOCYTE % (test code = LY%) 26.8 % 25.0-55.0 N MONOCYTE % (test code = MO%) 9.0 % 0.0-10.0 N EOSINOPHIL % (test code = EO%) 4.0 % 0.0-5.0 N BASOPHIL % (test code = BA%) 0.3 % 0.0-1.0 N NUCLEATED RBC % (test code = NRBC%) 0.0 % 0-0 N NEUTROPHIL # (test code = NT#) 4.03 K/mm3 1.8-7.7 N IMMATURE GRANULOCYTE # (test code = IG#) 0.01 x10 3/uL 0-0.03 N LYMPHOCYTE # (test code = LY#) 1.81 K/mm3 1.0-5.0 N MONOCYTE # (test code = MO#) 0.61 K/mm3 0-0.8 N EOSINOPHIL # (test code = EO#) 0.27 K/mm3 0.0-0.5 N BASOPHIL # (test code = BA#) 0.02 K/mm3 0.0-0.2 N NUCLEATED RBC # (test code = NRBC#) 0.00 K/mm3 0.0-0.1 N MANUAL DIFF REQUIRED (test code = MDIFF) NO, ONLY SCAN NEEDED DIFFERENTIAL [id number] 05:37:00* Test Item Value Reference Range Interpretation Comments STAIN ACCEPTABILITY (test code = STN ACCEPTABLE) CABOT RINGS (test code = CAB) MORPHOLOGY COMMENT (test code = MOC) PLATELET ESTIMATE (test code = PLTEST) PLATELET MORPHOLOGY (test code = PLTMORPH) CBC W/AUTO [id number] 05:37:00* Test Item Value Reference Range Interpretation Comments WHITE BLOOD CELL (test code = WBC) 6.8 K/mm3 4.5-12.5 N RED BLOOD CELL (test code = RBC) 4.89 mill/mm3 3.7-5.2 N HEMOGLOBIN (test code = HGB) 12.0 gram/dL 11.5-15.5 N HEMATOCRIT (test code = HCT) 36.6 % 36.0-46.0 N MEAN CELL VOLUME (test code = MCV) 74.8 fL 80-98 L MEAN CELL HGB (test code = MCH) 24.5 picogram 27.0-33.0 L MEAN CELL HGB CONCETRATION (test code = MCHC) 32.8 gram/dL 33.0-36. 0 L RED CELL DISTRIBUTION WIDTH (test code = RDW) 16.1 % 11.6-16. 2 N RED CELL DISTRIBUTION WIDTH SD (test code = RDW-SD) 43.6 fL 37 .0-51.0 N PLATELET COUNT (test code = PLT) 131 K/mm3 150-450 L MEAN PLATELET VOLUME (test code = MPV) TEST NOT PERFORMED fL 6.7-11 .0 Unable to determine due to platelet abnormality , please seethe platelet morphology. NEUTROPHIL % (test code = NT%) 59.8 % 39.0-69.0 N IMMATURE GRANULOCYTE % (test code = IG%) 0.1 % 0.0-5.0 N LYMPHOCYTE % (test code = LY%) 26.8 % 25.0-55.0 N MONOCYTE % (test code = MO%) 9.0 % 0.0-10.0 N EOSINOPHIL % (test code = EO%) 4.0 % 0.0-5.0 N BASOPHIL % (test code = BA%) 0.3 % 0.0-1.0 N NUCLEATED RBC % (test code = NRBC%) 0.0 % 0-0 N NEUTROPHIL # (test code = NT#) 4.03 K/mm3 1.8-7.7 N IMMATURE GRANULOCYTE # (test code = IG#) 0.01 x10 3/uL 0-0.03 N LYMPHOCYTE # (test code = LY#) 1.81 K/mm3 1.0-5.0 N MONOCYTE # (test code = MO#) 0.61 K/mm3 0-0.8 N EOSINOPHIL # (test code = EO#) 0.27 K/mm3 0.0-0.5 N BASOPHIL # (test code = BA#) 0.02 K/mm3 0.0-0.2 N NUCLEATED RBC # (test code = NRBC#) 0.00 K/mm3 0.0-0.1 N MANUAL DIFF REQUIRED (test code = MDIFF) NO, ONLY SCAN NEEDED DIFFERENTIAL [id number] 05:37:00* Test Item Value Reference Range Interpretation Comments STAIN ACCEPTABILITY (test code = STN ACCEPTABLE) CABOT RINGS (test code = CAB) MORPHOLOGY COMMENT (test code = MOC) PLATELET ESTIMATE (test code = PLTEST) PLATELET MORPHOLOGY (test code = PLTMORPH) CBC W/AUTO [id number] 05:37:00* Test Item Value Reference Range Interpretation Comments WHITE BLOOD CELL (test code = WBC) 6.8 K/mm3 4.5-12.5 N RED BLOOD CELL (test code = RBC) 4.89 mill/mm3 3.7-5.2 N HEMOGLOBIN (test code = HGB) 12.0 gram/dL 11.5-15.5 N HEMATOCRIT (test code = HCT) 36.6 % 36.0-46.0 N MEAN CELL VOLUME (test code = MCV) 74.8 fL 80-98 L MEAN CELL HGB (test code = MCH) 24.5 picogram 27.0-33.0 L MEAN CELL HGB CONCETRATION (test code = MCHC) 32.8 gram/dL 33.0-36. 0 L RED CELL DISTRIBUTION WIDTH (test code = RDW) 16.1 % 11.6-16. 2 N RED CELL DISTRIBUTION WIDTH SD (test code = RDW-SD) 43.6 fL 37 .0-51.0 N PLATELET COUNT (test code = PLT) 131 K/mm3 150-450 L MEAN PLATELET VOLUME (test code = MPV) TEST NOT PERFORMED fL 6.7-11 .0 Unable to determine due to platelet abnormality , please seethe platelet morphology. NEUTROPHIL % (test code = NT%) 59.8 % 39.0-69.0 N IMMATURE GRANULOCYTE % (test code = IG%) 0.1 % 0.0-5.0 N LYMPHOCYTE % (test code = LY%) 26.8 % 25.0-55.0 N MONOCYTE % (test code = MO%) 9.0 % 0.0-10.0 N EOSINOPHIL % (test code = EO%) 4.0 % 0.0-5.0 N BASOPHIL % (test code = BA%) 0.3 % 0.0-1.0 N NUCLEATED RBC % (test code = NRBC%) 0.0 % 0-0 N NEUTROPHIL # (test code = NT#) 4.03 K/mm3 1.8-7.7 N IMMATURE GRANULOCYTE # (test code = IG#) 0.01 x10 3/uL 0-0.03 N LYMPHOCYTE # (test code = LY#) 1.81 K/mm3 1.0-5.0 N MONOCYTE # (test code = MO#) 0.61 K/mm3 0-0.8 N EOSINOPHIL # (test code = EO#) 0.27 K/mm3 0.0-0.5 N BASOPHIL # (test code = BA#) 0.02 K/mm3 0.0-0.2 N NUCLEATED RBC # (test code = NRBC#) 0.00 K/mm3 0.0-0.1 N MANUAL DIFF REQUIRED (test code = MDIFF) NO, ONLY SCAN NEEDED DIFFERENTIAL [id number] 05:37:00* Test Item Value Reference Range Interpretation Comments STAIN ACCEPTABILITY (test code = STN ACCEPTABLE) MORPHOLOGY COMMENT (test code = MOC) PLATELET ESTIMATE (test code = PLTEST) PLATELET MORPHOLOGY (test code = PLTMORPH) CBC W/AUTO [id number] 05:37:00* Test Item Value Reference Range Interpretation Comments WHITE BLOOD CELL (test code = WBC) 6.8 K/mm3 4.5-12.5 N RED BLOOD CELL (test code = RBC) 4.89 mill/mm3 3.7-5.2 N HEMOGLOBIN (test code = HGB) 12.0 gram/dL 11.5-15.5 N HEMATOCRIT (test code = HCT) 36.6 % 36.0-46.0 N MEAN CELL VOLUME (test code = MCV) 74.8 fL 80-98 L MEAN CELL HGB (test code = MCH) 24.5 picogram 27.0-33.0 L MEAN CELL HGB CONCETRATION (test code = MCHC) 32.8 gram/dL 33.0-36. 0 L RED CELL DISTRIBUTION WIDTH (test code = RDW) 16.1 % 11.6-16. 2 N RED CELL DISTRIBUTION WIDTH SD (test code = RDW-SD) 43.6 fL 37 .0-51.0 N PLATELET COUNT (test code = PLT) 131 K/mm3 150-450 L MEAN PLATELET VOLUME (test code = MPV) TEST NOT PERFORMED fL 6.7-11 .0 Unable to determine due to platelet abnormality , please seethe platelet morphology. NEUTROPHIL % (test code = NT%) 59.8 % 39.0-69.0 N IMMATURE GRANULOCYTE % (test code = IG%) 0.1 % 0.0-5.0 N LYMPHOCYTE % (test code = LY%) 26.8 % 25.0-55.0 N MONOCYTE % (test code = MO%) 9.0 % 0.0-10.0 N EOSINOPHIL % (test code = EO%) 4.0 % 0.0-5.0 N BASOPHIL % (test code = BA%) 0.3 % 0.0-1.0 N NUCLEATED RBC % (test code = NRBC%) 0.0 % 0-0 N NEUTROPHIL # (test code = NT#) 4.03 K/mm3 1.8-7.7 N IMMATURE GRANULOCYTE # (test code = IG#) 0.01 x10 3/uL 0-0.03 N LYMPHOCYTE # (test code = LY#) 1.81 K/mm3 1.0-5.0 N MONOCYTE # (test code = MO#) 0.61 K/mm3 0-0.8 N EOSINOPHIL # (test code = EO#) 0.27 K/mm3 0.0-0.5 N BASOPHIL # (test code = BA#) 0.02 K/mm3 0.0-0.2 N NUCLEATED RBC # (test code = NRBC#) 0.00 K/mm3 0.0-0.1 N MANUAL DIFF REQUIRED (test code = MDIFF) NO, ONLY SCAN NEEDED DIFFERENTIAL [id number] 05:37:00* Test Item Value Reference Range Interpretation Comments STAIN ACCEPTABILITY (test code = STN ACCEPTABLE) CABOT RINGS (test code = CAB) MORPHOLOGY COMMENT (test code = MOC) PLATELET ESTIMATE (test code = PLTEST) PLATELET MORPHOLOGY (test code = PLTMORPH) - CT ABD PELVIS W WO [id number] 19:48:00 Name: SADI BENDER [facility] : 1955 Age/S: 64 / F [address] [facility] [address] #: [id number] Loc: [facility] [place] [address] Phys: Reese Cohen MD Acct: [id number] Dis Date: Status: REG ER PHONE #: [phone] Exam Date: 08/04/2019 9782 FAX #: [phone] Reason: ruq rlq tenderness EXAMS: CPT CODE: [id number] CT ABD PELVIS W WO CONT 24000 EXAM: CT of the abdomen and pelvis with contrast; INFORMATION: Right upper quadrant tenderness, bleeding; TECHNIQUE AND FINDINGS: CT dose reduction protocol; 5 mm cuts through the abdomen and pelvis during and after intravenous infusion of contrast material. Nodular surface of the liver; enlargement of the caudate lobe. This has increased compared with a study from April 262017 and is consistent with a mass lesion. This mass is slightly hypodense compared with the remainder of the hepatic parenchyma. It has a maximum diameter of the 5.5 cm. As demonstrated on previous studies there is significant enlargement of the spleen. Status post cholecystectomy; no biliary dilatation. Pancreas, adrenal glands and kidneys unremarkable; no hydronephrosis. No acute bowel abnormalities. No ascites. No pelvic mass lesions. Lung bases are clear. IMPRESSION: 1. Cirrhosis of the liver. 2. Solid mass lesion originating from the caudate lobe of the liver. This is a new finding compared with studies from 2018. A primary differential diagnostic consideration is hepatocellular carcinoma. Recommend correlation with alpha-fetoprotein. 3. Splenomegaly. Location code: [facility] at 1948 Reported and signed by: Dino Crawford M.D. CC: Narendra Frank; Reese Cohen MD Technologist:Shahana HUTCHINSON(R); JONI Jacinto CTDI: DLP: Trnscb Date/Time: 08/04/2019 (1947) [email or web address] Orig Print D/T: S: 08/04/2019 (1950) PAGE 1 Signed Report URINALYSIS [id number] 18:53:00* Test Item Value Reference Range Interpretation Comments UA COLOR (test code = COLU) COLORLESS YELLOW A UA APPEARANCE (test code = APPU) CLEAR CLEAR UA GLUCOSE DIPSTICK (test code = DGLUU) NEGATIVE mg/dL NEGATIVE UA BILIRUBIN DIPSTICK (test code = BILU) NEGATIVE mg/dL NEGATIVE UA KETONE DIPSTICK (test code = KETU) NEGATIVE mg/dL NEGATIVE UA SPECIFIC GRAVITY (test code = SGU) 1.010 1.001-1.035 UA BLOOD DIPSTICK (test code = MARTIN) Negative mg/dL NEGATIVE UA PH DIPSTICK (test code = TAMEKA) 5.5 5.0-8.0 UA PROTEIN DIPSTICK (test code = PROU) NEGATIVE mg/dL NEGATIVE UA UROBILINIOGEN DIPSTICK (test code = URO) Normal mg/dL NEGATIVE UA NITRITE DIPSTICK (test code = WILMER) NEGATIVE NEGATIVE UA LEUKOCYTE ESTERASE W REFLEX (test code = LEUUR) NEGATIVE Elver/uL NEGATIVE UA WBC (test code = WBCU) 0-5 per HPF 0-5 UA RBC (test code = RBCU) NONE SEEN #/HPF 0-5 UA EPITHELIAL CELLS (test code = EPIU) FEW per HPF FEW UA BACTERIA (test code = BACU) NONE SEEN #/HPF NONE Urine Source? Clean CatchBASIC METABOLIC [id number] 17:54:00* Test Item Value Reference Range Interpretation Comments SODIUM (test code = NA) 139 mmol/L 136-145 N POTASSIUM (test code = K) 4.0 mmol/L 3.5-5.1 N CHLORIDE (test code = CL) 108.0 mmol/L 98-107 H CARBON DIOXIDE (test code = CO2) 26.0 mmol/L 21-32 N ANION GAP (test code = GAP) 9.0 10-20 L GLUCOSE (test code = GLU) 98 mg/dL 74-106 N BLOOD UREA NITROGEN (test code = BUN) 35 mg/dL 7-18 H GLOMERULAR FILTRATION RATE (test code = GFR) 45 mL/min >=60 Estimated GFR by using Modified MDRD formula.Chronic kidney disease is defined as either kidney damageor GFR <60 mL/min/1.73 m2 for >3 months. CREATININE (test code = CREAT) 1.20 mg/dL 0.55-1.02 H Note change in reference range due to change in reagent. BUN/CREATININE RATIO (test code = BUN/CREA) 29.2 10-20 H CALCIUM (test code = CA) 8.8 mg/dL 8.5-10.1 N HEPATIC FUNCTION [id number] 17:54:00* Test Item Value Reference Range Interpretation Comments TOTAL PROTEIN (test code = PROT) 7.8 gram/dL 6.4-8.2 N ALBUMIN (test code = ALB) 3.3 g/dL 3.4-5.0 L GLOBULIN (test code = GLOB) 4.5 gram/dL 2.7-4.2 H ALBUMIN/GLOBULIN RATIO (test code = A/G) 0.7 0.75-1.50 L BILIRUBIN TOTAL (test code = BILT) 1.00 mg/dL 0.0-1.0 N BILIRUBIN DIRECT (test code = BILD) 0.37 mg/dL 0.0-0.20 H SGOT/AST (test code = AST) 104 IUnit/L 15-37 H SGPT/ALT (test code = ALT) 60 IUnit/L 12-78 N ALKALINE PHOSPHATASE TOTAL (test code = ALKP) 164 IUnit/L 45-117 H Note change in reference range due to change in reagent. [id number] 17:54:00* Test Item Value Reference Range Interpretation Comments LIPASE (test code = LIP) 220 U/L 73.0-393.0 N HCG SERUM [id number] 17:54:00* Test Item Value Reference Range Interpretation Comments HCG SERUM QUAL (test code = HCGQL) NEGATIVE NEGATIVE This HCGQL test is NOT applicable for MALE patients.Check with nurse about probable order error.If Tumor Marker Test needed, nurse should order test "HCGTU"(Test #550.56232) BASIC METABOLIC [id number] 17:52:00* Test Item Value Reference Range Interpretation Comments SODIUM (test code = NA) 139 mmol/L 136-145 N POTASSIUM (test code = K) 4.0 mmol/L 3.5-5.1 N CHLORIDE (test code = CL) 108.0 mmol/L 98-107 H CARBON DIOXIDE (test code = CO2) mmol/L 21-32 ANION GAP (test code = GAP) 10-20 GLUCOSE (test code = GLU) mg/dL 74-106 BLOOD UREA NITROGEN (test code = BUN) mg/dL 7-18 GLOMERULAR FILTRATION RATE (test code = GFR) mL/min >=60 CREATININE (test code = CREAT) mg/dL 0.55-1.02 BUN/CREATININE RATIO (test code = BUN/CREA) 10-20 CALCIUM (test code = CA) mg/dL 8.5-10.1 HEPATIC FUNCTION [id number] 17:52:00* Test Item Value Reference Range Interpretation Comments TOTAL PROTEIN (test code = PROT) gram/dL 6.4-8.2 ALBUMIN (test code = ALB) g/dL 3.4-5.0 GLOBULIN (test code = GLOB) gram/dL 2.7-4.2 ALBUMIN/GLOBULIN RATIO (test code = A/G) 0.75-1.50 BILIRUBIN TOTAL (test code = BILT) mg/dL 0.0-1.0 BILIRUBIN DIRECT (test code = BILD) mg/dL 0.0-0.20 SGOT/AST (test code = AST) IUnit/L 15-37 SGPT/ALT (test code = ALT) IUnit/L 12-78 ALKALINE PHOSPHATASE TOTAL (test code = ALKP) IUnit/L 45-117 [id number] 17:52:00* Test Item Value Reference Range Interpretation Comments LIPASE (test code = LIP) U/L 73.0-393.0 HCG SERUM [id number] 17:52:00* Test Item Value Reference Range Interpretation Comments HCG SERUM QUAL (test code = HCGQL) NEGATIVE NEGATIVE This HCGQL test is NOT applicable for MALE patients.Check with nurse about probable order error.If Tumor Marker Test needed, nurse should order test "HCGTU"(Test #550.61455) BASIC METABOLIC [id number] 17:48:00* Test Item Value Reference Range Interpretation Comments SODIUM (test code = NA) 139 mmol/L 136-145 N POTASSIUM (test code = K) 4.0 mmol/L 3.5-5.1 N CHLORIDE (test code = CL) 108.0 mmol/L 98-107 H CARBON DIOXIDE (test code = CO2) mmol/L 21-32 ANION GAP (test code = GAP) 10-20 GLUCOSE (test code = GLU) mg/dL 74-106 BLOOD UREA NITROGEN (test code = BUN) mg/dL 7-18 GLOMERULAR FILTRATION RATE (test code = GFR) mL/min >=60 CREATININE (test code = CREAT) mg/dL 0.55-1.02 BUN/CREATININE RATIO (test code = BUN/CREA) 10-20 CALCIUM (test code = CA) mg/dL 8.5-10.1 HEPATIC FUNCTION [id number] 17:48:00* Test Item Value Reference Range Interpretation Comments TOTAL PROTEIN (test code = PROT) gram/dL 6.4-8.2 ALBUMIN (test code = ALB) g/dL 3.4-5.0 GLOBULIN (test code = GLOB) gram/dL 2.7-4.2 ALBUMIN/GLOBULIN RATIO (test code = A/G) 0.75-1.50 BILIRUBIN TOTAL (test code = BILT) mg/dL 0.0-1.0 BILIRUBIN DIRECT (test code = BILD) mg/dL 0.0-0.20 SGOT/AST (test code = AST) IUnit/L 15-37 SGPT/ALT (test code = ALT) IUnit/L 12-78 ALKALINE PHOSPHATASE TOTAL (test code = ALKP) IUnit/L 45-117 [id number] 17:48:00* Test Item Value Reference Range Interpretation Comments LIPASE (test code = LIP) U/L 73.0-393.0 HCG SERUM [id number] 17:48:00* Test Item Value Reference Range Interpretation Comments HCG SERUM QUAL (test code = HCGQL) NEGATIVE CBC W/O [id number] 17:38:00* Test Item Value Reference Range Interpretation Comments WHITE BLOOD CELL (test code = WBC) 6.7 K/mm3 4.5-12.5 N RED BLOOD CELL (test code = RBC) 4.76 mill/mm3 3.7-5.2 N HEMOGLOBIN (test code = HGB) 11.7 gram/dL 11.5-15.5 N HEMATOCRIT (test code = HCT) 35.7 % 36.0-46.0 L MEAN CELL VOLUME (test code = MCV) 75.0 fL 80-98 L MEAN CELL HGB (test code = MCH) 24.6 picogram 27.0-33.0 L MEAN CELL HGB CONCETRATION (test code = MCHC) 32.8 gram/dL 33.0-36. 0 L RED CELL DISTRIBUTION WIDTH (test code = RDW) 16.0 % 11.6-16. 2 N PLATELET COUNT (test code = PLT) 143 K/mm3 150-450 L RESULT VERIFIED BY REPEAT ANALYSIS MEAN PLATELET VOLUME (test code = MPV) 12.3 fL 6.7-11.0 H CBC W/O [id number] 17:35:00* Test Item Value Reference Range Interpretation Comments WHITE BLOOD CELL (test code = WBC) K/mm3 4.5-12.5 RED BLOOD CELL (test code = RBC) mill/mm3 3.7-5.2 HEMOGLOBIN (test code = HGB) 11.7 gram/dL 11.5-15.5 N HEMATOCRIT (test code = HCT) % 36.0-46.0 MEAN CELL VOLUME (test code = MCV) fL 80-98 MEAN CELL HGB (test code = MCH) picogram 27.0-33.0 MEAN CELL HGB CONCETRATION (test code = MCHC) gram/dL 33.0-36. 0 RED CELL DISTRIBUTION WIDTH (test code = RDW) % 11.6-16. 2 PLATELET COUNT (test code = PLT) K/mm3 150-450 MEAN PLATELET VOLUME (test code = MPV) fL 6.7-11.0 SCR MAMM BILATERAL ELISHA CAD [id number] 11:37:17 - SCR MAMM BILATERAL ELISHA CAD DIGITALBILATERAL DIGITAL SCREENING MAMMOGRAM 3D/2D WITH CAD: 01/20/2019CLINICAL: Asymptomatic. Digital breast tomosynthesis was performed in addition to routine CC and MLO views. Current mammographic images were evaluated by either a [employer] or a [employer] ImageChecker CAD (computer aided detection system). Comparison is made to exams dated 12/24/2017 mammogram, 05/01/2016 mammogram, and 11/27/2011 mammogram - [facility]-. Ther e are scattered fibroglandular tissues in both breasts. There are benign calcif ications in both breasts. There also are benign vascular calcifications in the left breast. No suspicious mass, architectural distortion, malignant type calci fication, or lymph node abnormality detected. Breast architecture is stable com pared to prior exams.IMPRESSION: BENIGNThere is no mammographic evidence of lori gnancy. Resume annual screening mammography in one year. Violet gutierrez/francesca:01/23/2019 11:37:17 copy to: [facility], [facility] , ph: [phone], fax: [phone] to: Vicki Angelo M.D., ph: [phone], fax: [phone] Technologist: Gabriela MARTINEZ, [facility] sent: BIRADS 1-2 Normal Mammogram BI-RADS: 2 Benign- US TRANSVAGINAL NON [id number] 14:06:00 Name: SADI BENDER [facility] : 1955 Age/S: 63 / F [address] Unit #: [id number] Loc: [place] [address] Phys: Vicki Angelo MD Acct: [id number] Dis Date: Status: REG CLI PHONE #: [phone] Exam Date: 09/26/2018 1353 FAX #: [phone] Reason: EXAMS: CPT CODE: [id number] [place] [address] HISTORY: Menorrhagia. COMPARISON: CT pelvis from April 26, 2018. Transabdominal and transvaginal (for better endometrial and ovarian evaluation) pelvic ultrasound Anteverted uterus measured 9 x 4.3 x 4.5 cm. Thickened endometrium at 1.4 cm which is highly abnormal for postmenopausal woman (should measure less than 5 mm). No fibroids. Echogenicity and texture is heterogeneous. Visualized cervix demonstrating nabothian cysts. Color and Doppler flow within the left ovary. Left ovary measuring 2.5 x 1 x 1.4 cm. Color Doppler flow within the right ovary as well. Right ovary measured 1.6 x 2.6 x 1.8 cm. No free fluid. IMPRESSION: Highly abnormal endometrium at 1.4 cm for postmenopausal woman. No fibroids. Normal ovaries with color Doppler flow. at 1406 Reported and signed by: Jurgen Iverson M.D. CC: Narendra Frank; Vicki Angelo MD Technologist: MARIANNE LAZARO RT(R),RD Trnmdb Date/Time: 09/26/2018 (1406) [email or web address] Orig Print D/T: S: 09/26/2018 (1410) Probe: [id number] PAGE 1 Signed Report - US PELVIS COMPLETE 2018-09-26 14:06:00 Name: SADI BENDER [facility] : 1955 Age/S: 63 / F Rashida Raphael Unit #: [id number] Loc: [place] [address] Phys: Vicki Angelo MD Acct: [id number] Dis Date: Status: REG CLI PHONE #: [phone] Exam Date: 09/26/2018 1353 FAX #: [phone] Reason: N92.0 EXAMS: CPT CODE: [id number] US PELVIS COMPLETE 43931 HISTORY: Menorrhagia. COMPARISON: CT pelvis from April 26, 2018. Transabdominal and transvaginal (for better endometrial and ovarian evaluation) pelvic ultrasound Anteverted uterus measured 9 x 4.3 x 4.5 cm. Thickened endometrium at 1.4 cm which is highly abnormal for postmenopausal woman (should measure less than 5 mm). No fibroids. Echogenicity and texture is heterogeneous. Visualized cervix demonstrating nabothian cysts. Color and Doppler flow within the left ovary. Left ovary measuring 2.5 x 1 x 1.4 cm. Color Doppler flow within the right ovary as well. Right ovary measured 1.6 x 2.6 x 1.8 cm. No free fluid. IMPRESSION: Highly abnormal endometrium at 1.4 cm for postmenopausal woman. No fibroids. Normal ovaries with color Doppler flow. at 1406 Reported and signed by: Jurgen Iverson M.D. CC: Narendra Frank; Vicki Angelo MD Technologist: MARIANNE LAZARO RT(R),RDMS Trnscb Date/Time: 09/26/2018 (4092) [email or web address] Orig Print D/T: S: 09/26/2018 (0691) Probe: PAGE 1 Signed Report [id number] 16:28:00 RUN DATE: 05/02/18 [facility] PAGE 1 RUN TIME: 1628 Specimen Inqui ry RUN USER: INTERFACE PATIENT: SADI BENDER ACCT #: [id number] LOC: JEMMA U #: [id number] AGE/SX: 63/F ROOM: [facility] RE04/26/18REG DR: Refugio Cruz MD : 55 BED: A DIS: STATUS: ADM Stephanie TLOC: SPEC #: [id number] RECD: 04/29/18 STATUS: DAVID TAM #: [id number] ABELINO: 04/28/18- SUBM DR: Refugio Cruz MD ENTERED: 04/29/18 SP TYPE: GALLBLADD OTHR DR: Fabian Pineda MD ORDERED: GROSS COPIES TO: Carlin Pineda MD [phone] [place] [address] Refugio Cruz MD [address] [facility]. #[place] [address] MARKERS: ABNORMAL TISS UE, GALLBLADDER PROCEDURES: GROSS (05/02/18-1212) TISSUES: GALLBLADDER , NOS CLINICAL HISTORY COLLECTION DATE: 04/28/2018 CHOLELITHIA SIS FINAL DIAGNOSIS Gallbladder, cholecystectomy: CHOLELITHIAS IS CHRONIC CHOLECYSTITIS LYMPH NODE WITH LIPOGRANULOMAS NE GATIVE FOR MALIGNANCY DMW/ A [id number] CONTINUED ON NEXT PAGE RUN DATE: 05/02/18 [facility] PAGE 2 RUN TIME: 1628 Specimen Inquiry RUN USER: INTERFACE SPEC #: [id number] PATIENT: SADI BENDER #[id number] (Continued)- MACROSCOPIC The specimen is received in formalin label ed with the patient's name, "gallbladder" and consists of an intact gallbladde r with a smooth franklin-guadarrama serosal surface. The specimen measures 8.5 cm in le ngth with diameter up to 3.5 cm. A segment of duct is clamped that measures 0.8 cm in length. An ovoid red-brown lymph node measuring 1.1 x 0.8 x 0.3 cm is present at the neck of the gallbladder. The lumen contains thick black-gre en bile and two dark green mixed composition stones measuring up to 1.7 cm in diameter. The mucosal surface is dark green and velvety. The gallbladder wal l measures up to 0.3 cm in thickness. No discrete nodules or masses are presen t. Risk Intern tissue is submitted in a single cassette. GROSS PERFO RMED AT [facility] [address] [facility], [place] [address] [phone])[phone] MICROSCOPIC MICROSCOPIC PERFORME D AT [facility] All of the stains, including any controls performe d, stain appropriately. [facility] [address] [facility], [place] [address] (p)[phone] PERFORMING SITE Diagnosis performed at: [facility], [place] [address] [facility], [place] [id number] Signed SIGNATURE ON FILE Tenisha Michele 05/02/18 1628 END OF REPORT
[2020-04-17] MEDS ORDERED: ASPIRIN 81 MG CHEW TAB PO ONE (18:00)
[2020-04-17 18:17] LABS: AMPHETAMINES SCREEN,URINE NEGATIVE (NEGATIVE); BENZODIAZEPINES SCREEN,URINE NEGATIVE (NEGATIVE); PHENCYCLIDINE SCREEN,URINE NEGATIVE (NEGATIVE)
--- NOTE | 2020-04-17 18:24 | Diagnostic Imaging Report ---
EXAMINATION: CHEST SINGLE (PORTABLE) INDICATION: ^Y ^CP ^[id number] ^1710 COMPARISON: None FINDINGS: TUBES and LINES: None. LUNGS: Normal lung volumes. Lungs are clear. No consolidations. Bibasilar atelectasis. PLEURA: No pleural effusion or pneumothorax. HEART AND MEDIASTINUM: The cardiomediastinal silhouette is unremarkable. BONES AND SOFT TISSUES: No acute osseous lesion. Soft tissues are unremarkable. UPPER ABDOMEN: No free air under the diaphragm. IMPRESSION: No acute thoracic radiographic abnormality. Signed by: Kimberley Angelo MD on 04/17/2020 6:21 PM
[2020-04-17 18:25] LABS: CLARITY,URINE CLEAR (CLEAR); COLOR,URINE YELLOW (YELLOW); KETONES,URINE NEGATIVE (NEGATIVE); LEUKOCYTE ESTERASE ,URINE NEGATIVE (NEGATIVE); NITRITE,URINE NEGATIVE (NEGATIVE); PROTEIN,URINE DIPSTICK NEGATIVE (NEGATIVE)
[2020-04-17 18:26] LABS: BACTERIA,URINE RARE /HPF; BILIRUBIN,URINE SMALL (NEGATIVE); EPITHELIAL CELLS,URINE FEW /LPF; RBC,URINE 0-5 /HPF (0-5); URINE UROBILINOGEN 0.2 mg/dL (0.2 - 1); WBC,URINE (MAN) 0-5 /HPF (0-5)
[2020-04-17 18:46] LABS: CREATINE KINASE 29 IU/L (29-168)
[2020-04-17 18:53] LABS: SALICYLATE < 5.0 mg/dL (0-30)
--- NOTE | 2020-04-17 18:58 | NUR ---
report given to Karishma Schultz RN, receiving nurse made aware that EDP wants Delta Troponin results before MAT Team is called for assessment
[2020-04-17 19:24] LABS: THYROID STIMULATING HORMONE 2.567 uIU/mL (0.350-4.940)
[2020-04-17 22:49] LABS: CREATINE KINASE 26 IU/L (29-168)
[2020-04-18] MEDS ORDERED: ACETAMINOPHEN 325 MG TAB ONE (01:00)
[2020-04-18] MEDS ORDERED: ACETAMINOPHEN 325 MG TAB PO PRN (01:00)
--- NOTE | 2020-04-18 03:00 | NUR ---
ADMINISTRATIVE APPROVAL RECEIVED FROM CARTER MORFIN WITH [facility].
--- NOTE | 2020-04-18 03:00 | NUR ---
DR. Nicanor PEDROZA WITH [facility] SPEAKING TO RAFFY VALDES AT THIS TIME
--- NOTE | 2020-04-18 03:10 | NUR ---
[facility] CALLED FOR TRANSPORT
[2020-04-18 04:08] VITALS: BP 95/59
== END 2020-04-18 04:10 ==
LOC: ER 16:40
DX: R45.851 Suicidal ideations (principal); R07.9 Chest pain, unspecified; I10 Essential (primary) hypertension; E11.9 Type 2 diabetes mellitus without complications; E03.9 Hypothyroidism, unspecified; D64.9 Anemia, unspecified; K76.9 Liver disease, unspecified; R94.31 Abnormal electrocardiogram [ECG] [EKG]
CPT/HCPCS: 36415; 71045; 80053; 80307; 80320; 80329 ×2; 81001; 82550; 82553; 83690; 84443; 84484; 85025; 93005; 99284; U0002

== ENCOUNTER 2021-01-10 19:02 | Emergency (ER) | payer BC ==
[~2021-01-10] VITALS: Ht 154.9 cm; Wt 115.7 kg
[2021-01-10 19:33] LABS: CLARITY,URINE CLOUDY (CLEAR); COLOR,URINE RED (YELLOW)
[2021-01-10 19:34] LABS: KETONES,URINE NEGATIVE (NEGATIVE); LEUKOCYTE ESTERASE ,URINE TRACE (NEGATIVE); NITRITE,URINE POSITIVE (NEGATIVE); PROTEIN,URINE DIPSTICK 2+ (NEGATIVE); URINE UROBILINOGEN 0.2 mg/dL (0.2 - 1)
[2021-01-10 19:46] LABS: BASOPHILS % 0.3 % (0.0-1.0); EOSINOPHILS # (AUTO) 0.1 (0.0-0.4); EOSINOPHILS % 2.9 % (0.0-6.0); HEMOGLOBIN 7.7 g/dL (12.0-16.0); LYMPHOCYTES # (AUTO) 0.7 (1.0-3.2); LYMPHOCYTES % 20.4 % (18.0-39.1); MEAN CORPUSCULAR HEMOGLOBIN 24.1 pg (28-32); MEAN CORPUSCULAR HGB CONC 32.1 g/dL (31-35); MONOCYTES # (AUTO) 0.3 (0.2-0.8); MONOCYTES % 9.4 % (4.4-11.3); NEUTROPHILS # (AUTO) 2.3 (2.1-6.9); PLATELET COUNT 93 x10e3/uL (140-360); RED CELL DISTRIBUTION WIDTH 17.9 % (11.7-14.4)
[2021-01-10 19:46] LABS: WBC,URINE (MAN) 0-5 /HPF (0-5)
[2021-01-10 19:47] LABS: BACTERIA,URINE FEW /HPF; RBC,URINE >50 /HPF (0-5)
[2021-01-10 20:06] LABS: ALBUMIN 3.5 g/dL (3.5-5.0); ALBUMIN/GLOBULIN RATIO 1.1 (0.8-2.0); ANION GAP 14.8 mmol/L (8-16); CALCIUM 8.3 mg/dL (8.4-10.2); CREATININE, SERUM 1.06 mg/dL (0.57-1.11); POTASSIUM 3.8 mmol/L (3.5-5.1)
== END 2021-01-10 19:33 | disposition left against medical advice (07) ==
LOC: ER 19:23
DX: F41.9 Anxiety disorder, unspecified (principal); R07.9 Chest pain, unspecified; R06.00 Dyspnea, unspecified; I10 Essential (primary) hypertension; E11.9 Type 2 diabetes mellitus without complications; E03.9 Hypothyroidism, unspecified; K76.9 Liver disease, unspecified
CPT/HCPCS: 36415; 80053; 81001; 83690; 84484; 85025; 93005; 99283